=== PATIENT | female | born 1960 | race African-American/Black ===

== ENCOUNTER 2024-09-16 13:24 | Emergency (ER) | payer MEDICARE, MEDICAID ==
[~2024-09-16] VITALS: Ht 160 cm; Wt 72.7 kg
[2024-09-16 13:59] VITALS: PULSE 100; RESP 18; TEMP 98.2; O2SAT 96
--- NOTE | 2024-09-16 15:12 | ED.PDOC ---
History of Present Illness(SKN HPI Comments 64 y/o F, with PMHX of HTN and psoriasis presents to the ED for CC of facial pain. Patient states, that she has been experiencing facial pain with associated erythema x3days following using a new shampoo. Patient relays, she has developed a dry scaly rash that is red in appearance on her chest, face, and eyelids as a result. Patient comments on, irritability and itchiness to the sites. Patient denies skin barrier breakage, fever, chills, shortness of breath, or body aches. No other symptoms or modifying factors at this time. Chief Complaint: Face pain Time Seen by MD: 15:00 Primary Care Provider: SEBLE History of Present Illness: Nurses Notes, Medications, Allergies Allergies: Coded Allergies: Codeine (Unverified Allergy, Severe, 08/02/14) Erythromycin (Unverified Allergy, Severe, 08/02/14) Penicillins (Unverified Allergy, Severe, 08/02/14) Home Meds Active Scripts Diphenhydramine Hcl (Benadryl Allergy) 25 Mg Cap, 1 CAP PO QPM, #30 CAP 1 Refill Prov:GWENDOLYN EASTMAN MD 09/16/24 Methylprednisolone (Medrol Dosepak) 4 Mg Samy, 4 MG PO UD, #21 TAB UAD Prov:GWENDOLYN EASTMAN MD 09/16/24 Information Source: Patient Mode of Arrival: Ambulatory Severity: Moderate Timing: Days Duration: Since onset Prehospital treatment: None Location: Chest, Face Mechanism: Cosmetic Developed: Rash Object: None Condition of Object: None Wound Type: None Immunization Status of Animal: Unknown Tetanus: Unknown History of: None Associated Signs and Symptoms: None Past Medical History PAST MEDICAL HISTORY: Anxiety, HTN Surgical History: Appendectomy, Cholecystectomy, Hysterectomy AUTOMATION TENDER History: No Pertinent AUTOMATION TENDER History Family History Family History: Unknown Social History Smoker: Cigarettes, Less Than 1 Pack/Day Alcohol: Occasionally Drugs: Denies Drug Use Lives In: Home Constitutional: denies: chills, diaphoresis, fatigue, fever, malaise, sweats, weakness, others EENTM: denies: blurred vision, double vision, ear bleeding, ear discharge, ear drainage, ear pain, ear ringing, eye pain, eye redness, hearing loss, mouth pain, mouth swelling, nasal discharge, nose bleeding, nose congestion, nose pain, photophobia, tearing, throat pain, throat swelling, voice changes, others Respiratory: denies: cough, hemoptysis, orthopnea, SOB at rest, shortness of breath, SOB with excertion, stridor, wheezing, others Cardiovascular: denies: chest pain, dizzy spells, diaphoresis, Dyspnea on exertion, edema, irregular heart beat, left arm pain, lightheadedness, palpitations, PND, syncope, others Gastrointestinal: denies: abdomen distended, abdominal pain, blood streaked bowels, constipated, diarrhea, dysphagia, difficulty swallowing, hematemesis, melena, nausea, poor appetite, poor fluid intake, rectal bleeding, rectal pain, vomiting, others Genitourinary: denies: abnormal vagina bleeding, burning, dyspareunia, dysuria, flank pain, frequency, hematuria, incontinence, pain, , vagina disch arge, urgency, others Neurological: denies: dizziness, fainting, headache, left sided numbness, left sided weakness, numbness, paresthesia, pre-existing deficit, right sided numbness, right sided weakness, seizure, speech problems, tingling, tremors, weakness, others Musculoskeletal: denies: back pain, gout, joint pain, joint swelling, muscle pain, muscle stiffness, neck pain, others Integumetry: reports: rash; denies: bruises, change in color, change in hair/nails, dryness, laceration, lesions, lumps, wounds, others Allergic/Immunocompromised: denies: Difficulty Healing, Frequent Infections, Hives, Itching, others Hematologic/Lymphatic: denies: anemia, blood clots, easy bleeding, easy bruising, swollen glands, others Endocrine: denies: excessive hunger, excessive sweating, excessive thirst, excessive urination, flushing, intolerance to cold, intolerance to heat, unexplained weight gain, unexplained weight loss, others Psychiatric: denies: anxiety, bipolar disorder, depression, hopeless, panic disorder, schizophrenia, sleepless, suicidal, others All Other Systems: Reviewed and Negative Physical Exam General Appearance: Mild Distress HEENT: Normal ENT Inspection, Pharynx Normal, TMs Normal Neck: Full Range of Motion, Non-Tender, Normal, Normal Inspection Respiratory: Chest Non-Tender, Lungs Clear, No Accessory Muscle Use, No Respiratory Distress, Normal Breath Sounds Cardiovascular: No Edema, No JVD, No Murmur, No Gallop, Normal Peripheral Pulses, Regular Rate/Rhythm Breast Exam: Deferred Gastrointestinal: No Organomegaly, Non Tender, No Pulsatile Mass, Normal Bowel Sounds, Soft Genitalia: Deferred Pelvic: Deferred Rectal: Deferred Extremities: No calf tenderness, Normal capillary refill, Normal inspection, Normal range of motion, Non-tender, No pedal edema Musculoskeletal : Apperance: Normal Neurologic: Alert, 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 Was a procedure done?: No Differential Diagnosis (INTG) Differential Diagnosis: Cellulitis Differential Diagnosis: Atopic dermatitis, Contact Dermatitis, Psoriasis X-Ray, Labs, Meds, VS Vital Signs Date Time Temp Pulse Resp B/P (MAP) Pulse Ox O2 Delivery O2 Flow Rate FiO2 09/16/24 13:59 98.2 100 18 191/106 (134) 96 98.2 The patient was given prednisone and Benadryl here in the emergency department's The patient was being discharged and will follow up with the primary care doctor The patient will return to the emergency department's condition worsens The patient was being diagnosed with an acute allergic reaction The patient will follow up with their doctor Time of 1ST Reevaluation: 15:30 Reevaluation 1ST: Unchanged Patient Education/Counseling: Diagnosis, Treatment, Prognosis, Need For Follow Up Family Education/Counseling: No Family Present Departure 1 Departure Time of Disposition: 16:04 Impression: Primary Impression: Acute allergic reaction Qualified Codes: T78.40XA - Allergy, unspecified, initial encounter Disposition: HOME / SELF CARE / HOMELESS Condition: Fair e-Prescriptions Diphenhydramine Hcl (Benadryl Allergy) 25 Mg Cap 1 CAP PO QPM, #30 CAP 1 Refill Prov: GWENDOLYN AESTMAN MD 09/16/24 Methylprednisolone (Medrol Dosepak) 4 Mg Samy 4 MG PO UD, #21 TAB UAD Prov: GWENDOLYN EASTMAN MD 09/16/24 Discharged With: Self Critical Care Note Critical Care Time?: No Stability Stability form required: No Heart Score Heart Score: Heart Score Response (Comments) Value History N/A 0 EKG N/A 0 Age N/A 0 Risk Factors N/A 0 Troponin N/A 0 Total 0 I personally scribed for GWENDOLYN EASTMAN MD ([email or web address]) on 09/16/24 at 15:12. Electronically submitted by Yvette Garcia ([email or web address]). I personally scribed for GWENDOLYN EASTMAN MD ([email or web address]) on 09/16/24 at 15:28. Electronically submitted by Yvette Garcia ([employer]). GWENDOLYN EASTMAN MD Sep 16, 2024 15:12
[2024-09-16] MEDS ORDERED: DIPH25CA66 PO (16:02)
[2024-09-16] MEDS ORDERED: METH4PAK PO (16:02)
[2024-09-16] MEDS: diphenhdrAMINE HCL 25 MG CAP PO ONE (16:57)
[2024-09-16] MEDS: methylPREDNISolone SOD SUCC 125 MG/2 ML VL IM ONE (16:57)
[2024-09-16] MEDS: cloNIDine HCL 0.1 MG TAB PO ONE (17:27)
[2024-09-16 17:28] VITALS: BP 205/101
== END 2024-09-16 17:28 | disposition home or self-care (01) ==
LOC: ER 13:24
DX: T78.40XA Allergy, unspecified, initial encounter (principal); I10 Essential (primary) hypertension; F41.9 Anxiety disorder, unspecified; F17.210 Nicotine dependence, cigarettes, uncomplicated; Z90.49 Acquired absence of other specified parts of digestive tract; Z90.710 Acquired absence of both cervix and uterus; Z88.5 Allergy status to narcotic agent; Z88.1 Allergy status to other antibiotic agents; Z88.0 Allergy status to penicillin; X58.XXXA Exposure to other specified factors, initial encounter
CPT/HCPCS: 96372; 99283; J2919

== ENCOUNTER 2024-09-25 16:22 | Inpatient (IN) | payer MEDICARE, MEDICAID ==
[~2024-09-25] VITALS: Ht 160 cm; Wt 74.6 kg
[~2024-09-25 16:22] MED LIST: DIPH25CA66 PO; METH4PAK PO
--- NOTE | 2024-09-25 17:10 | DVH ---
EXAM: CT HEAD WITHOUT CONTRAST HISTORY: Hypertensive crisis COMPARISON: None TECHNIQUE: Axial images of the head were obtained and reformatted in coronal and sagittal planes. All CT scans at this medical facility are performed using dose modulation techniques as appropriate t o a performed exam including the following: Automated exposure control was utilized; adjustment of th e MA and/or KV according to patient size; and use of iterative reconstruction technique. CT Dose: CTDI volume is 52.39 mGy. Dose-length product is 863.9 mGy*cm FINDINGS: There small hypodense foci in the right and left thalamic regions (axial image 15). Age-indeterminate infarcts are not excluded. There are chronic microvascular ischemic changes in the supratentorial wh ite matter. There is a prominent perivascular space in the left basal ganglia. There is no evidence of acute intracranial hemorrhage, mass, mass effect midline shift. There is no h ydrocephalus or extra-axial fluid collection. The visualized paranasal sinuses and mastoid air cells are clear. The calvarium is intact. IMPRESSION: 1. Nonspecific small hypodense foci in the right and left thalamic regions. Age-indeterminate infarc ts are not excluded. Further evaluation with MRI brain with diffusion-weighted imaging is recommended . 2. There is no acute intracranial hemorrhage. HS:Y
--- NOTE | 2024-09-25 17:26 | DVH ---
EXAM: XY CHEST PORTABLE TECHNIQUE: Single frontal chest radiograph CLINICAL HISTORY: Hypertensive crisis COMPARISON: None Findings/Impression: Frontal chest radiograph demonstrates no acute osseous or superficial soft tissue abnormalities. The trachea is midline. The cardiac silhouette and mediastinum are within normal limits. Right upper and lower lung field patchy airspace opacities. No pneumothorax or pleural effusions.
[2024-09-25 17:27] LABS: Basophils # (auto) 0.1 10 ^3/uL (0-0.2); Basophils % (auto) 0.9 % (0.0-2.0); Eosinophils # (auto) 1.1 10 ^3/uL (0-0.8); Eosinophils % (auto) 8.6 % (0.0-7.0); Hematocrit 42.3 % (36.0-46.0); Hemoglobin 14.3 g/dL (12.2-16.2); Lymphocytes # (auto) 2.2 10 ^3/uL (0.4-5.4); Lymphocytes % (auto) 17.9 % (10.0-50.0); Mean Corpuscular Hemoglobin 30.4 pg (28.0-32.0); Mean Corpuscular Hgb Conc. 33.9 g/dL (32.0-36.0); Mean Corpuscular Volume 89.6 fL (80.0-100.0); Monocytes # (auto) 0.7 10 ^3/uL (0-1.3); Monocytes % (auto) 5.8 % (0.0-12.0); Neutrophils # (auto) 8.3 10 ^3/uL (1.6-8.6); Neutrophils % (auto) 66.8 % (37.0-80.0); Platelet Count (auto) 279 10^3/uL (140-450); Red Blood Cells 4.72 10^6/uL (4.0-5.20); Red Cell Distribution Width 15.2 % (11.8-14.3); White Blood Cell 12.4 10^3/uL (4.4-10.8)
--- NOTE | 2024-09-25 17:29 | ED.PDOC ---
HPI Allergic reaction HPI Comments Jensen: HPI: Poor Historian. 64y F who presents to the ED for chief complaint of allergic reaction. Pt had the following ED course: - pt states she has been having allergic reaction to the face, forehead, chest for the past 2 weeks. - pt states she came to [facility] 1 week prior and states she was given benadryl and steroids and discharged -pt states despite taking the medications, she has continued to have burning, itching and redness and exacerbation of her allergy symptoms - pt otherwise in the ED, has noted elevated BP of 257/99 after repeat measurement with pt having noted history of HTN and not taking medications for the past 6 weeks - pt in the ED, rates the pain 8/10, constant, burning like sensation with no noted exacerbation or relief of symptoms - pt vitals are otherwise stable in the ED, with no noted respiratory compromise past medical history: HTN, anxiety, psoriasis, cellulitis past surgical history: appendectomy, hysterectomy, cholecystomy, shoulder surgery medications: atenolol, allergies: penicillin, erythromycin, codeine social history: endorses tobacco use, endorses Etoh use, denies drug use REVIEW OF SYSTEMS: CONSTITUTIONAL: Denies acute: fever, diaphoresis, chills, generalized weakness. HEAD: Denies acute: headache, photophobia Eyes: Denies acute: Double vision, vision loss, eye pain, eye discharge. EARS: Denies acute: tinnitus, hearing loss, ear discharge, ear pain, THROAT: Denies acute: sore throat, swelling, difficulty swallowing , pain with swallowing, change in voice. NECK: Denies acute: neck pain, neck swelling, stiff neck. HEART: Denies acute : chest pain, palpitations, LUNGS: Denies acute: SOB, wheezing, cough, hemoptysis ABDOMEN: Denies acute: abdominal pain, Nausea, Vomiting, diarrhea, melena , hematemesis, hematochezia SKIN: Denies acute: EXTREMITIES: Denies acute: calf pain, numbness, tingling, weakness, denies pain in extremity. Denies acute: Low back pain. Neuro: Denies acute: focal neurological deficit, motor or sensory focal neurological deficit, tremors, seizure like activity, confusion, dizziness, change in mental status, loss of bowel or bladder function, cauda equina like symptoms. : Denies acute: dysuria, hematuria, flank pain, increase in urinary frequency. PSYCH: Denies acute: hallucination, suicidal ideation, homicidal ideation. FEMALE: Denies acute: abnormal vaginal bleeding, foul odor, unusual discharge. PHYSICAL EXAM: General: [id number] acute distress, awake and alert. Head: normocephalic, atraumatic. Neck: supple, trachea is midline, no swelling. Throat: Normal phonation. Eyes:, no erythema, no purulent discharge, no proptosis, no icterus. Heart: regular rate, regular rhythm, no significant murmur appreciated. Lungs: no apparent respiratory distress, Able to speak in full sentences. No wheezing, no rhonchi, no crackles. No stridors Clear to auscultation bilaterally. Abdomen: non tender to palpation, non distended, soft, no guarding, no rebound, + bowel sounds. Neuro: Awake, Alert, oriented to name, self, situation, follows commands GCS=15. Speech is normal. Skin: no petechia, no purpura, no cyanosis, non-pale, not jaundice. Noted generalized facial hives and chest and extremities. Patient describes it as burning itching sensation. Patient has psoriasis Lower extremities: --no - Pitting edema no deformity, no focal swelling, no calf TTP. Makes eye contact. moves all four extremities. Face: no apparent facial droop. Ambulating in the ED independently. ED COURSE: Chief Complaint: allergic reaction Time Seen by MD: 17:28 Primary Care Provider: NONE Reviewed Notes: Nurses Notes, Medications, Allergies Allergies: Coded Allergies: Codeine (Unverified Allergy, Severe, 08/02/14) Erythromycin (Unverified Allergy, Severe, 08/02/14) Penicillins (Unverified Allergy, Severe, 08/02/14) Home Meds Active Scripts Diphenhydramine Hcl (Benadryl Allergy) 25 Mg Cap, 1 CAP PO QPM, #30 CAP 1 Refill Prov:GWENDOLYN EASTMAN MD 09/16/24 Methylprednisolone (Medrol Dosepak) 4 Mg Samy, 4 MG PO UD, #21 TAB UAD Prov:GWENDOLYN EASTMAN MD 09/16/24 Information Source: Patient Mode of Arrival: Ambulatory Past Medical History PAST MEDICAL HISTORY: Anxiety, HTN Surgical History: Appendectomy, Cholecystectomy, Hysterectomy LINEMAN APPRENTICE History: No Pertinent LINEMAN APPRENTICE History Family History Family History: Unknown Social History Smoker: Cigarettes, Less Than 1 Pack/Day Alcohol: Occasionally Drugs: Denies Drug Use Lives In: Home Was a procedure done? Was a procedure done?: No Differential diagnosis (all) Differential Diagnosis: Anaphylaxis, Angioedema, Bronchospasm, Contact Dermatitis, Drug Reaction, Hypotension, Renal Failure, Respiratory Failure, Shock, Urticaria, Other (As far as the hypertension, DDX include renal disease, thyroid disease, electrolyte abnormality, increased salt intake, medications non-compliance, undiagnosed HTN, Hypertensive crisis, hypertensive urgency., drug toxicity. ) X-Ray, Labs, Meds, VS Vital Signs Date Time Temp Pulse Resp B/P (MAP) Pulse Ox O2 Delivery O2 Flow Rate FiO2 09/25/24 22:33 98.7 83 17 198/79 (118) 96 98.7 09/25/24 21:02 78 194/97 09/25/24 20:06 Room Air* 0 21 09/25/24 20:06 97.9 74 17 184/91 (122) 96 97.9 09/25/24 20:05 93 09/25/24 20:02 74 184/91 09/25/24 18:21 90 20 97 Room Air* 0 21 09/25/24 18:13 90 218/130 09/25/24 18:09 97.9 91 18 218/130 (159) 97 97.9 09/25/24 16:28 98.0 102 20 260/115 (163) 98 98.0 257/99 (151) Lab Test 09/25/24 19:55 09/25/24 18:07 09/25/24 17:10 Range/Units Lactic Acid Level 1.5 2.2 *H 0.4-2.0 mmol/L Troponin I High Sensitivity 35 *H 29 25 </=34 ng/L White Blood Count 12.4 H 4.4-10.8 10^3/uL Red Blood Count 4.72 4.0-5.20 10^6/uL Hemoglobin 14.3 12.2-16.2 g/dL Hematocrit 42.3 36.0-46.0 % Mean Corpuscular Volume 89.6 80.0-100.0 fL Mean Corpuscular Hemoglobin 30.4 28.0-32.0 pg Mean Corpuscular Hemoglobin Concent 33.9 32.0-36.0 g/dL Red Cell Distribution Width 15.2 H 11.8-14.3 % Platelet Count 279 140-450 10^3/uL Mean Platelet Volume 8.4 6.9-10.8 fL Neutrophils (%) (Auto) 66.8 37.0-80.0 % Lymphocytes (%) (Auto) 17.9 10.0-50.0 % Monocytes (%) (Auto) 5.8 0.0-12.0 % Eosinophils (%) (Auto) 8.6 H 0.0-7.0 % Basophils (%) (Auto) 0.9 0.0-2.0 % Neutrophils # (Auto) 8.3 1.6-8.6 10 ^3/uL Lymphocytes # (Auto) 2.2 0.4-5.4 10 ^3/uL Monocytes # (Auto) 0.7 0-1.3 10 ^3/uL Eosinophils # (Auto) 1.1 H 0-0.8 10 ^3/uL Basophils # (Auto) 0.1 0-0.2 10 ^3/uL Nucleated Red Blood Cells 0.0 % Erythrocyte Sedimentation Rate 10 0-20 mm/hr Sodium Level 144 136-145 mmol/L Potassium Level 4.0 3.5-5.1 mmol/L Chloride Level 110 H 98-107 mmol/L Carbon Dioxide Level 25 20-31 mmol/L Anion Gap 9 5-15 Blood Urea Nitrogen 27 H 9-23 mg/dL Creatinine 1.10 H 0.550-1.02 mg/dL Glomerular Filtration Rate Calc 56 >90 mL/min BUN/Creatinine Ratio 24.5 H 10.0-20.0 Serum Glucose 157 H 74-106 mg/dL Calcium Level 10.0 8.7-10.4 mg/dL Total Bilirubin 0.2 0.2-1.0 mg/dL Aspartate Amino Transferase (AST) 10 L 13-40 U/L Alanine Aminotransferase (ALT) 12 7-40 U/L Alkaline Phosphatase 76 46-116 U/L C-Reactive Protein High Sensitivity 0.81 <1.0 mg/dL B-Type Natriuretic Peptide 59.79 0-100 pg/mL Total Protein 6.5 5.7-8.2 g/dL Albumin 4.4 3.2-4.8 g/dL Current Medications Medications (Trade) Dose Ordered Sig/Minerva Route Start Time Stop Time Status Last Admin Famotidine (Pepcid Injection) 20 mg ONCE ONCE IV 09/25/24 17:15 09/25/24 17:16 DC 09/25/24 18:14 Diphenhydramine HCl (Benadryl Injection) 50 mg ONCE ONCE IV 09/25/24 17:15 09/25/24 17:16 DC 09/25/24 18:14 Methylprednisolone Sodium Succinate (Solu Medrol) 125 mg ONCE ONCE IV 09/25/24 17:15 09/25/24 17:16 DC 09/25/24 18:13 Labetalol HCl (Labetalol HCl) 5 mg ONCE ONCE IV 09/25/24 17:15 09/25/24 17:16 DC 09/25/24 18:13 Levofloxacin (Levaquin Tablet) 750 mg ONCE ONCE PO 09/25/24 19:00 09/25/24 19:01 DC 09/25/24 20:01 Labetalol HCl (Labetalol HCl) 10 mg STAT ONCE IV 09/25/24 19:00 09/25/24 19:01 DC 09/25/24 20:02 [place] [address] Ph: [phone] DIAGNOSTIC IMAGING Diagnostic Imaging Report : [id number] Signed PATIENT: AYAH GUERRIER ACCT: [id number] UNIT: [id number] : 1960 LOC: ER ROOM / BED: / AGE / SEX: 64 / F ADM STATUS: REG ER SERVICE [id number] ORDERING PHYSICIAN: MICHAEL HAMILTON DO PROCEDURE(s): HWOCT - HEAD WITHOUT CONTRAST REASON: Hypertensive crisis ORDER NUMBER(s): [id number], ACCESSION NUMBER(s): [id number] EXAM: CT HEAD WITHOUT CONTRAST HISTORY: Hypertensive crisis COMPARISON: None TECHNIQUE: Axial images of the head were obtained and reformatted in coronal and sagittal planes. All CT scans at this medical facility are performed using dose modulation techniques as appropriate to a performed exam including the following: Automated exposure control was utilized; adjustment of the MA and/or KV according to patient size; and use of iterative reconstruction technique. CT Dose: CTDI volume is 52.39 mGy. Dose-length product is 863.9 mGy*cm FINDINGS: There small hypodense foci in the right and left thalamic regions (axial image 1 5). Age-indeterminate infarcts are not excluded. There are chronic microvascular ischemic changes in the supratentorial white matter. There is a prominent perivascular space in the left basal ganglia. There is no evidence of acute intracranial hemorrhage, mass, mass effect midline shift. There is no hydrocephalus or extra-axial fluid collection. The visualized paranasal sinuses and mastoid air cells are clear. The calvarium is intact. IMPRESSION: 1. Nonspecific small hypodense foci in the right and left thalamic regions. Age-indeterminate infarcts are not excluded. Further evaluation with MRI brain with diffusion-weighted imaging is recommended. 2. There is no acute intracranial hemorrhage. HS:Y ATED BY: WILMAN SLOAN MD DICTATED DATE/TIME: 09/25/241707 SIGNED BY: WILMAN SLOAN MD SIGNED DATE/TIME: 09/25/241707 CC: [place] [id number] Ph: [phone] DIAGNOSTIC IMAGING Diagnostic Imaging Report : [id number] Signed PATIENT: AYAH GUERRIER ACCT: [id number] UNIT: [id number] : 1960 LOC: ER ROOM / BED: / AGE / SEX: 64 / F ADM STATUS: REG ER SERVICE ORDERING PHYSICIAN: MICHAEL HAMILTON DO PROCEDURE(s): CXRP - CHEST PORTABLE REASON: Hypertensive crisis ORDER NUMBER(s): [id number], ACCESSION NUMBER(s): [id number] EXAM: XY CHEST PORTABLE TECHNIQUE: Single frontal chest radiograph CLINICAL HISTORY: Hypertensive crisis COMPARISON: None Findings/Impression: Frontal chest radiograph demonstrates no acute osseous or superficial soft tissue abnormalities. The trachea is midline. The cardiac silhouette and mediastinum are within normal limits. Right upper and lower lung field patchy airspace opacities. No pneumothorax or pleural effusions. ATED BY: MARYJANE ALLRED DO DICTATED DATE/TIME: 09/25/241723 SIGNED BY: MARYJANE ALLRED DO SIGNED DATE/TIME: 09/25/241723 CC: Time of 1ST Reevaluation: 20:05 (Patient was given allergic reaction medications and she improved slightly but it rebounded again. Patient continues to be hypertensive. I will start her on a antihypertensive drip.) Reevaluation 1ST: Unchanged Time of 2ND Reevaluation: 22:49 Reevaluation 2ND: Improved Patient Education/Counseling: Diagnosis, Treatment Family Education/Counseling: No Family Present Comments Patient presented with the above HPI.---allergic reaction---workup was initiated. patient was found with the above mentioned diagnosis. Patient was found with hypertensive crisis as well. the following medications were ordered: please refer to order lists of meds and tests obtained by myself Dr. Hamilton. Patient ED course and VS have been stabilized. Patient has been reassessed in the ED and remained in a stable condition. Pertinent incidental findings were discussed with the patient and/or family. Patient/family voices understanding and is agreeable with plan. Patient has been observed in the ED adequate length of time to insure improvement/stability. Escalation of care considered: Consideration of escalation to observation or admission Patient was ADMITTED to the medicine team for further evaluation and treatment of their presentation. All the reports of any imaging studies that were ordered by myself were reviewed by myself. Departure 1 Departure Time of Disposition: 20:04 Impression: Primary Impression: Acute allergic reaction Additional Impressions: Uncontrolled hypertension Hypertensive crisis Disposition: ADMITTED INPATIENT Admit to: Tele Condition: Guarded Discharged With: Self Critical Care Note Critical Care Time?: Yes (45 min-critical care time only) I personally scribed for MICHAEL HAMILTON DO ([email or web address]) on 09/25/24 at 17:29. Electronically submitted by Selina Avila ([email or web address]). I personally scribed for MICHAEL HAMILTON DO ([email or web address]) on 09/25/24 at 17:30. Electronically submitted by Selina Avila ([email or web address]). I personally scribed for MICHAEL HAMILTON DO ([email or web address]) on 09/25/24 at 17:33. Electronically submitted by Selina Avila ([email or web address]). MICHAEL HAMILTON DO Sep 25, 2024 17:29
[2024-09-25 17:41] LABS: Alanine Aminotransferase 12 U/L (7-40); Albumin 4.4 g/dL (3.2-4.8); Alkaline Phosphatase 76 U/L (46-116); Anion Gap 9 (5-15); BUN/Creatinine Ratio 24.5 (10.0-20.0); Carbon Dioxide 25 mmol/L (20-31); Sodium 144 mmol/L (136-145); Total Protein 6.5 g/dL (5.7-8.2)
[2024-09-25 17:43] LABS: Aspartate Aminotransferase 10 U/L (13-40); Bilirubin, Total 0.2 mg/dL (0.2-1.0); Blood Urea Nitrogen 27 mg/dL (9-23); Chloride 110 mmol/L (98-107); Glucose 157 mg/dL (74-106)
[2024-09-25 17:46] LABS: Lactic Acid w/Reflex 2.2 mmol/L (0.4-2.0)
[2024-09-25 17:56] LABS: Erythrocyte Sedimentation Rate 10 mm/hr (0-20)
[2024-09-25] MEDS: LABETALOL HCL 20 MG/4 ML VL IV ONE ×2 (18:13→20:02)
[2024-09-25] MEDS: methylPREDNISolone SOD SUCC 125 MG/2 ML VL IV ONE (18:13)
[2024-09-25] MEDS: FAMOTIDINE (10MG/ML) 2ML VL IV ONE (18:14)
[2024-09-25] MEDS: diphenhdrAMINE HCL 50 MG/1 ML VL IV ONE (18:14)
[2024-09-25 18:21] VITALS: PULSE 90; RESP 20; O2SAT 97
[2024-09-25 18:28] LABS: CRP High Sensitivity 0.81 mg/dL (<1.0)
[2024-09-25] MEDS: levoFLOXacin 250 MG TAB PO ONE (20:01)
[2024-09-25 23:12] VITALS: PULSE 84; RESP 16; O2SAT 96
[2024-09-25] MEDS ORDERED: NITROGLYCERIN 0.4 MG SL TAB SL PRN (23:45)
[2024-09-25] MEDS ORDERED: HYDROcodone-ACET 5/325MG TAB PO PRN (23:45)
[2024-09-25] MEDS ORDERED: ALBUTEROL SULF 2.5 MG/0.5ML(0.5%) NEB SOLN NEB PRN (23:45)
[2024-09-25] MEDS ORDERED: MORPHINE SULFATE INJ 2 MG/ml SYRG IV PRN (23:45)
[2024-09-25] MEDS ORDERED: ONDANSETRON HCL 4 MG/2 ML VIAL IV PRN (23:45)
[2024-09-25] MEDS ORDERED: diphenhdrAMINE HCL 50 MG/1 ML VL IV PRN (23:45)
[2024-09-25] MEDS: amLODIPine BESYLATE 5 MG TAB PO ONE (23:45)
[2024-09-25] MEDS ORDERED: ACETAMINOPHEN 325 MG TAB PO PRN (23:45)
--- NOTE | 2024-09-25 23:52 | DVHHPRES ---
History of Present Illness Resident Creating Document: [facility] History of Present Illness This is a 64-year-old female with a past medical history hypertension, psoriasis, anxiety, bipolar, panic attack, and possible chronic aortic area (chronic hives), came to the hospital due to rashes. Rashes or red, mildly raised, itchy/burning, distributed all over the body more prominently on the neck and face. Per patient she has intermittent flare-up of these rashes (hives) since she was in 20s, and has the recent flare-up since 1 week for which she has used prednisone (1 week package) and Benadryl, but did not improved which prompted this visit. She also reports anxiety, shortness of breaths, and chest discomfort. Upon admission, blood pressure was found high at 260/115. During my assessment, the patient was not fully oriented, oriented to place and person but disoriented to time. Previous hospitalization: Patient presented with same symptoms 1 week back and was given prednisone and Benadryl for 1 week, but did not improve the rashes. PMHx: hypertension, psoriasis, anxiety, bipolar, panic attack, and possible chronic urticaria (chronic hives) PSHx: Cholecystectomy, appendectomy, and shoulder surgery. Family history: Significant for cancer, mom had breast cancer, sister had esophageal cancer. Social history: She lives at [facility] with her sister, came to [facility] to visit her son, Current smoker with 20 pack year history, drank occasionall, denies any other drug use. Home medication: Patient has run out of medicine since long time and do not use medicine at the moment. Allergic history: Codeine, penicillin, erythromycin Review of Systems Review of Systems General: patient denies fever, fatigue, weaknes, sweating, any recent changes in appetite and weight HEENT: No headaches, visiual changes, hearing loss, tinnitus, nasal congestion and discharge, and sore throat. Cardiovascular: Reports chest discomfort Respiratory: Reports shortness of breaths Gastrointestinal: Denies nausea, vomiting, dysphagia, odynophagia, heartburn, abdominal pain, flatulence, bloating, diarrhea, constipation, change in stool, or blood in stool. Genitourinary: No dysuria, hematuria, discharge, frequency, urgency, nocturia, incontinence, and urinary retention. Endocrine: No heat or cold intolerance, polydipsia, polyuria, and polyphagia. Neurological: No dizziness, extremity weakness and numbness, tremors, gait disturbance, seizures, and memory impairment. Psychiatric: Denies depression, anxiety,or insomnia. Musculoskeletal: Chronic eczematous rashes on dorsal surface of bilateral lower limb, psoriatic plaque on elbow Skin: Reports burning/itchy generalized rashes more prominent on face and neck Hematologic/Lymphatic: Denies easy bruising, bleeding tendencies, or lymph node enlargement. Allergies: Coded Allergies: Codeine (Unverified Allergy, Severe, 08/02/14) Erythromycin (Unverified Allergy, Severe, 08/02/14) Penicillins (Unverified Allergy, Severe, 08/02/14) Medications Current Medications Medications Dose Ordered Sig/Minerva Route Start Time Stop Time Status Last Admin Dose Admin Nicardipine HCl 250 ml @ 50 mls/hr Q5H IV 09/25/24 20:15 09/25/24 23:01 50 MLS/HR Exam Vital Signs Vital Signs Date Time Temp Pulse Resp B/P (MAP) Pulse Ox O2 Delivery O2 Flow Rate FiO2 09/25/24 23:16 85 17 170/73 (105) 96 09/25/24 23:12 Room Air* 0 21 09/25/24 23:06 98.7 98.7 Exam General Appearance: Alert, Oriented to place and person, disoriented to time HEENT: Atraumatic, PERRLA, EOMI, Mucous membrane moist/pink Respiratory: Clear to auscultation, Normal air movement Cardiovascular: Regular rate, Normal S1, Normal S2, No murmurs, no chest wall tenderness Abdominal: Normal bowel sounds, Soft, No tenderness, No hepatospenomegaly, No masses Extremities: No clubbing, No cyanosis, No edema, Normal pulses, No tenderness/swelling Skin: Chronic eczematous rashes on dorsal surface of bilateral lower limb, psoriatic plaque on elbow, red diffuse plaques all over the body more promine ntly on face and neck Neuro: Normal gait, Normal speech, Strength at 5/5 X4 ext, Normal tone, Sensation intact, Cranial nerves 3-12 NL, Reflexes 2+ Psych/Mental Status: Mental status NL, Mood NL Labs/Xrays Labs Test 09/25/24 19:55 09/25/24 17:10 Range/Units Lactic Acid Level 1.5 0.4-2.0 mmol/L Troponin I High Sensitivity 35 *H </=34 ng/L White Blood Count 12.4 H 4.4-10.8 10^3/uL Red Blood Count 4.72 4.0-5.20 10^6/uL Hemoglobin 14.3 12.2-16.2 g/dL Hematocrit 42.3 36.0-46.0 % Mean Corpuscular Volume 89.6 80.0-100.0 fL Mean Corpuscular Hemoglobin 30.4 28.0-32.0 pg Mean Corpuscular Hemoglobin Concent 33.9 32.0-36.0 g/dL Red Cell Distribution Width 15.2 H 11.8-14.3 % Platelet Count 279 140-450 10^3/uL Mean Platelet Volume 8.4 6.9-10.8 fL Neutrophils (%) (Auto) 66.8 37.0-80.0 % Lymphocytes (%) (Auto) 17.9 10.0-50.0 % Monocytes (%) (Auto) 5.8 0.0-12.0 % Eosinophils (%) (Auto) 8.6 H 0.0-7.0 % Basophils (%) (Auto) 0.9 0.0-2.0 % Neutrophils # (Auto) 8.3 1.6-8.6 10 ^3/uL Lymphocytes # (Auto) 2.2 0.4-5.4 10 ^3/uL Monocytes # (Auto) 0.7 0-1.3 10 ^3/uL Eosinophils # (Auto) 1.1 H 0-0.8 10 ^3/uL Basophils # (Auto) 0.1 0-0.2 10 ^3/uL Nucleated Red Blood Cells 0.0 % Erythrocyte Sedimentation Rate 10 0-20 mm/hr Sodium Level 144 136-145 mmol/L Potassium Level 4.0 3.5-5.1 mmol/L Chloride Level 110 H 98-107 mmol/L Carbon Dioxide Level 25 20-31 mmol/L Anion Gap 9 5-15 Blood Urea Nitrogen 27 H 9-23 mg/dL Creatinine 1.10 H 0.550-1.02 mg/dL Glomerular Filtration Rate Calc 56 >90 mL/min BUN/Creatinine Ratio 24.5 H 10.0-20.0 Serum Glucose 157 H 74-106 mg/dL Calcium Level 10.0 8.7-10.4 mg/dL Total Bilirubin 0.2 0.2-1.0 mg/dL Aspartate Amino Transferase (AST) 10 L 13-40 U/L Alanine Aminotransferase (ALT) 12 7-40 U/L Alkaline Phosphatase 76 46-116 U/L C-Reactive Protein High Sensitivity 0.81 <1.0 mg/dL B-Type Natriuretic Peptide 59.79 0-100 pg/mL Total Protein 6.5 5.7-8.2 g/dL Albumin 4.4 3.2-4.8 g/dL Assessment/Plan Assessment/Plan Acute toxic encephalopathy, likely due to fentanyl overdose Fentanyl overdose Head CT scan shows, Nonspecific small hypodense foci in the right and left thalamic regions. Age-indeterminate infarcts are not excluded. Further evaluation with MRI brain with diffusion-weighted imaging is recommended UDS shows fentanyl positive Patient maintains oxygen saturation at room air, pupils are mid dilated and reactive to the light Narcan p.r.n. Hypertensive emergency KATHLEEN, likely due to above/VMN NSTEMI, type 2, likely due to above EKGs shows normal sinus rhythm with no ST or T-wave changes Nicardipine drip Amlodipine Atorvastatin Chronic urticarial lesions, with flare-up Unknown allergic reaction History of psoriasis IV methylprednisolone 125 mg once Prednisone 60 mg daily Local steroid for rashes Benadryl Breathing treatment Bipolar disorder Anxiety with panic attacks Ativan p.r.n. Dyslipidemia, atorvastatin Prediabetes DIET: Cardiac diet DVT PROPHYLAXIS: Lovenox GI PROPHYLAXIS:: Famotidine CODE STATUS: Goal of care discussed for more than 18 minutes, full code DISPOSITION: Telemetry Patient's status and plan discussed with the patient. Case discussed with Dr. Caldwell. Plan discussed with: Patient, Other (RN) My Orders Orders - KIARRA HASKINS RESMASON Procedure Category Date Status Time Admit ADMIT 09/25/24 Verified 23:37 Code Status CODE 09/25/24 Verified 23:37 Vital Signs [facility] 09/25/24 Verified 23:37 Review Orders With TATUM 09/25/24 Verified Adm. 23:37 Consistent DIET 09/26/24 Verified Carb(Ccho)Diabetes Breakfast Acetaminophen Tablet PHA 09/25/24 Verified (Tylenol Tablet) 23:45 Notify Of Changes [facility] 09/25/24 Verified From Base 23:37 Advance Directive [facility] 09/25/24 Verified 23:37 Echo 2d Mode Cardiac US 09/25/24 Verified DOP 23:37 Lipid Panel LAB 09/25/24 Verified 23:37 Blood Culture DARIAN 09/25/24 Verified 23:37 Urine Bacterial DARIAN 09/25/24 Verified Culture 23:37 Patient Condition ORDERS 09/25/24 Verified 23:37 Allergies [facility] 09/25/24 Verified 23:37 Hydrocodone-Acet PHA 09/25/24 Verified 5/325mg Tab ([place] 23:45 Ondansetron Hcl PHA 09/25/24 Verified (Zofran) 23:45 Drug Screen LAB 09/25/24 Verified 23:37 Hemoglobin A1c LAB 09/25/24 Verified 23:37 Lovenox 40mg PHA 09/26/24 Verified 10:00 Nitroglycerin PHA 09/25/24 Verified Sublingual (Ntrostat 23:45 Stat Ekg For Chest [facility] 09/25/24 Verified Pain 23:37 Notify Md Of Changes [facility] 09/25/24 Verified From Base 23:37 Import/Export Administrator For [facility] 09/25/24 Verified 24 Hours 23:37 Emergency Dysrhythmia [facility] 09/25/24 Verified Protocol 23:37 Rhythm Strips Once [facility] 09/25/24 Verified Every Shift 23:37 Morphine Sulfate PHA 09/25/24 Verified Injection 23:45 Magnesium LAB 09/25/24 Verified 23:37 Blood Alcohol LAB 09/25/24 Verified 23:37 Urine Sodium LAB 09/25/24 Verified 23:37 Urine LAB 09/25/24 Verified Protein/Creatinine Urine Creatinine LAB 09/25/24 Verified 23:37 Complete Blood Count LAB 09/26/24 Verified 04:00 Comprehensive LAB 09/26/24 Verified Metabolic Panel 04:00 Covid19 Antigen Mine LAB 09/25/24 Verified D-Dimer LAB 09/25/24 Verified 23:37 PTPTT LAB 09/26/24 Verified 04:00 Vitamin D, 25-Hydroxy LAB 09/25/24 Verified 23:37 Troponin-I Hs LAB 09/25/24 Verified 23:37 Troponin-I Hs LAB 09/26/24 Verified 00:37 Troponin-I Hs LAB 09/26/24 Verified 02:37 Amlodipine Tablet PHA 09/25/24 Verified (Norvasc Tablet) 23:45 Amlodipine Tablet PHA 09/26/24 Verified (Norvasc Tablet) 10:00 Diphenhdramine PHA 09/25/24 Verified Injection (Benadryl 23:45 Famotidine Injection PHA 09/26/24 Verified (Pepcid Injection) 10:00 Prednisone Tablet PHA 09/26/24 Verified 10:00 Albuterol Medneb PHA 09/25/24 Verified (Ventolin Medneb) 23:45 Albuterol Medneb PHA 09/25/24 Verified (Ventolin Medneb) 23:45 NS PHA 09/25/24 Verified 23:45 Date of Service: Sep 25, 2024 Billing Provider: STEVEN CALDWELL MD Common Visit Codes: 29550-DQOQEQL INP/OBS CARE (HIGH) Secondary Visit Codes: 95254-UKWBDGFG CARE PLAN 30 MINUTES KIARRA HASKINS Sep 25, 2024 23:52 STEVEN CALDWELL MD Sep 26, 2024 11:25
[2024-09-26] VITALS (28 sets, daily range): BP systolic 134–171; BP diastolic 56–91; PULSE 95–104; RESP 14–37; TEMP 98–98.5; O2SAT 91–99
[2024-09-26] MEDS: SODIUM CHLORIDE 0.9% 1,000 ML IV ONE (00:27)
[2024-09-26] MEDS: KETOROLAC TROMETH 30 MG/ML 1ML VIAL IV ONE (00:27)
[2024-09-26] MEDS: FAMOTIDINE (10MG/ML) 2ML VL IV ONE (00:28)
[2024-09-26] MEDS: LORazepam 2MG/ML-1ML VIAL IV ONE (00:28)
[2024-09-26 00:33] LABS: Blood Alcohol 3.1 mg/dL (<10); Magnesium 1.9 mg/dL (1.6-2.6); Triglycerides 82 mg/dL (< 150)
[2024-09-26 00:34] LABS: LDL Cholesterol 156 mg/dL (< 100)
[2024-09-26] MEDS: ALBUTEROL SULF 2.5 MG/0.5ML(0.5%) NEB SOLN NEB ONE (00:34)
[2024-09-26 00:35] LABS: HDL Cholesterol 53 mg/dL (40-59)
[2024-09-26 00:40] LABS: Cholesterol 215 mg/dL (< 200)
[2024-09-26 02:53] LABS: Protein, Urine 36.9 mg/dL (1-14)
[2024-09-26 02:56] LABS: Creatinine, Urine 93.23 mg/dL (30.0-125.0); Creatinine, Urine 94.32 mg/dL (30.0-125.0); Opiate Scree,Urine Neg (NEGATIVE); Phencyclidine Screen, Urine Neg (NEGATIVE); Urine Protein/Creatinine Ratio 0.4
[2024-09-26 02:58] LABS: Amphetamine Screen, Urine Neg (NEGATIVE); Barbiturate Scree,Urine Neg (NEGATIVE)
[2024-09-26 02:59] LABS: Benzodiazephine Screen, Urine Neg (NEGATIVE); Cannabinoid Screen, Urine Neg (NEGATIVE); Cocaine Screen, Urine Neg (NEGATIVE)
[2024-09-26 03:20] LABS: Urine Bacteria MOD /hpf (None Seen); Urine Blood Negative /uL (Negative); Urine Clarity Clear (Clear); Urine Color Light-Yellow (Yellow); Urine Mucus FEW (None Seen); Urine Protein, UAD TRACE (Negative); Urine Squamous Epithelial Cell FEW /hpf (<5); Urine Urobilinogen Normal (Negative); Urine WBC 4 /HPF (0-5)
[2024-09-26 03:51] LABS: Basophils # (auto) 0.1 10 ^3/uL (0-0.2); Basophils % (auto) 0.6 % (0.0-2.0); Eosinophils # (auto) 0 10 ^3/uL (0-0.8); Hematocrit 42.1 % (36.0-46.0); Hemoglobin 13.9 g/dL (12.2-16.2); Lymphocytes # (auto) 0.9 10 ^3/uL (0.4-5.4); Lymphocytes % (auto) 6.4 % (10.0-50.0); Mean Corpuscular Hemoglobin 29.8 pg (28.0-32.0); Mean Corpuscular Hgb Conc. 33.1 g/dL (32.0-36.0); Mean Corpuscular Volume 90.2 fL (80.0-100.0); Monocytes # (auto) 0.1 10 ^3/uL (0-1.3); Monocytes % (auto) 0.8 % (0.0-12.0); Neutrophils # (auto) 12.2 10 ^3/uL (1.6-8.6); Neutrophils % (auto) 92.2 % (37.0-80.0); Platelet Count (auto) 272 10^3/uL (140-450); Red Blood Cells 4.67 10^6/uL (4.0-5.20); Red Cell Distribution Width 15.5 % (11.8-14.3); White Blood Cell 13.3 10^3/uL (4.4-10.8)
[2024-09-26 04:09] LABS: Alanine Aminotransferase 13 U/L (7-40); Albumin 4.4 g/dL (3.2-4.8); Alkaline Phosphatase 67 U/L (46-116); Anion Gap 13 (5-15); Aspartate Aminotransferase 15 U/L (13-40); BUN/Creatinine Ratio 24.6 (10.0-20.0); Calcium 9.4 mg/dL (8.7-10.4); Potassium 3.9 mmol/L (3.5-5.1); Sodium 143 mmol/L (136-145); Total Protein 6.7 g/dL (5.7-8.2)
[2024-09-26 04:18] LABS: Bilirubin, Total 0.3 mg/dL (0.2-1.0); Blood Urea Nitrogen 28 mg/dL (9-23); Carbon Dioxide 18 mmol/L (20-31); Chloride 112 mmol/L (98-107); Glucose 215 mg/dL (74-106)
[2024-09-26] MEDS: ATORVASTATIN 20 MG TAB PO ONE (04:50)
[2024-09-26] MEDS ORDERED: VANCOMYCIN PER PHARMACY 0 MG IV SCH (05:45)
[2024-09-26 05:46] LABS: INR 1.02 (0.9-1.15); Partial Thromboplastin Time 26.6 SEC (24.5-34.5); Prothrombin Time 10.8 sec (9.3-11.8)
--- NOTE | 2024-09-26 05:51 | ECG ---
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
[2024-09-26] MEDS ORDERED: NALOXONE HCL 0.4 MG/ML VIAL IV PRN (06:00)
[2024-09-26] MEDS: cefTRIAXone 1GM/50ML D5W 50 ML IV SCH (06:24)
[2024-09-26] MEDS: LACTATED RINGER'S 1,000 ML IV SCH (06:29)
[2024-09-26] MEDS: FAMOTIDINE (10MG/ML) 2ML VL IV SCH (08:01)
--- NOTE | 2024-09-26 09:01 | DVHPNRES ---
Progress Note Date Seen: Sep 26, 2024 Resident Creating Document: MIGUELADRIENGARTH RESIDENT Subjective Review of Systems HPI- Patient is 64-year-old female with a past medical history hypertension, psoriasis, anxiety, bipolar, panic attack, and possible chronic urtecaria (chronic hives) came with a complaint of worsening rashes all over her body with burning pain. Per patient she has been having worsening rash for last 2 weeks on her face, the chest on the back, on the hands and lower extremity. Rashes associated with a burning pain. As per patient she came to the [facility] 2 weeks before and got some steroid and other treatment got a little bit better and sent home with prednisolone but it got flared up shortly after discharge. Patient also complained of chronic chest pain and shortness of breaths which she attributed to her panic attack. Patient denied any fever, any dysuria, acute joint redness or swelling, acute constipation or diarrhea or dysarthria. On arrival patient was hypertensive, blood pressure found to be 260/115, patient was given labetalol, amlodipine. Initial lab workup revealed leukocytosis with WBC 12.4, hemoglobin 14.3, platelets 279, sodium 144, potassium 4, BUN 27, serum creatinine 1.1, HGB A1c 5.8, lactic acid 2.2 magnesium 1.9, troponin I 35> 28> 193, P59.79, cholesterol 215, LDL 156, HDL 53, urinalysis with suspected UTI with leukocyte esterase 1+, WBC 4, bacteria moderate, UDS positive for fentanyl. EKG with sinus rhythm. Doppler study of the lower extremity revealed DVT in the right lower extremity. Previous hospitalization: Patient presented with same symptoms 1 week back and was given prednisone and Benadryl for 1 week, but did not improve the rashes. PMHx: hypertension, psoriasis, anxiety, bipolar, panic attack, and possible chronic urticaria (chronic hives) PSHx: Cholecystectomy, appendectomy, and shoulder surgery. Family history: Significant for cancer, mom had breast cancer, sister had esophageal cancer. Social history: She lives at [facility] with her sister, [facility], Current smoker with 20 pack year history, drank occasionall, denies any other drug use. Home medication: Patient has run out of medicine since long time and do not use medicine at the moment. Allergic history: Codeine, penicillin, erythromycin Patient was seen today at the bedside. Cardiovascular- endorsed some shortness of breaths but saturation well in room air Respiratory -complained of shortness of breaths but saturating well in room air Gastrointestinal- denies any rectal bleeding, nausea or vomiting Musculoskeletal-denies acute joint swelling or tenderness or redness Neurological- denies acute dysarthria, dysphagia, change in vision Psychiatry- denies depression or SI or HI Skin- denies acute rash or purpura Patient was seen today for clinical evaluation. Labs and chart reviewed. Patient looks anxious, complains of shortness of breaths but saturating 99-100% in room air, lung sounds clear on auscultation Patient has rash on her face, on the neck and the upper back, on the bilateral elbow, bilateral knees, on the foot, on the lower back, mildly on the knee joint Doppler Study of the lower extremity positive for DVT right lower extremity Ordered echo 2D and V/Q scan for further evaluation and care Order for heparin in place for DVT Objective vital signs Vital Sign Date Time Temp Pulse Resp B/P (MAP) Pulse Ox O2 Delivery O2 Flow Rate FiO2 09/26/24 07:42 102 151/83 09/26/24 07:01 15 97 09/26/24 01:55 98.5 98.5 09/25/24 23:12 Room Air* 0 21 Total Intake and Output 09/25/24 09/25/24 09/26/24 15:00 23:00 07:00 Intake Total 222.5 ml Balance 222.5 ml medications Current Medications Medications Dose Ordered Sig/Minerva Route Start Time Stop Time Status Last Admin Dose Admin Nicardipine HCl 250 ml @ 50 mls/hr Q5H IV 09/25/24 20:15 09/26/24 07:42 125 MLS/HR Acetaminophen 650 mg Q6HP PRN PO 09/25/24 23:45 Acetaminophen/ Hydrocodone Bitart 1 tab Q4HP PRN PO 09/25/24 23:45 Ondansetron HCl 4 mg Q4HP PRN IV 09/25/24 23:45 Enoxaparin Sodium 40 mg DAILY SC 09/26/24 10:00 Nitroglycerin 0.4 mg Q5MINP PRN SL 09/25/24 23:45 Morphine Sulfate 2 mg Q30M PRN IV 09/25/24 23:45 Amlodipine Besylate 10 mg DAILY PO 09/26/24 10:00 Diphenhydramine HCl 25 mg Q4HP PRN IV 09/25/24 23:45 Famotidine 20 mg Q12HR IV 09/26/24 10:00 09/26/24 08:01 20 MG Prednisone 60 mg DAILY PO 09/26/24 10:00 Albuterol 2.5 mg Q4HPRN PRN NEB 09/25/24 23:45 Hydrocortisone 1 applic BID TOP 09/26/24 10:00 Betamethasone Dipropion Augmented 1 applic BID TOP 09/26/24 10:00 Atorvastatin Calcium 40 mg HS PO 09/26/24 22:00 Ceftriaxone Sodium 50 ml @ 100 mls/hr DAILY@09 IV 09/26/24 05:30 09/26/24 06:24 100 MLS/HR Vancomycin HCl 0 ml @ 0 mls/hr UD IV 09/26/24 05:45 UNV Lactated Ringer's 1,000 ml @ 75 mls/hr [id number] IV 09/26/24 06:00 09/26/24 06:29 75 MLS/HR Naloxone HCl 0.4 mg Q6HP PRN IV 09/26/24 06:00 Examination General examination- alert, conversant HEENT- PEERLA, no acute nasal discharge Cardiovascular- S1-S2 audible, rate and rhythm regular, no murmur Respiratory--vesicular breath sounds with prolonged expiration Gastrointestinal-nontender, bowel sound+. Nondistended Musculoskeletal-no acute joint swelling or tenderness or redness Lower extremity-rash on bilateral lower extremity Neurological- cranial nerves intact, no acute dysarthria or dysphagia Psychiatry- denies depression or SI or HI Skin-rash on her face, on the neck and the upper back, on the bilateral elbow, bilateral knees, on the foot, on the lower back, mildly on the knee joint laboratory and microbiology Laboratory Tests 09/26/24 03:35 Test 09/26/24 03:35 Range/Units Serum Glucose 215 H 74-106 mg/dL Problem List/Assessment/Plan Problem List/Assessment/Plan Assessment and plan #Neurology -toxic encephalopathy -anxiety #Cardiovascular Hypertensive emergency #Respiratory DVT/pulmonary embolism -dyspnea likely due to pulmonary embolism #Gastrointestinal #Genitourinary/renal -KATHLEEN likely due to [facility] [place] #Infectious UTI #Hematology DVT #Metabolic or endocrine disorder Prediabetes mellitus #Skin or elementary Erythematous rash likely due to exacerbation of psoriasis Allergic reaction # psychiatry -bipolar disorder -anxiety -history of panic disorder Goals of care, Code status ; discussed with >15 minutes PUD prophylaxis: Famotidine DVT prophylaxis: Heparin Plan discussed with Dr. Funes , nursing staff, Total time spent on patient evaluation, chart review, assessment and plan, Plan discussed with: Patient, Other (RN) SALAZAR RIVERA RESIDENT Sep 26, 2024 09:00
--- NOTE | 2024-09-26 09:37 | DVH ---
Bilateral lower extremity venous duplex Clinical History: high d dimer with leg swelling Comparison: None Technique: Duplex Doppler evaluation of the deep venous systems of both lower extremities from the common femora l veins to the popliteal veins including color Doppler and spectral/pulsed waveform analysis was perf ormed. Findings: RIGHT SIDE: There is compressibility/patency of the great saphenous vein at the proximal thigh. Nonocclusive thrombus in the right common femoral vein to the popliteal vein. There is normal compressibility at the tibioperoneal trunk. LEFT SIDE: The common femoral vein demonstrates appropriate compressibility and waveform variability. There is compressibility/patency of the great saphenous vein at the proximal thigh. The femoral vein demonstrates appropriate compressibility and waveform variability. The deep femoral vein demonstrates appropriate compressibility and waveform variability. The popliteal vein demonstrates appropriate compressibility and waveform variability. There is normal compressibility at the tibioperoneal trunk. Impression: DVT right lower extremity. No DVT LLE
[2024-09-26] MEDS: HYDROCORTONE 1% TOPICAL CREAM 30 GM TUBE TOP SCH (10:00)
[2024-09-26] MEDS ORDERED: ALBUTEROL SULF 2.5 MG/0.5ML(0.5%) NEB SOLN NEB PRN (10:00)
[2024-09-26] MEDS ORDERED: IPRATROPIUM BROM 0.5 MG/2.5ML INH SOL NEB PRN (10:00)
[2024-09-26] MEDS: BETAMETHASONE DIPROP0.05% TOPICAL CREAM 15GM TOP SCH (10:00)
[2024-09-26] MEDS: amLODIPine BESYLATE 5 MG TAB PO SCH (10:22)
[2024-09-26] MEDS: ENOXAPARIN SOD 40 MG/0.4 ML SYRINGE SC SCH (10:26)
[2024-09-26] MEDS ORDERED: LORazepam 2MG/ML-1ML VIAL IV PRN (10:30)
[2024-09-26 10:56] LABS: Basophils # (auto) 0 10 ^3/uL (0-0.2); Basophils % (auto) 0.1 % (0.0-2.0); Eosinophils # (auto) 0 10 ^3/uL (0-0.8); Hematocrit 39.1 % (36.0-46.0); Hemoglobin 13.2 g/dL (12.2-16.2); Lymphocytes # (auto) 1.2 10 ^3/uL (0.4-5.4); Mean Corpuscular Hemoglobin 30.5 pg (28.0-32.0); Mean Corpuscular Hgb Conc. 33.8 g/dL (32.0-36.0); Mean Corpuscular Volume 90.5 fL (80.0-100.0); Monocytes # (auto) 0.5 10 ^3/uL (0-1.3); Monocytes % (auto) 2.5 % (0.0-12.0); Neutrophils # (auto) 18.9 10 ^3/uL (1.6-8.6); Neutrophils % (auto) 91.4 % (37.0-80.0); Platelet Count (auto) 272 10^3/uL (140-450); Red Blood Cells 4.32 10^6/uL (4.0-5.20); Red Cell Distribution Width 15.2 % (11.8-14.3); White Blood Cell 20.6 10^3/uL (4.4-10.8)
[2024-09-26] MEDS: LORazepam 2MG/ML-1ML VIAL IM ONE (10:58)
[2024-09-26] MEDS: predniSONE 20 MG TAB PO SCH (10:58)
[2024-09-26 11:14] LABS: INR 1.03 (0.9-1.15); Prothrombin Time 10.9 sec (9.3-11.8)
[2024-09-26] MEDS: HEPARIN SODIUM (PORCINE) 5000 UNITS/ML 1ML VIAL IV ONE (11:42)
[2024-09-26] MEDS: LORazepam 2MG/ML-1ML VIAL ONE (11:46)
[2024-09-26] MEDS: HEPARIN DRIP/D5W 100UNITS/ML 250 ML IV SCH (12:18)
[2024-09-26] MEDS ORDERED: methylPREDNISolone SOD SUCC 40 MG/ML VL IM ONE (13:15)
--- NOTE | 2024-09-26 15:05 | DVH ---
EXAM: NM NM VQ SCAN HISTORY: PULMONARY EMBOLISM COMPARISON: Chest radiograph from 09/25/2024 TECHNIQUE: Following the administration of the ventilation agent, standard projections of the lungs were acquired. The same images were repeated after administration of the perfusion agent. Findings: Ventilation images demonstrate homogenous distribution of radiotracer throughout both lungs. Perfusion images demonstrate homogeneous distribution of radiotracer throughout both lungs. No periph eral wedge-shaped moderate or large subsegmental or segmental mismatched perfusion defects to suggest acute pulmonary embolism. Impression: 1. Based on PIOPED criteria, low probability for pulmonary embolism.
--- NOTE | 2024-09-26 19:05 | DVHDSRES ---
Discharge Summary Date of Admission Resident Creating Document: SALAZAR RIVERA RESIDENT Sep 25, 2024 at 23:37 Date of Discharge: Sep 26, 2024 Admitting Diagnosis Hypertensive emergency, metabolic encephalopathy Labs/Diagnostic Data: Laboratory Results Test 09/26/24 13:55 09/26/24 10:29 09/26/24 03:35 09/26/24 02:21 Creatinine 1.14 mg/dL (0.550-1.02) Glomerular Filtration Rate Calc 53 mL/min (>90) Random Vancomycin Level 21.9 ug/mL (5-10) White Blood Count 20.6 10^3/uL (4.4-10.8) Red Blood Count 4.32 10^6/uL (4.0-5.20) Hemoglobin 13.2 g/dL (12.2-16.2) Hematocrit 39.1 % (36.0-46.0) Mean Corpuscular Volume 90.5 fL (80.0-100.0) Mean Corpuscular Hemoglobin 30.5 pg (28.0-32.0) Mean Corpuscular Hemoglobin Concent 33.8 g/dL (32.0-36.0) Red Cell Distribution Width 15.2 % (11.8-14.3) Platelet Count 272 10^3/uL (140-450) Mean Platelet Volume 8.4 fL (6.9-10.8) Neutrophils (%) (Auto) 91.4 % (37.0-80.0) Lymphocytes (%) (Auto) 6.0 % (10.0-50.0) Monocytes (%) (Auto) 2.5 % (0.0-12.0) Eosinophils (%) (Auto) 0.0 % (0.0-7.0) Basophils (%) (Auto) 0.1 % (0.0-2.0) Neutrophils # (Auto) 18.9 10 ^3/uL (1.6-8.6) Lymphocytes # (Auto) 1.2 10 ^3/uL (0.4-5.4) Monocytes # (Auto) 0.5 10 ^3/uL (0-1.3) Eosinophils # (Auto) 0 10 ^3/uL (0-0.8) Basophils # (Auto) 0 10 ^3/uL (0-0.2) Nucleated Red Blood Cells 0.0 % Prothrombin Time 10.9 sec (9.3-11.8) Prothrombin Time INR 1.03 (0.9-1.15) Activated Partial Thromboplast Time 25.0 SEC (24.5-34.5) Sodium Level 143 mmol/L (136-145) Potassium Level 3.9 mmol/L (3.5-5.1) Chloride Level 112 mmol/L (98-107) Carbon Dioxide Level 18 mmol/L (20-31) Anion Gap 13 (5-15) Blood Urea Nitrogen 28 mg/dL (9-23) BUN/Creatinine Ratio 24.6 (10.0-20.0) Serum Glucose 215 mg/dL (74-106) Calcium Level 9.4 mg/dL (8.7-10.4) Total Bilirubin 0.3 mg/dL (0.2-1.0) Aspartate Amino Transferase (AST) 15 U/L (13-40) Alanine Aminotransferase (ALT) 13 U/L (7-40) Alkaline Phosphatase 67 U/L (46-116) Troponin I High Sensitivity 193 ng/L (</=34) Total Protein 6.7 g/dL (5.7-8.2) Albumin 4.4 g/dL (3.2-4.8) Acetaminophen Level < 2.0 UG/ML (10.0-20.0) Urine Color Light-yellow (Yellow) Urine Clarity Clear (Clear) Urine pH 5.0 (5.0-9.0) Urine Specific [place] 1.020 (1.001-1.035) Urine Protein Trace (Negative) Urine Ketones Negative (Negative) Urine Blood Negative /uL (Negative) Urine Nitrite Negative (Negative) Urine Bilirubin Negative (Negative) Urine Urobilinogen Normal mg/dL (Negative) Urine Leukocyte Esterase 1+ /uL (Negative) Urine RBC 2 /hpf (0 - 4) Urine Microscopic WBC 4 /HPF (0-5) Urine Squamous Epithelial Cells Few /hpf (<5) Urine Bacteria Mod /hpf (None Seen) Urine Mucus Few (None Seen) Urine Creatinine 93.23 mg/dL (30.0-125.0) Urine Protein/Creatinine Ratio 0.40 Urine Sodium 89 mmol/L (40-220) Urine Glucose 3+ mg/dL (Normal) Urine Total Protein 36.9 mg/dL (1-14) Urine Opiates Screen Neg (NEGATIVE) Urine Fentanyl Screen Pos (NEGATIVE) Urine Barbiturates Screen Neg (NEGATIVE) Urine Phencyclidine Screen Neg (NEGATIVE) Urine Amphetamines Screen Neg (NEGATIVE) Urine Benzodiazepines Screen Neg (NEGATIVE) Urine Cocaine Screen Neg (NEGATIVE) Urine Cannabinoids Screen Neg (NEGATIVE) Test 09/25/24 23:40 09/25/24 19:55 09/25/24 17:10 D-Dimer, Quantitative 3.13 mg/L FEU (0.0-0.49) Hemoglobin A1c 5.8 % A1C (<5.7) Magnesium Level 1.9 mg/dL (1.6-2.6) Triglycerides Level 82 mg/dL (< 150) Cholesterol Level 215 mg/dL (< 200) LDL Cholesterol 156 mg/dL (< 100) HDL Cholesterol 53 mg/dL (40-59) Vitamin D 25-Hydroxy 24.3 ng/mL (30.0-100) Plasma/Serum Blood Alcohol 3.1 mg/dL (<10) Lactic Acid Level 1.5 mmol/L (0.4-2.0) Erythrocyte Sedimentation Rate 10 mm/hr (0-20) C-Reactive Protein High Sensitivity 0.81 mg/dL (<1.0) B-Type Natriuretic Peptide 59.79 pg/mL (0-100) Other Laboratory Tests 09/26/24 13:55 09/26/24 10:29 09/26/24 03:35 Brief Hx & Hospital Course: HPI- Patient is 64-year-old female with a past medical history hypertension, psoriasis, anxiety, bipolar, panic attack, and possible chronic urtecaria (chronic hives) came with a complaint of worsening rashes all over her body with burning pain. Per patient she has been having worsening rash for last 2 weeks on her face, the chest on the back, on the hands and lower extremity. Rashes associated with a burning pain. As per patient she came to the [facility] before and got some steroid and other treatment got a little bit better and sent home with prednisolone but it got flared up shortly after discharge. Patient also complained of chronic chest pain and shortness of breaths which she attributed to her panic attack. Patient denied any fever, any dysuria, acute joint redness or swelling, acute constipation or diarrhea or dysarthria. On arrival patient was hypertensive, blood pressure found to be 260/115, patient was given labetalol, amlodipine. Initial lab workup revealed leukocytosis with WBC 12.4, hemoglobin 14.3, platelets 279, sodium 144, potassium 4, BUN 27, serum creatinine 1.1, HGB A1c 5.8, lactic acid 2.2 magnesium 1.9, troponin I 35> 28> 193, P59.79, cholesterol 215, LDL 156, HDL 53, urinalysis with suspected UTI with leukocyte esterase 1+, WBC 4, bacteria moderate, UDS positive for fentanyl. EKG with sinus rhythm. Doppler study of the lower extremity revealed DVT in the right lower extremity.Patient looks anxious, complains of shortness of breaths but saturating 99-100% in room air, lung sounds clear on auscultation Patient has rash on her face, on the neck and the upper back, on the bilateral elbow, bilateral knees, on the foot, on the lower back, mildly on the knee joint. Doppler Study of the lower extremity positive for DVT right lower extremity. Patient was put on heparin as per protocol for DVT. Ordered echo 2D and cardiology consult for further evaluation and care. V/Q scan Based on PIOPED criteria, low probability for pulmonary embolism. Patient left AMA even after explaining the risks of leaving AMA. Patient's condition was undetermined on discharge. Total time spent on clinical assessment, chart review, discussion and discharge > 30 minutes Operations or Procedures [place] [id number] Ph: [phone] DIAGNOSTIC IMAGING Diagnostic Imaging Report : [id number] Signed PATIENT: AYAH GUERRIER ACCT: [id number] UNIT: [id number] : 1960 LOC: OVERFLOW ROOM / BED: [address] [place] [address] / A AGE / SEX: 64 / F ADM STATUS: ADM IN SERVICE 0532 ORDERING PHYSICIAN: ADRIANO RHOADES RESIDENT PROCEDURE(s): BLDVT - BiLat Lower DVT REASON: high d dimer with leg swelling ORDER NUMBER(s): [id number], ACCESSION NUMBER(s): [id number] Bilateral lower extremity venous duplex Clinical History: high d dimer with leg swelling Comparison: None Technique: Duplex Doppler evaluation of the deep venous systems of both lower extremities from the common femoral veins to the popliteal veins including color Doppler and spectral/pulsed waveform analysis was performed. Findings: RIGHT SIDE: There is compressibility/patency of the great saphenous vein at the proximal thigh. Nonocclusive thrombus in the right common femoral vein to the popliteal vein. There is normal compressibility at the tibioperoneal trunk. LEFT SIDE: The common femoral vein demonstrates appropriate compressibility and waveform variability. There is compressibility/patency of the great saphenous vein at the proximal thigh. The femoral vein demonstrates appropriate compressibility and waveform variability. The deep femoral vein demonstrates appropriate compressibility and waveform variability. The popliteal vein demonstrates appropriate compressibility and waveform variability. There is normal compressibility at the tibioperoneal trunk. Impression: DVT right lower extremity. No DVT LLE ATED BY: SIMON BARROW MD DICTATED DATE/TIME: 09/26/24934 SIGNED BY: SIMON BARROW MD SIGNED DATE/TIME: 09/26/24934 CC: [place] [id number] Ph: [phone] DIAGNOSTIC IMAGING Diagnostic Imaging Report : [id number] Signed PATIENT: AYAH GUERRIER ACCT: [id number] UNIT: [id number] : 1960 LOC: OVERFLOW ROOM / BED: [address] [place] [address] AGE / SEX: 64 / F ADM STATUS: ADM IN SERVICE 1027 ORDERING PHYSICIAN: SALAZAR RIVERA RESIDENT PROCEDURE(s): VQ - NM VQ SCAN REASON: PULMONARY EMBOLISM ORDER NUMBER(s): [id number], ACCESSION NUMBER(s): [id number] EXAM: NM NM VQ SCAN HISTORY: PULMONARY EMBOLISM COMPARISON: Chest radiograph from 09/25/2024 TECHNIQUE: Following the administration of the ventilation agent, standard projections of the lungs were acquired. The same images were repeated after administration of the perfusion agent. Findings: Ventilation images demonstrate homogenous distribution of radiotracer throughout both lungs. Perfusion images demonstrate homogeneous distribution of radiotracer throughout both lungs. No peripheral wedge-shaped moderate or large subsegmental or segmental mismatched perfusion defects to suggest acute pulmonary embolism. Impression: 1. Based on PIOPED criteria, low probability for pulmonary embolism. ATED BY: CHASE ALLRED DO DICTATED DATE/TIME: 09/26/24 1503 SIGNED BY: CHASE ALLRED DO SIGNED DATE/TIME: 09/26/24 1503 CC: [place] [id number] Ph: [phone] DIAGNOSTIC IMAGING Diagnostic Imaging Report : [id number] Signed PATIENT: AYAH GUERRIER ACCT: [id number] UNIT: [id number] : 1960 LOC: ER ROOM / BED: / AGE / SEX: 64 / F ADM STATUS: REG ER SERVICE 163 ORDERING PHYSICIAN: MICHAEL HAMILTON DO PROCEDURE(s): CXRP - CHEST PORTABLE REASON: Hypertensive crisis ORDER NUMBER(s): [id number], ACCESSION NUMBER(s): [id number] EXAM: XY CHEST PORTABLE TECHNIQUE: Single frontal chest radiograph CLINICAL HISTORY: Hypertensive crisis COMPARISON: None Findings/Impression: Frontal chest radiograph demonstrates no acute osseous or superficial soft tissue abnormalities. The trachea is midline. The cardiac silhouette and mediastinum are within normal limits. Right upper and lower lung field patchy airspace opacities. No pneumothorax or pleural effusions. ATED BY: CHASE ALLRED DO DICTATED DATE/TIME: 09/25/24 1724 SIGNED BY: CHASE ALLRED DO SIGNED DATE/TIME: 09/25/24 1724 CC: [place] [id number] Ph: [phone] DIAGNOSTIC IMAGING Diagnostic Imaging Report : [id number] Signed PATIENT: AYAH GUERRIER ACCT: [id number] UNIT: [id number] : 1960 LOC: ER ROOM / BED: / AGE / SEX: 64 / F ADM STATUS: REG ER SERVICE 163 ORDERING PHYSICIAN: MICHAEL HAMILTON DO PROCEDURE(s): HWOCT - HEAD WITHOUT CONTRAST REASON: Hypertensive crisis ORDER NUMBER(s): [id number], ACCESSION NUMBER(s): [id number] EXAM: CT HEAD WITHOUT CONTRAST HISTORY: Hypertensive crisis COMPARISON: None TECHNIQUE: Axial images of the head were obtained and reformatted in coronal and sagittal planes. All CT scans at this medical facility are performed using dose modulation techniques as appropriate to a performed exam including the following: Automated exposure control was utilized; adjustment of the MA and/or KV according to patient size; and use of iterative reconstruction technique. CT Dose: CTDI volume is 52.39 mGy. Dose-length product is 863.9 mGy*cm FINDINGS: There small hypodense foci in the right and left thalamic regions (axial image 15). Age-indeterminate infarcts are not excluded. There are chronic microvascular ischemic changes in the supratentorial white matter. There is a prominent perivascular space in the left basal ganglia. There is no evidence of acute intracranial hemorrhage, mass, mass effect midline shift. There is no hydrocephalus or extra-axial fluid collection. The visualized paranasal sinuses and mastoid air cells are clear. The calvarium is intact. IMPRESSION: 1. Nonspecific small hypodense foci in the right and left thalamic regions. Age-indeterminate infarcts are not excluded. Further evaluation with MRI brain with diffusion-weighted imaging is recommended. 2. There is no acute intracranial hemorrhage. HS:Y ATED BY: WILMAN SLOAN MD DICTATED DATE/TIME: 09/25/241707 SIGNED BY: WILMAN SLOAN MD SIGNED DATE/TIME: 09/25/241707 CC: Condition at Discharge: Undetermined Final Diagnosis/Problems List Hypertensive emergency -Metabolic Encephalopathy likely due to complicated UTI NSTEMI type 2 likely demand led ischemia DVT Substance Abuse - UDS Positive for Fentanyl -KATHLEEN likely due to VMN Complicated UTI Chest pain and shortness of breaths likely due anxiety/low probability for pulmonary embolism-as per ventilation perfusion scan Prediabetes mellitus Erythematous rash likely due to exacerbation of psoriasis Allergic reaction -bipolar disorder -anxiety -history of panic disorder -anxiety Discharge Disposition: AMA Discharge Statement: "Patient was advised to return to the ER or call 911 if any headaches, dizziness, shortness of breath, chest pain, abdominal pain, bleeding, fevers, or worsening of medical condition. Patient was counseled about treatment plan, medications, possible side effects, patientverbalized understanding. All questions were answered to the best of my ability. This discharge took greater then 30 minutes in planning, reviewing documentation, counseling the patient, and discussing with other team members." ASSESSMENT ASSESSMENT Assessment SALAZAR RIVERA RESIDENT Sep 26, 2024 19:05
--- NOTE | 2024-09-26 21:53 | DVHINCON2 ---
Date of service: Sep 26, 2024 Referring Physician Kenna Reason for Consultation SOB History of Present Illness This is a 64 year old female with a PMH of HTN, anxiety, psoriasis, cellulitis who presented to the ED with complaints of an allergic reaction to the face, forehead, chest x 2 weeks. Patient states she came to [facility] 1 week prior and states she was given Benadryl and steroids and discharged. Patient states despite taking the medications, she has continued to have burning, itching and redness and exacerbation of her allergy symptoms. Patient's BP in the ED was elevated 257/99 after repeat measurement with the patient not taking medications for the past 6 weeks. Chest x-ray shows NAD. CT head showed nonspecific small hypodense foci in the right and left thalamic regions. Age-indeterminate infar cts are not excluded. There is no acute intracranial hemorrhage. INtial troponin was 25 > 29 > 35 > 23. Patient was admitted to the hospital. Repeat troponin today was 29 and 193. I am asked to consult on this patient. Allergies: Coded Allergies: Codeine (Unverified Allergy, Severe, 08/02/14) Erythromycin (Unverified Allergy, Severe, 08/02/14) Penicillins (Unverified Allergy, Severe, 08/02/14) Home Meds Active Scripts Diphenhydramine Hcl (Benadryl Allergy) 25 Mg Cap, 1 CAP PO QPM, #30 CAP 1 Refill Prov:GWENDOLYN EASTMAN MD 09/16/24 Methylprednisolone (Medrol Dosepak) 4 Mg Samy, 4 MG PO UD, #21 TAB UAD Prov:GWENDOLYN EASTMAN MD 09/16/24 Current Medications Current Medications Medications (Trade) Dose Ordered Sig/Minerva Route PRN Reason Start Time Stop Time Status Last Admin Nicardipine HCl 250 ml @ 50 mls/hr Q5H IV 09/25/24 20:15 09/26/24 14:06 Acetaminophen (Tylenol Tablet) 650 mg Q6HP PRN PO PAIN SCALE 1-3 OR TEMP>100.4 09/25/24 23:45 Acetaminophen/ Hydrocodone Bitart (Evart 5/325MG Tab) 1 tab Q4HP PRN PO MODERATE PAIN (4-6 PAIN SCALE) 09/25/24 23:45 Ondansetron HCl (Zofran) 4 mg Q4HP PRN IV NAUSEA / VOMITING 09/25/24 23:45 Enoxaparin Sodium (Lovenox) 40 mg DAILY SC 09/26/24 10:00 09/26/24 10:28 DC Nitroglycerin (Ntrostat Sublingual) 0.4 mg Q5MINP PRN SL FOR CHEST PAIN 09/25/24 23:45 Morphine Sulfate 2 mg Q30M PRN IV FOR CHEST PAIN 09/25/24 23:45 Amlodipine Besylate (Norvasc Tablet) 10 mg DAILY PO 09/26/24 10:00 09/26/24 10:22 Diphenhydramine HCl (Benadryl Injection) 25 mg Q4HP PRN IV FOR ITCHING 09/25/24 23:45 Famotidine (Pepcid Injection) 20 mg Q12HR IV 09/26/24 10:00 09/26/24 08:01 Prednisone 60 mg DAILY PO 09/26/24 10:00 09/26/24 13:10 DC 09/26/24 10:58 Albuterol (Ventolin Medneb) 2.5 mg Q4HPRN PRN NEB SHORTNESS OF BREATH 09/25/24 23:45 09/26/24 10:36 DC Hydrocortisone (Hydrocortisone 1% Cream) 1 applic BID TOP 09/26/24 10:00 Betamethasone Dipropion Augmented (Diprosone 0.05% Cream) 1 applic BID TOP 09/26/24 10:00 Atorvastatin Calcium (Lipitor) 40 mg HS PO 09/26/24 22:00 Ceftriaxone Sodium 50 ml @ 100 mls/hr DAILY@09 IV 09/26/24 05:30 09/26/24 10:26 Vancomycin HCl 0 ml @ 0 mls/hr UD IV 09/26/24 05:45 Lactated Ringer's 1,000 ml @ 75 mls/hr [id number] IV 09/26/24 06:00 09/26/24 06:29 Naloxone HCl (Narcan) 0.4 mg Q6HP PRN IV SHORTNESS OF BREATH 09/26/24 06:00 Ipratropium [place] (Atrovent Medneb) 0.5 mg Q6HPRN PRN NEB SHORTNESS OF BREATH 09/26/24 10:00 Albuterol (Ventolin Medneb) 2.5 mg Q6HPRN PRN NEB SHORTNESS OF BREATH 09/26/24 10:00 Heparin Sodium/ Dextrose 250 ml @ 13 mls/hr [id number] IV 09/26/24 10:15 09/26/24 12:18 Lorazepam (Ativan Inj) 1 mg Q6HP PRN IV ANXIETY 09/26/24 10:30 Methylprednisolone Sodium Succinate (Solu Medrol) 40 mg BID IV 09/26/24 22:00 Review of Systems CONSTITUTIONAL: Denies acute: fever, diaphoresis, chills, generalized weakness. HEAD: Denies acute: headache, photophobia Eyes: Denies acute: Double vision, vision loss, eye pain, eye discharge. EARS: Denies acute: tinnitus, hearing loss, ear discharge, ear pain, THROAT: Denies acute: sore throat, swelling, difficulty swallowing , pain with swallowing, change in voice. NECK: Denies acute: neck pain, neck swelling, stiff neck. HEART: Denies acute : chest pain, palpitations, LUNGS: Denies acute: SOB, wheezing, cough, hemoptysis ABDOMEN: Denies acute: abdominal pain, Nausea, Vomiting, diarrhea, melena , hematemesis, hematochezia SKIN: Denies acute: EXTREMITIES: Denies acute: calf pain, numbness, tingling, weakness, denies pain in extremity. Denies acute: Low back pain. Neuro: Denies acute: focal neurological deficit, motor or sensory focal neurological deficit, tremors, seizure like activity, confusion, dizziness, change in mental status, loss of bowel or bladder function, cauda equina like symptoms. : Denies acute: dysuria, hematuria, flank pain, increase in urinary frequency. PSYCH: Denies acute: hallucination, suicidal ideation, homicidal ideation. FEMALE: Denies acute: abnormal vaginal bleeding, foul odor, unusual discharge. Vital Signs Vital Signs Date Time Temp Pulse Resp B/P (MAP) Pulse Ox O2 Delivery O2 Flow Rate FiO2 09/26/24 14:06 99 162/30 09/26/24 11:30 24 92 09/26/24 08:00 98.0 98.0 09/25/24 23:12 Room Air* 0 21 Physical Exam GENERAL: Awake, alert, oriented. LUNGS: Clear. CARDIOVASCULAR: Heart sounds are good. ABDOMEN: Soft. SKIN: Chronic eczematous rashes on dorsal surface of bilateral lower limb, psoriatic plaque on elbow, red diffuse plaques all over the body more prominently on face and neck. Labs/Diagnostic Data Labs Test 09/26/24 13:55 09/26/24 10:29 09/26/24 03:35 09/26/24 02:21 Range/Units Creatinine 1.14 H 0.550-1.02 mg/dL Glomerular Filtration Rate Calc 53 >90 mL/min Random Vancomycin Level 21.9 H 5-10 ug/mL White Blood Count 20.6 #H 4.4-10.8 10^3/uL Red Blood Count 4.32 4.0-5.20 10^6/uL Hemoglobin 13.2 12.2-16.2 g/dL Hematocrit 39.1 36.0-46.0 % Mean Corpuscular Volume 90.5 80.0-100.0 fL Mean Corpuscular Hemoglobin 30.5 28.0-32.0 pg Mean Corpuscular Hemoglobin Concent 33.8 32.0-36.0 g/dL Red Cell Distribution Width 15.2 H 11.8-14.3 % Platelet Count 272 140-450 10^3/uL Mean Platelet Volume 8.4 6.9-10.8 fL Neutrophils (%) (Auto) 91.4 H 37.0-80.0 % Lymphocytes (%) (Auto) 6.0 L 10.0-50.0 % Monocytes (%) (Auto) 2.5 0.0-12.0 % Eosinophils (%) (Auto) 0.0 0.0-7.0 % Basophils (%) (Auto) 0.1 0.0-2.0 % Neutrophils # (Auto) 18.9 H 1.6-8.6 10 ^3/uL Lymphocytes # (Auto) 1.2 0.4-5.4 10 ^3/uL Monocytes # (Auto) 0.5 0-1.3 10 ^3/uL Eosinophils # (Auto) 0 0-0.8 10 ^3/uL Basophils # (Auto) 0 0-0.2 10 ^3/uL Nucleated Red Blood Cells 0.0 % Prothrombin Time 10.9 9.3-11.8 sec Prothrombin Time INR 1.03 0.9-1.15 Activated Partial Thromboplast Time 25.0 24.5-34.5 SEC Sodium Level 143 136-145 mmol/L Potassium Level 3.9 3.5-5.1 mmol/L Chloride Level 112 H 98-107 mmol/L Carbon Dioxide Level 18 L 20-31 mmol/L Anion Gap 13 5-15 Blood Urea Nitrogen 28 H 9-23 mg/dL BUN/Creatinine Ratio 24.6 H 10.0-20.0 Serum Glucose 215 H 74-106 mg/dL Calcium Level 9.4 8.7-10.4 mg/dL Total Bilirubin 0.3 0.2-1.0 mg/dL Aspartate Amino Transferase (AST) 15 13-40 U/L Alanine Aminotransferase (ALT) 13 7-40 U/L Alkaline Phosphatase 67 46-116 U/L Troponin I High Sensitivity 193 *H </=34 ng/L Total Protein 6.7 5.7-8.2 g/dL Albumin 4.4 3.2-4.8 g/dL Acetaminophen Level < 2.0 L 10.0-20.0 UG/ML Urine Color Light-yellow Yellow Urine Clarity Clear Clear Urine pH 5.0 5.0-9.0 Urine Specific Holmes 1.020 1.001-1.035 Urine Protein Trace H Negative Urine Ketones Negative Negative Urine Blood Negative Negative /uL Urine Nitrite Negative Negative Urine Bilirubin Negative Negative Urine Urobilinogen Normal Negative mg/dL Urine Leukocyte Esterase 1+ Negative /uL Urine RBC 2 0 - 4 /hpf Urine Microscopic WBC 4 0-5 /HPF Urine Squamous Epithelial Cells Few <5 /hpf Urine Bacteria Mod H None Seen /hpf Urine Mucus Few None Seen Urine Creatinine 93.23 30.0-125.0 mg/dL Urine Protein/Creatinine Ratio 0.40 Urine Sodium 89 40-220 mmol/L Urine Glucose 3+ H Normal mg/dL Urine Total Protein 36.9 H 1-14 mg/dL Urine Opiates Screen Neg NEGATIVE Urine Fentanyl Screen Pos NEGATIVE Urine Barbiturates Screen Neg NEGATIVE Urine Phencyclidine Screen Neg NEGATIVE Urine Amphetamines Screen Neg NEGATIVE Urine Benzodiazepines Screen Neg NEGATIVE Urine Cocaine Screen Neg NEGATIVE Urine Cannabinoids Screen Neg NEGATIVE Test 09/25/24 23:40 09/25/24 19:55 09/25/24 17:10 Range/Units D-Dimer, Quantitative 3.13 H 0.0-0.49 mg/L FEU Hemoglobin A1c 5.8 H <5.7 % A1C Magnesium Level 1.9 1.6-2.6 mg/dL Triglycerides Level 82 < 150 mg/dL Cholesterol Level 215 H < 200 mg/dL LDL Cholesterol 156 H < 100 mg/dL HDL Cholesterol 53 40-59 mg/dL Vitamin D 25-Hydroxy 24.3 L 30.0-100 ng/mL Plasma/Serum Blood Alcohol 3.1 <10 mg/dL Lactic Acid Level 1.5 0.4-2.0 mmol/L Erythrocyte Sedimentation Rate 10 0-20 mm/hr C-Reactive Protein High Sensitivity 0.81 <1.0 mg/dL B-Type Natriuretic Peptide 59.79 0-100 pg/mL Assessment Hypertensive emergency. NSTEMI type 2 likely demand led ischemia. DVT. KATHLEEN. Complicated UTI. Chest pain. Pulmonary embolism-as per ventilation perfusion scan. Prediabetes mellitus. Erythematous rash likely due to exacerbation of psoriasis. Allergic reaction. Bipolar disorder. Anxiety. History of panic disorder. Plan/Recommendation I agree with your ongoing assessment and care of plan. Telemetry reviewed. Evart for pain management. Amlodipine. Lipitor. IV antibiotics as ordered. Heparin drip per pharmacy. Nicardipine drip. Additional plan as per the hospital course. A total of 45 minutes was spent reviewing the patient record, examining the patient, making a diagnostic and therapeutic plan, discussing this plan with medical personnel, following up on diagnostic studies and following the patient for clinical stability excluding any and all procedures. At least 50% of this time was spent in direct, [id number] contact. Plan discussed with: Patient YASMIN TANNER MD Sep 26, 2024 15:13
[2024-09-26] MEDS ORDERED: methylPREDNISolone SOD SUCC 40 MG/ML VL IV SCH (22:00)
[2024-09-26] MEDS ORDERED: ATORVASTATIN 20 MG TAB PO SCH (22:00)
[2024-09-26] MEDS ORDERED: hydrALAZINE HCL 20 MG/ML VL ONE (22:19)
--- NOTE | 2024-09-28 01:02 | DVHSR ---
APPROVED REPORT EXAM: Two-dimensional and M-mode echocardiogram with Doppler and color Doppler. Blood Pressure: 151/83 mmHg INDICATION HF? RISK FACTORS Height: 63, Weight: 164 DIMENSIONS LVDd4.5 (3.8-5.7cm)LA (2D)3.6 (1.9-4.0cm)Aortic Root3.0 (2.0-3.7cm) LVDs2.8 (2.5-4.0cm)LA (MM) (1.9-4.0cm)Aortic Cusp Exc1.5 (1.5-2.0cm) EF (%) 68.0 (55-70%)Rt. Atrium3.6 (1.9-4.0cm)Asc. Aorta cm IVSd1.6 (0.7-1.1cm)RV (D) (1.8-2.4cm) PWd1.5 (0.7-1.1cm) Mitral Valve MitralMitral Stenosis E wave1.55m/sMV Mean GR.mmHg A wave1.78m/sMV Peak GR.mmHg E/A ratio0.92D MVAcm2 DECEL [id number] 1/2 [id number] IVRTmsDop MVA3.38cm2 Aortic Valve Aortic ValveAortic Stenosis V1m/Mitchell Mean GR.18mmHg V22.90m/Mitchell Peak GR.34mmHg LVOT Diameter1.9 (1.8-2.4cm)Doppler AVAcm2 Pulmonic Valve V21.39m/s Other Information Technically limited study due to body habitus, patient position, patient moving. Patient was non com pliant during exam. Conclusion MILD LVH AND MILD LV DIASTOLIC DYSFUNCTION MODERATELY DILATED LA LV EF IS 70% POSTERIOR MV CALCIFIED HEAVILY CALCIFIED AORTIC LEAFLETS MILD AORTIC STENOSIS NO EFFUSION
--- NOTE | 2024-09-29 11:08 | ECG ---
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
== END 2024-09-26 16:50 | disposition left against medical advice (07) | DRG 595 ==
LOC: ER 16:22 → OVERFLOW 23:37
PROVIDERS: ADMIT Internal Medicine Pulmonary Disease; ATTEND Internal Medicine Pulmonary Disease
DX: L40.8 Other psoriasis (principal); G93.41 Metabolic encephalopathy; I21.A1 Myocardial infarction type 2; N17.0 Acute kidney failure with tubular necrosis; I16.1 Hypertensive emergency; N39.0 Urinary tract infection, site not specified; I82.411 Acute embolism and thrombosis of right femoral vein; T78.49XA Other allergy, initial encounter; Z53.29 Procedure and treatment not carried out because of patient's decision for other reasons; X58.XXXA Exposure to other specified factors, initial encounter; I10 Essential (primary) hypertension; F31.9 Bipolar disorder, unspecified; F41.9 Anxiety disorder, unspecified; E78.5 Hyperlipidemia, unspecified; R73.03 Prediabetes; F41.0 Panic disorder [episodic paroxysmal anxiety]; F17.210 Nicotine dependence, cigarettes, uncomplicated; Z90.710 Acquired absence of both cervix and uterus; Z90.49 Acquired absence of other specified parts of digestive tract; Z88.5 Allergy status to narcotic agent; Z79.899 Other long term (current) drug therapy; Z88.0 Allergy status to penicillin; Z88.1 Allergy status to other antibiotic agents; Y92.89 Other specified places as the place of occurrence of the external cause; F19.10 Other psychoactive substance abuse, uncomplicated
CPT/HCPCS: 36415; 70450; 71045; 78582; 80053; 80061; 80202; 80307; 80320; 80329; 81001; 82306; 82565; 82570; 83036; 83605; 83735; 83880; 84156; 84300; 84484; 85025; 85379; 85610; 85652; 85730; 86141; 87040; 87086; 93005; 93306; 93970; 94640; 96374; 96375; 99291; G0378; J1885; J3490

== ENCOUNTER 2024-09-26 17:30 | Inpatient (IN) | payer MEDICARE, MEDICAID ==
[~2024-09-26] VITALS: Ht 160 cm; Wt 80.9 kg
--- NOTE | 2024-09-26 18:12 | ED.PDOC ---
HPI Comments 64 year old female presents to ED for chief complaint high blood pressure. Pt was admitted at [facility] yesterday for acute allergic reaction but left the facility today. Pt came back due to elevated BP. No symptoms reported. Patient appears very animated and has swings of Emotion. Chief Complaint: High Blood Pressure Time Seen by MD: 18:00 Primary Care Provider: NONE Reviewed Notes: Nurses Notes, Medications, Allergies Allergies: Coded Allergies: Codeine (Unverified Allergy, Severe, 08/02/14) Erythromycin (Unverified Allergy, Severe, 08/02/14) Penicillins (Unverified Allergy, Severe, 08/02/14) Home Meds Active Scripts Diphenhydramine Hcl (Benadryl Allergy) 25 Mg Cap, 1 CAP PO QPM, #30 CAP 1 Refill Prov:GWENDOLYN EASTMAN MD 09/16/24 Methylprednisolone (Medrol Dosepak) 4 Mg Samy, 4 MG PO UD, #21 TAB UAD Prov:GWENDOLYN ESATMAN MD 09/16/24 Information Source: Patient Mode of Arrival: Ambulatory Severity: Moderate Timing: Days Duration: Since onset Prehospital treatment: None Onset: At Rest Cardiac Risk Factors: HTN PE Risk Factors: None History of: None Modifying Factors: Nothing Associated Signs and Symptoms: None Past Medical History PAST MEDICAL HISTORY: Anxiety, HTN Surgical History: Appendectomy, Cholecystectomy, Hysterectomy 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 COLUMNIST History: No Pertinent ADVERTISING COLUMNIST History Family History Family History: Unknown Social History Smoker: Cigarettes, Less Than 1 Pack/Day Alcohol: Occasionally Drugs: Denies Drug Use Lives In: Home Constitutional: reports: weakness; denies: chills, diaphoresis, fatigue, fever, malaise, sweats, others EENTM: denies: blurred vision, double vision, ear bleeding, ear discharge, ear drainage, ear pain, ear ringing, eye pain, eye redness, hearing loss, mouth pain, mouth swelling, nasal discharge, nose bleeding, nose congestion, nose pain, photophobia, tearing, throat pain, throat swelling, voice changes, others Respiratory: denies: cough, hemoptysis, orthopnea, SOB at rest, shortness of breath, SOB with excertion, stridor, wheezing, others Cardiovascular: denies: chest pain, dizzy spells, diaphoresis, Dyspnea on exertion, edema, irregular heart beat, left arm pain, lightheadedness, palpitations, PND, syncope, others Gastrointestinal: denies: abdomen distended, abdominal pain, blood streaked bowels, constipated, diarrhea, dysphagia, difficulty swallowing, hematemesis, melena, nausea, poor appetite, poor fluid intake, rectal bleeding, rectal pain, vomiting, others Genitourinary: denies: abnormal vagina bleeding, burning, dyspareunia, dysuria, flank pain, frequency, hematuria, incontinence, pain, , vagina discharge, urgency, others Neurological: reports: dizziness; denies: fainting, headache, left sided numbness, left sided weakness, numbness, paresthesia, pre-existing deficit, right sided numbness, right sided weakness, seizure, speech problems, tingling, tremors, weakness, others Musculoskeletal: denies: back pain, gout, joint pain, joint swelling, muscle pain, muscle stiffness, neck pain, others Integumetry: denies: bruises, change in color, change in hair/nails, dryness, laceration, lesions, lumps, rash, wounds, others Allergic/Immunocompromised: denies: Difficulty Healing, Frequent Infections, Hives, Itching, others Hematologic/Lymphatic: denies: anemia, blood clots, easy bleeding, easy bruising, swollen glands, others Endocrine: denies: excessive hunger, excessive sweating, excessive thirst, excessive urination, flushing, intolerance to cold, intolerance to heat, unexplained weight gain, unexplained weight loss, others Psychiatric: reports: anxiety, depression; denies: bipolar disorder, hopeless, panic disorder, schizophrenia, sleepless, suicidal, others Unable to Obtain due to: Altered Mental Status All Other Systems: Reviewed and Negative Physical Exam General Appearance: Moderate Distress (Patient was very animated and 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.), Normal HEENT: Normal ENT Inspection, Pharynx Normal, TMs Normal Neck: Full Range of Motion, Non-Tender, Normal, Normal Inspection Respiratory: Chest Non-Tender, Lungs Clear, No Accessory Muscle Use, No Respiratory Distress, Normal Breath Sounds Cardiovascular: No Edema, No JVD, No Murmur, No Gallop, Normal Peripheral Pulses, Regular Rate/Rhythm Breast Exam: Deferred Gastrointestinal: No Organomegaly, Non Tender, No Pulsatile Mass, Normal Bowel Sounds, Soft Genitalia: Deferred Pelvic: Deferred Rectal: Deferred Extremities: No calf tenderness, Normal capillary refill, Normal inspection, Normal range of motion, Non-tender, No pedal edema Musculoskeletal : Apperance: Normal 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 Was a procedure done?: No CP Differential Dx Differential Diagnosis: A-fib, Anxiety / Panic Attack, Atrial Dysrhythmia, AV Block 1st Degree, [place] Differential Diagnosis: CHF, HTN Essential, Other ( Psychosis) Differential Diagnosis: Angina X-Ray, Labs, Meds, VS Vital Signs Date Time Temp Pulse Resp B/P (MAP) Pulse Ox O2 Delivery O2 Flow Rate FiO2 09/26/24 18:11 103 X-Ray, Labs, Meds, VS Comment Laboratories from earlier in the day [place] [address], elevated troponin, elevated D-dimer and a positive urinary tract infection. Patient will VD empirically treated for antibiotics prior to hospitalist evaluation. Patient will be readmitted for blood pressure evaluation , elevated troponins, urinary tract infection and dermal evaluation of what may be eczema as well as probable psych eval. Time of 1ST Reevaluation: 18:42 Reevaluation 1ST: Unchanged Consultation: PCP, Cardiology, Psychiatry Patient Education/Counseling: Diagnosis, Treatment Family Education/Counseling: Diagnosis, Treatment, No Family Present Departure 1 Departure Time of Disposition: 18:45 Impression: Primary Impression: Leukocytosis Additional Impressions: UTI (urinary tract infection) Elevated troponin I level Elevated d-dimer Disposition: 09 ADMITTED INPATIENT Condition: Fair Discharged With: Self Critical Care Note Critical Care Time?: No Stability Stability form required: No Heart Score Heart Score: Heart Score Response (Comments) Value History Slightly Suspicious 0 EKG Repolarization Disturb 1 Age >65 2 Risk Factors 1 or 2 risk factors 1 Troponin >3 x's Normal limit 2 Total 6 I personally scribed for ADRIANNA GERMAN PAC ([email or web address]) on 09/26/24 at 18:12. Electronically submitted by Elvia Melo ([email or web address]). ADRIANNA GERMAN PAC Sep 26, 2024 18:12
[2024-09-26] MEDS: hydrALAZINE HCL 20 MG/ML VL IV ONE (20:30)
[2024-09-26] MEDS: cefTRIAXone 1GM/50ML D5W 50 ML IV ONE (22:12)
[2024-09-26] MEDS: ONDANSETRON HCL 4 MG/2 ML VIAL IV ONE (22:27)
[2024-09-26] MEDS ORDERED: ACETAMINOPHEN 325 MG TAB PO PRN (22:30)
[2024-09-26] MEDS: ENOXAPARIN SOD 80 MG/0.8ML SYRINGE SC ONE (22:30)
[2024-09-26] MEDS ORDERED: DOCUSATE SOD 100 MG CAP PO PRN (22:30)
[2024-09-26] MEDS: levoFLOXacin 500MG 100 ML IV ONE (22:30)
[2024-09-26 23:07] LABS: Basophils # (auto) 0.1 10 ^3/uL (0-0.2); Basophils % (auto) 0.4 % (0.0-2.0); Eosinophils # (auto) 0 10 ^3/uL (0-0.8); Hematocrit 39.7 % (36.0-46.0); Hemoglobin 13.3 g/dL (12.2-16.2); Lymphocytes # (auto) 1.1 10 ^3/uL (0.4-5.4); Lymphocytes % (auto) 4.6 % (10.0-50.0); Mean Corpuscular Hemoglobin 30.4 pg (28.0-32.0); Mean Corpuscular Hgb Conc. 33.5 g/dL (32.0-36.0); Mean Corpuscular Volume 90.7 fL (80.0-100.0); Monocytes # (auto) 0.7 10 ^3/uL (0-1.3); Monocytes % (auto) 2.8 % (0.0-12.0); Neutrophils # (auto) 22.8 10 ^3/uL (1.6-8.6); Neutrophils % (auto) 92.2 % (37.0-80.0); Platelet Count (auto) 260 10^3/uL (140-450); Red Blood Cells 4.37 10^6/uL (4.0-5.20); Red Cell Distribution Width 15.3 % (11.8-14.3); White Blood Cell 24.8 10^3/uL (4.4-10.8)
[2024-09-26 23:19] LABS: Albumin 4.3 g/dL (3.2-4.8); Alkaline Phosphatase 67 U/L (46-116); Anion Gap 11 (5-15); BUN/Creatinine Ratio 21.8 (10.0-20.0); Potassium 4.2 mmol/L (3.5-5.1); Sodium 142 mmol/L (136-145); Total Protein 6.8 g/dL (5.7-8.2)
[2024-09-26 23:35] LABS: Alanine Aminotransferase 70 U/L (7-40); Aspartate Aminotransferase 68 U/L (13-40); Bilirubin, Total 0.2 mg/dL (0.2-1.0); Blood Urea Nitrogen 24 mg/dL (9-23); Carbon Dioxide 18 mmol/L (20-31); Chloride 113 mmol/L (98-107); Glucose 190 mg/dL (74-106)
--- NOTE | 2024-09-26 23:39 | DVHHP2 ---
History of Present Illness Reason for Visit: Right lower extremity DVT History of Present Illness The patient is a 64-year-old female with past medical history of anxiety and hypertension who presented to [facility] ED with complaint of high blood pressure associated with generalized weakness and dizziness. Patient was admitted at this facility for acute allergic reaction but left the facility today. Patient was seen and evaluated in the ED, laboratory data shows WBC 24.8, platelets 260, sodium 142, potassium 4.2, BUN 24, creatinine 1.10, GFR 56, glucose 190, AST 68, ALT 70, D-dimer 3.13, urinalysis positive for urinary tract infection, blood pressure 188/96, heart rate 102, temperature 97.5 F, O2 saturation 93% on oxygen. Extremity venous study revealing DVT right lower extremity, no DVT left lower extremity. Head CT revealing nonspecific small hypotensive foci in the right and left thalamic regions. Please see medication orders section in the computer. On my assessment, patient denied chest pain, no headache, no dizziness, no diaphoresis, currently on oxygen, no nausea, no vomiting, no fever, no chills. Patient was admitted for further evaluation and medical management. Past Medical History Anxiety, HTN Past Surgical History Appendectomy, Cholecystectomy, Hysterectomy Family History Reviewed, noncontributory to the management of this case. Past Social History The patient lives at home, smokes cigarettes less than 1 pack per day, drinks alcohol occasionally, denies illicit drugs abuse. Review of Systems Constitutional: Yes: Weakness; No: Fever, Chills, Sweats, Malaise, Other Eyes: No: Pain, Vision change, Conjunctivae inflammation, Eyelid inflammation, Other, Redness ENT: No: Ear pain, Ear discharge, Nose pain, Nose discharge, Nose congestion, Mouth pain, Mouth swelling, Throat pain, Throat swelling, Other Respiratory: Shortness of breath; No: Cough, Dry, SOB with excertion, Wheezing, Hemoptysis, Pleuritic Pain, Sputum, Wheezing, Other Cardiovascular: No: Chest Pain, Palpitations, Orthopnea, Paroxysmal Noc. Dyspnea, Edema, Lt Headedness, Other Gastrointestinal: No: Nausea, Vomiting, Abdominal Pain, Diarrhea, Constipation, Melena, Hematochezia, Other Genitourinary: No Dysuria, No Frequency, No Incontinence, No Hematuria, No Retention, No Other Musculoskeletal: No: other, neck pain, shoulder pain, arm pain, back pain, hand pain, leg pain, foot pain Skin: Other (Psoriasis skin); No: Rash, Lesions, Jaundice, Bruising Neurological: Other (Dizziness); No: Weakness, Numbness, Incoordination, Change in speech, Confusion, Seizures Allergies: Coded Allergies: Codeine (Unverified Allergy, Severe, 08/02/14) Erythromycin (Unverified Allergy, Severe, 08/02/14) Penicillins (Unverified Allergy, Severe, 08/02/14) Medications Current Medications Medications Dose Ordered Sig/Minerva Route Start Time Stop Time Status Last Admin Dose Admin Hydralazine HCl 10 mg Q6HP PRN IV 09/26/24 22:30 Enoxaparin Sodium 70 mg Q12HR SC 09/27/24 10:00 Famotidine 20 mg DAILY IV 09/27/24 10:00 Levofloxacin/ Dextrose 100 ml @ 100 mls/hr DAILY IV 09/27/24 10:00 Metoprolol Tartrate 25 mg BID PO 09/27/24 10:00 Amlodipine Besylate 5 mg DAILY PO 09/27/24 10:00 Sodium Chloride 1,000 ml @ 60 mls/hr [id number] IV 09/26/24 22:30 Acetaminophen/ Hydrocodone Bitart 1 tab Q4HP PRN PO 09/26/24 22:30 Ondansetron HCl 4 mg Q4HP PRN IV 09/26/24 22:30 Docusate Sodium 100 mg BIDPRN PRN PO 09/26/24 22:30 Acetaminophen 650 mg Q6HP PRN PO 09/26/24 22:30 Exam Vital Signs Vital Signs Date Time Temp Pulse Resp B/P (MAP) Pulse Ox O2 Delivery O2 Flow Rate FiO2 09/26/24 22:22 97.8 102 16 163/73 (103) 94 97.8 General Appearance: Alert, Oriented X3, Cooperative, No acute distress HEENT: Atraumatic, PERRLA, EOMI, Mucous membr. moist/pink Respiratory: Clear to auscultation, Normal air movement Cardiovascular: Regular rate, Normal S1, Normal S2, No murmurs Abdominal: Normal bowel sounds, Soft, No tenderness, No hepatospenomegaly, No masses Extremities: No clubbing, No cyanosis, No edema, Normal pulses, No tenderness/swelling Skin: No rashes, No breakdown, No significant lesion Neuro: Normal speech, Normal tone, Sensation intact, Cranial nerves 3-12 NL, Reflexes 2+, Other (RN) Psych/Mental Status: Mental status NL, Mood NL Labs/Xrays Labs Test 09/26/24 22:45 Range/Units White Blood Count 24.8 H 4.4-10.8 10^3/uL Red Blood Count 4.37 4.0-5.20 10^6/uL Hemoglobin 13.3 12.2-16.2 g/dL Hematocrit 39.7 36.0-46.0 % Mean Corpuscular Volume 90.7 80.0-100.0 fL Mean Corpuscular Hemoglobin 30.4 28.0-32.0 pg Mean Corpuscular Hemoglobin Concent 33.5 32.0-36.0 g/dL Red Cell Distribution Width 15.3 H 11.8-14.3 % Platelet Count 260 140-450 10^3/uL Mean Platelet Volume 8.4 6.9-10.8 fL Neutrophils (%) (Auto) 92.2 H 37.0-80.0 % Lymphocytes (%) (Auto) 4.6 L 10.0-50.0 % Monocytes (%) (Auto) 2.8 0.0-12.0 % Eosinophils (%) (Auto) 0.0 0.0-7.0 % Basophils (%) (Auto) 0.4 0.0-2.0 % Neutrophils # (Auto) 22.8 H 1.6-8.6 10 ^3/uL Lymphocytes # (Auto) 1.1 0.4-5.4 10 ^3/uL Monocytes # (Auto) 0.7 0-1.3 10 ^3/uL Eosinophils # (Auto) 0 0-0.8 10 ^3/uL Basophils # (Auto) 0.1 0-0.2 10 ^3/uL Nucleated Red Blood Cells 0.0 % Sodium Level 142 136-145 mmol/L Potassium Level 4.2 3.5-5.1 mmol/L Chloride Level 113 H 98-107 mmol/L Carbon Dioxide Level 18 L 20-31 mmol/L Anion Gap 11 5-15 Blood Urea Nitrogen 24 H 9-23 mg/dL Creatinine 1.10 H 0.550-1.02 mg/dL Glomerular Filtration Rate Calc 56 >90 mL/min BUN/Creatinine Ratio 21.8 H 10.0-20.0 Serum Glucose 190 H 74-106 mg/dL Calcium Level 10.0 8.7-10.4 mg/dL Total Bilirubin 0.2 0.2-1.0 mg/dL Aspartate Amino Transferase (AST) 68 H 13-40 U/L Alanine Aminotransferase (ALT) 70 H 7-40 U/L Alkaline Phosphatase 67 46-116 U/L Total Protein 6.8 5.7-8.2 g/dL Albumin 4.3 3.2-4.8 g/dL PATIENT: AYAH GUERRIER ACCT: [id number] UNIT: [id number] : 1960 LOC: OVERFLOW ROOM / BED: [address] [place] [address] AGE / SEX: 64 / F ADM STATUS: ADM IN SERVICE [id number] ORDERING PHYSICIAN: ADRIANO RHOADES PROCEDURE(s): BLDVT - BiLat Lower DVT REASON: high d dimer with leg swelling ORDER NUMBER(s): [id number], ACCESSION NUMBER(s): [id number] Bilateral lower extremity venous duplex Clinical History: high d dimer with leg swelling Comparison: None Technique: Duplex Doppler evaluation of the deep venous systems of both lower extremities from the common femoral veins to the popliteal veins including color Doppler and spectral/pulsed waveform analysis was performed. Findings: RIGHT SIDE: There is compressibility/patency of the great saphenous vein at the proximal thigh. Nonocclusive thrombus in the right common femoral vein to the popliteal vein. There is normal compressibility at the tibioperoneal trunk. LEFT SIDE: The common femoral vein demonstrates appropriate compressibility and waveform variability. There is compressibility/patency of the great saphenous vein at the proximal thigh. The femoral vein demonstrates appropriate compressibility and waveform variability. The deep femoral vein demonstrates appropriate compressibility and waveform variability. The popliteal vein demonstrates appropriate compressibility and waveform variability. There is normal compressibility at the tibioperoneal trunk. Impression: DVT right lower extremity. No DVT LLE ORDERING PHYSICIAN: MICHAEL HAMILTON DO PROCEDURE(s): HWOCT - HEAD WITHOUT CONTRAST REASON: Hypertensive crisis ORDER NUMBER(s): [id number], ACCESSION NUMBER(s): [id number] EXAM: CT HEAD WITHOUT CONTRAST HISTORY: Hypertensive crisis COMPARISON: None TECHNIQUE: Axial images of the head were obtained and reformatted in coronal and sagittal planes. All CT scans at this medical facility are performed using dose modulation techniques as appropriate to a performed exam including the following: Automated exposure control was utilized; adjustment of the MA and/or KV according to pat ient size; and use of iterative reconstruction technique. CT Dose: CTDI volume is 52.39 mGy. Dose-length product is 863.9 mGy*cm FINDINGS: There small hypodense foci in the right and left thalamic regions (axial image 15). Age-indeterminate infarcts are not excluded. There are chronic microvascular ischemic changes in the supratentorial white matter. There is a prominent perivascular space in the left basal ganglia. There is no evidence of acute intracranial hemorrhage, mass, mass effect midline shift. There is no hydrocephalus or extra-axial fluid collection. The visualized paranasal sinuses and mastoid air cells are clear. The calvarium is intact. IMPRESSION: 1. Nonspecific small hypodense foci in the right and left thalamic regions. Age-indeterminate infarcts are not excluded. Further evaluation with MRI brain with diffusion-weighted imaging is recommended. 2. There is no acute intracranial hemorrhage. Assessment/Plan Assessment/Plan Deep vein thrombosis, lower right extremity Leukocytosis, unspecified Elevated d-dimer Hypertensive urgency UTI (urinary tract infection) Elevated troponin I level Elevated liver enzymes Plan 1. Admit to telemetry unit 2. Breathing treatment 3. Pain control management 4. IV antibiotic management 5. Management of fluids and electrolytes 6. Consultation for neurology/hospitalist 7. Diagnostic test extremity venous study 8. DVT prophylaxis-on Lovenox 9. Repeat labs CBC, CMP in a.m. 10. Home medication reviewed and reconciled 11. Continue with current medical management 12. Treatment plan discussed with patient and RN. Patient verbalized understanding. Plan discussed with: Patient, Other (RN) My Orders Orders - TAE GRANADOS DNP Procedure Category Date Status Time Hydralazine Injection PHA 09/26/24 In Process (Apresoline Inject 22:30 Enoxaparin Sodium PHA 09/27/24 In Process (Lovenox) 10:00 Famotidine Injection PHA 09/27/24 In Process (Pepcid Injection) 10:00 Levofloxacin 500mg PHA 09/27/24 In Process (Levaquin 500mg/ 100m 10:00 Metoprolol Tartrate PHA 09/27/24 In Process Tablet (Lopressor Ta 10:00 Amlodipine Tablet PHA 09/27/24 In Process (Norvasc Tablet) 10:00 Urine Bacterial DARIAN 09/26/24 Logged Culture 22:24 Allergies TATUM 09/26/24 In Process 22:24 Code Status CODE 09/26/24 Transmitted 22:24 Sodium Chloride 0.9% PHA 09/26/24 In Process 22:30 Oxygen Per Hour RT 09/26/24 Transmitted 22:24 Hydrocodone-Acet PHA 09/26/24 In Process 5/325mg Tab ([place] 22:30 Ondansetron Hcl PHA 09/26/24 In Process (Zofran) 22:30 Docusate Sodium PHA 09/26/24 In Process Capsule (Colace 22:30 Complete Blood Count LAB 09/27/24 Verified 04:00 Comprehensive LAB 09/27/24 Verified Metabolic Panel 04:00 Cardiac DIET 09/27/24 Transmitted Diet-2gna,Lofat,Lochol Breakfast Condition: Serious TATUM 09/26/24 In Process 22:24 Acetaminophen Tablet PHA 09/26/24 In Process (Tylenol Tablet) 22:30 Bedrest With Bathroom TATUM 09/26/24 In Process Privileg 22:24 Blood Culture DARIAN 09/26/24 In Process 22:36 Admit ADMIT 09/26/24 Transmitted 23:36 Nitroglycerin PHA 09/26/24 Transmitted Sublingual (Ntrostat 23:45 Morphine Sulfate PHA 09/26/24 Transmitted Injection 23:45 Stat Ekg For Chest TATUM 09/26/24 Transmitted Pain 23:36 Notify Md Of Changes TATUM 09/26/24 Transmitted From Base 23:36 Online Affiliate Marketing Manager For [facility] 09/26/24 Transmitted 24 Hours 23:36 Emergency Dysrhythmia TATUM 09/26/24 Transmitted Protocol 23:36 Rhythm Strips Once TATUM 09/26/24 Transmitted Every Shift 23:36 Oxygen By Nasal RT 09/26/24 Transmitted Cannula 23:36 Problem List: (1) Deep vein thrombosis, lower right extremity (2) Hypertensive urgency (3) Leukocytosis, unspecified (4) Elevated d-dimer (5) Elevated troponin I level (6) UTI (urinary tract infection) (7) Elevated liver enzymes Date of Service: Sep 26, 2024 Billing Provider: TAE GRANADOS DNP Common Visit Codes: [id number] INP/OBS CARE (HIGH) TAE GRANADOS DNP Sep 26, 2024 23:39
[2024-09-26] MEDS: levoFLOXacin 500MG 100 ML IV SCH (23:44)
[2024-09-26] MEDS ORDERED: MORPHINE SULFATE INJ 2 MG/ml SYRG IV PRN (23:45)
[2024-09-26] MEDS ORDERED: NITROGLYCERIN 0.4 MG SL TAB SL PRN (23:45)
[2024-09-27] VITALS (11 sets, daily range): BP systolic 123–194; BP diastolic 67–90; PULSE 81–104; RESP 16–20; TEMP 97.4–99; O2SAT 90–99
[2024-09-27] MEDS: hydrALAZINE HCL 20 MG/ML VL IV PRN (03:50)
[2024-09-27] MEDS: LORazepam 0.5 MG TAB PO PRN (04:37)
[2024-09-27] MEDS: SODIUM CHLORIDE 0.9% 1,000 ML IV SCH (04:52)
[2024-09-27 05:49] LABS: Basophils # (auto) 0.1 10 ^3/uL (0-0.2); Basophils % (auto) 0.4 % (0.0-2.0); Eosinophils # (auto) 0 10 ^3/uL (0-0.8); Eosinophils % (auto) 0.1 % (0.0-7.0); Hematocrit 38.5 % (36.0-46.0); Hemoglobin 12.8 g/dL (12.2-16.2); Lymphocytes # (auto) 1.1 10 ^3/uL (0.4-5.4); Mean Corpuscular Hemoglobin 29.9 pg (28.0-32.0); Mean Corpuscular Hgb Conc. 33.3 g/dL (32.0-36.0); Mean Corpuscular Volume 89.7 fL (80.0-100.0); Monocytes % (auto) 4.5 % (0.0-12.0); Neutrophils # (auto) 20.4 10 ^3/uL (1.6-8.6); Platelet Count (auto) 275 10^3/uL (140-450); Red Blood Cells 4.29 10^6/uL (4.0-5.20); Red Cell Distribution Width 15.6 % (11.8-14.3); White Blood Cell 22.6 10^3/uL (4.4-10.8)
[2024-09-27 06:05] LABS: Albumin 4.1 g/dL (3.2-4.8); Alkaline Phosphatase 68 U/L (46-116); Anion Gap 10 (5-15); BUN/Creatinine Ratio 22.9 (10.0-20.0); Calcium 9.8 mg/dL (8.7-10.4); Potassium 4.1 mmol/L (3.5-5.1); Sodium 144 mmol/L (136-145); Total Protein 6.4 g/dL (5.7-8.2)
[2024-09-27 06:06] LABS: Alanine Aminotransferase 63 U/L (7-40); Aspartate Aminotransferase 57 U/L (13-40); Bilirubin, Total 0.2 mg/dL (0.2-1.0); Blood Urea Nitrogen 24 mg/dL (9-23); Carbon Dioxide 20 mmol/L (20-31); Chloride 114 mmol/L (98-107); Glucose 133 mg/dL (74-106)
[2024-09-27] MEDS: METOPROLOL TARTRATE 25 MG TAB PO SCH (09:15)
[2024-09-27] MEDS: amLODIPine BESYLATE 5 MG TAB PO SCH (09:15)
[2024-09-27] MEDS: FAMOTIDINE (10MG/ML) 2ML VL IV SCH (09:16)
[2024-09-27] MEDS: ENOXAPARIN SOD 80 MG/0.8ML SYRINGE SC SCH (09:16)
[2024-09-27] MEDS: HYDROcodone-ACET 5/325MG TAB PO PRN (11:02)
--- NOTE | 2024-09-27 11:16 | DVHPN2 ---
Reviewed: Care Plan, H&P, Labs, Medications, Previous Orders, Radiology Changes from previous H/P or p: No Changes Eyes: No Pain, No Vision change, No Conjunctivae inflammation, No Eyelid inflammation, No Other, No Redness ENT: No Ear pain, No Ear discharge, No Nose pain, No Nose discharge, No Nose congestion, No Mouth pain, No Mouth swelling, No Throat pain, No Throat swelling, No Other Cardiovascular: No Chest Pain, No Palpitations, No Orthopnea, No Paroxysmal Noc. Dyspnea, No Edema, No Lt Headedness, No Other Respiratory: No Cough, No Dry; Shortness of breath; No SOB with excertion, No Wheezing, No Hemoptysis, No Pleuritic Pain, No Sputum, No Other Gastrointestinal: No Nausea, No Vomiting, No Abdominal Pain, No Diarrhea, No Constipation, No Melena, No Hematochezia, No Other Genitourinary: No Dysuria, No Frequency, No Incontinence, No Hematuria, No Retention, No Other Musculoskeletal: No other, No neck pain, No shoulder pain, No arm pain, No back pain, No hand pain, No leg pain, No foot pain Skin: No Rash, No Lesions, No Jaundice, No Bruising; Other (Psoriasis skin) Objective Vitals Vital Signs Date Time Temp Pulse Resp B/P (MAP) Pulse Ox O2 Delivery O2 Flow Rate FiO2 09/27/24 10:54 194/75 09/27/24 09:15 99 09/27/24 08:29 97.5 16 90 97.5 09/27/24 03:35 Room Air* 0 21 Intake/Output Intake and Output 09/27/24 07:00 Intake Total 250 ml Balance 250 ml Intake Oral 0 ml IV Total 250 ml # Voids 1 Medications Current Medications Medications Dose Ordered Sig/Minerva Route Start Time Stop Time Status Last Admin Dose Admin Hydralazine HCl 10 mg Q6HP PRN IV 09/26/24 22:30 09/27/24 10:54 10 MG Enoxaparin Sodium 70 mg Q12HR SC 09/27/24 10:00 09/27/24 09:16 70 MG Famotidine 20 mg DAILY IV 09/27/24 10:00 09/27/24 09:16 20 MG Levofloxacin/ Dextrose 100 ml @ 100 mls/hr DAILY IV 09/27/24 10:00 09/26/24 23:44 100 MLS/HR Metoprolol Tartrate 25 mg BID PO 09/27/24 10:00 09/27/24 09:15 25 MG Amlodipine Besylate 5 mg DAILY PO 09/27/24 10:00 09/27/24 09:15 5 MG Sodium Chloride 1,000 ml @ 60 mls/hr [id number] IV 09/26/24 22:30 09/27/24 04:52 60 MLS/HR Acetaminophen/ Hydrocodone Bitart 1 tab Q4HP PRN PO 09/26/24 22:30 09/27/24 11:02 1 TAB Ondansetron HCl 4 mg Q4HP PRN IV 09/26/24 22:30 Docusate Sodium 100 mg BIDPRN PRN PO 09/26/24 22:30 Acetaminophen 650 mg Q6HP PRN PO 09/26/24 22:30 Nitroglycerin 0.4 mg Q5MINP PRN SL 09/26/24 23:45 Morphine Sulfate 2 mg Q30M PRN IV 09/26/24 23:45 Lorazepam 1 mg Q8HP PRN PO 09/27/24 03:30 09/27/24 04:37 1 MG Laboratory Results Laboratory Tests 09/27/24 04:56 Chemistry Test 09/26/24 22:45 09/27/24 04:56 Albumin 4.3 g/dL (3.2-4.8) 4.1 g/dL (3.2-4.8) Calcium Level 10.0 mg/dL (8.7-10.4) 9.8 mg/dL (8.7-10.4) Total Protein 6.8 g/dL (5.7-8.2) 6.4 g/dL (5.7-8.2) LFT Test 09/26/24 22:45 09/27/24 04:56 Alanine Aminotransferase (ALT) 70 U/L (7-40) H 63 U/L (7-40) H Alkaline Phosphatase 67 U/L (46-116) 68 U/L (46-116) Aspartate Amino Transferase (AST) 68 U/L (13-40) H 57 U/L (13-40) H Total Bilirubin 0.2 mg/dL (0.2-1.0) 0.2 mg/dL (0.2-1.0) Labs and/or images reviewed: Labs reviewed by me, Image(s) reviewed by me Assessment/Plan Assessment/Plan Sepsis secondary to urinary tract infection: Blood cultures urine cultures Levaquin Non ST-elevation FL with troponin of 5000: Consult for Dr.M Sloan Hypertensive emergency Type 2 diabetes DVT right lower extremity: Lovenox 1 milligram/kilos subQ b.i.d. Hypertensive emergency KATHLEEN Bipolar Anxiety History of panic disorder PE ruled out Time Spent 70 minutes Patient is full code Advanced care planning time 20 minutes Plan discussed with: Patient Date of Service: Sep 27, 2024 Billing Provider: GRZEGORZ FRAGOSO MD Common Visit Codes: 37312-[id number] CARE 30-74 MIN GRZEGORZ FRAGOSO MD Sep 27, 2024 11:16
[2024-09-27] MEDS: ONDANSETRON HCL 4 MG/2 ML VIAL IV PRN (18:11)
[2024-09-27] MEDS ORDERED: LORazepam 2MG/ML-1ML VIAL IV PRN (21:30)
--- NOTE | 2024-09-27 21:41 | DVHINCON2 ---
Date of service: Sep 27, 2024 Referring Physician Iris Reason for Consultation Nonspecific small hypodense foci in the right and the left thalamic regions History of Present Illness Ms. Montes is a 64 years old right-handed female with a history of hypertension, anxiety, she was brought to the [facility] on 09/26/2024 with a chief complaint of hypertension. In the hospital, the patient was had severe insomnia yesterday, and a lot anxiety today, she was sedated with Ativan, so not able to give a good history. She is only oriented to person, place, she knows year, but her nurse realized the patient was oriented, and her son reports she has normal mentation and memory She has no history or symptoms of stroke, but her CT head showed evidence suggestive multiple strokes in bilateral hemispheres For a few years, the patient was has pain started in the feet, when it was spread to the clifford, she had pain in the hands. Per my observation, her skin is dry, with chronic superficial lesions and calluses Her son reports a history of anxiety, and her nurse reports symptoms of anxiety in the hospital [phone] WBC/HB/PLT/MCV, 09/26/2024: 24.8/13.3/260/90.7 Troponin one high sensitivity, 09/26/2024: 5016, 09/27/2024: 4707, 4636 BMP, 09/27/2024: Unremarkable TBI/AST/ALT/AP, 09/27/2024: 0.2/57/63/68 V/Q scan, 09/26/2024: Based on PIOPED criteria, low probability for pulmonary embolism. Extremity venous study, 09/26/2024: DVT right lower extremity. CT head, 09/25/2024: 1. Nonspecific small hypodense foci in the right and left thalamic regions. Age-indeterminate infarcts are not excluded. Further evaluation with MRI brain with diffusion-weighted imaging is recommended. 2. There is no acute intracranial hemorrhage.(I saw a small hypodense fous in the left basal ganglia region, imaging 15) Past Medical History Hypertension, anxiety Past Surgical History Appendectomy, cholecystectomy, hysterectomy Family History: Anxiety disorder G8 MOTHER FH: breast cancer G8 MOTHER Family History Hypertension, cancer, alcohol problem, drug problems Social History She smokes, she drinks alcohol occasionally. She was history of drug abuse to a few years ago Allergies: Coded Allergies: Codeine (Unverified Allergy, Severe, 08/02/14) Erythromycin (Unverified Allergy, Severe, 08/02/14) Penicillins (Unverified Allergy, Severe, 08/02/14) Home Meds Active Scripts Diphenhydramine Hcl (Benadryl Allergy) 25 Mg Cap, 1 CAP PO QPM, #30 CAP 1 Refill Prov:GWENDOLYN EASTMAN MD 09/16/24 Methylprednisolone (Medrol Dosepak) 4 Mg Samy, 4 MG PO UD, #21 TAB UAD Prov:GWENDOLYN EASTMAN MD 09/16/24 Current Medications Current Medications Medications (Trade) Dose Ordered Sig/Minerva Route PRN Reason Start Time Stop Time Status Last Admin Hydralazine HCl (Apresoline Injection) 10 mg Q6HP PRN IV SBP>150 09/26/24 22:30 09/27/24 10:54 Enoxaparin Sodium (Lovenox) 70 mg Q12HR SC 09/27/24 10:00 09/27/24 20:56 Famotidine (Pepcid Injection) 20 mg DAILY IV 09/27/24 10:00 09/27/24 09:16 Levofloxacin/ Dextrose 100 ml @ 100 mls/hr DAILY IV 09/27/24 10:00 09/26/24 23:44 Metoprolol Tartrate (Lopressor Tablet) 25 mg BID PO 09/27/24 10:00 09/27/24 20:55 Amlodipine Besylate (Norvasc Tablet) 5 mg DAILY PO 09/27/24 10:00 09/27/24 09:15 Sodium Chloride 1,000 ml @ 60 mls/hr [id number] IV 09/26/24 22:30 09/27/24 04:52 Acetaminophen/ Hydrocodone Bitart ([place] 5/325MG Tab) 1 tab Q4HP PRN PO MODERATE PAIN (4-6 PAIN SCALE) 09/26/24 22:30 09/27/24 18:12 Ondansetron HCl (Zofran) 4 mg Q4HP PRN IV NAUSEA / VOMITING 09/26/24 22:30 09/27/24 18:11 Docusate Sodium (Colace Capsule) 100 mg BIDPRN PRN PO FOR CONSTIPATION 09/26/24 22:30 Acetaminophen (Tylenol Tablet) 650 mg Q6HP PRN PO PAIN SCALE 1-3 OR TEMP>100.4 09/26/24 22:30 Nitroglycerin (Ntrostat Sublingual) 0.4 mg Q5MINP PRN SL FOR CHEST PAIN 09/26/24 23:45 Morphine Sulfate 2 mg Q30M PRN IV FOR CHEST PAIN 09/26/24 23:45 Lorazepam (Ativan Tablet) 1 mg Q8HP PRN PO ANXIETY 09/27/24 03:30 09/27/24 20:56 Lorazepam (Ativan Inj) 0.25 mg Q6HP PRN IV ANXIETY 09/27/24 21:30 UNV Review of Systems As above, the other systems are negative Vital Signs Vital Signs Date Time Temp Pulse Resp B/P (MAP) Pulse Ox O2 Delivery O2 Flow Rate FiO2 09/27/24 20:55 81 167/90 09/27/24 20:45 98.6 17 94 98.6 09/27/24 19:30 Room Air* 0 21 Physical Exam GENERAL EXAM: General: the patient is well developed and nourished. No acute distress. HEENT: Normocephalic, neck is supple, no carotid bruits. No mass. RESPIRATORY: Normal respiratory effort with symmetrical lung expansion. Lungs clear to auscultation. CARDIOVASCULAR: Regular rate and rhythm with no murmurs. S1, S2. ABDOMEN: Soft, nontender, normal bowel sound NEUROLOGICAL: MENTAL STATUS: HGB I SPEECH, LANGUAGE, HIGHER CORTICAL FUNCTION: no aphasia or dysathria. CRANIAL NERVES: #2: Intact visual herman to confrontation. #3,4,6: Pupils are equal, round and reactive. EOMs full and conjugate. #5: Facial sensation intact in all three divisions bilaterally. Mandibular strength intact. #7: Facial muscles symmetrical and strength intact. #8: Hearing grossly normal to voice. #9,10: Uvula and soft palate rise in the midline. Swallow and voice are normal. #11: Trapezius and sternomastoid strength intact bilaterally. #12: Tongue midline. No fasciculations or atrophy. SENSATION: Sensation to touch and pinprick is unremarkable MOTOR: Normal tone in the upper and lower extremity. Normal muscle bulk. No fasciculations. No abnormal movements or posturing. She moves all her ext remities REFLEXES: Deep tendon reflexes are symmetrically diminished No pathological reflexes. CEREBELLAR/COORDINATION: Deferred GAIT/STATION: deferred. Labs/Diagnostic Data Labs Test 09/27/24 10:49 09/27/24 04:56 Range/Units POC Glucose 112 H 70-106 mg/dl White Blood Count 22.6 H 4.4-10.8 10^3/uL Red Blood Count 4.29 4.0-5.20 10^6/uL Hemoglobin 12.8 12.2-16.2 g/dL Hematocrit 38.5 36.0-46.0 % Mean Corpuscular Volume 89.7 80.0-100.0 fL Mean Corpuscular Hemoglobin 29.9 28.0-32.0 pg Mean Corpuscular Hemoglobin Concent 33.3 32.0-36.0 g/dL Red Cell Distribution Width 15.6 H 11.8-14.3 % Platelet Count 275 140-450 10^3/uL Mean Platelet Volume 9.0 6.9-10.8 fL Neutrophils (%) (Auto) 90.0 H 37.0-80.0 % Lymphocytes (%) (Auto) 5.0 L 10.0-50.0 % Monocytes (%) (Auto) 4.5 0.0-12.0 % Eosinophils (%) (Auto) 0.1 0.0-7.0 % Basophils (%) (Auto) 0.4 0.0-2.0 % Neutrophils # (Auto) 20.4 H 1.6-8.6 10 ^3/uL Lymphocytes # (Auto) 1.1 0.4-5.4 10 ^3/uL Monocytes # (Auto) 1.0 0-1.3 10 ^3/uL Eosinophils # (Auto) 0 0-0.8 10 ^3/uL Basophils # (Auto) 0.1 0-0.2 10 ^3/uL Nucleated Red Blood Cells 0.0 % Sodium Level 144 136-145 mmol/L Potassium Level 4.1 3.5-5.1 mmol/L Chloride Level 114 H 98-107 mmol/L Carbon Dioxide Level 20 20-31 mmol/L Anion Gap 10 5-15 Blood Urea Nitrogen 24 H 9-23 mg/dL Creatinine 1.05 H 0.550-1.02 mg/dL Glomerular Filtration Rate Calc 59 >90 mL/min BUN/Creatinine Ratio 22.9 H 10.0-20.0 Serum Glucose 133 H 74-106 mg/dL Calcium Level 9.8 8.7-10.4 mg/dL Total Bilirubin 0.2 0.2-1.0 mg/dL Aspartate Amino Transferase (AST) 57 H 13-40 U/L Alanine Aminotransferase (ALT) 63 H 7-40 U/L Alkaline Phosphatase 68 46-116 U/L Troponin I High Sensitivity 4636 *H </=34 ng/L Total Protein 6.4 5.7-8.2 g/dL Albumin 4.1 3.2-4.8 g/dL Microbiology Date/Time Source Procedure Growth Status 09/27/24 04:15 Nose MRSA Screen - Final Complete Assessment Hypodensity lesions in CT head scan, unclear clinical significance Rule out chronic stroke Rule out acute stroke Pain in the feet, legs and hands, ? Alcoholic neuropathy DVT Abnormal liver function tests Plan/Recommendation Monitoring Supportive treatment Telemetry Hepatitis panel Lipitor profile HGB A1c, vitamin B12, folic acid, TSH, FT4 UDS DVT profile MR brain scan Carotid Doppler CONSIDER FAYE Lovenox 70 mg subQ b.i.d. A TRIAL OF ZOLOFT 50 MG DAILY RESTORIL 50 MG P.O. HS P.R.N. FOR INSOMNIA Consider gabapentin for foot pain control letter Ativan for anxiety GI prophylaxis Will address foot care later More recommendation per clinical course Progress: Poor This medical document was created using an electronic medical record system with [employer] dictation system. Although this document has been carefully reviewed, there may still be some phonetic and typographical errors. These areas are purely typographical due to imperfections of the software programs, and do not reflect any compromise in the patient's medical care. Plan discussed with: Fausto Morales QUANWEI MD Sep 27, 2024 21:41
[2024-09-27 22:58] LABS: Cholesterol 162 mg/dL (< 200)
[2024-09-27 22:59] LABS: HDL Cholesterol 29 mg/dL (40-59); LDL Cholesterol 105 mg/dL (< 100); Triglycerides 177 mg/dL (< 150)
[2024-09-28] VITALS (9 sets, daily range): BP systolic 148–202; BP diastolic 65–91; PULSE 65–92; RESP 17–20; TEMP 97.8–98.8; O2SAT 91–97
--- NOTE | 2024-09-28 00:28 | DVHINCON2 ---
Date of service: Sep 27, 2024 Referring Physician Wong Reason for Consultation Elevated troponin History of Present Illness This is a 64 year old female with a PMH of HTN and anxiety who presents to ED with a complaint high blood pressure. Patient was seen here at [facility] yesterday and was admitted for an acute allergic reaction but left the hospital AMA. Patient decided to return to the hospital due to elevated BP. Patient appears very animated and has swings of emotions. WBC 22.6, CL 114, BUN 24, [employer] 1.05, AST 57, ALT 63, TROP 5016 > 4707 > 4636. Patient was admitted to the hospital. I am asked to consult on this patient. Family History: Anxiety disorder G8 MOTHER FH: breast cancer G8 MOTHER Allergies: Coded Allergies: Codeine (Unverified Allergy, Severe, 08/02/14) Erythromycin (Unverified Allergy, Severe, 08/02/14) Penicillins (Unverified Allergy, Severe, 08/02/14) Home Meds Active Scripts Diphenhydramine Hcl (Benadryl Allergy) 25 Mg Cap, 1 CAP PO QPM, #30 CAP 1 Refill Prov:GWENDOLYN EASTMAN MD 09/16/24 Methylprednisolone (Medrol Dosepak) 4 Mg Samy, 4 MG PO UD, #21 TAB UAD Prov:GWENDOLYN EASTMAN MD 09/16/24 Current Medications Current Medications Medications (Trade) Dose Ordered Sig/Minerva Route PRN Reason Start Time Stop Time Status Last Admin Hydralazine HCl (Apresoline Injection) 10 mg Q6HP PRN IV SBP>150 09/26/24 22:30 09/27/24 10:54 Enoxaparin Sodium (Lovenox) 70 mg Q12HR SC 09/27/24 10:00 09/27/24 20:56 Famotidine (Pepcid Injection) 20 mg DAILY IV 09/27/24 10:00 09/27/24 09:16 Levofloxacin/ Dextrose 100 ml @ 100 mls/hr DAILY IV 09/27/24 10:00 09/26/24 23:44 Metoprolol Tartrate (Lopressor Tablet) 25 mg BID PO 09/27/24 10:00 09/27/24 20:55 Amlodipine Besylate (Norvasc Tablet) 5 mg DAILY PO 09/27/24 10:00 09/27/24 09:15 Sodium Chloride 1,000 ml @ 60 mls/hr [id number] IV 09/26/24 22:30 09/27/24 04:52 Acetaminophen/ Hydrocodone Bitart ([place] 5/325MG Tab) 1 tab Q4HP PRN PO MODERATE PAIN (4-6 PAIN SCALE) 09/26/24 22:30 09/27/24 18:12 Ondansetron HCl (Zofran) 4 mg Q4HP PRN IV NAUSEA / VOMITING 09/26/24 22:30 09/27/24 18:11 Docusate Sodium (Colace Capsule) 100 mg BIDPRN PRN PO FOR CONSTIPATION 09/26/24 22:30 Acetaminophen (Tylenol Tablet) 650 mg Q6HP PRN PO PAIN SCALE 1-3 OR TEMP>100.4 09/26/24 22:30 Nitroglycerin (Ntrostat Sublingual) 0.4 mg Q5MINP PRN SL FOR CHEST PAIN 09/26/24 23:45 Morphine Sulfate 2 mg Q30M PRN IV FOR CHEST PAIN 09/26/24 23:45 Lorazepam (Ativan Tablet) 1 mg Q8HP PRN PO ANXIETY 09/27/24 03:30 09/27/24 20:56 Lorazepam (Ativan Inj) 0.25 mg Q6HP PRN IV ANXIETY 09/27/24 21:30 UNV Review of Systems Constitutional: reports: weakness; denies: chills, diaphoresis, fatigue, fever, malaise, sweats, others EENTM: denies: blurred vision, double vision, ear bleeding, ear discharge, ear drainage, ear pain, ear ringing, eye pain, eye redness, hearing loss, mouth pain, mouth swelling, nasal discharge, nose bleeding, nose congestion, nose pain, photophobia, tearing, throat pain, throat swelling, voice changes, others Respiratory: denies: cough, hemoptysis, orthopnea, SOB at rest, shortness of breath, SOB with excertion, stridor, wheezing, others Cardiovascular: denies: chest pain, dizzy spells, diaphoresis, Dyspnea on exertion, edema, irregular heart beat, left arm pain, lightheadedness, palpitations, PND, syncope, others Gastrointestinal: denies: abdomen distended, abdominal pain, blood streaked bowels, constipated, diarrhea, dysphagia, difficulty swallowing, hematemesis, melena, nausea, poor appetite, poor fluid intake, rectal bleeding, rectal pain, vomiting, others Genitourinary: denies: abnormal vagina bleeding, burning, dyspareunia, dysuria, flank pain, frequency, hematuria, incontinence, pain, , vagina discharge, urgency, others Neurological: reports: dizziness; denies: fainting, headache, left sided numbness, left sided weakness, numbness, paresthesia, pre-existing deficit, right sided numbness, right sided weakness, seizure, speech problems, tingling, tremors, weakness, others Musculoskeletal: denies: back pain, gout, joint pain, joint swelling, muscle pain, muscle stiffness, neck pain, others Integumetry: denies: bruises, change in color, change in hair/nails, dryness, laceration, lesions, lumps, rash, wounds, others Allergic/Immunocompromised: denies: Difficulty Healing, Frequent Infections, Hives, Itching, others Hematologic/Lymphatic: denies: anemia, blood clots, easy bleeding, easy bruising, swollen glands, others Endocrine: denies: excessive hunger, excessive sweating, excessive thirst, excessive urination, flushing, intolerance to cold, intolerance to heat, unexp lained weight gain, unexplained weight loss, others Psychiatric: reports: anxiety, depression; denies: bipolar disorder, hopeless, panic disorder, schizophrenia, sleepless, suicidal, others Unable to Obtain due to: Altered Mental Status All Other Systems: Reviewed and Negative Vital Signs Vital Signs Date Time Temp Pulse Resp B/P (MAP) Pulse Ox O2 Delivery O2 Flow Rate FiO2 09/27/24 20:55 81 167/90 09/27/24 20:45 98.6 17 94 98.6 09/27/24 19:30 Room Air* 0 21 Physical Exam GENERAL: Awake, alert, oriented. LUNGS: Clear. CARDIOVASCULAR: Heart sounds are good. ABDOMEN: Soft. SKIN: Patient has a excoriations throughout her arms and lower legs. Labs/Diagnostic Data Labs Test 09/27/24 10:49 09/27/24 04:56 Range/Units POC Glucose 112 H 70-106 mg/dl White Blood Count 22.6 H 4.4-10.8 10^3/uL Red Blood Count 4.29 4.0-5.20 10^6/uL Hemoglobin 12.8 12.2-16.2 g/dL Hematocrit 38.5 36.0-46.0 % Mean Corpuscular Volume 89.7 80.0-100.0 fL Mean Corpuscular Hemoglobin 29.9 28.0-32.0 pg Mean Corpuscular Hemoglobin Concent 33.3 32.0-36.0 g/dL Red Cell Distribution Width 15.6 H 11.8-14.3 % Platelet Count 275 140-450 10^3/uL Mean Platelet Volume 9.0 6.9-10.8 fL Neutrophils (%) (Auto) 90.0 H 37.0-80.0 % Lymphocytes (%) (Auto) 5.0 L 10.0-50.0 % Monocytes (%) (Auto) 4.5 0.0-12.0 % Eosinophils (%) (Auto) 0.1 0.0-7.0 % Basophils (%) (Auto) 0.4 0.0-2.0 % Neutrophils # (Auto) 20.4 H 1.6-8.6 10 ^3/uL Lymphocytes # (Auto) 1.1 0.4-5.4 10 ^3/uL Monocytes # (Auto) 1.0 0-1.3 10 ^3/uL Eosinophils # (Auto) 0 0-0.8 10 ^3/uL Basophils # (Auto) 0.1 0-0.2 10 ^3/uL Nucleated Red Blood Cells 0.0 % Sodium Level 144 136-145 mmol/L Potassium Level 4.1 3.5-5.1 mmol/L Chloride Level 114 H 98-107 mmol/L Carbon Dioxide Level 20 20-31 mmol/L Anion Gap 10 5-15 Blood Urea Nitrogen 24 H 9-23 mg/dL Creatinine 1.05 H 0.550-1.02 mg/dL Glomerular Filtration Rate Calc 59 >90 mL/min BUN/Creatinine Ratio 22.9 H 10.0-20.0 Serum Glucose 133 H 74-106 mg/dL Calcium Level 9.8 8.7-10.4 mg/dL Total Bilirubin 0.2 0.2-1.0 mg/dL Aspartate Amino Transferase (AST) 57 H 13-40 U/L Alanine Aminotransferase (ALT) 63 H 7-40 U/L Alkaline Phosphatase 68 46-116 U/L Troponin I High Sensitivity 4636 *H </=34 ng/L Total Protein 6.4 5.7-8.2 g/dL Albumin 4.1 3.2-4.8 g/dL Microbiology Date/Time Source Procedure Growth Status 09/27/24 04:15 Nose MRSA Screen - Final Complete Assessment Sepsis secondary to urinary tract infection. NSTEMI. Hypertensive emergency. Type 2 diabetes. DVT right lower extremity. Hypertensive emergency. KATHLEEN. Bipolar. Anxiety. History of panic disorder. Plan/Recommendation I agree with your ongoing assessment and care of plan. Telemetry reviewed. Morphine and [place] for pain management. Amlodipine. DVT prophylactics. IV antibiotics as ordered. Metoprolol. Nitro SL. Additional plan as per the hospital course. A total of 45 minutes was spent reviewing the patient record, examining the patient, making a diagnostic and therapeutic plan, discussing this plan with medical personnel, following up on diagnostic studies and following the patient for clinical stability excluding any and all procedures. At least 50% of this time was spent in direct, [id number] contact. Plan discussed with: Patient YASMIN TANNER MD Sep 27, 2024 21:30
--- NOTE | 2024-09-28 07:52 | DVHPN2 ---
Reviewed: Care Plan, H&P, Labs, Medications, Previous Orders, Radiology Changes from previous H/P or p: No Changes Eyes: No Pain, No Vision change, No Conjunctivae inflammation, No Eyelid inflammation, No Other, No Redness ENT: No Ear pain, No Ear discharge, No Nose pain, No Nose discharge, No Nose congestion, No Mouth pain, No Mouth swelling, No Throat pain, No Throat swelling, No Other Cardiovascular: No Chest Pain, No Palpitations, No Orthopnea, No Paroxysmal Noc. Dyspnea, No Edema, No Lt Headedness, No Other Respiratory: No Cough, No Dry; Shortness of breath; No SOB with excertion, No Wheezing, No Hemoptysis, No Pleuritic Pain, No Sputum, No Other Gastrointestinal: No Nausea, No Vomiting, No Abdominal Pain, No Diarrhea, No Constipation, No Melena, No Hematochezia, No Other Genitourinary: No Dysuria, No Frequency, No Incontinence, No Hematuria, No Retention, No Other Musculoskeletal: No other, No neck pain, No shoulder pain, No arm pain, No back pain, No hand pain, No leg pain, No foot pain Skin: No Rash, No Lesions, No Jaundice, No Bruising; Other (Psoriasis skin) Objective Vitals Vital Signs Date Time Temp Pulse Resp B/P (MAP) Pulse Ox O2 Delivery O2 Flow Rate FiO2 09/28/24 04:40 98.2 73 17 162/65 (97) 91 98.2 09/27/24 19:30 Room Air* 0 21 Intake/Output Intake and Output 09/28/24 07:00 Intake Total 1018 ml Output Total 200 ml Balance 818 ml Intake Oral 1018 ml Output Urine Total 200 ml # Voids 3 Medications Current Medications Medications Dose Ordered Sig/Minerva Route Start Time Stop Time Status Last Admin Dose Admin Hydralazine HCl 10 mg Q6HP PRN IV 09/26/24 22:30 09/27/24 10:54 10 MG Enoxaparin Sodium 70 mg Q12HR SC 09/27/24 10:00 09/27/24 20:56 70 MG Famotidine 20 mg DAILY IV 09/27/24 10:00 09/27/24 09:16 20 MG Levofloxacin/ Dextrose 100 ml @ 100 mls/hr DAILY IV 09/27/24 10:00 09/26/24 23:44 100 MLS/HR Metoprolol Tartrate 25 mg BID PO 09/27/24 10:00 09/27/24 20:55 25 MG Amlodipine Besylate 5 mg DAILY PO 09/27/24 10:00 09/27/24 09:15 5 MG Sodium Chloride 1,000 ml @ 60 mls/hr [id number] IV 09/26/24 22:30 09/27/24 04:52 60 MLS/HR Acetaminophen/ Hydrocodone Bitart 1 tab Q4HP PRN PO 09/26/24 22:30 09/27/24 18:12 1 TAB Ondansetron HCl 4 mg Q4HP PRN IV 09/26/24 22:30 09/27/24 18:11 4 MG Docusate Sodium 100 mg BIDPRN PRN PO 09/26/24 22:30 Acetaminophen 650 mg Q6HP PRN PO 09/26/24 22:30 Nitroglycerin 0.4 mg Q5MINP PRN SL 09/26/24 23:45 Morphine Sulfate 2 mg Q30M PRN IV 09/26/24 23:45 Lorazepam 1 mg Q8HP PRN PO 09/27/24 03:30 09/27/24 20:56 1 MG Lorazepam 0.25 mg Q6HP PRN IV 09/27/24 21:30 Sertraline HCl 50 mg DAILY PO 09/28/24 10:00 Temazepam 15 mg HS PRN PO 09/27/24 22:15 Duloxetine HCl 30 mg DAILY PO 09/28/24 10:00 Laboratory Results Laboratory Tests 09/27/24 04:56 Lipid panel Test 09/27/24 22:22 Cholesterol Level 162 mg/dL (< 200) HDL Cholesterol 29 mg/dL (40-59) L Triglycerides Level 177 mg/dL (< 150) H HgA1c, TSH Test 09/27/24 22:22 Thyroid Stimulating Hormone (TSH) 1.39 uIU/mL (0.55-4.78) Microbiology Microbiology Date/Time Source Procedure Growth Status 09/27/24 04:15 Nose MRSA Screen - Final Complete 09/26/24 22:45 Blood Blood Culture - Preliminary NO GROWTH AFTER 24 HOURS OF INCUBATION. Resulted Labs and/or images reviewed: Labs reviewed by me, Image(s) reviewed by me Assessment/Plan Assessment/Plan Sepsis secondary to urinary tract infection: Blood cultures negative urine cultures pending, continue Levaquin Non ST-elevation OK with troponin of 5000: Consult for Dr.M Sloan appreciated Hypertensive emergency Type 2 diabetes DVT right lower extremity: Lovenox 1 milligram/kilos subQ b.i.d. Hypertensive emergency KATHLEEN Bipolar Anxiety History of panic disorder History of meth abuse PE ruled out Time Spent 55 minutes Patient is full code Advanced care planning time 20 minutes Plan discussed with: Patient My Orders Orders - GRZEGORZ FRAGOSO MD Procedure Category Date Status Time * Cardiology Consult CONS 09/27/24 Transmitted 11:18 Communication Order ORDERS 09/27/24 Transmitted 11:20 Drug Screen LAB 09/27/24 Logged 11:29 Date of Service: Sep 28, 2024 Billing Provider: GRZEGORZ FRAGOSO MD Common Visit Codes: [id number] INP/OBS CARE(HIGH) GRZEGORZ FRAGOSO MD Sep 28, 2024 07:52
[2024-09-28] MEDS: DULoxetine HCL 30 MG CAP PO SCH (09:14)
[2024-09-28] MEDS: SERTRALINE HCL 50 MG TAB PO SCH (09:15)
--- NOTE | 2024-09-28 13:42 | DVH ---
Carotid Duplex Date: 09/28/2024 11:35 AM Clinical History: cva Comparison: None Technique: Duplex Doppler evaluation of the extracranial carotid and vertebral arteries including color Doppler and spectral/pulsed waveform analysis was performed. Findings: RIGHT SIDE: The peak systolic velocities are 65 cm/s in the distal CCA and 156 cm/s in the proximal ICA.The ICA/C CA ratio is 2.4. Less than 50% stenosis The external carotid artery is patent with peak systolic velocity of 152 cm/s proximally. There is appropriate antegrade flow in the right vertebral artery, 74 cm/s LEFT SIDE: The peak systolic velocities are 55 cm/s in the distal CCA and 195 cm/s in the proximal ICA.. The IC A/CCA ratio is 3.6. (50-69% stenosis) The external carotid artery is patent with peak systolic velocity of 98 cm/s There is appropriate antegrade flow in the left vertebral artery. IMPRESSION: 1. Less than 50% stenosis on the right 2. 50-69% stenosis on the left 3. Reference: Radiology 2003; [id number] HS:Y
--- NOTE | 2024-09-28 13:45 | DVH ---
EXAM: MRI BRAIN HEAD WO CONTRAST HISTORY: CVA COMPARISON: None TECHNIQUE: Multiplanar multisequence noncontrast MR images of the brain were performed. FINDINGS: There is a tiny focus high DWI/ low ADC signal in the left frontal periventricular white ma tter (image 17, series 6). There is moderate to severe high T2-FLAIR signal abnormality in the perive ntricular and bicerebral white matter. There are old lacunar infarcts and/or prominent perivascular spaces involving the bilateral basal ganglia. There are old lacunar infarcts of the bilateral basal g anglia and left caudate head. No intracranial masses, midline shift, or hydrocephalus. T2 gradient ec ho images demonstrate a few punctate hypointense foci in the bilateral cerebrum.. Flow voids are pres ent in the major intracranial vessels. The corpus callosum, sella, pituitary, and craniocervical junc tion are unremarkable. The optic globes are symmetric. There is mucosal thickening in the bilateral m axillary, ethmoid, and sphenoid sinuses. The bilateral mastoid air cells are clear. The patient is ed entulous. IMPRESSION: 1. Tiny acute to subacute left frontal white matter lacunar infarct. 2. Moderate to severe chronic ischemic changes with evidence of acute large vessel infarct. 3. Paranasal sinus disease sparing the frontal sinuses.
[2024-09-28 15:36] LABS: Opiate Scree,Urine Neg (NEGATIVE); Phencyclidine Screen, Urine Neg (NEGATIVE)
[2024-09-28 15:38] LABS: Amphetamine Screen, Urine Neg (NEGATIVE); Barbiturate Scree,Urine Neg (NEGATIVE)
[2024-09-28 15:39] LABS: Benzodiazephine Screen, Urine Neg (NEGATIVE); Cannabinoid Screen, Urine Neg (NEGATIVE); Cocaine Screen, Urine Neg (NEGATIVE)
--- NOTE | 2024-09-28 23:59 | DVHPN2 ---
Progress Note - Dictate Date Seen: Sep 28, 2024 Medical Necessity Reason Pt with a Central, PICC or Fol: No Subjective Patient was seen and evaluated in follow up. Patient complains of a headache. Patient is hypertensive . Cartoid duplex showed less than 50% stenosis on the right, 50-69% stenosis on the left. MRI brain reveled tiny acute to subacute left frontal white matter lacunar infarct. Moderate to severe chronic ischemic changes with evidence of acute large vessel infarct. Paranasal sinus disease sparing the frontal sinuses. Telemetry reviewed. vital signs Vital Sign Date Time Temp Pulse Resp B/P (MAP) Pulse Ox O2 Delivery O2 Flow Rate FiO2 09/28/24 13:00 98.2 73 17 (128) 93 98.2 09/28/24 08:00 Room Air* 0 21 Total Intake and Output 09/27/24 09/27/24 09/28/24 15:00 23:00 07:00 Intake Total 300 ml 718 ml Output Total 200 ml Balance 100 ml 718 ml medications Current Medications Medications Dose Ordered Sig/Minerva Route Start Time Stop Time Status Last Admin Dose Admin Hydralazine HCl 10 mg Q6HP PRN IV 09/26/24 22:30 09/28/24 12:02 10 MG Enoxaparin Sodium 70 mg Q12HR SC 09/27/24 10:00 09/28/24 09:16 70 MG Famotidine 20 mg DAILY IV 09/27/24 10:00 09/28/24 09:15 20 MG Levofloxacin/ Dextrose 100 ml @ 100 mls/hr DAILY IV 09/27/24 10:00 09/28/24 09:13 100 MLS/HR Metoprolol Tartrate 25 mg BID PO 09/27/24 10:00 09/28/24 09:14 25 MG Amlodipine Besylate 5 mg DAILY PO 09/27/24 10:00 09/28/24 09:15 5 MG Sodium Chloride 1,000 ml @ 60 mls/hr [id number] IV 09/26/24 22:30 09/28/24 09:16 60 MLS/HR Acetaminophen/ Hydrocodone Bitart 1 tab Q4HP PRN PO 09/26/24 22:30 09/27/24 18:12 1 TAB Ondansetron HCl 4 mg Q4HP PRN IV 09/26/24 22:30 09/27/24 18:11 4 MG Docusate Sodium 100 mg BIDPRN PRN PO 09/26/24 22:30 Acetaminophen 650 mg Q6HP PRN PO 09/26/24 22:30 Nitroglycerin 0.4 mg Q5MINP PRN SL 09/26/24 23:45 Morphine Sulfate 2 mg Q30M PRN IV 09/26/24 23:45 Lorazepam 1 mg Q8HP PRN PO 09/27/24 03:30 09/28/24 09:15 1 MG Lorazepam 0.25 mg Q6HP PRN IV 09/27/24 21:30 Sertraline HCl 50 mg DAILY PO 09/28/24 10:00 09/28/24 09:15 50 MG Temazepam 15 mg HS PRN PO 09/27/24 22:15 Duloxetine HCl 30 mg DAILY PO 09/28/24 10:00 09/28/24 09:14 30 MG objective GENERAL: Awake, alert, oriented. LUNGS: Clear. CARDIOVASCULAR: Heart sounds are good. ABDOMEN: Soft. SKIN: Patient has a excoriations throughout her arms and lower legs. laboratory and microbiology Laboratory Tests 09/27/24 04:56 Test 09/27/24 04:56 Range/Units Serum Glucose 133 H 74-106 mg/dL Problem List Sepsis secondary to urinary tract infection. NSTEMI. Hypertensive emergency. Type 2 diabetes. DVT right lower extremity. Hypertensive emergency. KATHLEEN. Bipolar. Anxiety. History of panic disorder. Assessment/Plan Continued all current supportive medical care. Morphine and Liberty for pain management. Amlodipine. DVT prophylactics. IV antibiotics as ordered. Metoprolol. Nitro SL. Additional plan as per the hospital course. Dietary Evaluation Review Recommendations by RD: Increase Calorie Intake, Protein Supplementation Comments: 1) Initiate Ensure Enlive bid d/t decreased appetite. Encourage optimal PO intake 2) Initiate Pro-Stat @ 30 mL qd 3) Folllow-up with cardiology and nephrology 4) Refer to outpatient RD for weight management 5) Continue to monitor I&O, labs, and skin integrity Expected Outcomes/Goals: 1) appetite and labs to improve 2) wound to improve 3) f/u in 3-5 days Plan discussed with: YASMIN Celeste MD Sep 28, 2024 14:26
[2024-09-29] VITALS (9 sets, daily range): BP systolic 153–181; BP diastolic 68–84; PULSE 78–102; RESP 16–20; TEMP 98.4–99.3; O2SAT 90–95
[2024-09-29 10:27] LABS: Hepatitis B Surface Antigen Negative (Negative)
[2024-09-29 10:44] LABS: Folate (Folic Acid) 7.59 ng/mL (>5.38)
[2024-09-29 10:45] LABS: Free T4 (Free Thyroxine) 1.31 ng/dL (0.89-1.76)
[2024-09-29 10:49] LABS: Hepatitis C Antibody Negative (Negative)
--- NOTE | 2024-09-29 11:19 | DVHPN2 ---
Progress Note - Dictate Date Seen: Sep 29, 2024 Medical Necessity Reason Pt with a Central, PICC or Fol: No Subjective Ms. Montes is a 64 years old right-handed female with a history of hypertension, anxiety, she was brought to the [facility] on 09/26/2024 with a chief complaint of hypertension. I have seen and examined the patient, I have discussed with her and her nurse, she was alert, fully oriented, but she is have a bad on the attack now She was remember me talking to her in the ER, she apologized for inadequate cooperation with me in the ER She reports taking Ativan at home for anxiety, but she does not remember taking Zoloft, Prozac etc for anxiety. She was chronic numbness and aching pain in the legs and feet, worse in the evening, morning, when she is physically inactive, with the urge to move, which affects asleep She has psoriasis that causes a lot of itch MRI: a small stroke WBC/HB/PLT/MCV, 09/26/2024: 24.8/13.3/260/90.7 Troponin one high sensitivity, 09/26/2024: 5016, 09/27/2024: 4707, 4636 BMP, 09/27/2024: Unremarkable TBI/AST/ALT/AP, 09/27/2024: 0.2/57/63/68 TG/HDL/LDL/HDL, 08/2924: 177/162/105/29 Vitamin B12, 09/27/2024: Folic acid, 09/27/2024: 7.59 TSH, 09/27/2024: 7.59 FT4, 09/27/2024: 1.31 V/Q scan, 09/26/2024: Based on PIOPED criteria, low probability for pulmonary embolism. Extremity venous study, 09/26/2024: DVT right lower extremity Carotid Doppler, 09/28/2024: 1. Less than 50% stenosis on the right 2. 50-69% stenosis on the left CT head, 09/25/2024: 1. Nonspecific small hypodense foci in the right and left thalamic regions. Age-indeterminate infarcts are not excluded. Further evaluation with MRI brain with diffusion-weighted imaging is recommended. 2. There is no acute intracranial hemorrhage.(I saw a small hypodense fous in the left basal ganglia region, imaging 15) MRI head, 09/28/2024: 1. Tiny acute to subacute left frontal white matter lacunar infarct. 2. Moderate to severe chronic ischemic changes with evidence of acute large vessel infarct. 3. Paranasal sinus disease sparing the frontal sinuses. vital signs Vital Sign Date Time Temp Pulse Resp B/P (MAP) Pulse Ox O2 Delivery O2 Flow Rate FiO2 09/29/24 10:35 153/84 09/29/24 10:35 88 09/29/24 09:00 99.2 18 91 99.2 09/28/24 19:30 Room Air* 0 21 Total Intake and Output 09/28/24 09/28/24 09/29/24 15:00 23:00 07:00 Intake Total 100 ml 810 ml 200 ml Balance 100 ml 810 ml 200 ml medications Current Medications Medications Dose Ordered Sig/Minerva Route Start Time Stop Time Status Last Admin Dose Admin Hydralazine HCl 10 mg Q6HP PRN IV 09/26/24 22:30 09/29/24 00:51 10 MG Enoxaparin Sodium 70 mg Q12HR SC 09/27/24 10:00 09/29/24 10:35 70 MG Famotidine 20 mg DAILY IV 09/27/24 10:00 09/29/24 10:35 20 MG Levofloxacin/ Dextrose 100 ml @ 100 mls/hr DAILY IV 09/27/24 10:00 09/29/24 10:34 100 MLS/HR Metoprolol Tartrate 25 mg BID PO 09/27/24 10:00 09/29/24 10:35 25 MG Amlodipine Besylate 5 mg DAILY PO 09/27/24 10:00 09/29/24 10:35 5 MG Sodium Chloride 1,000 ml @ 60 mls/hr [id number] IV 09/26/24 22:30 09/29/24 00:55 60 MLS/HR Acetaminophen/ Hydrocodone Bitart 1 tab Q4HP PRN PO 09/26/24 22:30 09/29/24 03:35 1 TAB Ondansetron HCl 4 mg Q4HP PRN IV 09/26/24 22:30 09/29/24 03:37 4 MG Docusate Sodium 100 mg BIDPRN PRN PO 09/26/24 22:30 Acetaminophen 650 mg Q6HP PRN PO 09/26/24 22:30 Nitroglycerin 0.4 mg Q5MINP PRN SL 09/26/24 23:45 Morphine Sulfate 2 mg Q30M PRN IV 09/26/24 23:45 Lorazepam 1 mg Q8HP PRN PO 09/27/24 03:30 09/29/24 00:05 1 MG Lorazepam 0.25 mg Q6HP PRN IV 09/27/24 21:30 Sertraline HCl 50 mg DAILY PO 09/28/24 10:00 09/29/24 10:36 50 MG Temazepam 15 mg HS PRN PO 09/27/24 22:15 Duloxetine HCl 30 mg DAILY PO 09/28/24 10:00 09/29/24 10:36 30 MG objective General: the patient is well developed and nourished. No acute distress. Lesions in the skin consistent with psoriasis MENTAL STATUS: Subjective SPEECH, LANGUAGE, HIGHER CORTICAL FUNCTION: no aphasia or dysathria. CRANIAL NERVES: Pupils are equal, round and reactive. EOMs full and conjugate. Facial sensation intact in all three divisions bilaterally. Mandibular strength intact. Facial muscles symmetrical and strength intact. SENSATION: Sensation to touch and pinprick is unremarkable MOTOR: Normal tone in the upper and lower extremity. Normal muscle bulk. No fasciculations. No abnormal movements or posturing. She moves all her extremities REFLEXES: Deep tendon reflexes are symmetrically diminished No pathological reflexes. CEREBELLAR/COORDINATION: Deferred GAIT/STATION: deferred laboratory and microbiology Laboratory Tests 09/27/24 04:56 Test 09/27/24 04:56 Range/Units Serum Glucose 133 H 74-106 mg/dL Problem List Acute small stroke per MRI Hypodensity lesions in CT head scan, unclear clinical significance Rule out chronic stroke Paresthesia, aching Pain in the feet, legs and the legs Restless syndrome DVT Abnormal liver function tests Psoriasis Assessment/Plan Monitoring Supportive treatment Telemetry Hepatitis panel HGB A1c, Echocardiogram vs FAYE Lovenox 70 mg subQ b.i.d. Trial of Wellbutrin for anxiety Ativan D/C Cymbalta RESTORIL 15 MG P.O. HS P.R.N. FOR INSOMNIA Consider gabapentin for foot pain control letter Ativan for anxiety GI prophylaxis Address restless legs syndrome Will talked to Radiology Re: CT evident chronic strokes More recommendation per clinical course This medical document was created using an electronic medical record system with [employer] dictation system. Although this document has been carefully reviewed, there may still be some phonetic and typographical errors. These areas are purely typographical due to imperfections of the software programs, and do not reflect any compromise in the patient's medical care. Prognosis poor Dietary Evaluation Review Recommendations by RD: Increase Calorie Intake, Protein Supplementation Comments: 1) Initiate Ensure Enlive bid d/t decreased appetite. Encourage optimal PO intake 2) Initiate Pro-Stat @ 30 mL qd 3) Folllow-up with cardiology and nephrology 4) Refer to outpatient RD for weight management 5) Continue to monitor I&O, labs, and skin integrity Expected Outcomes/Goals: 1) appetite and labs to improve 2) wound to improve 3) f/u in 3-5 days Plan discussed with: Patient, Other Total Time (mins): 40 UMANG OLEARY MD Sep 29, 2024 11:19
--- NOTE | 2024-09-29 14:45 | DVH ---
EXAM: XY CHEST XRAY 1 VIEW Indication: Of breath; pna Technique: Single frontal view of the chest was obtained Comparison: XY CHEST PORTABLE on DOS: 09/25/24 FINDINGS: Lines and Tubes: None Lungs: Multifocal diffuse right lung opacities. Pleura: No effusion. No pneumothorax. Cardiomediastinal contours: Unremarkable Bones: No acute osseous abnormality. IMPRESSION: Multifocal right lung pneumonia. Recommend repeat imaging after the completion of treatment to ensur e resolution.
--- NOTE | 2024-09-29 15:13 | DVHPN2 ---
Subjective Patient reports having headache, abdominal pain, generalized weakness. Reviewed: Care Plan, H&P, Labs, Medications, Previous Orders, Radiology Changes from previous H/P or p: No Changes Eyes: No Pain, No Vision change, No Conjunctivae inflammation, No Eyelid inflammation, No Other, No Redness ENT: No Ear pain, No Ear discharge, No Nose pain, No Nose discharge, No Nose congestion, No Mouth pain, No Mouth swelling, No Throat pain, No Throat swelling, No Other Cardiovascular: No Chest Pain, No Palpitations, No Orthopnea, No Paroxysmal Noc. Dyspnea, No Edema, No Lt Headedness, No Other Respiratory: No Cough, No Dry; Shortness of breath; No SOB with excertion, No Wheezing, No Hemoptysis, No Pleuritic Pain, No Sputum, No Other Gastrointestinal: No Nausea, No Vomiting, No Abdominal Pain, No Diarrhea, No Constipation, No Melena, No Hematochezia, No Other Genitourinary: No Dysuria, No Frequency, No Incontinence, No Hematuria, No Retention, No Other Musculoskeletal: No other, No neck pain, No shoulder pain, No arm pain, No back pain, No hand pain, No leg pain, No foot pain Skin: No Rash, No Lesions, No Jaundice, No Bruising; Other (Psoriasis skin) Objective Vitals Vital Signs Date Time Temp Pulse Resp B/P (MAP) Pulse Ox O2 Delivery O2 Flow Rate FiO2 09/29/24 13:00 98.8 80 16 171/81 (111) 93 98.8 09/29/24 08:00 Room Air* 0 21 Intake/Output Intake and Output 09/29/24 07:00 Intake Total 1110 ml Balance 1110 ml Intake Oral 1010 ml IV Total 100 ml # Voids 6 General Appearance: Alert, Oriented X3, Cooperative, mild distress HEENT: Atraumatic, PERRLA Cardiovascular: Normal S1, Normal S2 Rectal: Normal inspection Genitourinary: No Apparent Abnormalities Musculoskeletal: Normal sensory function, Normal motor function Neuro: Normal gait, Normal speech Skin: Dry, Intact Psych/Mental Status: Mental status NL, Mood NL Medications Current Medications Medications Dose Ordered Sig/Minerva Route Start Time Stop Time Status Last Admin Dose Admin Hydralazine HCl 10 mg Q6HP PRN IV 09/26/24 22:30 09/29/24 11:45 10 MG Enoxaparin Sodium 70 mg Q12HR SC 09/27/24 10:00 09/29/24 10:35 70 MG Famotidine 20 mg DAILY IV 09/27/24 10:00 09/29/24 10:35 20 MG Levofloxacin/ Dextrose 100 ml @ 100 mls/hr DAILY IV 09/27/24 10:00 09/29/24 10:34 100 MLS/HR Amlodipine Besylate 5 mg DAILY PO 09/27/24 10:00 09/29/24 10:35 5 MG Acetaminophen/ Hydrocodone Bitart 1 tab Q4HP PRN PO 09/26/24 22:30 09/29/24 03:35 1 TAB Ondansetron HCl 4 mg Q4HP PRN IV 09/26/24 22:30 09/29/24 03:37 4 MG Docusate Sodium 100 mg BIDPRN PRN PO 09/26/24 22:30 Acetaminophen 650 mg Q6HP PRN PO 09/26/24 22:30 Nitroglycerin 0.4 mg Q5MINP PRN SL 09/26/24 23:45 Morphine Sulfate 2 mg Q30M PRN IV 09/26/24 23:45 Lorazepam 1 mg Q8HP PRN PO 09/27/24 03:30 09/29/24 11:07 1 MG Lorazepam 0.25 mg Q6HP PRN IV 09/27/24 21:30 Sertraline HCl 50 mg DAILY PO 09/28/24 10:00 09/29/24 10:36 50 MG Temazepam 15 mg HS PRN PO 09/27/24 22:15 Bupropion HCl 75 mg BID@07,19 PO 09/29/24 19:00 Metoprolol Tartrate 50 mg BID PO 09/29/24 22:00 Atorvastatin Calcium 40 mg HS PO 09/29/24 22:00 Laboratory Results Laboratory Tests 09/27/24 04:56 Microbiology Microbiology Date/Time Source Procedure Growth Status 09/28/24 14:25 Voided Urine Urine Culture - Preliminary Resulted 09/27/24 04:15 Nose MRSA Screen - Final Complete 09/26/24 22:45 Blood Blood Culture - Preliminary NO GROWTH AFTER 48 HOURS OF INCUBATION. Resulted Labs and/or images reviewed: Labs reviewed by me, Image(s) reviewed by me Assessment/Plan Assessment/Plan Impression: -subacute CVA -toxic metabolic encephalopathy -probable aspiration pneumonia -acute hypoxic respiratory failure -NSTEMI, probably type 2 secondary to polysubstance abuse -obesity -recent DVT diagnosis -nicotine dependence -psoriasis -dyslipidemia -sepsis Plan: -antibiotics: Continue Levaquin, add clindamycin -cardiology consultation -neurology consultation -continue therapeutic dose Lovenox given new diagnosis of DVT. We will switch to NOAC once cardiology clears patient for many intervention -O2 supplementation to keep saturation greater than 92% -lorazepam p.r.n. withdrawal symptoms -stop IV fluids -antiemetics -pain management -topical steroids -repeat labs in a.m. Total time spent with patient discussing and formulating plan of care: 35 minutes. Total time spent with patient and family regarding advance care plannin minutes. This medical document was created using an electronic medical record system with [employer] dictation system. Although this document has been carefully reviewed, there may still be some phonetic and typographical errors. These areas are purely typographical due to imperfections of the software programs, and do not reflect any compromise in the patient's medical care. Plan discussed with: Patient, Other (RN) My Orders Orders - MARQUEZ ECHEVERRIA NP Procedure Category Date Status Time Echo 2d Mode Cardiac US 09/29/24 Logged DOP 12:49 Chest Xray 1 View XY 09/29/24 Resulted 12:49 Complete Blood Count LAB 09/30/24 Verified 04:00 Comprehensive LAB 09/30/24 Verified Metabolic Panel 04:00 Atorvastatin (Lipitor) PHA 09/29/24 In Process 22:00 Metoprolol Tartrate PHA 09/29/24 In Process Tablet (Lopressor Ta 22:00 Date of Service: Sep 29, 2024 Billing Provider: MARQUEZ ECHEVERRIA NP Common Visit Codes: [id number] INP/OBS CARE(HIGH) MARQUEZ ECHEVERRIA NP Sep 29, 2024 15:13
[2024-09-29] MEDS: NIFEdipine ER 30 MG TAB PO ONE (16:30)
[2024-09-29] MEDS: buPROPion HCL 75 MG TAB PO SCH (20:45)
[2024-09-29] MEDS: ATORVASTATIN 20 MG TAB PO SCH (21:49)
[2024-09-29] MEDS: CLINDAMYCIN 300MG IV 50 ML IV SCH (21:49)
[2024-09-29] MEDS: METOPROLOL TARTRATE 50 MG TAB PO SCH (21:51)
[2024-09-29] MEDS: HYDROCORTISONE 2.5% TOPICAL CREAM 30GM TUBE TOP SCH (21:52)
--- NOTE | 2024-09-29 22:22 | DVHPN2 ---
Progress Note - Dictate Date Seen: Sep 29, 2024 Medical Necessity Reason Pt with a Central, PICC or Fol: No Subjective Patient was seen and evaluated in follow up. Patient complaining of headache, abdominal pain, generalized weakness. Chest x-ray shows multifocal right lung pneumonia. MRSA is negative. Prelim blood cultures show no growth. Telemetry reviewed. vital signs Vital Sign Date Time Temp Pulse Resp B/P (MAP) Pulse Ox O2 Delivery O2 Flow Rate FiO2 09/29/24 21:51 102 169/83 09/29/24 21:00 98.6 20 93 98.6 09/29/24 08:00 Room Air* 0 21 Total Intake and Output 09/28/24 09/28/24 09/29/24 15:00 23:00 07:00 Intake Total 100 ml 810 ml 200 ml Balance 100 ml 810 ml 200 ml medications Current Medications Medications Dose Ordered Sig/Minerva Route Start Time Stop Time Status Last Admin Dose Admin Hydralazine HCl 10 mg Q6HP PRN IV 09/26/24 22:30 09/29/24 18:35 10 MG Enoxaparin Sodium 70 mg Q12HR SC 09/27/24 10:00 09/29/24 21:52 70 MG Famotidine 20 mg DAILY IV 09/27/24 10:00 09/29/24 10:35 20 MG Levofloxacin/ Dextrose 100 ml @ 100 mls/hr DAILY IV 09/27/24 10:00 09/29/24 10:34 100 MLS/HR Acetaminophen/ Hydrocodone Bitart 1 tab Q4HP PRN PO 09/26/24 22:30 09/29/24 03:35 1 TAB Ondansetron HCl 4 mg Q4HP PRN IV 09/26/24 22:30 09/29/24 03:37 4 MG Docusate Sodium 100 mg BIDPRN PRN PO 09/26/24 22:30 Acetaminophen 650 mg Q6HP PRN PO 09/26/24 22:30 Nitroglycerin 0.4 mg Q5MINP PRN SL 09/26/24 23:45 Morphine Sulfate 2 mg Q30M PRN IV 09/26/24 23:45 Lorazepam 1 mg Q8HP PRN PO 09/27/24 03:30 09/29/24 21:53 1 MG Sertraline HCl 50 mg DAILY PO 09/28/24 10:00 09/29/24 10:36 50 MG Temazepam 15 mg HS PRN PO 09/27/24 22:15 Bupropion HCl 75 mg BID@07,19 PO 09/29/24 19:00 09/29/24 20:45 75 MG Metoprolol Tartrate 50 mg BID PO 09/29/24 22:00 09/29/24 21:51 50 MG Atorvastatin Calcium 40 mg HS PO 09/29/24 22:00 09/29/24 21:49 40 MG Nifedipine 60 mg DAILY PO 09/30/24 10:00 Diphenhydramine HCl 25 mg Q4HP PRN IV 09/29/24 15:15 Hydrocortisone 1 applic BID TOP 09/29/24 22:00 09/29/24 21:52 1 APPLIC Clindamycin Phosphate 50 ml @ 50 mls/hr Q8HR IV 09/29/24 22:00 09/29/24 21:49 50 MLS/HR objective GENERAL: Awake, alert, oriented. LUNGS: Clear. CARDIOVASCULAR: Heart sounds are good. ABDOMEN: Soft. SKIN: Patient has a excoriations throughout her arms and lower legs. laboratory and microbiology Laboratory Tests 09/27/24 04:56 Test 09/27/24 04:56 Range/Units Serum Glucose 133 H 74-106 mg/dL Problem List Sepsis secondary to urinary tract infection. NSTEMI. Hypertensive emergency. Type 2 diabetes. DVT right lower extremity. Hypertensive emergency. KATHLEEN. Bipolar. Anxiety. History of panic disorder. Assessment/Plan Continued all current supportive medical care. Morphine and [place] for pain management. Amlodipine. DVT prophylactics. IV antibiotics as ordered. Metoprolol. Nitro SL. Additional plan as per the hospital course. Dietary Evaluation Review Recommendations by RD: Increase Calorie Intake, Protein Supplementation Comments: 1) Initiate Ensure Enlive bid d/t decreased appetite. Encourage optimal PO intake 2) Initiate Pro-Stat @ 30 mL qd 3) Folllow-up with cardiology and nephrology 4) Refer to outpatient RD for weight management 5) Continue to monitor I&O, labs, and skin integrity Expected Outcomes/Goals: 1) appetite and labs to improve 2) wound to improve 3) f/u in 3-5 days Plan discussed with: Patient YASMIN TANNER MD Sep 29, 2024 22:22
[2024-09-30] VITALS (7 sets, daily range): BP systolic 149–192; BP diastolic 57–86; PULSE 51–86; RESP 18–20; TEMP 98–98.4; O2SAT 91–95
[2024-09-30 07:14] LABS: Basophils # (auto) 0.1 10 ^3/uL (0-0.2); Basophils % (auto) 0.7 % (0.0-2.0); Eosinophils # (auto) 0.8 10 ^3/uL (0-0.8); Hematocrit 42.8 % (36.0-46.0); Hemoglobin 14.3 g/dL (12.2-16.2); Lymphocytes # (auto) 1.1 10 ^3/uL (0.4-5.4); Mean Corpuscular Hemoglobin 29.9 pg (28.0-32.0); Mean Corpuscular Hgb Conc. 33.3 g/dL (32.0-36.0); Mean Corpuscular Volume 89.8 fL (80.0-100.0); Monocytes # (auto) 0.5 10 ^3/uL (0-1.3); Monocytes % (auto) 3.9 % (0.0-12.0); Neutrophils # (auto) 11.5 10 ^3/uL (1.6-8.6); Neutrophils % (auto) 81.4 % (37.0-80.0); Nucleated Red Blood Cells % 0.1 %; Platelet Count (auto) 243 10^3/uL (140-450); Red Blood Cells 4.77 10^6/uL (4.0-5.20); Red Cell Distribution Width 15.5 % (11.8-14.3); White Blood Cell 14.1 10^3/uL (4.4-10.8)
[2024-09-30 07:37] LABS: Anion Gap 9 (5-15); BUN/Creatinine Ratio 16.9 (10.0-20.0); Blood Urea Nitrogen 14 mg/dL (9-23); Calcium 9.3 mg/dL (8.7-10.4); Carbon Dioxide 26 mmol/L (20-31); Chloride 103 mmol/L (98-107); Glucose 93 mg/dL (74-106); Sodium 138 mmol/L (136-145)
[2024-09-30 07:39] LABS: Alanine Aminotransferase 237 U/L (7-40); Albumin 3.8 g/dL (3.2-4.8); Alkaline Phosphatase 169 U/L (46-116); Aspartate Aminotransferase 95 U/L (13-40); Potassium 3.3 mmol/L (3.5-5.1)
[2024-09-30 07:45] LABS: Bilirubin, Total 1.4 mg/dL (0.2-1.0)
[2024-09-30] MEDS: NIFEdipine ER 30 MG TAB PO SCH (09:49)
--- NOTE | 2024-09-30 11:13 | DVHPN2 ---
Subjective Patient reports having headache, abdominal pain, generalized weakness. Reviewed: Care Plan, H&P, Labs, Medications, Previous Orders, Radiology Changes from previous H/P or p: No Changes General: Per HPI Eyes: No Pain, No Vision change, No Conjunctivae inflammation, No Eyelid inflammation, No Other, No Redness ENT: No Ear pain, No Ear discharge, No Nose pain, No Nose discharge, No Nose congestion, No Mouth pain, No Mouth swelling, No Throat pain, No Throat swelling, No Other Cardiovascular: No Chest Pain, No Palpitations, No Orthopnea, No Paroxysmal Noc. Dyspnea, No Edema, No Lt Headedness, No Other Respiratory: No Cough, No Dry; Shortness of breath; No SOB with excertion, No Wheezing, No Hemoptysis, No Pleuritic Pain, No Sputum, No Other Gastrointestinal: No Nausea, No Vomiting, No Abdominal Pain, No Diarrhea, No Constipation, No Melena, No Hematochezia, No Other Genitourinary: No Dysuria, No Frequency, No Incontinence, No Hematuria, No Retention, No Other Musculoskeletal: No other, No neck pain, No shoulder pain, No arm pain, No back pain, No hand pain, No leg pain, No foot pain Skin: No Rash, No Lesions, No Jaundice, No Bruising; Other (Psoriasis skin) Objective Vitals Vital Signs Date Time Temp Pulse Resp B/P (MAP) Pulse Ox O2 Delivery O2 Flow Rate FiO2 09/30/24 09:49 140/57 09/30/24 09:49 88 09/30/24 08:00 98.1 18 95 98.1 09/29/24 20:00 Room Air* 0 21 Intake/Output Intake and Output 09/30/24 07:00 Intake Total 1390 ml Balance 1390 ml Intake Oral 950 ml IV Total 440 ml # Voids 3 General Appearance: Alert, Oriented X3, Cooperative, mild distress HEENT: Atraumatic, PERRLA Cardiovascular: Normal S1, Normal S2 Rectal: Normal inspection Genitourinary: No Apparent Abnormalities Musculoskeletal: Normal sensory function, Normal motor function Neuro: Normal gait, Normal speech, Cranial nerves 3-12 NL Skin: Dry, Intact Psych/Mental Status: Mental status NL, Mood NL Medications Current Medications Medications Dose Ordered Sig/Minerva Route Start Time Stop Time Status Last Admin Dose Admin Enoxaparin Sodium 70 mg Q12HR SC 09/27/24 10:00 09/30/24 09:46 70 MG Famotidine 20 mg DAILY IV 09/27/24 10:00 09/30/24 09:47 20 MG Levofloxacin/ Dextrose 100 ml @ 100 mls/hr DAILY IV 09/27/24 10:00 09/30/24 09:46 100 MLS/HR Acetaminophen/ Hydrocodone Bitart 1 tab Q4HP PRN PO 09/26/24 22:30 09/29/24 03:35 1 TAB Ondansetron HCl 4 mg Q4HP PRN IV 09/26/24 22:30 09/29/24 03:37 4 MG Docusate Sodium 100 mg BIDPRN PRN PO 09/26/24 22:30 Acetaminophen 650 mg Q6HP PRN PO 09/26/24 22:30 Nitroglycerin 0.4 mg Q5MINP PRN SL 09/26/24 23:45 Morphine Sulfate 2 mg Q30M PRN IV 09/26/24 23:45 Lorazepam 1 mg Q8HP PRN PO 09/27/24 03:30 09/30/24 09:46 1 MG Sertraline HCl 50 mg DAILY PO 09/28/24 10:00 09/30/24 09:47 50 MG Temazepam 15 mg HS PRN PO 09/27/24 22:15 Bupropion HCl 75 mg BID@07,19 PO 09/29/24 19:00 09/29/24 20:45 75 MG Metoprolol Tartrate 50 mg BID PO 09/29/24 22:00 09/30/24 09:49 50 MG Atorvastatin Calcium 40 mg HS PO 09/29/24 22:00 09/29/24 21:49 40 MG Nifedipine 60 mg DAILY PO 09/30/24 10:00 09/30/24 09:49 60 MG Diphenhydramine HCl 25 mg Q4HP PRN IV 09/29/24 15:15 Hydrocortisone 1 applic BID TOP 09/29/24 22:00 09/30/24 09:45 1 APPLIC Clindamycin Phosphate 50 ml @ 50 mls/hr Q8HR IV 09/29/24 22:00 09/30/24 05:53 50 MLS/HR Labetalol HCl 10 mg Q2HPRN PRN IV 09/30/24 08:30 Laboratory Results Laboratory Tests 09/30/24 05:36 Chemistry Test 09/30/24 05:36 Albumin 3.8 g/dL (3.2-4.8) Calcium Level 9.3 mg/dL (8.7-10.4) Total Protein 6.0 g/dL (5.7-8.2) LFT Test 09/30/24 05:36 Alanine Aminotransferase (ALT) 237 U/L (7-40) H Alkaline Phosphatase 169 U/L (46-116) H Aspartate Amino Transferase (AST) 95 U/L (13-40) H Total Bilirubin 1.4 mg/dL (0.2-1.0) H Microbiology Microbiology Date/Time Source Procedure Growth Status 09/28/24 14:25 Voided Urine Urine Culture - Preliminary Resulted 09/27/24 04:15 Nose MRSA Screen - Final Complete 09/26/24 22:45 Blood Blood Culture - Preliminary NO GROWTH AFTER 72 HOURS OF INCUBATION. Resulted Labs and/or images reviewed: Labs reviewed by me, Image(s) reviewed by me Assessment/Plan Assessment/Plan Impression: -subacute CVA -toxic metabolic encephalopathy -probable aspiration pneumonia -acute hypoxic respiratory failure -NSTEMI, probably type 2 secondary to polysubstance abuse -obesity -recent DVT diagnosis -nicotine dependence -psoriasis -dyslipidemia -sepsis Plan: -Continue antibiotics: Levaquin and Clindamycin -cardiology consultation -neurology consultation -Change to eliqius -O2 supplementation to keep saturation greater than 92% -lorazepam p.r.n. withdrawal symptoms -antiemetics -pain management -Potassium replete -topical steroids -repeat labs in a.m. Total time spent with patient discussing and formulating plan of care: 35 minutes. This medical document was created using an electronic medical record system with [employer] dictation system. Although this document has been carefully reviewed, there may still be some phonetic and typographical errors. These areas are purely typographical due to imperfections of the software programs, and do not reflect any compromise in the patient's medical care. Plan discussed with: Patient, Other (RN) My Orders Orders - MARQUEZ ECHEVERRIA ARTIST AGENT Procedure Category Date Status Time Chest Xray 1 View XY 09/29/24 Resulted 12:49 Atorvastatin (Lipitor) PHA 09/29/24 In Process 22:00 Metoprolol Tartrate PHA 09/29/24 In Process Tablet (Lopressor Ta 22:00 Nifedipine Er PHA 09/30/24 In Process (Procardia Xl 10:00 Diphenhdramine PHA 09/29/24 In Process Injection (Benadryl 15:15 Hydrocortone 2.5% PHA 09/29/24 In Process Topical Crm (Hydrocort 22:00 Clindamycin 300mg Iv PHA 09/29/24 In Process (Cleocin Iv) 22:00 Labetalol Hcl PHA 09/30/24 In Process (Labetalol Hcl) 08:30 Complete Blood Count LAB 10/01/24 Verified 04:00 Basic Metabolic Panel LAB 10/01/24 Verified 04:00 Potassium Effervesent PHA 10/01/24 Verified Tab (Klor-Con/Ef) 10:00 Date of Service: Sep 30, 2024 Billing Provider: MARQUEZ ECHEVERRIA NP Common Visit Codes: [id number] INP/OBS CARE(HIGH) MARQUEZ ECHEVERRIA NP Sep 30, 2024 11:13
--- NOTE | 2024-09-30 14:53 | DVHPN2 ---
Progress Note - Dictate Date Seen: Sep 30, 2024 Medical Necessity Reason Pt with a Central, PICC or Fol: No Subjective Ms. Montes is a 64 years old right-handed female with a history of hypertension, anxiety, she was brought to the [facility] on 09/26/2024 with a chief complaint of hypertension. I have seen and examined the patient, I have discussed with her and her nurse, she was alert, fully oriented, she reports intense nervousness at this time WBC/HB/PLT/MCV, 09/26/2024: 24.8/13.3/260/90.7 Troponin one high sensitivity, 09/26/2024: 5016, 09/27/2024: 4707, 4636 BMP, 09/27/2024: Unremarkable HGB A1c, 09/25/2024: 5.8 TBI/AST/ALT/AP, 09/27/2024: 0.2/57/63/68 TG/HDL/LDL/HDL, 08/2924: 177/162/105/29 Vitamin B12, 09/27/2024: Folic acid, 09/27/2024: 7.59 TSH, 09/27/2024: 7.59 FT4, 09/27/2024: 1.31 V/Q scan, 09/26/2024: Based on PIOPED criteria, low probability for pulmonary embolism. Extremity venous study, 09/26/2024: DVT right lower extremity Carotid Doppler, 09/28/2024: 1. Less than 50% stenosis on the right 2. 50-69% stenosis on the left Echocardiogram, 09/28/2024: MILD LVH AND MILD LV DIASTOLIC DYSFUNCTION MODERATELY DILATED LA LV EF IS 70% POSTERIOR MV CALCIFIED HEAVILY CALCIFIED AORTIC LEAFLETS MILD AORTIC STENOSIS NO EFFUSION CT head, 09/25/2024: 1. Nonspecific small hypodense foci in the right and left thalamic regions. Age-indeterminate infarcts are not excluded. Further evaluation with MRI brain with diffusion-weighted imaging is recommended. 2. There is no acute intracranial hemorrhage.(I saw a small hypodense fous in the left basal ganglia region, imaging 15) MRI head, 09/28/2024: 1. Tiny acute to subacute left frontal white matter lacunar infarct. 2. Moderate to severe chronic ischemic changes with evidence of acute large vessel infarct. 3. Paranasal sinus disease sparing the frontal sinuses. (There are old lacunar infarcts of the bilateral basal ganglia and left caudate head.) vital signs Vital Sign Date Time Temp Pulse Resp B/P (MAP) Pulse Ox O2 Delivery O2 Flow Rate FiO2 09/30/24 13:00 98.3 51 18 163/76 (105) 91 98.3 09/29/24 20:00 Room Air* 0 21 Total Intake and Output 09/29/24 09/29/24 09/30/24 15:00 23:00 07:00 Intake Total 340 ml 300 ml 750 ml Balance 340 ml 300 ml 750 ml medications Current Medications Medications Dose Ordered Sig/Minerva Route Start Time Stop Time Status Last Admin Dose Admin Famotidine 20 mg DAILY IV 09/27/24 10:00 09/30/24 09:47 20 MG Levofloxacin/ Dextrose 100 ml @ 100 mls/hr DAILY IV 09/27/24 10:00 09/30/24 09:46 100 MLS/HR Acetaminophen/ Hydrocodone Bitart 1 tab Q4HP PRN PO 09/26/24 22:30 09/30/24 12:58 1 TAB Ondansetron HCl 4 mg Q4HP PRN IV 09/26/24 22:30 09/29/24 03:37 4 MG Docusate Sodium 100 mg BIDPRN PRN PO 09/26/24 22:30 Acetaminophen 650 mg Q6HP PRN PO 09/26/24 22:30 Nitroglycerin 0.4 mg Q5MINP PRN SL 09/26/24 23:45 Morphine Sulfate 2 mg Q30M PRN IV 09/26/24 23:45 Lorazepam 1 mg Q8HP PRN PO 09/27/24 03:30 09/30/24 09:46 1 MG Sertraline HCl 50 mg DAILY PO 09/28/24 10:00 09/30/24 09:47 50 MG Temazepam 15 mg HS PRN PO 09/27/24 22:15 Bupropion HCl 75 mg BID@07,19 PO 09/29/24 19:00 09/29/24 20:45 75 MG Metoprolol Tartrate 50 mg BID PO 09/29/24 22:00 09/30/24 09:49 50 MG Atorvastatin Calcium 40 mg HS PO 09/29/24 22:00 09/29/24 21:49 40 MG Nifedipine 60 mg DAILY PO 09/30/24 10:00 09/30/24 09:49 60 MG Diphenhydramine HCl 25 mg Q4HP PRN IV 09/29/24 15:15 Hydrocortisone 1 applic BID TOP 09/29/24 22:00 09/30/24 09:45 1 APPLIC Clindamycin Phosphate 50 ml @ 50 mls/hr Q8HR IV 09/29/24 22:00 09/30/24 05:53 50 MLS/HR Labetalol HCl 10 mg Q2HPRN PRN IV 09/30/24 08:30 Potassium Bicarbonate 50 meq DAILY PO 10/01/24 10:00 Apixaban 10 mg BID PO 09/30/24 22:00 10/07/24 21:59 Apixaban 5 mg BID PO 10/07/24 22:00 objective General: the patient is well developed and nourished. No acute distress. Lesions in the skin consistent with psoriasis MENTAL STATUS: Subjective SPEECH, LANGUAGE, HIGHER CORTICAL FUNCTION: no aphasia or dysathria. CRANIAL NERVES: Pupils are equal, round and reactive. EOMs full and conjugate. Facial sensation intact in all three divisions bilaterally. Mandibular strength intact. Facial muscles symmetrical and strength intact. SENSATION: Sensation to touch and pinprick is unremarkable MOTOR: Normal tone in the upper and lower extremity. Normal muscle bulk. No fasciculations. No abnormal movements or posturing. She moves all her extremities REFLEXES: Deep tendon reflexes are symmetrically diminished No pathological reflexes. CEREBELLAR/COORDINATION: Deferred GAIT/STATION: deferred laboratory and microbiology Laboratory Tests 09/30/24 05:36 Test 09/30/24 05:36 Range/Units Serum Glucose 93 74-106 mg/dL Problem List Acute small stroke per MRI Hypodensity lesions in CT head scan, unclear clinical significance Rule out chronic stroke Paresthesia, aching Pain in the feet, legs and the legs Restless syndrome Right leg DVT (venous extremity evaluation, 09/26/2024) Abnormal liver function tests Psoriasis Assessment/Plan Monitoring Supportive treatment Telemetry Hepatitis panel Eliquis 5 mg b.i.d. Wellbutrin 75 mg b.i.d. Ativan RESTORIL 15 MG P.O. HS P.R.N. FOR INSOMNIA Consider gabapentin for foot pain control letter Ativan for anxiety GI prophylaxis Address restless legs syndrome Will talked to Radiology Re: CT evident chronic strokes More recommendation per clinical course This medical document was created using an electronic medical record system with [employer] computerized dictation system. Although this document has been carefully reviewed, there may still be some phonetic and typographical errors. These areas are purely typographical due to imperfections of the software programs, and do not reflect any compromise in the patient's medical care. Prognosis poor Dietary Evaluation Review Recommendations by RD: Increase Calorie Intake, Protein Supplementation Comments: 1) Initiate Ensure Enlive bid d/t decreased appetite. Encourage optimal PO intake 2) Initiate Pro-Stat @ 30 mL qd 3) Folllow-up with cardiology and nephrology 4) Refer to outpatient RD for weight management 5) Continue to monitor I&O, labs, and skin integrity Expected Outcomes/Goals: 1) appetite and labs to improve 2) wound to improve 3) f/u in 3-5 days Plan discussed with: Other UMANG OLEARY MD Sep 30, 2024 14:53
[2024-09-30] MEDS: LABETALOL HCL 20 MG/4 ML VL IV PRN (17:08)
[2024-09-30] MEDS: APIXABAN 5 MG TAB PO SCH (21:28)
[2024-09-30] MEDS: TEMAZEPAM 15 MG CAP PO PRN (21:29)
--- NOTE | 2024-09-30 21:54 | DVHPN2 ---
Progress Note - Dictate Date Seen: Sep 30, 2024 Medical Necessity Reason Pt with a Central, PICC or Fol: No Subjective Patient was seen and evaluated in follow up. Patient complaining of lower extremity pain. WBC 14.1, K 3.3, AST 95, ALT 237, Alk Phos 169, Troponin 1626. Telemetry reviewed. vital signs Vital Sign Date Time Temp Pulse Resp B/P (MAP) Pulse Ox O2 Delivery O2 Flow Rate FiO2 09/30/24 21:30 86 164/85 09/30/24 21:00 98.4 18 95 98.4 09/30/24 20:00 Room Air* 2 N/A Nasal Cannula* Total Intake and Output 09/29/24 09/29/24 09/30/24 15:00 23:00 07:00 Intake Total 340 ml 300 ml 750 ml Balance 340 ml 300 ml 750 ml medications Current Medications Medications Dose Ordered Sig/Minerva Route Start Time Stop Time Status Last Admin Dose Admin Famotidine 20 mg DAILY IV 09/27/24 10:00 09/30/24 09:47 20 MG Levofloxacin/ Dextrose 100 ml @ 100 mls/hr DAILY IV 09/27/24 10:00 09/30/24 09:46 100 MLS/HR Acetaminophen/ Hydrocodone Bitart 1 tab Q4HP PRN PO 09/26/24 22:30 09/30/24 21:29 1 TAB Ondansetron HCl 4 mg Q4HP PRN IV 09/26/24 22:30 09/29/24 03:37 4 MG Docusate Sodium 100 mg BIDPRN PRN PO 09/26/24 22:30 Acetaminophen 650 mg Q6HP PRN PO 09/26/24 22:30 Nitroglycerin 0.4 mg Q5MINP PRN SL 09/26/24 23:45 Morphine Sulfate 2 mg Q30M PRN IV 09/26/24 23:45 Lorazepam 1 mg Q8HP PRN PO 09/27/24 03:30 09/30/24 18:30 1 MG Sertraline HCl 50 mg DAILY PO 09/28/24 10:00 09/30/24 09:47 50 MG Temazepam 15 mg HS PRN PO 09/27/24 22:15 09/30/24 21:29 15 MG Bupropion HCl 75 mg BID@ PO 09/29/24 19:00 09/30/24 20:23 75 MG Metoprolol Tartrate 50 mg BID PO 09/29/24 22:00 09/30/24 21:30 50 MG Atorvastatin Calcium 40 mg HS PO 09/29/24 22:00 09/30/24 21:29 40 MG Nifedipine 60 mg DAILY PO 09/30/24 10:00 09/30/24 09:49 60 MG Diphenhydramine HCl 25 mg Q4HP PRN IV 09/29/24 15:15 Hydrocortisone 1 applic BID TOP 09/29/24 22:00 09/30/24 21:37 1 APPLIC Clindamycin Phosphate 50 ml @ 50 mls/hr Q8HR IV 09/29/24 22:00 09/30/24 21:37 50 MLS/HR Labetalol HCl 10 mg Q2HPRN PRN IV 09/30/24 08:30 09/30/24 17:08 10 MG Potassium Bicarbonate 50 meq DAILY PO 10/01/24 10:00 Apixaban 10 mg BID PO 09/30/24 22:00 10/07/24 21:59 09/30/24 21:28 10 MG Apixaban 5 mg BID PO 10/07/24 22:00 objective GENERAL: Awake, alert, oriented. LUNGS: Clear. CARDIOVASCULAR: Heart sounds are good. ABDOMEN: Soft. SKIN: Patient has a excoriations throughout her arms and lower legs. laboratory and microbiology Laboratory Tests 09/30/24 05:36 Test 09/30/24 05:36 Range/Units Serum Glucose 93 74-106 mg/dL Problem List Sepsis secondary to urinary tract infection. NSTEMI. Hypertensive emergency. Type 2 diabetes. DVT right lower extremity. Hypertensive emergency. KATHLEEN. Bipolar. Anxiety. History of panic disorder. Assessment/Plan Continued all current supportive medical care. Morphine and [place] for pain management. Eliquis. Lipitor, Metoprolol. IV antibiotics as ordered. Nifedipine. Nitro SL. Additional plan as per the hospital course. Dietary Evaluation Review Recommendations by RD: Increase Calorie Intake, Protein Supplementation Comments: 1) Initiate Ensure Enlive bid d/t decreased appetite. Encourage optimal PO intake 2) Initiate Pro-Stat @ 30 mL qd 3) Folllow-up with cardiology and nephrology 4) Refer to outpatient RD for weight management 5) Continue to monitor I&O, labs, and skin integrity Expected Outcomes/Goals: 1) appetite and labs to improve 2) wound to improve 3) f/u in 3-5 days Plan discussed with: Patient YASMIN TANNER MD Sep 30, 2024 21:54
[2024-10-01] VITALS (8 sets, daily range): BP systolic 142–163; BP diastolic 64–84; PULSE 57–85; RESP 17–20; TEMP 97.4–98.8; O2SAT 93–98
[2024-10-01 06:40] LABS: Chloride 104 mmol/L (98-107); Potassium 3.5 mmol/L (3.5-5.1)
[2024-10-01 06:41] LABS: Anion Gap 9 (5-15); Carbon Dioxide 22 mmol/L (20-31)
[2024-10-01 06:46] LABS: Sodium 135 mmol/L (136-145)
[2024-10-01 06:47] LABS: Blood Urea Nitrogen 13 mg/dL (9-23)
[2024-10-01 06:50] LABS: Glucose 155 mg/dL (74-106)
[2024-10-01 06:51] LABS: BUN/Creatinine Ratio 15.1 (10.0-20.0)
[2024-10-01 07:14] LABS: Basophils # (auto) 0 10 ^3/uL (0-0.2); Basophils % (auto) 0.2 % (0.0-2.0); Eosinophils # (auto) 0.5 10 ^3/uL (0-0.8); Hemoglobin 14.4 g/dL (12.2-16.2); Lymphocytes # (auto) 0.6 10 ^3/uL (0.4-5.4); Lymphocytes % (auto) 4.5 % (10.0-50.0); Mean Corpuscular Hemoglobin 30.6 pg (28.0-32.0); Mean Corpuscular Hgb Conc. 33.6 g/dL (32.0-36.0); Mean Corpuscular Volume 91.1 fL (80.0-100.0); Monocytes # (auto) 0.3 10 ^3/uL (0-1.3); Monocytes % (auto) 2.2 % (0.0-12.0); Neutrophils # (auto) 12.1 10 ^3/uL (1.6-8.6); Neutrophils % (auto) 89.1 % (37.0-80.0); Nucleated Red Blood Cells % 0.1 %; Platelet Count (auto) 229 10^3/uL (140-450); Red Blood Cells 4.72 10^6/uL (4.0-5.20); Red Cell Distribution Width 15.2 % (11.8-14.3); White Blood Cell 13.6 10^3/uL (4.4-10.8)
[2024-10-01] MEDS: POTASSIUM EFFERVESENT TAB 25 MEQ PO SCH (09:17)
--- NOTE | 2024-10-01 10:45 | DVHPN2 ---
Progress Note - Dictate Date Seen: Oct 01, 2024 Medical Necessity Reason Pt with a Central, PICC or Fol: No Subjective Ms. Montes is a 64 years old right-handed female with a history of hypertension, anxiety, she was brought to the [facility] on 09/26/2024 with a chief complaint of hypertension. I have seen and examined the patient, I have discussed with her and her nurse, she was alert, fully oriented She reports sickness She was does not like hospital food and she does not eat either WBC/HB/PLT/MCV, 09/26/2024: 24.8/13.3/260/90.7 Troponin one high sensitivity, 09/26/2024: 5016, 09/27/2024: 4707, 4636 BMP, 09/27/2024: Unremarkable HGB A1c, 09/25/2024: 5.8 TBI/AST/ALT/AP, 09/27/2024: 0.2/57/63/68 TG/HDL/LDL/HDL, 08/2924: 177/162/105/29 Vitamin B12, 09/27/2024: Folic acid, 09/27/2024: 7.59 TSH, 09/27/2024: 7.59 FT4, 09/27/2024: 1.31 V/Q scan, 09/26/2024: Based on PIOPED criteria, low probability for pulmonary embolism. Extremity venous study, 09/26/2024: DVT right lower extremity Carotid Doppler, 09/28/2024: 1. Less than 50% stenosis on the right 2. 50-69% stenosis on the left Echocardiogram, 09/28/2024: MILD LVH AND MILD LV DIASTOLIC DYSFUNCTION MODERATELY DILATED LA LV EF IS 70% POSTERIOR MV CALCIFIED HEAVILY CALCIFIED AORTIC LEAFLETS MILD AORTIC STENOSIS NO EFFUSION CT head, 09/25/2024: 1. Nonspecific small hypodense foci in the right and left thalamic regions. Age-indeterminate infarcts are not excluded. Further evaluation with MRI brain with diffusion-weighted imaging is recommended. 2. There is no acute intracranial hemorrhage.(I saw a small hypodense fous in the left basal ganglia region, imaging 15) MRI head, 09/28/2024: 1. Tiny acute to subacute left frontal white matter lacunar infarct. 2. Moderate to severe chronic ischemic changes with evidence of acute large vessel infarct. 3. Paranasal sinus disease sparing the frontal sinuses. (There are old lacunar infarcts of the bilateral basal ganglia and left caudate head.) vital signs Vital Sign Date Time Temp Pulse Resp B/P (MAP) Pulse Ox O2 Delivery O2 Flow Rate FiO2 10/01/24 09:15 170/80 10/01/24 09:14 81 10/01/24 09:00 98.0 20 95 98.0 10/01/24 07:41 Room Air* 2 N/A Nasal Cannula* Total Intake and Output 09/30/24 09/30/24 10/01/24 15:00 23:00 07:00 Intake Total 50 ml 750 ml 120 ml Balance 50 ml 750 ml 120 ml medications Current Medications Medications Dose Ordered Sig/Minerva Route Start Time Stop Time Status Last Admin Dose Admin Famotidine 20 mg DAILY IV 09/27/24 10:00 10/01/24 10:01 20 MG Levofloxacin/ Dextrose 100 ml @ 100 mls/hr DAILY IV 09/27/24 10:00 10/01/24 10:00 100 MLS/HR Acetaminophen/ Hydrocodone Bitart 1 tab Q4HP PRN PO 09/26/24 22:30 10/01/24 05:49 1 TAB Ondansetron HCl 4 mg Q4HP PRN IV 09/26/24 22:30 09/29/24 03:37 4 MG Docusate Sodium 100 mg BIDPRN PRN PO 09/26/24 22:30 Acetaminophen 650 mg Q6HP PRN PO 09/26/24 22:30 Nitroglycerin 0.4 mg Q5MINP PRN SL 09/26/24 23:45 Morphine Sulfate 2 mg Q30M PRN IV 09/26/24 23:45 Lorazepam 1 mg Q8HP PRN PO 09/27/24 03:30 10/01/24 05:48 1 MG Sertraline HCl 50 mg DAILY PO 09/28/24 10:00 10/01/24 09:12 50 MG Temazepam 15 mg HS PRN PO 09/27/24 22:15 09/30/24 21:29 15 MG Bupropion HCl 75 mg BID@07,19 PO 09/29/24 19:00 10/01/24 05:49 75 MG Metoprolol Tartrate 50 mg BID PO 09/29/24 22:00 10/01/24 09:14 50 MG Atorvastatin Calcium 40 mg HS PO 09/29/24 22:00 09/30/24 21:29 40 MG Nifedipine 60 mg DAILY PO 09/30/24 10:00 10/01/24 09:15 60 MG Diphenhydramine HCl 25 mg Q4HP PRN IV 09/29/24 15:15 Hydrocortisone 1 applic BID TOP 09/29/24 22:00 10/01/24 10:01 1 APPLIC Clindamycin Phosphate 50 ml @ 50 mls/hr Q8HR IV 09/29/24 22:00 10/01/24 05:48 50 MLS/HR Labetalol HCl 10 mg Q2HPRN PRN IV 09/30/24 08:30 10/01/24 04:58 10 MG Potassium Bicarbonate 50 meq DAILY PO 10/01/24 10:00 10/01/24 09:17 50 MEQ Apixaban 10 mg BID PO 09/30/24 22:00 10/07/24 21:59 10/01/24 09:14 10 MG Apixaban 5 mg BID PO 10/07/24 22:00 objective General: the patient is well developed and nourished. No acute distress. Lesions in the skin consistent with psoriasis MENTAL STATUS: Subjective SPEECH, LANGUAGE, HIGHER CORTICAL FUNCTION: no aphasia or dysathria. CRANIAL NERVES: Pupils are equal, round and reactive. EOMs full and conjugate. Facial sensation intact in all three divisions bilaterally. Mandibular strength intact. Facial muscles symmetrical and strength intact. SENSATION: Sensation to touch and pinprick is unremarkable MOTOR: Normal tone in the upper and lower extremity. Normal muscle bulk. No fasciculations. No abnormal movements or posturing. She moves all her extremities REFLEXES: Deep tendon reflexes are symmetrically diminished No pathological reflexes. CEREBELLAR/COORDINATION: Deferred GAIT/STATION: deferred laboratory and microbiology Laboratory Tests 10/01/24 05:33 Test 10/01/24 05:33 Range/Units Serum Glucose 155 H 74-106 mg/dL Problem List Acute small stroke per MRI Hypodensity lesions in CT head scan, likely chronic strokes (talked to Dr. Noe Oleary) Paresthesia, aching Pain in the feet, legs and the legs Restless syndrome Right leg DVT (venous extremity evaluation, 09/26/2024) Abnormal liver function tests Psoriasis Sickness on 10/01/2024 ? Wellbutrin side effects Assessment/Plan Monitoring Supportive treatment Telemetry Hepatitis panel Eliquis 5 mg b.i.d. Wellbutrin 75 mg b.i.d. for now Ativan RESTORIL 15 MG P.O. HS P.R.N. FOR INSOMNIA Consider gabapentin for foot pain control letter Ativan for anxiety GI prophylaxis Address restless legs syndrome CT evident chronic strokes More recommendation per clinical course This medical document was created using an electronic medical record system with [employer] dictation system. Although this document has been carefully reviewed, there may still be some phonetic and typographical errors. These areas are purely typographical due to imperfections of the software programs, and do not reflect any compromise in the patient's medical care. Prognosis poor Dietary Evaluation Review Recommendations by RD: Increase Calorie Intake, Protein Supplementation Comments: 1) Initiate Ensure Enlive bid d/t decreased appetite. Encourage optimal PO intake 2) Initiate Pro-Stat @ 30 mL qd 3) Folllow-up with cardiology and nephrology 4) Refer to outpatient RD for weight management 5) Continue to monitor I&O, labs, and skin integrity Expected Outcomes/Goals: 1) appetite and labs to improve 2) wound to improve 3) f/u in 3-5 days Plan discussed with: Patient, Other UMANG OLEARY MD Oct 01, 2024 10:45
--- NOTE | 2024-10-01 10:45 | DVHPN2 ---
Subjective Patient reports having headache, abdominal pain, generalized weakness. Reviewed: Care Plan, H&P, Labs, Medications, Previous Orders, Radiology Changes from previous H/P or p: No Changes General: Per HPI Eyes: No Pain, No Vision change, No Conjunctivae inflammation, No Eyelid inflammation, No Other, No Redness ENT: No Ear pain, No Ear discharge, No Nose pain, No Nose discharge, No Nose congestion, No Mouth pain, No Mouth swelling, No Throat pain, No Throat swelling, No Other Cardiovascular: No Chest Pain, No Palpitations, No Orthopnea, No Paroxysmal Noc. Dyspnea, No Edema, No Lt Headedness, No Other Respiratory: No Cough, No Dry; Shortness of breath; No SOB with excertion, No Wheezing, No Hemoptysis, No Pleuritic Pain, No Sputum, No Other Gastrointestinal: No Nausea, No Vomiting, No Abdominal Pain, No Diarrhea, No Constipation, No Melena, No Hematochezia, No Other Genitourinary: No Dysuria, No Frequency, No Incontinence, No Hematuria, No Retention, No Other Musculoskeletal: No other, No neck pain, No shoulder pain, No arm pain, No back pain, No hand pain, No leg pain, No foot pain Skin: No Rash, No Lesions, No Jaundice, No Bruising; Other (Psoriasis skin) Objective Vitals Vital Signs Date Time Temp Pulse Resp B/P (MAP) Pulse Ox O2 Delivery O2 Flow Rate FiO2 10/01/24 10:14 71 143/71 10/01/24 09:00 98.0 20 95 98.0 10/01/24 07:41 Room Air* 2 N/A Nasal Cannula* Intake/Output Intake and Output 10/01/24 07:00 Intake Total 920 ml Balance 920 ml Intake Oral 720 ml IV Total 200 ml # Voids 5 # Bowel Movements 3 General Appearance: Alert, Oriented X3, Cooperative, mild distress HEENT: Atraumatic, PERRLA Cardiovascular: Normal S1, Normal S2 Rectal: Normal inspection Genitourinary: No Apparent Abnormalities Musculoskeletal: Normal sensory function, Normal motor function Neuro: Normal gait, Normal speech, Cranial nerves 3-12 NL Skin: Dry, Intact Psych/Mental Status: Mental status NL, Mood NL Medications Current Medications Medications Dose Ordered Sig/Minerva Route Start Time Stop Time Status Last Admin Dose Admin Famotidine 20 mg DAILY IV 09/27/24 10:00 10/01/24 10:01 20 MG Levofloxacin/ Dextrose 100 ml @ 100 mls/hr DAILY IV 09/27/24 10:00 10/01/24 10:00 100 MLS/HR Acetaminophen/ Hydrocodone Bitart 1 tab Q4HP PRN PO 09/26/24 22:30 10/01/24 05:49 1 TAB Ondansetron HCl 4 mg Q4HP PRN IV 09/26/24 22:30 09/29/24 03:37 4 MG Docusate Sodium 100 mg BIDPRN PRN PO 09/26/24 22:30 Acetaminophen 650 mg Q6HP PRN PO 09/26/24 22:30 Nitroglycerin 0.4 mg Q5MINP PRN SL 09/26/24 23:45 Morphine Sulfate 2 mg Q30M PRN IV 09/26/24 23:45 Lorazepam 1 mg Q8HP PRN PO 09/27/24 03:30 10/01/24 05:48 1 MG Sertraline HCl 50 mg DAILY PO 09/28/24 10:00 10/01/24 09:12 50 MG Temazepam 15 mg HS PRN PO 09/27/24 22:15 09/30/24 21:29 15 MG Bupropion HCl 75 mg BID@07,19 PO 09/29/24 19:00 10/01/24 05:49 75 MG Metoprolol Tartrate 50 mg BID PO 09/29/24 22:00 10/01/24 09:14 50 MG Atorvastatin Calcium 40 mg HS PO 09/29/24 22:00 09/30/24 21:29 40 MG Nifedipine 60 mg DAILY PO 09/30/24 10:00 10/01/24 09:15 60 MG Diphenhydramine HCl 25 mg Q4HP PRN IV 09/29/24 15:15 Hydrocortisone 1 applic BID TOP 09/29/24 22:00 10/01/24 10:01 1 APPLIC Clindamycin Phosphate 50 ml @ 50 mls/hr Q8HR IV 09/29/24 22:00 10/01/24 05:48 50 MLS/HR Labetalol HCl 10 mg Q2HPRN PRN IV 09/30/24 08:30 10/01/24 04:58 10 MG Potassium Bicarbonate 50 meq DAILY PO 10/01/24 10:00 10/01/24 09:17 50 MEQ Apixaban 10 mg BID PO 09/30/24 22:00 10/07/24 21:59 10/01/24 09:14 10 MG Apixaban 5 mg BID PO 10/07/24 22:00 Laboratory Results Laboratory Tests 10/01/24 05:33 Chemistry Test 10/01/24 05:33 Calcium Level 9.0 mg/dL (8.7-10.4) Microbiology Microbiology Date/Time Source Procedure Growth Status 09/28/24 14:25 Voided Urine Urine Culture - Final Complete 09/27/24 04:15 Nose MRSA Screen - Final Complete 09/26/24 22:45 Blood Blood Culture - Preliminary NO GROWTH AFTER 72 HOURS OF INCUBATION. Resulted Labs and/or images reviewed: Labs reviewed by me, Image(s) reviewed by me Assessment/Plan Assessment/Plan Impression: -subacute CVA -toxic metabolic encephalopathy -probable aspiration pneumonia -acute hypoxic respiratory failure -NSTEMI, probably type 2 secondary to polysubstance abuse -obesity -recent DVT diagnosis -nicotine dependence -psoriasis -dyslipidemia -sepsis -hypertensive crisis Plan: Events: Patient reports having generalized weakness, hypertensive -Continue antibiotics: Levaquin and Clindamycin -cardiology consultation -neurology consultation -increase Procardia XL to 90 mg daily, continue metoprolol tartrate -continue Eliquis -O2 supplementation to keep saturation greater than 92% -lorazepam p.r.n. withdrawal symptoms -antiemetics -pain management -repeat labs in a.m. Total time spent with patient discussing and formulating plan of care: 35 minutes. This medical document was created using an electronic medical record system with [employer] dictation system. Although this document has been carefully reviewed, there may still be some phonetic and typographical errors. These areas are purely typographical due to imperfections of the software programs, and do not reflect any compromise in the patient's medical care. Plan discussed with: Patient, Other (RN) My Orders Orders - MARQUEZ ECHEVERRIA NP Procedure Category Date Status Time Potassium Effervesent PHA 10/01/24 In Process Tab (Klor-Con/Ef) 10:00 Apixaban (Eliquis) PHA 09/30/24 In Process 22:00 Apixaban (Eliquis) PHA 10/07/24 In Process 22:00 Nifedipine Er PHA 10/02/24 Verified (Procardia Xl 10:00 Date of Service: Oct 01, 2024 Billing Provider: MARQUEZ ECHEVERRIA NP Common Visit Codes: [id number] INP/OBS CARE(HIGH) MARQUEZ ECHEVERRIA NP Oct 01, 2024 10:45
--- NOTE | 2024-10-01 23:47 | DVHPN2 ---
Progress Note - Dictate Date Seen: Oct 01, 2024 Medical Necessity Reason Pt with a Central, PICC or Fol: No Subjective Patient was seen and evaluated in follow up. Patient complaining of a headache. Patient is refusing to eat meals due to not liking the food. WBC 13.6, NA 135. Telemetry reviewed. vital signs Vital Sign Date Time Temp Pulse Resp B/P (MAP) Pulse Ox O2 Delivery O2 Flow Rate FiO2 10/01/24 10:14 71 143/71 10/01/24 09:00 98.0 20 95 98.0 10/01/24 07:41 Room Air* 2 N/A Nasal Cannula* Total Intake and Output 09/30/24 09/30/24 10/01/24 15:00 23:00 07:00 Intake Total 50 ml 750 ml 120 ml Balance 50 ml 750 ml 120 ml medications Current Medications Medications Dose Ordered Sig/Minerva Route Start Time Stop Time Status Last Admin Dose Admin Famotidine 20 mg DAILY IV 09/27/24 10:00 10/01/24 10:01 20 MG Levofloxacin/ Dextrose 100 ml @ 100 mls/hr DAILY IV 09/27/24 10:00 10/01/24 10:00 100 MLS/HR Acetaminophen/ Hydrocodone Bitart 1 tab Q4HP PRN PO 09/26/24 22:30 10/01/24 05:49 1 TAB Ondansetron HCl 4 mg Q4HP PRN IV 09/26/24 22:30 09/29/24 03:37 4 MG Docusate Sodium 100 mg BIDPRN PRN PO 09/26/24 22:30 Acetaminophen 650 mg Q6HP PRN PO 09/26/24 22:30 Nitroglycerin 0.4 mg Q5MINP PRN SL 09/26/24 23:45 Morphine Sulfate 2 mg Q30M PRN IV 09/26/24 23:45 Lorazepam 1 mg Q8HP PRN PO 09/27/24 03:30 10/01/24 05:48 1 MG Sertraline HCl 50 mg DAILY PO 09/28/24 10:00 10/01/24 09:12 50 MG Temazepam 15 mg HS PRN PO 09/27/24 22:15 09/30/24 21:29 15 MG Bupropion HCl 75 mg BID@07,19 PO 09/29/24 19:00 10/01/24 05:49 75 MG Metoprolol Tartrate 50 mg BID PO 09/29/24 22:00 10/01/24 09:14 50 MG Atorvastatin Calcium 40 mg HS PO 09/29/24 22:00 09/30/24 21:29 40 MG Diphenhydramine HCl 25 mg Q4HP PRN IV 09/29/24 15:15 Hydrocortisone 1 applic BID TOP 09/29/24 22:00 10/01/24 10:01 1 APPLIC Clindamycin Phosphate 50 ml @ 50 mls/hr Q8HR IV 09/29/24 22:00 10/01/24 05:48 50 MLS/HR Labetalol HCl 10 mg Q2HPRN PRN IV 09/30/24 08:30 10/01/24 04:58 10 MG Potassium Bicarbonate 50 meq DAILY PO 10/01/24 10:00 10/01/24 09:17 50 MEQ Apixaban 10 mg BID PO 09/30/24 22:00 10/07/24 21:59 10/01/24 09:14 10 MG Apixaban 5 mg BID PO 10/07/24 22:00 Nifedipine 90 mg DAILY PO 10/02/24 10:00 objective GENERAL: Awake, alert, oriented. LUNGS: Clear. CARDIOVASCULAR: Heart sounds are good. ABDOMEN: Soft. SKIN: Patient has a excoriations throughout her arms and lower legs. laboratory and microbiology Laboratory Tests 10/01/24 05:33 Test 10/01/24 05:33 Range/Units Serum Glucose 155 H 74-106 mg/dL Problem List Sepsis secondary to urinary tract infection. NSTEMI. Hypertensive emergency. Type 2 diabetes. DVT right lower extremity. Hypertensive emergency. KATHLEEN. Bipolar. Anxiety. History of panic disorder. Assessment/Plan Continued all current supportive medical care. Morphine and [place] for pain management. Eliquis. Lipitor, Metoprolol. IV antibiotics as ordered. Nifedipine. Nitro SL. Additional plan as per the hospital course. Dietary Evaluation Review Recommendations by RD: Increase Calorie Intake, Protein Supplementation Comments: 1) Initiate Ensure Enlive bid d/t decreased appetite. Encourage optimal PO intake 2) Initiate Pro-Stat @ 30 mL qd 3) Folllow-up with cardiology and nephrology 4) Refer to outpatient RD for weight management 5) Continue to monitor I&O, labs, and skin integrity Expected Outcomes/Goals: 1) appetite and labs to improve 2) wound to improve 3) f/u in 3-5 days Plan discussed with: Patient YASMIN TANNER MD Oct 01, 2024 12:54
[2024-10-02] VITALS (10 sets, daily range): BP systolic 131–167; BP diastolic 67–73; PULSE 66–79; RESP 16–18; TEMP 97.7–98.6; O2SAT 93–98
[2024-10-02] MEDS: NIFEdipine ER 30 MG TAB PO SCH (09:28)
--- NOTE | 2024-10-02 10:10 | DVHPN2 ---
Subjective Patient denies any symptoms at this time. Reviewed: Care Plan, H&P, Labs, Medications, Previous Orders, Radiology Changes from previous H/P or p: Changes General: Per HPI Eyes: No Pain, No Vision change, No Conjunctivae inflammation, No Eyelid inflammation, No Other, No Redness ENT: No Ear pain, No Ear discharge, No Nose pain, No Nose discharge, No Nose congestion, No Mouth pain, No Mouth swelling, No Throat pain, No Throat swelling, No Other Cardiovascular: No Chest Pain, No Palpitations, No Orthopnea, No Paroxysmal Noc. Dyspnea, No Edema, No Lt Headedness, No Other Respiratory: No Cough, No Dry; Shortness of breath; No SOB with excertion, No Wheezing, No Hemoptysis, No Pleuritic Pain, No Sputum, No Other Gastrointestinal: No Nausea, No Vomiting, No Abdominal Pain, No Diarrhea, No Constipation, No Melena, No Hematochezia, No Other Genitourinary: No Dysuria, No Frequency, No Incontinence, No Hematuria, No Retention, No Other Musculoskeletal: No other, No neck pain, No shoulder pain, No arm pain, No back pain, No hand pain, No leg pain, No foot pain Skin: No Rash, No Lesions, No Jaundice, No Bruising; Other (Psoriasis skin) Objective Vitals Vital Signs Date Time Temp Pulse Resp B/P (MAP) Pulse Ox O2 Delivery O2 Flow Rate FiO2 10/02/24 09:29 74 152/68 10/02/24 07:38 Room Air* 2 N/A Nasal Cannula* 10/02/24 04:53 97.9 17 98 97.9 Intake/Output Intake and Output 10/02/24 07:00 Intake Total 500 ml Balance 500 ml Intake Oral 500 ml # Voids 5 General Appearance: Alert, Oriented X3, Cooperative, mild distress HEENT: Atraumatic, PERRLA Cardiovascular: Normal S1, Normal S2 Rectal: Normal inspection Genitourinary: No Apparent Abnormalities Musculoskeletal: Normal sensory function, Normal motor function Neuro: Normal gait, Normal speech, Cranial nerves 3-12 NL Skin: Dry, Intact Psych/Mental Status: Mental status NL, Mood NL Medications Current Medications Medications Dose Ordered Sig/Minerva Route Start Time Stop Time Status Last Admin Dose Admin Famotidine 20 mg DAILY IV 09/27/24 10:00 10/02/24 09:26 20 MG Levofloxacin/ Dextrose 100 ml @ 100 mls/hr DAILY IV 09/27/24 10:00 10/02/24 09:26 100 MLS/HR Acetaminophen/ Hydrocodone Bitart 1 tab Q4HP PRN PO 09/26/24 22:30 10/01/24 17:01 1 TAB Ondansetron HCl 4 mg Q4HP PRN IV 09/26/24 22:30 09/29/24 03:37 4 MG Docusate Sodium 100 mg BIDPRN PRN PO 09/26/24 22:30 Acetaminophen 650 mg Q6HP PRN PO 09/26/24 22:30 Nitroglycerin 0.4 mg Q5MINP PRN SL 09/26/24 23:45 Morphine Sulfate 2 mg Q30M PRN IV 09/26/24 23:45 Lorazepam 1 mg Q8HP PRN PO 09/27/24 03:30 10/01/24 14:47 1 MG Sertraline HCl 50 mg DAILY PO 09/28/24 10:00 10/02/24 09:27 50 MG Temazepam 15 mg HS PRN PO 09/27/24 22:15 10/01/24 21:28 15 MG Bupropion HCl 75 mg BID@07,19 PO 09/29/24 19:00 10/02/24 06:07 75 MG Metoprolol Tartrate 50 mg BID PO 09/29/24 22:00 10/02/24 09:29 50 MG Atorvastatin Calcium 40 mg HS PO 09/29/24 22:00 10/01/24 21:27 40 MG Diphenhydramine HCl 25 mg Q4HP PRN IV 09/29/24 15:15 Hydrocortisone 1 applic BID TOP 09/29/24 22:00 10/01/24 21:36 1 APPLIC Clindamycin Phosphate 50 ml @ 50 mls/hr Q8HR IV 09/29/24 22:00 10/02/24 05:33 50 MLS/HR Labetalol HCl 10 mg Q2HPRN PRN IV 09/30/24 08:30 10/02/24 06:12 10 MG Potassium Bicarbonate 50 meq DAILY PO 10/01/24 10:00 10/02/24 09:26 50 MEQ Apixaban 10 mg BID PO 09/30/24 22:00 10/07/24 21:59 10/02/24 09:27 10 MG Apixaban 5 mg BID PO 10/07/24 22:00 Nifedipine 90 mg DAILY PO 10/02/24 10:00 10/02/24 09:28 90 MG Laboratory Results Laboratory Tests 10/01/24 05:33 Microbiology Microbiology Date/Time Source Procedure Growth Status 09/28/24 14:25 Voided Urine Urine Culture - Final Complete 09/27/24 04:15 Nose MRSA Screen - Final Complete 09/26/24 22:45 Blood Blood Culture - Final NO GROWTH AFTER 5 DAYS OF INCUBATION. Complete Labs and/or images reviewed: Labs reviewed by me, Image(s) reviewed by me Assessment/Plan Assessment/Plan Impression: -subacute CVA -toxic metabolic encephalopathy -probable aspiration pneumonia -acute hypoxic respiratory failure -NSTEMI, probably type 2 secondary to polysubstance abuse -obesity -recent DVT diagnosis -nicotine dependence -psoriasis -dyslipidemia -sepsis -hypertensive crisis Plan: Events: Blood pressure improved. Patient states that she has some congestion. Primary nurse reports that the patient was intermittent confusion. Labs and chest x-ray pending -continue Wellbutrin, stop Ativan at this time. -Continue antibiotics: Levaquin and Clindamycin -cardiology consultation -neurology consultation -continue antihypertensive regimen -continue Eliquis -O2 supplementation to keep saturation greater than 92% -lorazepam p.r.n. withdrawal symptoms -antiemetics -pain management -repeat labs and Chest X-ray Total time spent with patient discussing and formulating plan of care: 35 minutes. This medical document was created using an electronic medical record system with [employer] dictation system. Although this document has been carefully reviewed, there may still be some phonetic and typographical errors. These areas are purely typographical due to imperfections of the software programs, and do not reflect any compromise in the patient's medical care. Plan discussed with: Patient, Other (RN) My Orders Orders - MARQUEZ ECHEVERRIA NP Procedure Category Date Status Time Nifedipine Er PHA 10/02/24 In Process (Procardia Xl 10:00 Chest Xray 1 View XY 10/02/24 Logged 10:04 Basic Metabolic Panel LAB 10/02/24 Logged 10:04 Complete Blood Count LAB 10/02/24 Logged 10:04 Date of Service: Oct 02, 2024 Billing Provider: SALBINO,ZAYAS [employer]ACH[employer]OL SETTER Common Visit Codes: [id number] INP/OBS CARE(HIGH) MARQUEZ ECHEVERRIA LO[employer]ING MACH[employer] TOOL SETTER Oct 02, 2024 10:10
[2024-10-02] MEDS ORDERED: IPRATROPIUM BROM 0.5 MG/2.5ML INH SOL NEB PRN (10:15)
[2024-10-02] MEDS ORDERED: ALBUTEROL SULF 2.5 MG/0.5ML(0.5%) NEB SOLN NEB PRN (10:15)
[2024-10-02 10:39] LABS: Basophils # (auto) 0 10 ^3/uL (0-0.2); Basophils % (auto) 0.1 % (0.0-2.0); Eosinophils # (auto) 0.5 10 ^3/uL (0-0.8); Hematocrit 39.4 % (36.0-46.0); Hemoglobin 13.3 g/dL (12.2-16.2); Lymphocytes # (auto) 0.7 10 ^3/uL (0.4-5.4); Lymphocytes % (auto) 7.1 % (10.0-50.0); Mean Corpuscular Hemoglobin 30.1 pg (28.0-32.0); Mean Corpuscular Hgb Conc. 33.7 g/dL (32.0-36.0); Mean Corpuscular Volume 89.4 fL (80.0-100.0); Monocytes # (auto) 0.3 10 ^3/uL (0-1.3); Monocytes % (auto) 3.3 % (0.0-12.0); Neutrophils # (auto) 8.7 10 ^3/uL (1.6-8.6); Neutrophils % (auto) 84.5 % (37.0-80.0); Platelet Count (auto) 190 10^3/uL (140-450); Red Blood Cells 4.41 10^6/uL (4.0-5.20); Red Cell Distribution Width 15.4 % (11.8-14.3); White Blood Cell 10.3 10^3/uL (4.4-10.8)
[2024-10-02 10:53] LABS: Chloride 104 mmol/L (98-107); Potassium 4.9 mmol/L (3.5-5.1)
[2024-10-02 10:54] LABS: Anion Gap 5 (5-15); Carbon Dioxide 26 mmol/L (20-31)
[2024-10-02 10:59] LABS: Blood Urea Nitrogen 20 mg/dL (9-23); Calcium 8.6 mg/dL (8.7-10.4); Glucose 126 mg/dL (74-106); Sodium 135 mmol/L (136-145)
--- NOTE | 2024-10-02 11:13 | DVH ---
CHEST RADIOGRAPH Indication: pna Technique: Single frontal view of the chest was obtained Comparison: XY CHEST XRAY 1 VIEW on DOS: 09/29/24, XY CHEST PORTABLE on DOS: 09/25/24 FINDINGS: Lines and Tubes: None Lungs: Right upper lobe opacity. Pleura: No effusion. No pneumothorax. Cardiomediastinal contours: Unremarkable Bones: No acute osseous abnormality. IMPRESSION: Right upper lobe pneumonia.
[2024-10-02] MEDS ORDERED: LORazepam 0.5 MG TAB PO PRN (12:30)
[2024-10-02 14:07] LABS: BUN/Creatinine Ratio 18.2 (10.0-20.0)
[2024-10-02] MEDS: diphenhdrAMINE HCL 50 MG/1 ML VL IV PRN (15:12)
--- NOTE | 2024-10-02 23:50 | DVHPN2 ---
Progress Note - Dictate Date Seen: Oct 02, 2024 Medical Necessity Reason Pt with a Central, PICC or Fol: No Subjective Patient was seen and evaluated in follow up. Patient complaining of a headache. Patient has poor po intake, encouraged to eat meals. [employer] N[employer] 1.10. Chest x-ray shows right upper lobe pneumonia. Telemetry reviewed. vital signs Vital Sign Date Time Temp Pulse Resp B/P (MAP) Pulse Ox O2 Delivery O2 Flow Rate FiO2 10/02/24 12:54 98.6 68 16 131/69 (89) 93 98.6 10/02/24 10:34 2.0 28 10/02/24 07:38 Room Air* Nasal Cannula* Total Intake and Output 10/01/24 10/01/24 10/02/24 15:00 23:00 07:00 Intake Total 500 ml 0 ml Balance 500 ml 0 ml medications Current Medications Medications Dose Ordered Sig/Minerva Route Start Time Stop Time Status Last Admin Dose Admin Famotidine 20 mg DAILY IV 09/27/24 10:00 10/02/24 09:26 20 MG Levofloxacin/ Dextrose 100 ml @ 100 mls/hr DAILY IV 09/27/24 10:00 10/02/24 09:26 100 MLS/HR Acetaminophen/ Hydrocodone Bitart 1 tab Q4HP PRN PO 09/26/24 22:30 10/01/24 17:01 1 TAB Ondansetron HCl 4 mg Q4HP PRN IV 09/26/24 22:30 09/29/24 03:37 4 MG Docusate Sodium 100 mg BIDPRN PRN PO 09/26/24 22:30 Acetaminophen 650 mg Q6HP PRN PO 09/26/24 22:30 Nitroglycerin 0.4 mg Q5MINP PRN SL 09/26/24 23:45 Morphine Sulfate 2 mg Q30M PRN IV 09/26/24 23:45 Sertraline HCl 50 mg DAILY PO 09/28/24 10:00 10/02/24 09:27 50 MG Temazepam 15 mg HS PRN PO 09/27/24 22:15 10/01/24 21:28 15 MG Bupropion HCl 75 mg BID@07,19 PO 09/29/24 19:00 10/02/24 06:07 75 MG Metoprolol Tartrate 50 mg BID PO 09/29/24 22:00 10/02/24 09:29 50 MG Atorvastatin Calcium 40 mg HS PO 09/29/24 22:00 10/01/24 21:27 40 MG Diphenhydramine HCl 25 mg Q4HP PRN IV 09/29/24 15:15 Hydrocortisone 1 applic BID TOP 09/29/24 22:00 10/02/24 10:11 1 APPLIC Clindamycin Phosphate 50 ml @ 50 mls/hr Q8HR IV 09/29/24 22:00 10/02/24 05:33 50 MLS/HR Labetalol HCl 10 mg Q2HPRN PRN IV 09/30/24 08:30 10/02/24 06:12 10 MG Potassium Bicarbonate 50 meq DAILY PO 10/01/24 10:00 10/02/24 09:26 50 MEQ Apixaban 10 mg BID PO 09/30/24 22:00 10/07/24 21:59 10/02/24 09:27 10 MG Apixaban 5 mg BID PO 10/07/24 22:00 Nifedipine 90 mg DAILY PO 10/02/24 10:00 10/02/24 09:28 90 MG Albuterol 2.5 mg Q4HPRN PRN NEB 10/02/24 10:15 Ipratropium [place] 0.5 mg Q4HPRN PRN NEB 10/02/24 10:15 Lorazepam 0.5 mg Q8HP PRN PO 10/02/24 12:30 objective GENERAL: Awake, alert, oriented. LUNGS: Clear. CARDIOVASCULAR: Heart sounds are good. ABDOMEN: Soft. SKIN: Patient has a excoriations throughout her arms and lower legs. laboratory and microbiology Laboratory Tests 10/02/24 10:30 Test 10/02/24 10:30 Range/Units Serum Glucose 126 H 74-106 mg/dL Problem List Sepsis secondary to urinary tract infection. NSTEMI. Hypertensive emergency. Type 2 diabetes. DVT right lower extremity. Hypertensive emergency. KATHLEEN. Bipolar. Anxiety. History of panic disorder. Assessment/Plan Continued all current supportive medical care. Morphine and [place] for pain management. Eliquis. Lipitor, Metoprolol. IV antibiotics as ordered. Nifedipine. Nitro SL. Additional plan as per the hospital course. Dietary Evaluation Review Recommendations by RD: Increase Calorie Intake, Protein Supplementation Comments: 1) Initiate Ensure Enlive bid d/t decreased appetite. Encourage optimal PO intake 2) Initiate Pro-Stat @ 30 mL qd 3) Folllow-up with cardiology and nephrology 4) Refer to outpatient RD for weight management 5) Continue to monitor I&O, labs, and skin integrity Expected Outcomes/Goals: 1) appetite and labs to improve 2) wound to improve 3) f/u in 3-5 days Plan discussed with: Patient YASMIN TANNER MD Oct 02, 2024 13:06
[2024-10-03] VITALS (7 sets, daily range): BP systolic 111–158; BP diastolic 56–76; PULSE 61–66; RESP 18–19; TEMP 97.8–98.2; O2SAT 93–96
--- NOTE | 2024-10-03 13:59 | DVHDS2 ---
Discharge Summary Date of Admission Sep 26, 2024 at 23:36 Date of Discharge: Oct 03, 2024 Admitting Diagnosis Right DVT Labs/Diagnostic Data: Laboratory Results Test 10/02/24 10:30 09/30/24 05:36 09/27/24 22:22 09/27/24 14:25 White Blood Count 10.3 10^3/uL (4.4-10.8) Red Blood Count 4.41 10^6/uL (4.0-5.20) Hemoglobin 13.3 g/dL (12.2-16.2) Hematocrit 39.4 % (36.0-46.0) Mean Corpuscular Volume 89.4 fL (80.0-100.0) Mean Corpuscular Hemoglobin 30.1 pg (28.0-32.0) Mean Corpuscular Hemoglobin Concent 33.7 g/dL (32.0-36.0) Red Cell Distribution Width 15.4 % (11.8-14.3) Platelet Count 190 10^3/uL (140-450) Mean Platelet Volume 9.3 fL (6.9-10.8) Neutrophils (%) (Auto) 84.5 % (37.0-80.0) Lymphocytes (%) (Auto) 7.1 % (10.0-50.0) Monocytes (%) (Auto) 3.3 % (0.0-12.0) Eosinophils (%) (Auto) 5.0 % (0.0-7.0) Basophils (%) (Auto) 0.1 % (0.0-2.0) Neutrophils # (Auto) 8.7 10 ^3/uL (1.6-8.6) Lymphocytes # (Auto) 0.7 10 ^3/uL (0.4-5.4) Monocytes # (Auto) 0.3 10 ^3/uL (0-1.3) Eosinophils # (Auto) 0.5 10 ^3/uL (0-0.8) Basophils # (Auto) 0 10 ^3/uL (0-0.2) Nucleated Red Blood Cells 0.0 % Sodium Level 135 mmol/L (136-145) Potassium Level 4.9 mmol/L (3.5-5.1) Chloride Level 104 mmol/L (98-107) Carbon Dioxide Level 26 mmol/L (20-31) Anion Gap 5 (5-15) Blood Urea Nitrogen 20 mg/dL (9-23) Creatinine 1.10 mg/dL (0.550-1.02) Glomerular Filtration Rate Calc 56 mL/min (>90) BUN/Creatinine Ratio 18.2 (10.0-20.0) Serum Glucose 126 mg/dL (74-106) Calcium Level 8.6 mg/dL (8.7-10.4) Total Bilirubin 1.4 mg/dL (0.2-1.0) Aspartate Amino Transferase (AST) 95 U/L (13-40) Alanine Aminotransferase (ALT) 237 U/L (7-40) Alkaline Phosphatase 169 U/L (46-116) Troponin I High Sensitivity 1626 ng/L (</=34) Total Protein 6.0 g/dL (5.7-8.2) Albumin 3.8 g/dL (3.2-4.8) Triglycerides Level 177 mg/dL (< 150) Cholesterol Level 162 mg/dL (< 200) LDL Cholesterol 105 mg/dL (< 100) HDL Cholesterol 29 mg/dL (40-59) Vitamin B12 Level 298 pg/mL (211-911) Folic Acid 7.59 ng/mL (>5.38) Thyroid Stimulating Hormone (TSH) 1.39 uIU/mL (0.55-4.78) Free Thyroxine (T4) Calculated 1.31 ng/dL (0.89-1.76) Urine Opiates Screen Neg (NEGATIVE) Urine Fentanyl Screen Neg (NEGATIVE) Urine Barbiturates Screen Neg (NEGATIVE) Urine Phencyclidine Screen Neg (NEGATIVE) Urine Amphetamines Screen Neg (NEGATIVE) Urine Benzodiazepines Screen Neg (NEGATIVE) Urine Cocaine Screen Neg (NEGATIVE) Urine Cannabinoids Screen Neg (NEGATIVE) Test 09/27/24 10:49 09/27/24 04:56 POC Glucose 112 mg/dl (70-106) Hepatitis B Surface Antigen Negative (Negative) Hepatitis C Antibody Negative (Negative) Other Laboratory Tests 10/02/24 10:30 Brief Hx & Hospital Course: History of Present Illness The patient is a 64-year-old female with past medical history of anxiety and hypertension who presented to [facility] ED with complaint of high blood pressure associated with generalized weakness and dizziness. Patient was admitted at this facility for acute allergic reaction but left the facility today. Patient was seen and evaluated in the ED, laboratory data shows WBC 24.8, platelets 260, sodium 142, potassium 4.2, BUN 24, creatinine 1.10, GFR 56, glucose 190, AST 68, ALT 70, D-dimer 3.13, urinalysis positive for urinary tract infection, blood pressure 188/96, heart rate 102, temperature 97.5 F, O2 saturation 93% on oxygen. Extremity venous study revealing DVT right lower extremity, no DVT left lower extremity. Head CT revealing nonspecific small hypotensive foci in the right and left thalamic regions. Please see medication orders section in the computer. On my assessment, patient denied chest pain, no headache, no dizziness, no diaphoresis, currently on oxygen, no nausea, no vomiting, no fever, no chills. Patient was admitted for further evaluation and medical management. Course of hospitalization: Patient was found to be negative for pulmonary embolism. Patient was found to have right upper lobe pneumonia, consistent with aspiration pneumonia probably secondary to metabolic encephalopathy from illicit drug use. Patient was started on antibiotic therapy with clindamycin Levaquin. Patient was weaned off of oxygen with respiratory status improving. Patient also had MRI of the brain which did reveal subacute/acute CVA, which was similar to the patient's CT scan of the head on her previous admission prior to the patient leaving [place]. Patient was also noted to have NSTEMI type two, with cardiology consultation obtained. Probably secondary to pneumonia as well as vasoconstriction from patient's history of amphetamine and fentanyl use. Patient was now on room air, ambulating without difficulty. She was agreeable to be discharged home and be continued on antibiotic therapy as well as anticoagulation with Eliquis 5 mg p.o. twice a day for her DVT. She will follow up with the discharge Clinic in one week and obtain a PCP. Physical examination General: Alert and Oriented x3. No acute distress. Well-nourished. Eyes: EOMI. Anicteric. HENT: Moist mucous membranes. Lungs: Clear to auscultation bilaterally. No accessory muscle use. Cardiovascular: Regular rate and rhythm. No murmur. No JVD. Abdomen: Soft, non-tender and non-distended. No palpable masses. Extremities: No edema. Non-tender. Skin: No rashes or lesions. Warm. Neurologic: No focal neurological deficits. CN II-XII grossly intact, but not individually tested. Psychiatric: Cooperative. Appropriate mood and affect. Total time spent with patient discussing and formulating plan of care: 35 minutes. This medical document was created using an electronic medical record system with [employer] dictation system. Although this document has been carefully reviewed, there may still be some phonetic and typographical errors. These areas are purely typographical due to imperfections of the software programs, and do not reflect any compromise in the patient's medical care. Consults/Reason for consult Cardiology: NSTEMI Condition at Discharge: Poor Final Diagnosis/Problems List Acute hypoxic respiratory failure Secondary diagnosis: -subacute CVA -toxic metabolic encephalopathy -probable aspiration pneumonia -acute hypoxic respiratory failure -NSTEMI, probably type 2 secondary to polysubstance abuse -obesity -recent DVT diagnosis -nicotine dependence -psoriasis -dyslipidemia -sepsis -hypertensive crisis Discharge Disposition: Home Discharge Instruct/Medications Diet: Regular Activity: No Restrictions, As Tolerated Follow Up/Referral: Discharge Clinic in one week PCP at next available appointment Medications: Levaquin 500 mg p.o. daily x7 days Eliquis 5 mg p.o. b.i.d. Ativan 0.5 mg p.o. qd as needed for anxiety 36 Discharge Statement: "Patient was advised to return to the ER or call 911 if any headaches, dizziness, shortness of breath, chest pain, abdominal pain, bleeding, fevers, or worsening of medical condition. Patient was counseled about treatment plan, medications, possible side effects, patientverbalized understanding. All questions were answered to the best of my ability. This discharge took greater then 30 minutes in planning, reviewing documentation, counseling the patient, and discussing with other team members." ASSESSMENT ASSESSMENT Assessment Acute hypoxic respiratory failure Date of Service: Oct 03, 2024 Billing Provider: MARQUEZ ECHEVERRIA NP Common Visit Codes: 94935-IPH/OBS DISCH DAY >30min MARQUEZ ECHEVERRIA NP Oct 03, 2024 13:59
[2024-10-03] MEDS ORDERED: LEVO500T91 PO (14:01)
[2024-10-03] MEDS ORDERED: LORA-655 PO (14:01)
[2024-10-03] MEDS ORDERED: APIX5TAB PO (14:01)
--- NOTE | 2024-10-03 23:42 | DVHPN2 ---
Progress Note - Dictate Date Seen: Oct 03, 2024 Medical Necessity Reason Pt with a Central, PICC or Fol: No Subjective Patient was seen and evaluated in follow up. Patient has no new complaints at this time. Patient denies any cardiac symptoms. Patient is cardiac stable for discharge. Telemetry reviewed. vital signs Vital Sign Date Time Temp Pulse Resp B/P (MAP) Pulse Ox O2 Delivery O2 Flow Rate FiO2 10/03/24 10:43 152/47 10/03/24 10:43 64 10/03/24 08:59 94 Room Air* 0 21 10/03/24 08:36 97.9 18 97.9 Total Intake and Output 10/02/24 10/02/24 10/03/24 15:00 23:00 07:00 Intake Total 150 ml 1040 ml 100 ml Balance 150 ml 1040 ml 100 ml medications Current Medications Medications Dose Ordered Sig/Minerva Route Start Time Stop Time Status Last Admin Dose Admin Famotidine 20 mg DAILY IV 09/27/24 10:00 10/03/24 10:41 20 MG Levofloxacin/ Dextrose 100 ml @ 100 mls/hr DAILY IV 09/27/24 10:00 10/03/24 10:41 100 MLS/HR Acetaminophen/ Hydrocodone Bitart 1 tab Q4HP PRN PO 09/26/24 22:30 10/02/24 15:13 1 TAB Ondansetron HCl 4 mg Q4HP PRN IV 09/26/24 22:30 09/29/24 03:37 4 MG Docusate Sodium 100 mg BIDPRN PRN PO 09/26/24 22:30 Acetaminophen 650 mg Q6HP PRN PO 09/26/24 22:30 Nitroglycerin 0.4 mg Q5MINP PRN SL 09/26/24 23:45 Morphine Sulfate 2 mg Q30M PRN IV 09/26/24 23:45 Sertraline HCl 50 mg DAILY PO 09/28/24 10:00 10/03/24 10:41 50 MG Temazepam 15 mg HS PRN PO 09/27/24 22:15 10/02/24 21:17 15 MG Bupropion HCl 75 mg BID@07,19 PO 09/29/24 19:00 10/03/24 06:28 75 MG Metoprolol Tartrate 50 mg BID PO 09/29/24 22:00 10/03/24 10:43 50 MG Atorvastatin Calcium 40 mg HS PO 09/29/24 22:00 10/02/24 21:01 40 MG Diphenhydramine HCl 25 mg Q4HP PRN IV 09/29/24 15:15 10/03/24 05:14 25 MG Hydrocortisone 1 applic BID TOP 09/29/24 22:00 10/03/24 10:43 1 APPLIC Clindamycin Phosphate 50 ml @ 50 mls/hr Q8HR IV 09/29/24 22:00 10/03/24 05:04 50 MLS/HR Labetalol HCl 10 mg Q2HPRN PRN IV 09/30/24 08:30 10/03/24 05:04 10 MG Potassium Bicarbonate 50 meq DAILY PO 10/01/24 10:00 10/02/24 09:26 50 MEQ Apixaban 10 mg BID PO 09/30/24 22:00 10/07/24 21:59 10/03/24 10:41 10 MG Apixaban 5 mg BID PO 10/07/24 22:00 Nifedipine 90 mg DAILY PO 10/02/24 10:00 10/03/24 10:43 90 MG Albuterol 2.5 mg Q4HPRN PRN NEB 10/02/24 10:15 Ipratropium [place] 0.5 mg Q4HPRN PRN NEB 10/02/24 10:15 Lorazepam 0.5 mg Q8HP PRN PO 10/02/24 12:30 objective GENERAL: Awake, alert, oriented. LUNGS: Clear. CARDIOVASCULAR: Heart sounds are good. ABDOMEN: Soft. SKIN: Patient has a excoriations throughout her arms and lower legs. laboratory and microbiology Laboratory Tests 10/02/24 10:30 Test 10/02/24 10:30 Range/Units Serum Glucose 126 H 74-106 mg/dL Problem List Sepsis secondary to urinary tract infection. NSTEMI. Hypertensive emergency. Type 2 diabetes. DVT right lower extremity. Hypertensive emergency. KATHLEEN. Bipolar. Anxiety. History of panic disorder. Assessment/Plan Continued all current supportive medical care. Morphine and [place] for pain management. Eliquis. Lipitor, Metoprolol. IV antibiotics as ordered. Nifedipine. Nitro SL. Additional plan as per the hospital course. Dietary Evaluation Review Recommendations by RD: Increase Calorie Intake, Protein Supplementation Comments: 1) Initiate Ensure Enlive bid d/t decreased appetite. Encourage optimal PO intake 2) Initiate Pro-Stat @ 30 mL qd 3) Folllow-up with cardiology and nephrology 4) Refer to outpatient RD for weight management 5) Continue to monitor I&O, labs, and skin integrity Expected Outcomes/Goals: 1) appetite and labs to improve 2) wound to improve 3) f/u in 3-5 days Plan discussed with: Patient YASMIN TANNER MD Oct 03, 2024 11:29
[2024-10-07] MEDS ORDERED: APIXABAN 5 MG TAB PO SCH (22:00)
== END 2024-10-03 16:34 | disposition home or self-care (01) | DRG 871 ==
LOC: ER 17:30 → OVERFLOW 23:36 → TELE-CENTR 09-27 03:12
PROVIDERS: ADMIT Nurse Practitioner Acute Care; ATTEND Nurse Practitioner Acute Care
DX: A41.9 Sepsis, unspecified organism (principal); G92.8 Other toxic encephalopathy; J96.01 Acute respiratory failure with hypoxia; I21.4 Non-ST elevation (NSTEMI) myocardial infarction; J69.0 Pneumonitis due to inhalation of food and vomit; I63.9 Cerebral infarction, unspecified; J18.9 Pneumonia, unspecified organism; N39.0 Urinary tract infection, site not specified; I16.1 Hypertensive emergency; I82.401 Acute embolism and thrombosis of unspecified deep veins of right lower extremity; N17.9 Acute kidney failure, unspecified; G62.1 Alcoholic polyneuropathy; G47.00 Insomnia, unspecified; E11.9 Type 2 diabetes mellitus without complications; E78.5 Hyperlipidemia, unspecified; E66.9 Obesity, unspecified; F41.9 Anxiety disorder, unspecified; F31.9 Bipolar disorder, unspecified; L40.9 Psoriasis, unspecified; I10 Essential (primary) hypertension; F17.210 Nicotine dependence, cigarettes, uncomplicated; F19.90 Other psychoactive substance use, unspecified, uncomplicated; Z79.01 Long term (current) use of anticoagulants; Z80.3 Family history of malignant neoplasm of breast; Z79.899 Other long term (current) drug therapy; Z82.49 Family history of ischemic heart disease and other diseases of the circulatory system; Z86.718 Personal history of other venous thrombosis and embolism; Z86.73 Personal history of transient ischemic attack (TIA), and cerebral infarction without residual deficits; Z88.0 Allergy status to penicillin; Z90.710 Acquired absence of both cervix and uterus; Z90.49 Acquired absence of other specified parts of digestive tract; Z88.5 Allergy status to narcotic agent; Z68.30 Body mass index [BMI] 30.0-30.9, adult
CPT/HCPCS: 36415; 70551; 71045; 80048; 80053; 80061; 80307; 82607; 82746; 82962; 84439; 84443; 84484; 85025; 86803; 87040; 87081; 87086; 87340; 93886; 96365; 96372; 96375; G0378; J1956; J2405; J3490

== ENCOUNTER 2024-10-15 16:24 | Inpatient (IN) | payer MEDICARE, MEDICAID ==
[~2024-10-15] VITALS: Ht 160 cm; Wt 70.7 kg
[~2024-10-15 16:24] MED LIST changes: +APIX5TAB PO; +LEVO500T91 PO; +LORA-655 PO
[2024-10-15 17:16] LABS: Basophils # (auto) 0 10 ^3/uL (0-0.2); Basophils % (auto) 0.2 % (0.0-2.0); Eosinophils # (auto) 0.6 10 ^3/uL (0-0.8); Eosinophils % (auto) 6.1 % (0.0-7.0); Hematocrit 42.2 % (36.0-46.0); Lymphocytes # (auto) 1.8 10 ^3/uL (0.4-5.4); Lymphocytes % (auto) 17.3 % (10.0-50.0); Mean Corpuscular Hgb Conc. 33.3 g/dL (32.0-36.0); Monocytes # (auto) 0.5 10 ^3/uL (0-1.3); Monocytes % (auto) 4.8 % (0.0-12.0); Neutrophils # (auto) 7.4 10 ^3/uL (1.6-8.6); Neutrophils % (auto) 71.6 % (37.0-80.0); Platelet Count (auto) 468 10^3/uL (140-450); Red Blood Cells 4.68 10^6/uL (4.0-5.20); Red Cell Distribution Width 15.5 % (11.8-14.3); White Blood Cell 10.4 10^3/uL (4.4-10.8)
--- NOTE | 2024-10-15 17:28 | DVH ---
EXAM: CT HEAD WITHOUT CONTRAST INDICATION: headache with high blood pressure. TECHNIQUE: CT of the head without intravenous contrast. Radiation Dose : 1. Head: CT Dose: CTDI volume is 50.87 mGy. Dose-length product is 900.9 mGy*cm The dose indicators for CT are the volume Computed Tomography (CT) Dose Index (CTDIvol) and the Dose Length Product (DLP), and are measured in units of mGy and mGy-cm, respectively. These indicators are not patient dose, but values generated from the CT scanner acquisition factors. The report includes radiation exposure data for exposures received during this examination. COMPARISON: CT HEAD WITHOUT CONTRAST on DOS: 09/25/24 FINDINGS: There is no evidence of acute intracranial hemorrhage, extra-axial collection, mass effect, midline s hift, herniation or hydrocephalus. The ventricles, sulci and cisterns are age appropriate. The zacarias-white differentiation is intact. Patchy periventricular and subcortical white matter hypoattenuation is nonspecific but may be related to small vessel ischemic disease. The visualized paranasal sinuses and mastoid air cells are clear. The surrounding soft tissues and osseous structures are unremarkable. IMPRESSION: No acute intracranial abnormality. Radiation optimization: All CT scans at this facility use at least one of these dose optimization alirio hniques: automated exposure control mA and/or kV adjustment per patient size (includes targeted exam s where dose is matched to clinical indication) or iterative reconstruction.
[2024-10-15 17:30] LABS: Alanine Aminotransferase 16 U/L (7-40); Albumin 4.2 g/dL (3.2-4.8); Alkaline Phosphatase 77 U/L (46-116); Anion Gap 10 (5-15); Aspartate Aminotransferase 16 U/L (13-40); BUN/Creatinine Ratio 20.5 (10.0-20.0); Calcium 10.2 mg/dL (8.7-10.4); Carbon Dioxide 25 mmol/L (20-31); Potassium 4.5 mmol/L (3.5-5.1); Sodium 143 mmol/L (136-145); Total Protein 6.3 g/dL (5.7-8.2)
[2024-10-15 17:31] LABS: Bilirubin, Total 0.4 mg/dL (0.2-1.0)
--- NOTE | 2024-10-15 17:40 | ED.PDOC ---
HPI Comments Ms. Styles, a 64-year-old female with a history of anxiety, DVT on Eliquis, seasonal allergy, COPD, poor medical compliance, hypertension and noted previous history of polysubstance abuse presented to [facility] ED with high blood pressure, generalized weakness, and dizziness. She was recently admitted between 09/26/2024 and 10/03/2024 for UTI, DVT in the right lower extremity and nonspecific hypotensive foci in the thalamic regions she was started on Eliquis and today she visited post hospital discharge follow up clinic where she was found to have presenting blood pressure of 209/117 and event after giving 0.1 clonidine remained 199/112 on repeat monitoring. Despite her abnormal vitals, she denied chest pain, significant headache, dizziness, diaphoresis, nausea, vomiting, fever, and chills. She admitted of having any antihypertensives ou tpatient cunha 4 months back and poor medical follow up. She was admitted for further evaluation and management. Her past surgical history includes appendectomy, cholecystectomy, and hysterectomy. She lives at home, smokes less than a pack of cigarettes per day, drinks alcohol occasionally, and denies illicit drug use. She was accompanied by her son. Patient was signed off by the outpatient resident Dong Perez PGY 1. Chief Complaint: High Blood Pressure Time Seen by MD: 16:37 Primary Care Provider: UNKNOWN Reviewed Notes: Nurses Notes, Edge Burnisher Uppers Notes, Medications, Allergies Allergies: Coded Allergies: Codeine (Unverified Allergy, Severe, 08/02/14) Erythromycin (Unverified Allergy, Severe, 08/02/14) Penicillins (Unverified Allergy, Severe, 08/02/14) Acetaminophen (Verified Allergy, Unknown, 10/15/24) Propoxyphene (Verified Allergy, Unknown, 10/15/24) Uncoded Allergies: GENTIMYCIN (Allergy, Unknown, 10/15/24) Home Meds Active Scripts Lorazepam (Ativan) 0.5 Mg Tab, 1 TAB PO DAILY for 7 Days, #7 TAB Prov:SALSHALAORUBENZAYAS FEED MILL MANAGER 10/03/24 Levofloxacin Hemihydrate (LEVAQUIN 500 MG) 500 Mg Tab, 1 TAB PO DAILY for 7 Days, #7 TAB Prov:SALBINOZAYAS FEED MILL MANAGER 10/03/24 Apixaban Base (ELIQUIS) 5 Mg Tab, 5 MG PO BID for 30 Days, #60 TAB 1 Refill Prov:MARQUEZ ECHEVERRIA FEED MILL MANAGER 10/03/24 Diphenhydramine Hcl (Benadryl Allergy) 25 Mg Cap, 1 CAP PO QPM, #30 CAP 1 Refill Prov:GWENDOLYN EASTMAN MD 09/16/24 Methylprednisolone (Medrol Dosepak) 4 Mg Samy, 4 MG PO UD, #21 TAB UAD Prov:GWENDOLYN EASTMAN MD 09/16/24 Information Source: Patient, Relative, Dr. Office Mode of Arrival: Ambulatory Brought in by: Accompanied by RN, primary outpatient team Severity: Moderate Timing: Minutes, Hours Duration: Since onset Prehospital treatment: Agility Instructor, Treatment Past Medical History PAST MEDICAL HISTORY: Anxiety, HTN Past Medical History (Other): As above Surgical History: Appendectomy, Cholecystectomy, Hysterectomy Surgical History (Other): As above SPECIAL EDUCATION PARAEDUCATOR History: No Pertinent SPECIAL EDUCATION PARAEDUCATOR History Family History Family History: Unknown Family History (Other): As above, noncontributory all the patient has family history of CAD and hypertension Social History Smoker: Cigarettes, Less Than 1 Pack/Day Alcohol: Occasionally Drugs: Denies Drug Use Lives In: Home Constitutional: denies: chills, diaphoresis, fatigue, fever, malaise, sweats, weakness, others EENTM: denies: blurred vision, double vision, ear bleeding, ear discharge, ear drainage, ear pain, ear ringing, eye pain, eye redness, hearing loss, mouth pain, mouth swelling, nasal discharge, nose bleeding, nose congestion, nose pain, photophobia, tearing, throat pain, throat swelling, voice changes, others Respiratory: denies: cough, hemoptysis, orthopnea, SOB at rest, shortness of breath, SOB with excertion, stridor, wheezing, others Cardiovascular: denies: chest pain, dizzy spells, diaphoresis, Dyspnea on exertion, edema, irregular heart beat, left arm pain, lightheadedness, palpitations, PND, syncope, others Gastrointestinal: denies: abdomen distended, abdominal pain, blood streaked bowels, constipated, diarrhea, dysphagia, difficulty swallowing, hematemesis, melena, nausea, poor appetite, poor fluid intake, rectal bleeding, rectal pain, vomiting, others Genitourinary: denies: abnormal vagina bleeding, burning, dyspareunia, dysuria, flank pain, frequency, hematuria, incontinence, pain, , vagina discharge, urgency, others Neurological: denies: dizziness, fainting, headache, left sided numbness, left sided weakness, numbness, paresthesia, pre-existing deficit, right sided numbness, right sided weakness, seizure, speech problems, tingling, tremors, w eakness, others Musculoskeletal: denies: back pain, gout, joint pain, joint swelling, muscle pain, muscle stiffness, neck pain, others Integumetry: denies: bruises, change in color, change in hair/nails, dryness, laceration, lesions, lumps, rash, wounds, others Hematologic/Lymphatic: denies: anemia, blood clots, easy bleeding, easy bruising, swollen glands, others Endocrine: denies: excessive hunger, excessive sweating, excessive thirst, excessive urination, flushing, intolerance to cold, intolerance to heat, unexplained weight gain, unexplained weight loss, others Psychiatric: denies: anxiety, bipolar disorder, depression, hopeless, panic disorder, schizophrenia, sleepless, suicidal, others Physical Exam General Appearance: No Apparent Distress HEENT: Normal ENT Inspection Neck: Full Range of Motion, Normal Inspection Respiratory: Lungs Clear, No Accessory Muscle Use, No Respiratory Distress, Normal Breath Sounds Cardiovascular: No Edema, No Murmur, No Gallop, Normal Peripheral Pulses, Regular Rate/Rhythm Breast Exam: Deferred Gastrointestinal: Non Tender, Normal Bowel Sounds, Soft Genitalia: Deferred Pelvic: Deferred Rectal: Deferred Extremities: No calf tenderness, Non-tender, No pedal edema Neurologic: Abnormal Gait, Alert, No Motor Deficits, Normal Affect, Normal Mood, No Sensory Deficits Cerebellar Function: Normal Reflexes: NOT DONE Skin: Dry, Normal Color, Warm Lymphatic: NOT DONE EKG EKG : Comments No acute ST-T changes. Was a procedure done? Was a procedure done?: No CP Differential Dx Differential Diagnosis: Anxiety / Panic Attack, Heart Failure, Hyperthyroidism Differential Diagnosis: HTN Essential, Medical NonCompliance, Other (Hypertensive urgency versus emergency.) Differential Diagnosis: Myocardial Infarction Comment Renovascular hypertension X-Ray, Labs, Meds, VS Vital Signs Date Time Temp Pulse Resp B/P (MAP) Pulse Ox O2 Delivery O2 Flow Rate FiO2 10/15/24 22:30 97.7 73 16 185/98 (127) 96 97.7 10/15/24 21:54 72 18 95 Room Air 10/15/24 21:54 98.4 72 18 188/92 (124) 95 98.4 10/15/24 21:45 188/92 10/15/24 18:39 98.2 89 18 175/92 (119) 96 98.2 10/15/24 16:45 97.6 94 18 175/102 (126) 93 97.6 10/15/24 16:39 88 Lab Test 10/15/24 16:09 Range/Units White Blood Count 10.4 4.4-10.8 10^3/uL Red Blood Count 4.68 4.0-5.20 10^6/uL Hemoglobin 14.0 12.2-16.2 g/dL Hematocrit 42.2 36.0-46.0 % Mean Corpuscular Volume 90.0 80.0-100.0 fL Mean Corpuscular Hemoglobin 30.0 28.0-32.0 pg Mean Corpuscular Hemoglobin Concent 33.3 32.0-36.0 g/dL Red Cell Distribution Width 15.5 H 11.8-14.3 % Platelet Count 468 H 140-450 10^3/uL Mean Platelet Volume 8.1 6.9-10.8 fL Neutrophils (%) (Auto) 71.6 37.0-80.0 % Lymphocytes (%) (Auto) 17.3 10.0-50.0 % Monocytes (%) (Auto) 4.8 0.0-12.0 % Eosinophils (%) (Auto) 6.1 0.0-7.0 % Basophils (%) (Auto) 0.2 0.0-2.0 % Neutrophils # (Auto) 7.4 1.6-8.6 10 ^3/uL Lymphocytes # (Auto) 1.8 0.4-5.4 10 ^3/uL Monocytes # (Auto) 0.5 0-1.3 10 ^3/uL Eosinophils # (Auto) 0.6 0-0.8 10 ^3/uL Basophils # (Auto) 0 0-0.2 10 ^3/uL Nucleated Red Blood Cells 0.0 % Sodium Level 143 136-145 mmol/L Potassium Level 4.5 3.5-5.1 mmol/L Chloride Level 108 H 98-107 mmol/L Carbon Dioxide Level 25 20-31 mmol/L Anion Gap 10 5-15 Blood Urea Nitrogen 25 H 9-23 mg/dL Creatinine 1.22 H 0.550-1.02 mg/dL Glomerular Filtration Rate Calc 49 >90 mL/min BUN/Creatinine Ratio 20.5 H 10.0-20.0 Serum Glucose 112 H 74-106 mg/dL Calcium Level 10.2 8.7-10.4 mg/dL Total Bilirubin 0.4 0.2-1.0 mg/dL Aspartate Amino Transferase (AST) 16 13-40 U/L Alanine Aminotransferase (ALT) 16 7-40 U/L Alkaline Phosphatase 77 46-116 U/L Total Protein 6.3 5.7-8.2 g/dL Albumin 4.2 3.2-4.8 g/dL Current Medications Medications (Trade) Dose Ordered Sig/Minerva Route Start Time Stop Time Status Last Admin Nifedipine (Procardia Xl (Time-Release)) 90 mg ONCE ONCE PO 10/15/24 20:45 10/15/24 20:53 DC 10/15/24 21:45 Apixaban (Eliquis) 5 mg BID PO 10/15/24 22:00 10/15/24 22:23 Time of 1ST Reevaluation: 20:53 Reevaluation 1ST: Improved (10 mg IV hydralazine mildly improved blood pressure in 170s for systolic.) Time of 2ND Reevaluation: 22:40 Reevaluation 2ND: Unchanged (Despite keeping the patient on nifedipine 90 mg ER blood patient remains elevated to 180s. Patient is restarted home apixaban. CT head negative, all other workup unconcerning so far.) Time of 3RD Reevaluation: 23:18 Reevaluation 3RD: Unchanged (Patient is started on nicardipine drip. Patient needs inpatient admission for management and further evaluation with long-term outpatient planning and care for uncontrolled hypertension with recurrent hypertensive urgency/emergency. Target blood pressure should be 140/90 at least over to be achieved by 24-48 hours. Previously discussed with Dr. Kee.) Consultation: PCP, Cardiology Patient Education/Counseling: Diagnosis, Treatment, Prognosis, Need For Follow Up Family Education/Counseling: Other (During 2nd and 3rd eval at bedside son was not present.) Departure 1 Departure Time of Disposition: 23:19 Impression: Primary Impression: HTN (hypertension) Qualified Codes: I10 - Essential (primary) hypertension Additional Impressions: Hypertensive emergency without congestive heart failure Non compliance with medical treatment Medical non-compliance Disposition: ADMITTED INPATIENT Admit to: Tele Condition: Guarded Critical Care Note Critical Care Time?: Yes (45 min-critical care time only) Critical care comment: Critical care time spent 46 minutes excluding procedures. Patient was admitted as ICU/SOLO status due to nicardipine drip needing for appropriate blood pressure management. Stability Stability form required: No Heart Score Heart Score: Heart Score Response (Comments) Value History N/A 0 EKG N/A 0 Age N/A 0 Risk Factors N/A 0 Troponin N/A 0 Total 0 ADRIANO RHOADES RESIDENT Oct 15, 2024 17:39
[2024-10-15 18:11] LABS: Blood Urea Nitrogen 25 mg/dL (9-23); Chloride 108 mmol/L (98-107); Glucose 112 mg/dL (74-106)
[2024-10-15] MEDS: NIFEdipine ER 30 MG TAB PO ONE (21:45)
[2024-10-15] MEDS: APIXABAN 5 MG TAB PO SCH (22:23)
--- NOTE | 2024-10-15 23:34 | DVHHPRES ---
History of Present Illness Resident Creating Document: CIARAN HUFF History of Present Illness Nelida Styles This is a 64-year-old female patient who presents to the ED referred from discharge Clinic with chief complaint of headaches associated with severe hypertension. Patient was admitted recently due to metabolic encephalopathy secondary to UTI and CVA and DVT, she was discharged with no antihypertensive medication. Patient also complains of pruritic erythematous rash in face, bilateral elbows and wrists, and right ankle. denies fever, chills, palpitation, syncope, chest pain, dyspnea, nausea, vomiting, diarrhea, sick contacts, recent travel and motor or sensory deficits Past medical history: Hypertension, prediabetes, psoriasis, CVA, right leg DVT, UTI complicated with NSTEMI type 2, anxiety, breast cyst, bipolar disorder Surgical history: Appendicectomy, cholecystectomy, tonsillectomy, BTL, hemorrhoidectomy, bilateral carpal tunnel surgery Family history: Mother and two sisters had breast cancer, sister had esophageal cancer and , and other sister had colon cancer Social history: Lives with son in [place]. 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 Allergies: Codeine, penicillin, erythromycin, gentamicin, propoxyphene Home medication: Apixaban 5 mg p.o. b.i.d., lorazepam p.r.n., received course of methylprednisolone and levofloxacin recently Patient seen and examined at bedside. Still complains of pruritic rash, indicated IV Benadryl and topical steroids. Recommend to follow up for her psoriasis as outpatient with internet network specialist. Continues with hypertensive urgency, indicated p.o. medication, if fails nicardipine drip is on standby. Past Medical History Per HPI Past Surgical History Per HPI Family History Per HPI Past Social History Per HPI Review of Systems Review of Systems Per HPI Allergies: Coded Allergies: Codeine (Unverified Allergy, Severe, 08/02/14) Erythromycin (Unverified Allergy, Severe, 08/02/14) Penicillins (Unverified Allergy, Severe, 08/02/14) Propoxyphene (Verified Allergy, Unknown, 10/15/24) Uncoded Allergies: GENTIMYCIN (Allergy, Unknown, 10/15/24) Medications Current Medications Medications Dose Ordered Sig/Minerva Route Start Time Stop Time Status Last Admin Dose Admin Apixaban 5 mg BID PO 10/15/24 22:00 10/15/24 22:23 5 MG Nicardipine HCl 250 ml @ 50 mls/hr Q5H IV 10/15/24 23:15 Nitroglycerin 0.4 mg Q5MINP PRN SL 10/15/24 23:45 UNV Morphine Sulfate 2 mg Q30M PRN IV 10/15/24 23:45 UNV Exam Vital Signs Vital Signs Date Time Temp Pulse Resp B/P (MAP) Pulse Ox O2 Delivery O2 Flow Rate FiO2 10/15/24 22:30 97.7 73 16 185/98 (127) 96 97.7 10/15/24 21:54 Room Air Exam Patient lying in bed, in no acute distress General: Lucid, afebrile, mucosae are moist Cardiovascular: Normal S1 and S2. Systolic crescendo decrescendo mid peaking murmur best heard in aortic foci intensity 3/6. No gallops or rubs Respiratory: Normal ventilation mechanics. Clear lung sounds on auscultation Abdomen: Soft, nontender, no organomegaly, normal bowel sounds MSK/skin: Mobilizes 4 limbs. Skin is dry and warm. Patient has macule in bilateral wrist in face and mandible area and bilateral extensor surfaces of elbows and on right ankle associated with keratosis. Have signs of excoriations. by palpable erythema Neurological: Oriented in 3 spheres. No motor no sensitive deficits. Pupils are isocoric and reactive Labs/Xrays Labs Test 10/15/24 16:09 Range/Units White Blood Count 10.4 4.4-10.8 10^3/uL Red Blood Count 4.68 4.0-5.20 10^6/uL Hemoglobin 14.0 12.2-16.2 g/dL Hematocrit 42.2 36.0-46.0 % Mean Corpuscular Volume 90.0 80.0-100.0 fL Mean Corpuscular Hemoglobin 30.0 28.0-32.0 pg Mean Corpuscular Hemoglobin Concent 33.3 32.0-36.0 g/dL Red Cell Distribution Width 15.5 H 11.8-14.3 % Platelet Count 468 H 140-450 10^3/uL Mean Platelet Volume 8.1 6.9-10.8 fL Neutrophils (%) (Auto) 71.6 37.0-80.0 % Lymphocytes (%) (Auto) 17.3 10.0-50.0 % Monocytes (%) (Auto) 4.8 0.0-12.0 % Eosinophils (%) (Auto) 6.1 0.0-7.0 % Basophils (%) (Auto) 0.2 0.0-2.0 % Neutrophils # (Auto) 7.4 1.6-8.6 10 ^3/uL Lymphocytes # (Auto) 1.8 0.4-5.4 10 ^3/uL Monocytes # (Auto) 0.5 0-1.3 10 ^3/uL Eosinophils # (Auto) 0.6 0-0.8 10 ^3/uL Basophils # (Auto) 0 0-0.2 10 ^3/uL Nucleated Red Blood Cells 0.0 % Sodium Level 143 136-145 mmol/L Potassium Level 4.5 3.5-5.1 mmol/L Chloride Level 108 H 98-107 mmol/L Carbon Dioxide Level 25 20-31 mmol/L Anion Gap 10 5-15 Blood Urea Nitrogen 25 H 9-23 mg/dL Creatinine 1.22 H 0.550-1.02 mg/dL Glomerular Filtration Rate Calc 49 >90 mL/min BUN/Creatinine Ratio 20.5 H 10.0-20.0 Serum Glucose 112 H 74-106 mg/dL Calcium Level 10.2 8.7-10.4 mg/dL Total Bilirubin 0.4 0.2-1.0 mg/dL Aspartate Amino Transferase (AST) 16 13-40 U/L Alanine Aminotransferase (ALT) 16 7-40 U/L Alkaline Phosphatase 77 46-116 U/L Total Protein 6.3 5.7-8.2 g/dL Albumin 4.2 3.2-4.8 g/dL Assessment/Plan Assessment/Plan Assessment: Hypertensive urgency Ruled out acute CVA KATHLEEN hemodynamically mediated Simple hyperglycemia Uncontrolled psoriatic lesions Recent diagnosis of DVT on right lower limb Recent CVA Mild aortic stenosis History of polysubstance abuse Non adherent Plan: Indicated p.o. antihypertensive medication (nifedipine, valsartan scheduled and hydralazine p.r.n.), if does not respond, have nicardipine drip on standby. Indicated Benadryl IV and steroid cream for psoriatic plaques. Head CT showed no intracranial pathology Last echocardiogram on 08/2024: mild LVH, moderately dilated LA, LVEF 70%, posterior MV calcification, heavily calcified aortic leaflets with mild aortic stenosis Goals of care discussed with patient for over 18 minutes: Full code status Discussed plan with Dr. Caldwell, patient and nurses: We will try to optimize hypertension with p.o. medication, if not effective nicardipine drip is on standby. Indicated Benadryl IV and steroid cream for uncontrolled psoriatic plaques.Explained importance of following up with outpatient care, including mortgage analyst (patient has no mortgage analyst). Patient also has history of not on adherence to medication, have counseled her. Plan discussed with: Patient, Other (Nurses) My Orders Orders - CIARAN HUFF Procedure Category Date Status Time Admit ADMIT 10/15/24 Transmitted 23:31 Code Status CODE 10/15/24 Transmitted 23:31 Vital Signs TATUM 10/15/24 In Process 23:31 Review Orders With [facility] 10/15/24 In Process Adm.Md 23:31 Notify Md Of Changes [facility] 10/15/24 In Process From Base 23:31 Advance Directive TATUM 10/15/24 In Process 23:31 Patient Condition ORDERS 10/15/24 Transmitted 23:31 Allergies TATUM 10/15/24 In Process 23:31 Nitroglycerin PHA 10/15/24 Logged Sublingual (Ntrostat 23:45 Morphine Sulfate PHA 10/15/24 Logged Injection 23:45 Oxygen By Nasal RT 10/15/24 Transmitted Cannula 23:31 Stat Ekg For Chest TATUM 10/15/24 In Process Pain 23:31 Notify Of Changes TATUM 10/15/24 In Process From Base 23:31 Chemical Compounder For TATUM 10/15/24 In Process 24 Hours 23:31 Emergency Dysrhythmia TATUM 10/15/24 In Process Protocol 23:31 Rhythm Strips Once TATUM 10/15/24 In Process Every Shift 23:31 Complete Blood Count LAB 10/16/24 Verified 04:00 Comprehensive LAB 10/16/24 Verified Metabolic Panel 04:00 Date of Service: Oct 15, 2024 Billing Provider: STEVEN CALDWELL MD Common Visit Codes: 81769-NILCJOG INP/OBS CARE (HIGH) Secondary Visit Codes: 38539-WQKOHDSX CARE PLAN 30 MINUTES CIARAN HUFF Oct 15, 2024 23:34 STEVEN CALDWELL MD Oct 16, 2024 19:01
[2024-10-15] MEDS ORDERED: MORPHINE SULFATE INJ 2 MG/ml SYRG IV PRN (23:45)
[2024-10-15] MEDS ORDERED: NITROGLYCERIN 0.4 MG SL TAB SL PRN (23:45)
[2024-10-16] VITALS (17 sets, daily range): BP systolic 159–216; BP diastolic 65–133; PULSE 76–102; RESP 13–22; TEMP 98.1; O2SAT 94–98
[2024-10-16 02:11] LABS: Phosphorus 4.1 mg/dL (2.4-5.1)
[2024-10-16 02:21] LABS: INR 1.02 (0.9-1.15); Partial Thromboplastin Time 27.7 SEC (24.5-34.5); Prothrombin Time 10.8 sec (9.3-11.8)
[2024-10-16] MEDS ORDERED: DEXTROSE (50%) 50ML SYRG IV PRN (02:45)
[2024-10-16] MEDS ORDERED: HYDROCORTISONE 2.5% TOPICAL CREAM 30GM TUBE TOP PRN (03:00)
[2024-10-16] MEDS ORDERED: hydrALAZINE HCL 20 MG/ML VL IV PRN (03:00)
[2024-10-16 04:12] LABS: Urine Bacteria FEW /hpf (None Seen); Urine Blood Negative /uL (Negative); Urine Budding Yeast OCCASIONAL /hpf (None Seen); Urine Clarity Turbid (Clear); Urine Color Yellow (Yellow); Urine Hyaline Cast MOD /lpf (0 - 2); Urine Mucus FEW (None Seen); Urine Protein, UAD 1+ (Negative); Urine Specific Gravity 1.028 (1.001-1.035); Urine Squamous Epithelial Cell MOD /hpf (<5); Urine Urobilinogen Normal (Negative); Urine WBC 59 /HPF (0-5); Urine pH 5.5 (5.0-9.0)
[2024-10-16 04:28] LABS: Benzodiazephine Screen, Urine Neg (NEGATIVE)
[2024-10-16] MEDS: PANTOPRAZOLE 40 MG/10 ML VIAL INJ IV ONE (04:28)
[2024-10-16] MEDS: diphenhdrAMINE HCL 50 MG/1 ML VL IM ONE (04:28)
[2024-10-16] MEDS: LORazepam 2MG/ML-1ML VIAL IV ONE (04:29)
[2024-10-16 04:59] LABS: Amphetamine Screen, Urine Neg (NEGATIVE); Barbiturate Scree,Urine Neg (NEGATIVE); Cannabinoid Screen, Urine Neg (NEGATIVE); Cocaine Screen, Urine Neg (NEGATIVE); Opiate Scree,Urine Neg (NEGATIVE); Phencyclidine Screen, Urine Neg (NEGATIVE)
[2024-10-16] MEDS: ACCU-CHEK COMFORT CURVE STRIP VI SCH (07:18)
[2024-10-16] MEDS: InsuLIN REG 1unit/0.01ml Soln (100units/ml) SC SCH (07:18)
[2024-10-16 07:31] LABS: Basophils # (auto) 0.1 10 ^3/uL (0-0.2); Basophils % (auto) 0.6 % (0.0-2.0); Eosinophils # (auto) 0.8 10 ^3/uL (0-0.8); Eosinophils % (auto) 6.6 % (0.0-7.0); Hematocrit 39.6 % (36.0-46.0); Hemoglobin 13.4 g/dL (12.2-16.2); Lymphocytes # (auto) 1.6 10 ^3/uL (0.4-5.4); Lymphocytes % (auto) 14.3 % (10.0-50.0); Mean Corpuscular Hemoglobin 30.5 pg (28.0-32.0); Mean Corpuscular Hgb Conc. 33.9 g/dL (32.0-36.0); Mean Corpuscular Volume 89.8 fL (80.0-100.0); Monocytes # (auto) 0.5 10 ^3/uL (0-1.3); Monocytes % (auto) 4.8 % (0.0-12.0); Neutrophils # (auto) 8.4 10 ^3/uL (1.6-8.6); Neutrophils % (auto) 73.7 % (37.0-80.0); Platelet Count (auto) 430 10^3/uL (140-450); Red Blood Cells 4.41 10^6/uL (4.0-5.20); Red Cell Distribution Width 15.4 % (11.8-14.3); White Blood Cell 11.4 10^3/uL (4.4-10.8)
[2024-10-16 07:34] LABS: Alanine Aminotransferase 13 U/L (7-40); Albumin 4.1 g/dL (3.2-4.8); Alkaline Phosphatase 72 U/L (46-116); Anion Gap 11 (5-15); Aspartate Aminotransferase 13 U/L (13-40); BUN/Creatinine Ratio 22.6 (10.0-20.0); Bilirubin, Total 0.4 mg/dL (0.2-1.0); Blood Urea Nitrogen 24 mg/dL (9-23); Carbon Dioxide 23 mmol/L (20-31); Chloride 108 mmol/L (98-107); Glucose 170 mg/dL (74-106); Potassium 3.2 mmol/L (3.5-5.1); Sodium 142 mmol/L (136-145); Total Protein 6.3 g/dL (5.7-8.2)
[2024-10-16] MEDS: VALSARTAN 80 MG TAB PO ONE (09:45)
[2024-10-16] MEDS: ATORVASTATIN 20 MG TAB PO ONE (09:45)
[2024-10-16] MEDS: ERGOCALCIFEROL 50,000 UNIT(1.25MG) CAP PO SCH (09:45)
[2024-10-16] MEDS: VALSARTAN 80 MG TAB PO SCH (10:00)
[2024-10-16] MEDS: NIFEdipine ER 30 MG TAB PO SCH (10:00)
[2024-10-16] MEDS: PANTOPRAZOLE 40 MG/10 ML VIAL INJ IV SCH (10:11)
[2024-10-16] MEDS: ENOXAPARIN SOD 100 MG/1 ML SYRINGE SC SCH (10:12)
[2024-10-16] MEDS: ASPirin 81 mg TAB PO SCH (10:12)
[2024-10-16] MEDS: POTASSIUM CHL 20 Meq TABLET PO ONE (10:17)
[2024-10-16] MEDS: diphenhdrAMINE HCL 50 MG/1 ML VL IV PRN (11:26)
--- NOTE | 2024-10-16 12:02 | DVHPNRES ---
Progress Note Date Seen: Oct 16, 2024 Resident Creating Document: JT MATUTE RESIDENT Medical Necessity Reason Pt with a Central, PICC or Fol: No Subjective Review of Systems Nelida Styles This is a 64-year-old female patient who presents to the ED referred from discharge Clinic with chief complaint of headaches associated with severe hypertension. Patient was admitted recently due to metabolic encephalopathy secondary to UTI and CVA and DVT, she was discharged with no antihypertensive medication. Patient also complains of pruritic erythematous rash in face, bilateral elbows and wrists, and right ankle. denies fever, chills, palpitation, syncope, chest pain, dyspnea, nausea, vomiting, diarrhea, sick contacts, recent travel and motor or sensory deficits Past medical history: Hypertension, prediabetes, psoriasis, CVA, right leg DVT, UTI complicated with NSTEMI type 2, anxiety, breast cyst, bipolar disorder Surgical history: Appendicectomy, cholecystectomy, tonsillectomy, BTL, hemorrhoidectomy, bilateral carpal tunnel surgery Family history: Mother and two sisters had breast cancer, sister had esophageal cancer and , and other sister had colon cancer Social history: Lives with son in [place]. 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 Allergies: Codeine, penicillin, erythromycin, gentamicin, propoxyphene Home medication: Apixaban 5 mg p.o. b.i.d., lorazepam p.r.n., received course of methylprednisolone and levofloxacin recently Patient seen and examined at bedside. Initially patient blood pressure is very high, started on nicardipine drip. Titrate down. Patient continued to have itching for psoriasis. Denying any headache, chest pain, shortness of breath, any other symptom. Currently on oxygen via nasal cannula. Objective vital signs Vital Sign Date Time Temp Pulse Resp B/P (MAP) Pulse Ox O2 Delivery O2 Flow Rate FiO2 10/16/24 10:45 86 17 148/63 (91) 96 10/16/24 10:16 97.6 97.6 10/16/24 07:45 Nasal Cannula* 1 24 Total Intake and Output 10/15/24 10/15/24 10/16/24 15:00 23:00 07:00 Intake Total 625 ml Balance 625 ml medications Current Medications Medications Dose Ordered Sig/Minerva Route Start Time Stop Time Status Last Admin Dose Admin Nicardipine HCl 250 ml @ 50 mls/hr Q5H IV 10/15/24 23:15 10/16/24 09:06 125 MLS/HR Nitroglycerin 0.4 mg Q5MINP PRN SL 10/15/24 23:45 Morphine Sulfate 2 mg Q30M PRN IV 10/15/24 23:45 Lorazepam 0.5 mg Q6HP PRN IV 10/16/24 02:45 Diphenhydramine HCl 25 mg Q4HP PRN IV 10/16/24 02:45 10/16/24 11:26 25 MG Valsartan 160 mg DAILY PO 10/16/24 10:00 Nifedipine 60 mg DAILY PO 10/16/24 10:00 Aspirin 81 mg DAILY PO 10/16/24 10:00 10/16/24 10:12 81 MG Atorvastatin Calcium 80 mg HS PO 10/16/24 22:00 Pantoprazole Sodium 40 mg DAILY IV 10/16/24 10:00 10/16/24 10:11 40 MG Enoxaparin Sodium 70 mg Q12HR SC 10/16/24 10:00 10/16/24 10:12 70 MG Diagnostic Test (Pha) 1 strip ACHS 10/16/24 07:00 10/16/24 07:18 1 STRIP Insulin Human Regular ACHS SC 10/16/24 07:00 10/16/24 07:18 2 UNITS Dextrose 50 ml UD PRN IV 10/16/24 02:45 Hydrocortisone 1 applic BIDP PRN TOP 10/16/24 03:00 Hydralazine HCl 10 mg Q6HP PRN IV 10/16/24 03:00 Ergocalciferol 50,000 unit Q7D PO 10/16/24 03:15 Examination Examination General Appearance: Alert, Oriented X3, Cooperative, No acute distress HEENT: EOMI Respiratory: Clear to auscultation, Normal air movement Cardiovascular: Regular rate, Normal S1, Normal S2 Abdominal: Normal bowel sounds Extremities: No cyanosis, No edema, Normal pulses, No tenderness/swelling Skin: No rashes, No breakdown Neuro: Normal gait, Normal speech, Strength at 5/5 X4 ext, Normal tone, Sensation intact, Cranial nerves 3-12 NL, Reflexes 2+ Psych/Mental Status: Mental status NL, Mood NL laboratory and microbiology Laboratory Tests 10/16/24 06:45 Test 10/16/24 06:45 Range/Units Serum Glucose 170 H 74-106 mg/dL Problem List/Assessment/Plan Problem List/Assessment/Plan Hypertensive heart disease with acute HFpEF Ruled out acute CVA KATHLEEN hemodynamically mediated due to VMN Simple hyperglycemia Uncontrolled psoriatic lesions Recent diagnosis of DVT on right lower limb History of CVA Mild aortic stenosis History of polysubstance abuse Non adherent Vitamin-D deficiency Plan/recommendation -Initiated on nicardipine drip, titrating down, blood pressure gradually improving. Currently blood pressure ranging systolic around 140s to 160. -Oral antihypertensive: Nifedipine ER 60 mg p.o. daily, valsartan 160 mg p.o. daily -Psoriasis: Not on any medication, given patient underwent effusion however she had reaction and not following with bench precision assembler or anode crew supervisor -Insulin sliding scale -Therapeutic Lovenox for DVT of right lower limb -History of CVA: Continue aspirin 81 mg p.o. daily, atorvastatin 80 mg p.o. daily. -Vitamin-D 93823 IU once weekly for six weeks -PUD prophylaxis with Protonix -DVT prophylaxis with Lovenox Goals of care discussed greater than 24 minutes, full code status. Plan discussed with Dr. Caldwell critical care time 45 mins Plan discussed with: Patient, Other (RN) My Orders My Orders Orders - JT MATUTE Procedure Category Date Status Time Communication Order ORDERS 10/16/24 Transmitted 09:26 Cardiac DIET 10/16/24 Transmitted Diet-2gna,Lofat,Lochol Breakfast Communication Order ORDERS 10/16/24 Transmitted 09:30 Date of Service: Oct 16, 2024 Billing Provider: STEVEN CALDWELL MD Common Visit Codes: 18234-[id number] CARE 30-74 MIN JT MATUTE Oct 16, 2024 12:02 STEVEN CALDWELL MD Oct 16, 2024 19:23
[2024-10-16] MEDS: LORazepam 2MG/ML-1ML VIAL IV PRN (14:21)
[2024-10-16] MEDS: FUROSEMIDE 20 MG/2 ML VIAL IV ONE (19:29)
[2024-10-16] MEDS: ATORVASTATIN 20 MG TAB PO SCH (22:13)
[2024-10-16] MEDS: APIXABAN 5 MG TAB PO SCH (22:14)
[2024-10-17 00:17] VITALS: BP 121/61; PULSE 78; PULSE 89; RESP 16; RESP 18; TEMP 98.6; O2SAT 98
[2024-10-17 05:00] VITALS: BP 152/79; PULSE 82; RESP 19; TEMP 98.3; O2SAT 95
[2024-10-17] MEDS: FUROSEMIDE 20 MG/2 ML VIAL IV SCH (05:11)
[2024-10-17 08:00] VITALS: PULSE 77; RESP 16; O2SAT 93
[2024-10-17 08:16] LABS: Basophils # (auto) 0 10 ^3/uL (0-0.2); Basophils % (auto) 0.7 % (0.0-2.0); Eosinophils # (auto) 0.6 10 ^3/uL (0-0.8); Eosinophils % (auto) 8.7 % (0.0-7.0); Hematocrit 39.9 % (36.0-46.0); Hemoglobin 13.7 g/dL (12.2-16.2); Lymphocytes # (auto) 1.3 10 ^3/uL (0.4-5.4); Lymphocytes % (auto) 20.8 % (10.0-50.0); Mean Corpuscular Hemoglobin 30.7 pg (28.0-32.0); Mean Corpuscular Hgb Conc. 34.4 g/dL (32.0-36.0); Mean Corpuscular Volume 89.1 fL (80.0-100.0); Monocytes # (auto) 0.4 10 ^3/uL (0-1.3); Monocytes % (auto) 5.5 % (0.0-12.0); Neutrophils # (auto) 4.1 10 ^3/uL (1.6-8.6); Neutrophils % (auto) 64.3 % (37.0-80.0); Nucleated Red Blood Cells % 0.1 %; Platelet Count (auto) 433 10^3/uL (140-450); Red Blood Cells 4.48 10^6/uL (4.0-5.20); Red Cell Distribution Width 15.7 % (11.8-14.3); White Blood Cell 6.5 10^3/uL (4.4-10.8)
[2024-10-17 08:25] LABS: Calcium 9.7 mg/dL (8.7-10.4); Chloride 107 mmol/L (98-107); Sodium 142 mmol/L (136-145)
[2024-10-17 08:26] LABS: Anion Gap 9 (5-15); Carbon Dioxide 26 mmol/L (20-31)
[2024-10-17] MEDS ORDERED: NIFE1TAB31 PO ×2 (08:29→15:37)
[2024-10-17] MEDS ORDERED: VALS1TAB57 PO (08:29)
[2024-10-17] MEDS ORDERED: ASPI-325 PO (08:29)
[2024-10-17] MEDS ORDERED: LEVO500T91 PO (08:29)
[2024-10-17] MEDS ORDERED: ATOR20TA50 PO (08:29)
[2024-10-17 08:31] LABS: BUN/Creatinine Ratio 19.2 (10.0-20.0); Blood Urea Nitrogen 19 mg/dL (9-23); Glucose 103 mg/dL (74-106)
[2024-10-17 09:00] VITALS: BP 139/69; PULSE 77; RESP 16; TEMP 98.2; O2SAT 93
[2024-10-17] MEDS: LORazepam 0.5 MG TAB PO SCH (09:21)
[2024-10-17] MEDS: levoFLOXacin 500 MG TAB PO SCH (09:22)
--- NOTE | 2024-10-17 11:38 | DVH ---
CHEST RADIOGRAPH Indication: chf Technique: Single frontal view of the chest was obtained Comparison: XY CHEST XRAY 1 VIEW on DOS: 10/02/24, XY CHEST XRAY 1 VIEW on DOS: 09/29/24, XY CHEST MALIK BLE on DOS: 09/25/24, XY CHEST XRAY 1 VIEW on DOS: 10/02/24 FINDINGS: Lines and Tubes: None Lungs: Right upper lobe opacity. Pleura: No effusion. No pneumothorax. Cardiomediastinal contours: Unremarkable Bones: No acute osseous abnormality. IMPRESSION: Right upper lobe pneumonia.
[2024-10-17 11:40] LABS: Hepatitis B Surface Antigen Negative (Negative); Hepatitis C Antibody Negative (Negative)
[2024-10-17 12:06] VITALS: BP 139/69; PULSE 77; RESP 16; TEMP 98.2; O2SAT 93
[2024-10-17] MEDS ORDERED: LEVO750T40 PO (12:17)
[2024-10-17 13:00] VITALS: BP 177/91; PULSE 83; RESP 18; TEMP 98; O2SAT 96
--- NOTE | 2024-10-17 15:35 | DVHDSRES ---
Discharge Summary Date of Admission Resident Creating Document: JT MATUTE RESIDENT Oct 15, 2024 at 23:31 Date of Discharge: Oct 17, 2024 Admitting Diagnosis Uncontrolled hypertension Labs/Diagnostic Data: Laboratory Results Test 10/17/24 07:13 10/16/24 11:49 10/16/24 06:45 10/16/24 03:45 White Blood Count 6.5 10^3/uL (4.4-10.8) Red Blood Count 4.48 10^6/uL (4.0-5.20) Hemoglobin 13.7 g/dL (12.2-16.2) Hematocrit 39.9 % (36.0-46.0) Mean Corpuscular Volume 89.1 fL (80.0-100.0) Mean Corpuscular Hemoglobin 30.7 pg (28.0-32.0) Mean Corpuscular Hemoglobin Concent 34.4 g/dL (32.0-36.0) Red Cell Distribution Width 15.7 % (11.8-14.3) Platelet Count 433 10^3/uL (140-450) Mean Platelet Volume 8.7 fL (6.9-10.8) Neutrophils (%) (Auto) 64.3 % (37.0-80.0) Lymphocytes (%) (Auto) 20.8 % (10.0-50.0) Monocytes (%) (Auto) 5.5 % (0.0-12.0) Eosinophils (%) (Auto) 8.7 % (0.0-7.0) Basophils (%) (Auto) 0.7 % (0.0-2.0) Neutrophils # (Auto) 4.1 10 ^3/uL (1.6-8.6) Lymphocytes # (Auto) 1.3 10 ^3/uL (0.4-5.4) Monocytes # (Auto) 0.4 10 ^3/uL (0-1.3) Eosinophils # (Auto) 0.6 10 ^3/uL (0-0.8) Basophils # (Auto) 0 10 ^3/uL (0-0.2) Nucleated Red Blood Cells 0.1 % Sodium Level 142 mmol/L (136-145) Potassium Level 4.0 mmol/L (3.5-5.1) Chloride Level 107 mmol/L (98-107) Carbon Dioxide Level 26 mmol/L (20-31) Anion Gap 9 (5-15) Blood Urea Nitrogen 19 mg/dL (9-23) Creatinine 0.99 mg/dL (0.550-1.02) Glomerular Filtration Rate Calc 63 mL/min (>90) BUN/Creatinine Ratio 19.2 (10.0-20.0) Serum Glucose 103 mg/dL (74-106) Calcium Level 9.7 mg/dL (8.7-10.4) Hepatitis B Surface Antigen Negative (Negative) Hepatitis C Antibody Negative (Negative) POC Glucose 135 mg/dl (70-106) Total Bilirubin 0.4 mg/dL (0.2-1.0) Aspartate Amino Transferase (AST) 13 U/L (13-40) Alanine Aminotransferase (ALT) 13 U/L (7-40) Alkaline Phosphatase 72 U/L (46-116) Total Protein 6.3 g/dL (5.7-8.2) Albumin 4.1 g/dL (3.2-4.8) Urine Color Yellow (Yellow) Urine Clarity Turbid (Clear) Urine pH 5.5 (5.0-9.0) Urine Specific [place] 1.028 (1.001-1.035) Urine Protein 1+ (Negative) Urine Ketones Negative (Negative) Urine Blood Negative /uL (Negative) Urine Nitrite Negative (Negative) Urine Bilirubin Negative (Negative) Urine Urobilinogen Normal mg/dL (Negative) Urine Leukocyte Esterase 3+ /uL (Negative) Urine RBC 1 /hpf (0 - 4) Urine Microscopic WBC 59 /HPF (0-5) Urine Squamous Epithelial Cells Mod /hpf (<5) Urine Bacteria Few /hpf (None Seen) Urine Hyaline Casts Mod /lpf (0 - 2) Urine Mucus Few (None Seen) Urine Yeast (Budding) Occasional /hpf (None Urine Glucose Normal mg/dL (Normal) Urine Opiates Screen Neg (NEGATIVE) Urine Fentanyl Screen Neg (NEGATIVE) Urine Barbiturates Screen Neg (NEGATIVE) Urine Phencyclidine Screen Neg (NEGATIVE) Urine Amphetamines Screen Neg (NEGATIVE) Urine Benzodiazepines Screen Neg (NEGATIVE) Urine Cocaine Screen Neg (NEGATIVE) Urine Cannabinoids Screen Neg (NEGATIVE) Test 10/16/24 01:43 Prothrombin Time 10.8 sec (9.3-11.8) Prothrombin Time INR 1.02 (0.9-1.15) Activated Partial Thromboplast Time 27.7 SEC (24.5-34.5) Lactic Acid Level 1.7 mmol/L (0.4-2.0) Phosphorus Level 4.1 mg/dL (2.4-5.1) Magnesium Level 2.0 mg/dL (1.6-2.6) Triglycerides Level 245 mg/dL (< 150) Cholesterol Level 205 mg/dL (< 200) LDL Cholesterol 144 mg/dL (< 100) HDL Cholesterol 41 mg/dL (40-59) Vitamin B12 Level 317 pg/mL (211-911) Vitamin D 25-Hydroxy 26.2 ng/mL (30.0-100) Thyroid Stimulating Hormone (TSH) 1.81 uIU/mL (0.55-4.78) Other Laboratory Tests 10/17/24 07:13 Brief Hx & Hospital Course: H&P: Nelida Styels This is a 64-year-old female patient who presents to the ED referred from discharge Clinic with chief complaint of headaches associated with severe hypertension. Patient was admitted recently due to metabolic encephalopathy secondary to UTI and CVA and DVT, she was discharged with no antihypertensive medication. Patient also complains of pruritic erythematous rash in face, bilateral elbows and wrists, and right ankle. denies fever, chills, palpitation, syncope, chest pain, dyspnea, nausea, vomiting, diarrhea, sick contacts, recent travel and motor or sensory deficits Past medical history: Hypertension, prediabetes, psoriasis, CVA, right leg DVT, UTI complicated with NSTEMI type 2, anxiety, breast cyst, bipolar disorder Surgical history: Appendicectomy, cholecystectomy, tonsillectomy, BTL, hemorrhoidectomy, bilateral carpal tunnel surgery Family history: Mother and two sisters had breast cancer, sister had esophageal cancer and , and other sister had colon cancer Social history: Lives with son in [place]. 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 Allergies: Codeine, penicillin, erythromycin, gentamicin, propoxyphene Home medication: Apixaban 5 mg p.o. b.i.d., lorazepam p.r.n., received course of methylprednisolone and levofloxacin recently Hospital course: Patient was found to uncontrolled hypertension, initially started on nicardipine drip, oral nifedipine ER 60 mg p.o. daily, valsartan 160 mg p.o. daily. Over the course of hospitalization, nicardipine drip was titrated down, continued on nifedipine and valsartan. Blood pressure was controlled around systolic blood pressure 140s, chest x-ray was done which showed right-sided upper lobe infiltration, however patient does not have fever, chills, no white count, no sputum production, meeting criteria for oral antibiotics. Patient will be discharged home with oral antibiotic levofloxacin for seven days, with antihypertensive medication nifedipine valsartan, patient will need following up with primary care physician within two weeks, DC clinic one week. Patient agreed with discharge plan and will be discharged home. Condition at Discharge: Stable Final Diagnosis/Problems List Hypertensive heart disease with acute HFpEF Possible Gram Negative PNA? - Levaquin Ruled out acute CVA KATHLEEN hemodynamically mediated due to VMN Uncontrolled psoriatic lesions Recent diagnosis of DVT on right lower limb History of CVA Mild aortic stenosis History of polysubstance abuse Non adherent Vitamin-D deficiency Discharge Disposition: Home Discharge Instruct/Medications Diet: Cardiac 2g Na,low cholest Activity: No Restrictions, As Tolerated Follow Up/Referral: -FOLLOW UP WITH PCP , RHEUMATOLODIST AND DERMATOLOGY IN 2 WEEKS Medications: SEE PRESCRIPTION Discharge Statement: "Patient was advised to return to the ER or call 911 if any headaches, dizziness, shortness of breath, chest pain, abdominal pain, bleeding, fevers, or worsening of medical condition. Patient was counseled about treatment plan, medications, possible side effects, patientverbalized understanding. All questions were answered to the best of my ability. This discharge took greater then 30 minutes in planning, reviewing documentation, counseling the patient, and discussing with other team members." ASSESSMENT ASSESSMENT Assessment Hypertensive heart disease with acute HFpEF Ruled out acute CVA KATHLEEN hemodynamically mediated due to VMN Simple hyperglycemia Uncontrolled psoriatic lesions Recent diagnosis of DVT on right lower limb History of CVA Mild aortic stenosis History of polysubstance abuse Non adherent Vitamin-D deficiency Date of Service: Oct 17, 2024 Billing Provider: STEVEN VARELA MD Common Visit Codes: 74020-TGK/OBS DISCH DAY >30min JT MATUTE Oct 17, 2024 15:35 STEVEN VARELA MD Oct 17, 2024 16:55
[2024-10-17] MEDS ORDERED: ERGO1CAP23 PO (15:37)
[2024-10-17] MEDS ORDERED: diphenhdrAMINE HCL 25 MG CAP PO SCH (22:00)
[2024-10-18] MEDS ORDERED: NIFEdipine ER 30 MG TAB PO SCH (10:00)
== END 2024-10-17 16:00 | disposition home or self-care (01) | DRG 177 ==
LOC: ER 16:24 → OVERFLOW 23:31 → WEST WING 10-16 23:57
PROVIDERS: ADMIT Internal Medicine; ATTEND Internal Medicine
DX: J15.69 Pneumonia due to other Gram-negative bacteria (principal); I50.31 Acute diastolic (congestive) heart failure; N17.0 Acute kidney failure with tubular necrosis; I16.1 Hypertensive emergency; I11.0 Hypertensive heart disease with heart failure; L40.9 Psoriasis, unspecified; E55.9 Vitamin D deficiency, unspecified; I35.0 Nonrheumatic aortic (valve) stenosis; F17.210 Nicotine dependence, cigarettes, uncomplicated; R74.01 Elevation of levels of liver transaminase levels; Z86.718 Personal history of other venous thrombosis and embolism; Z88.5 Allergy status to narcotic agent; Z88.1 Allergy status to other antibiotic agents; Z88.0 Allergy status to penicillin; Z79.01 Long term (current) use of anticoagulants; Z79.899 Other long term (current) drug therapy; Z90.710 Acquired absence of both cervix and uterus; Z90.49 Acquired absence of other specified parts of digestive tract; Z82.49 Family history of ischemic heart disease and other diseases of the circulatory system; Z91.199 Patient's noncompliance with other medical treatment and regimen due to unspecified reason
CPT/HCPCS: 36415; 70450; 71045; 80048; 80053; 80061; 80307; 81001; 82306; 82607; 82962; 83605; 83735; 84100; 84443; 85025; 85610; 85730; 86803; 87081; 87340; 99291; G0378; J1815; J2470

== ENCOUNTER 2024-12-10 11:46 | Inpatient (IN) | payer MEDICARE, MEDICAID ==
[~2024-12-10] VITALS: Ht 160 cm; Wt 65.0 kg
[~2024-12-10 11:46] MED LIST changes: +ASPI-325 PO; +ATOR20TA50 PO; +ERGO1CAP23 PO; -LEVO500T91 PO; +LEVO750T40 PO; -METH4PAK PO; +NIFE1TAB31 PO; +VALS1TAB57 PO
--- NOTE | 2024-12-10 11:58 | ECG ---
[facility] Test Date: 2024-12-10 Test Time: 11:56:55 Pat Name: AYAH GUERRIER Department: ED Room: [address] [place] [address] Gender: F Epic Cupid Analyst: AURELIO : 1960 Requested By: MICHAEL HAMILTON Order Number: [id number] Reading MD: Simon York Measurements Intervals [place] Rate: 87 P: 93 SC: 165 QRS: 52 QRSD: 80 T: 77 QT: 408 QTc: 491 Interpretive Statements Sinus rhythm Consider left ventricular hypertrophy Borderline prolonged QT interval Electronically Signed On 12-10-2024 21:16:34 PDT by Simon York Please click the below link to view image of tracing.
--- NOTE | 2024-12-10 12:05 | ED.PDOC ---
SOB-HPI HPI Comments 64-year-old female brought in by EMS presents with a chief complaint of SOB x onset this morning with associated wheezing. Patient is coming from [facility]. Patient was sating at 91% on 3L and was given a breathing treatment at the facility. Patient was still sating in the low 90's on EMS arrival and they administered an additional breathing treatment. Patient is now reporting relief and is sating at 94% on 2L via NC. PMHx: HTN, LA, CVA, COPD, Bipolar Disorder, HLD PSHx: Appendectomy, Cholecystectomy, Hysterectomy Allergies: Codeine, Erythromycin, Gentimycin, PCN, Propoxyphene. HPI: Poor Historian. REVIEW OF SYSTEMS: CONSTITUTIONAL: Denies acute: fever, diaphoresis, chills, HEAD: Denies acute: headache, photophobia Eyes: Denies acute: Double vision, vision loss, eye pain, eye discharge. EARS: Denies acute: tinnitus, hearing loss, ear discharge, ear pain, THROAT: Denies acute: sore throat, swelling, difficulty swallowing , pain with swallowing, change in voice. NECK: Denies acute: neck pain, neck swelling, stiff neck. HEART: Denies acute : chest pain, palpitations, LUNGS: Denies acute: wheezing, cough, hemoptysis ABDOMEN: Denies acute: abdominal pain, Nausea, Vomiting, diarrhea, melena , hematemesis, hematochezia SKIN: Denies acute: rash, redness, lesions, itchiness. EXTREMITIES: Denies acute: calf pain, numbness, tingling, weakness, denies pain in extremity. Denies acute: Low back pain. Neuro: Denies acute: focal neurological deficit, motor or sensory focal neurological deficit, tremors, seizure like activity, confusion, dizziness, change in mental status, loss of bowel or bladder function, cauda equina like symptoms. : Denies acute: dysuria, hematuria, flank pain, increase in urinary frequency. PSYCH: Denies acute: hallucination, suicidal ideation, homicidal ideation. FEMALE: Denies acute: abnormal vaginal bleeding, foul odor, unusual discharge. PHYSICAL EXAM: General: --[id number]------acute distress, awake and alert. Appears weak and lethargic Head: normocephalic, atraumatic. Neck: supple, trachea is midline, no swelling. Throat: Normal phonation. Eyes:, no erythema, no purulent discharge, no proptosis, no icterus. Heart: regular rate, regular rhythm, no significant murmur appreciated. Lungs: Mild to moderate respiratory distress, No wheezing, no rhonchi, no crackles. No stridors Clear to auscultation bilaterally. Abdomen: non tender to palpation, slightly distended, soft, no guarding, no rebound, + bowel sounds. Obese Neuro: Awake, Alert, oriented to name, self, situation, follows commands GCS=15. Speech is normal. Skin: no petechia, no purpura, no cyanosis, non-pale, not jaundice. Lower extremities: --no - Pitting edema no deformity, no focal swelling, no calf TTP. Makes eye contact. moves all four extremities. Face: no apparent facial droop. ED COURSE: Time Seen by MD: 11:53 Primary Care Provider: AVERY Damico notes: Medications, Allergies Past Medical History PAST MEDICAL HISTORY: Anxiety, COPD, CVA, High Lipids, HTN, LA Surgical History: Appendectomy, Cholecystectomy, Hysterectomy [employer] SALES History: No Pertinent [employer] SALES History Family History Family History: Unknown Family History (Other): As above, noncontributory all the patient has family history of CAD and hypertension Social History Smoker: Cigarettes, Less Than 1 Pack/Day Alcohol: Occasionally Drugs: Denies Drug Use Lives In: Home EKG EKG : Pulse Rate (adult): 87 [place]: Normal Cardiac Rhythm: NSR Block: None Hypertrophy: None ST: Normal Was a procedure done? Was a procedure done?: No Differential Dx Differential Diagnosis: Other (DDx include ACS, unstable angina, anxiety, PE, pneumothroax, neoplasm, cardiac ischemia, COPD, asthma, CHF, pleural effusion, tobacco abuse, pneumonia, hypoxia, hypercapnia, anemia., infection/sepsis., pulmonary edema. Asthma, Cardiac tamponade, infection.) X-Ray, Labs, Meds, VS Vital Signs Date Time Temp Pulse Resp B/P (MAP) Pulse Ox O2 Delivery O2 Flow Rate FiO2 12/10/24 18:46 73 11 127/50 (75) 97 12/10/24 18:00 73 12/10/24 16:45 77 18 92 Nasal Cannula* 3 32 12/10/24 16:40 97.6 77 18 147/54 (85) 92 97.6 12/10/24 12:48 12 92 Nasal Cannula* 3 32 12/10/24 12:05 87 12/10/24 12:03 98.2 84 20 112/60 (77) 93 98.2 12/10/24 12:02 20 93 Nasal Cannula* 2 28 12/10/24 11:56 87 Lab Test 12/10/24 15:15 12/10/24 14:45 12/10/24 13:27 12/10/24 13:07 Range/Units Troponin I High Sensitivity 171 *H 180 *H </=34 ng/L Body Fluid Source Pleural fluid Body Fluid pH 8.0 Body Fluid WBC (Manual) 47 0-200 CUMM Body Fluid RBC (Manual) 200782 H 0-2000 CUMM Body Fluid Mononuclear Cells 65 % Body Fluid Polymorphonuclear Cells 35 H 0-25 % Body Fluid Glucose 110 . mg/dL Body Fluid Total Protein 3.6 . g/dL Body Fluid Lactate Dehydrogenase 428 . IU/L Prothrombin Time 12.4 H 9.3-11.8 sec Prothrombin Time INR 1.19 H 0.9-1.15 Activated Partial Thromboplast Time 33.6 24.5-34.5 SEC Test 12/10/24 12:14 Range/Units White Blood Count 12.7 H 4.4-10.8 10^3/uL Red Blood Count 3.64 L 4.0-5.20 10^6/uL Hemoglobin 10.5 L 12.2-16.2 g/dL Hematocrit 32.4 L 36.0-46.0 % Mean Corpuscular Volume 89.1 80.0-100.0 fL Mean Corpuscular Hemoglobin 29.0 28.0-32.0 pg Mean Corpuscular Hemoglobin Concent 32.5 32.0-36.0 g/dL Red Cell Distribution Width 14.5 H 11.8-14.3 % Platelet Count 330 140-450 10^3/uL Mean Platelet Volume 9.3 6.9-10.8 fL Neutrophils (%) (Auto) 73.5 37.0-80.0 % Lymphocytes (%) (Auto) 9.0 L 10.0-50.0 % Monocytes (%) (Auto) 5.1 0.0-12.0 % Eosinophils (%) (Auto) 11.1 H 0.0-7.0 % Basophils (%) (Auto) 1.3 0.0-2.0 % Neutrophils # (Auto) 9.3 H 1.6-8.6 10 ^3/uL Lymphocytes # (Auto) 1.1 0.4-5.4 10 ^3/uL Monocytes # (Auto) 0.7 0-1.3 10 ^3/uL Eosinophils # (Auto) 1.4 H 0-0.8 10 ^3/uL Basophils # (Auto) 0.2 0-0.2 10 ^3/uL Nucleated Red Blood Cells 0.0 % Sodium Level 144 136-145 mmol/L Potassium Level 4.3 3.5-5.1 mmol/L Chloride Level 108 H 98-107 mmol/L Carbon Dioxide Level 25 20-31 mmol/L Anion Gap 11 5-15 Blood Urea Nitrogen 77 H 9-23 mg/dL Creatinine 1.92 H 0.550-1.02 mg/dL Glomerular Filtration Rate Calc 29 >90 mL/min BUN/Creatinine Ratio 40.1 H 10.0-20.0 Serum Glucose 107 H 74-106 mg/dL Calcium Level 10.2 8.7-10.4 mg/dL Total Bilirubin 0.2 0.2-1.0 mg/dL Aspartate Amino Transferase (AST) 46 H 13-40 U/L Alanine Aminotransferase (ALT) 48 H 7-40 U/L Alkaline Phosphatase 402 H 46-116 U/L Troponin I High Sensitivity 180 *H </=34 ng/L B-Type Natriuretic Peptide 34.26 0-100 pg/mL Total Protein 6.3 5.7-8.2 g/dL Albumin 3.7 3.2-4.8 g/dL Microbiology Date/Time Source Procedure Growth Status 12/10/24 14:45 Pleural Fluid Gram Stain - Final Resulted 12/10/24 14:45 Pleural Fluid Aerobic Culture - Preliminary Resulted Current Medications Medications (Trade) Dose Ordered Sig/Minerva Route Start Time Stop Time Status Last Admin Acetaminophen/ Hydrocodone Bitart ([place] 5/325MG Tab) 1 tab ONCE ONCE PO 12/10/24 16:00 12/10/24 16:01 DC 12/10/24 16:27 Aspirin 325 mg ONCE ONCE PO 12/10/24 17:00 12/10/24 17:01 DC 12/10/24 17:00 PATIENT: AYAH GUERRIER FACCT: [id number]: [id number] : 1960 LOC: ER ROOM / BED: / AGE / SEX: 64 / F ADM STATUS: REG ER SERVICE 1156 ORDERING PHYSICIAN: MICHAEL HAMILTON DO PROCEDURE(s): CXRP - CHEST PORTABLE REASON: sob ORDER NUMBER(s): [id number], ACCESSION NUMBER(s): [id number] EXAM: XY CHEST PORTABLE HISTORY: sob COMPARISON: XY CHEST XRAY 1 VIEW on DOS: 10/17/24, XY CHEST XRAY 1 VIEW on DOS: 10/02/24, XY CHEST XRAY 1 VIEW on DOS: 09/29/24, XY CHEST PORTABLE on DOS: 09/25/24 TECHNIQUE: Portable upright AP view of the chest was performed. FINDINGS: There is complete opacification of the right hemithorax with associated leftward shift of the heart and mediastinum. No pneumothorax. The aortic arch is calcific. The right heart border is obscured. There are postoperative changes of right distal clavicle resection. IMPRESSION: Right hemithorax complete opacification may be due to large pleural effusion and/or hemorrhage. As there is leftward shift of the heart and mediastinum, this is suggestive of developing tension phenomenon. Recommend follow-up right chest limited ultrasound to [facility] for therapeutic thoracentesis. ATED BY: LILIANA BRYAN MD DICTATED DATE/TIME: 12/10/24 1221 SIGNED BY: LILIANA BRYAN MD SIGNED DATE/TIME: 12/10/24 1221 PATIENT: AYAH GUERRIER ACCT: [id number] UNIT: [id number] : 1960 LOC: ER ROOM / BED: / AGE / SEX: 64 / F ADM STATUS: REG ER SERVICE 1305 ORDERING PHYSICIAN: MICHAEL HAMILTON DO PROCEDURE(s): CX2CT - CHEST WITHOUT CONTRAST REASON: abnormal cxr ORDER NUMBER(s): [id number], ACCESSION NUMBER(s): [id number] Procedure: CT CHEST WITHOUT CONTRAST Reason for study/Clinical History: abnormal cxr Comparison Study: None Exam Date: 12/10/2024 01:08 PM TECHNIQUE: Multidetector CT of the chest was performed from the lung apices to the upper abdomen without the use of intravenous contract. Axial, coronal and sagittal multiplanar reformats were performed. Radiation Dose Information: CT Dose: CTDI volume is 17.3 mGy. Dose-length product is 609.65 mGy*cm The dose indicators for CT are the volume Computed Tomography (CT) Dose Index (CTDIvol) and the Dose Length Product (DLP), and are measured in units of mGy and mGy-cm, respectively. These indicators are not patient dose, but values generated from the CT scanner acquisition factors. The report includes radiation exposure data for exposures received during this examination. FINDINGS: Lower neck: Normal thyroid. Lungs: Large right pleural effusion with complete collapse of the right lung. Heart/Vascular Structures: Normal heart size. No pericardial effusion. Lymph Nodes: No adenopathy Pleura: Large right effusion. No pneumothorax. Musculoskeletal: No acute osseous abnormality. Soft tissues: Normal. Upper abdomen: Limited portions of the upper abdomen are unremarkable. IMPRESSION: 1. Large right pleural effusion with complete collapse of the right lung. Consider evaluation for thoracentesis. Radiation optimization: All CT scans at this facility use at least one of these dose optimization techniques: automated exposure control mA and/or kV adjustment per patient size (includes targeted exams where dose is matched to clinical indication) or iterative reconstruction. ATED BY: HECTOR DAILEY MD DICTATED DATE/TIME: 12/10/241331 SIGNED BY: HECTOR DAILEY MD SIGNED DATE/TIME: 12/10/241331 PATIENT: AYAH GUERRIER ACCT: [id number] UNIT: [id number] : 1960 LOC: ER ROOM / BED: / AGE / SEX: 64 / F ADM STATUS: REG ER SERVICE 1401 ORDERING PHYSICIAN: MICHAEL HAMILTON DO PROCEDURE(s): THORA - THORACENTESIS REASON: sob ORDER NUMBER(s): [id number], ACCESSION NUMBER(s): [id number] PROCEDURE: ULTRASOUND GUIDED THORACENTESIS USING TEMPORARY CATHETER HISTORY: 64 Female with requiring thoracentesis. DOCUMENTATION: Informed consent was obtained and a procedural time out was performed. TECHNIQUE: Ultrasound was used to locate the right pleural fluid collection with an image archived in the PACS. The skin over the right posterior hemithorax was sterilely prepped, draped, and infiltrated with 1% lidocaine. Under real time ultrasound guidance, the right pleural space was accessed with a 19-gauge Yueh needle and connected to Vacutainers. The Yueh catheter was advanced, the needle was removed and the temporary catheter was advanced and connected to the Vacutainer. Approximately 1.5 liters of serous fluid was removed. The temporary catheter was removed and sterile dressings were applied. Performed by Dr. Huerta. FINDINGS: Ultrasound demonstrates a right pleural effusion. Imaging confirms the needle tip within the fluid. IMPRESSION: SUCCESSFUL ULTRASOUND GUIDED THORACENTESIS. Performed by Dr. Huerta. ATED BY: ENRRIQUE DEL VALLE MD DICTATED DATE/TIME: 12/10/24 150 SIGNED BY: ENRRIQUE DEL VALLE MD SIGNED DATE/TIME: 12/10/24 150 PATIENT: AYAH GUERRIER ACCT: [id number] UNIT: [id number] : 1960 LOC: ER ROOM / BED: / AGE / SEX: 64 / F ADM STATUS: REG ER SERVICE 1421 ORDERING PHYSICIAN: ALMA HUERTA MD PROCEDURE(s): CXRP - CHEST PORTABLE REASON: POST THORACENTESIS ORDER NUMBER(s): [id number], ACCESSION NUMBER(s): [id number] AP portable chest CLINICAL INDICATION: POST THORACENTESIS Comparison: 12/10/2024 done at 12:04 p.m. FINDINGS: Diminished right pleural effusion. There is residual pneumonitis throughout the right lung. No pneumothorax IMPRESSION: 1. Compared to pre thoracentesis exam there is less right pleural effusion. There is no pneumothorax on post thoracentesis x-ray ATED BY: RADHA HERZOG MD DICTATED DATE/TIME: 12/10/24 1501 SIGNED BY: RADHA HERZOG MD SIGNED DATE/TIME: 12/10/24 1501 Time of 1ST Reevaluation: 12:23 Reevaluation 1ST: Unchanged Time of 2ND Reevaluation: 14:43 (Proximally a L and a half of pleural fluid was removed by thoracentesis) Patient Education/Counseling: Diagnosis, Treatment Family Education/Counseling: No Family Present Comments Patient presented with the above HPI.---dyspnea---workup was initiated. patient was found with the above mentioned diagnosis. the following medications were ordered: please refer to order lists of meds and tests obtained by myself Dr. Hamilton. Patient ED course and VS have been stabilized. Patient has been reassessed in the ED and remained in a stable condition. Pertinent incidental findings were discussed with the patient and/or family. Patient/family voices understanding and is agreeable with plan. Patient has been observed in the ED adequate length of time to insure improvement/stability. Escalation of care considered: Consideration of escalation to observation or admission Patient was found with large pleural effusion. Patient underwent thoracentesis successfully. 1.5 L of pleural fluid was removed. Patient was placed on supplemental oxygen. Patient was ADMITTED to the medicine team for further evaluation and treatment of their presentation. All the reports of any imaging studies that were ordered by myself were reviewed by myself. Departure 1 Departure Time of Disposition: 13:07 Impression: Primary Impression: Pleural effusion Additional Impressions: Dyspnea Elevated troponin Anemia Disposition: ADMITTED INPATIENT Admit to: [facility] Condition: Guarded Discharged With: Self Critical Care Note Critical Care Time?: Yes (1 hr-critical care time only) Heart Score Heart Score: Heart Score Response (Comments) Value History Moderate Suspicious [address]-Deviation 2 Age >65 2 Risk Factors 1 or 2 risk factors 1 Troponin >3 x's Normal limit 2 Total 8 I personally scribed for MICHAEL HAMILTON DO ([email or web address]) on 12/10/24 at 12:05. Electronically submitted by Mitch Dey ([email or web address]). I personally scribed for MICHAEL HAMILTON DO ([email or web address]) on 12/10/24 at 12:29. Electronically submitted by Mitch Dey ([email or web address]). I personally scribed for MICHAEL HAMILTON DO ([email or web address]) on 12/10/24 at 13:54. Electronically submitted by Mitch Dey ([email or web address]). I personally scribed for MICHAEL HAMILTON DO ([email or web address]) on 12/10/24 at 16:02. Electronically submitted by Mitch Dey ([email or web address]). MICHAEL HAMILTON DO Dec 10, 2024 12:05
--- NOTE | 2024-12-10 12:24 | DVH ---
EXAM: XY CHEST PORTABLE HISTORY: sob COMPARISON: XY CHEST XRAY 1 VIEW on DOS: 10/17/24, XY CHEST XRAY 1 VIEW on DOS: 10/02/24, XY CHEST XRAY 1 VIEW on DOS: 09/29/24, XY CHEST PORTABLE on DOS: 09/25/24 TECHNIQUE: Portable upright AP view of the chest was performed. FINDINGS: There is complete opacification of the right hemithorax with associated leftward shift of the heart a nd mediastinum. No pneumothorax. The aortic arch is calcific. The right heart border is obscured. T here are postoperative changes of right distal clavicle resection. IMPRESSION: Right hemithorax complete opacification may be due to large pleural effusion and/or hemorrhage. As t here is leftward shift of the heart and mediastinum, this is suggestive of developing tension phenome non. Recommend follow-up right chest limited ultrasound to [facility] for therapeutic thoracentesis.
[2024-12-10 12:38] LABS: Basophils # (auto) 0.2 10 ^3/uL (0-0.2); Basophils % (auto) 1.3 % (0.0-2.0); Eosinophils # (auto) 1.4 10 ^3/uL (0-0.8); Eosinophils % (auto) 11.1 % (0.0-7.0); Hematocrit 32.4 % (36.0-46.0); Hemoglobin 10.5 g/dL (12.2-16.2); Lymphocytes # (auto) 1.1 10 ^3/uL (0.4-5.4); Mean Corpuscular Hgb Conc. 32.5 g/dL (32.0-36.0); Mean Corpuscular Volume 89.1 fL (80.0-100.0); Monocytes # (auto) 0.7 10 ^3/uL (0-1.3); Monocytes % (auto) 5.1 % (0.0-12.0); Neutrophils # (auto) 9.3 10 ^3/uL (1.6-8.6); Neutrophils % (auto) 73.5 % (37.0-80.0); Platelet Count (auto) 330 10^3/uL (140-450); Red Blood Cells 3.64 10^6/uL (4.0-5.20); Red Cell Distribution Width 14.5 % (11.8-14.3); White Blood Cell 12.7 10^3/uL (4.4-10.8)
[2024-12-10 12:45] LABS: Albumin 3.7 g/dL (3.2-4.8); Anion Gap 11 (5-15); BUN/Creatinine Ratio 40.1 (10.0-20.0); Calcium 10.2 mg/dL (8.7-10.4); Carbon Dioxide 25 mmol/L (20-31); Potassium 4.3 mmol/L (3.5-5.1); Sodium 144 mmol/L (136-145); Total Protein 6.3 g/dL (5.7-8.2)
[2024-12-10 12:47] LABS: Alkaline Phosphatase 402 U/L (46-116); Aspartate Aminotransferase 46 U/L (13-40); Bilirubin, Total 0.2 mg/dL (0.2-1.0); Blood Urea Nitrogen 77 mg/dL (9-23); Chloride 108 mmol/L (98-107); Glucose 107 mg/dL (74-106)
[2024-12-10] MEDS: ALBUTEROL SULF 2.5 MG/0.5ML(0.5%) NEB SOLN NEB ONE (12:48)
[2024-12-10] MEDS: IPRATROPIUM BROM 0.5 MG/2.5ML INH SOL NEB ONE (12:48)
[2024-12-10 12:54] LABS: Alanine Aminotransferase 48 U/L (7-40)
--- NOTE | 2024-12-10 13:34 | DVH ---
Procedure: CT CHEST WITHOUT CONTRAST Reason for study/Clinical History: abnormal cxr Comparison Study: None Exam Date: 12/10/2024 01:08 PM TECHNIQUE: Multidetector CT of the chest was performed from the lung apices to the upper abdomen with out the use of intravenous contract. Axial, coronal and sagittal multiplanar reformats were performed . Radiation Dose Information: CT Dose: CTDI volume is 17.3 mGy. Dose-length product is 609.65 mGy*cm The dose indicators for CT are the volume Computed Tomography (CT) Dose Index (CTDIvol) and the Dose Length Product (DLP), and are measured in units of mGy and mGy-cm, respectively. These indicators are not patient dose, but values generated from the CT scanner acquisition factors. The report includes radiation exposure data for exposures received during this examination. FINDINGS: Lower neck: Normal thyroid. Lungs: Large right pleural effusion with complete collapse of the right lung. Heart/Vascular Structures: Normal heart size. No pericardial effusion. Lymph Nodes: No adenopathy Pleura: Large right effusion. No pneumothorax. Musculoskeletal: No acute osseous abnormality. Soft tissues: Normal. Upper abdomen: Limited portions of the upper abdomen are unremarkable. IMPRESSION: 1. Large right pleural effusion with complete collapse of the right lung. Consider evaluation for tho racentesis. Radiation optimization: All CT scans at this facility use at least one of these dose optimization alirio hniques: automated exposure control mA and/or kV adjustment per patient size (includes targeted exam s where dose is matched to clinical indication) or iterative reconstruction.
[2024-12-10 14:01] LABS: INR 1.19 (0.9-1.15); Partial Thromboplastin Time 33.6 SEC (24.5-34.5); Prothrombin Time 12.4 sec (9.3-11.8)
--- NOTE | 2024-12-10 15:03 | DVH ---
Bilateral Chest Sonogram Date: 12/10/2024 02:23 PM Clinical history: EVAL FOR PLEURAL EFFUSION Findings: Large right pleural effusion. Limited characterization of the left chest. No definitive left pleural effusion seen. IMPRESSION: 1. As above
--- NOTE | 2024-12-10 15:03 | DVH ---
AP portable chest CLINICAL INDICATION: POST THORACENTESIS Comparison: 12/10/2024 done at 12:04 p.m. FINDINGS: Diminished right pleural effusion. There is residual pneumonitis throughout the right lung. No pneumothorax IMPRESSION: 1. Compared to pre thoracentesis exam there is less right pleural effusion. There is no pneumothorax on post thoracentesis x-ray
--- NOTE | 2024-12-10 15:08 | DVH ---
PROCEDURE: ULTRASOUND GUIDED THORACENTESIS USING TEMPORARY CATHETER HISTORY: 64 Female with requiring thoracentesis. DOCUMENTATION: Informed consent was obtained and a procedural time out was performed. TECHNIQUE: Ultrasound was used to locate the right pleural fluid collection with an image archived in the PACS. The skin over the right posterior hemithorax was sterilely prepped, draped, and infiltrate d with 1% lidocaine. Under real time ultrasound guidance, the right pleural space was accessed with a 19-gauge Yueh needle and connected to Vacutainers. The Yueh catheter was advanced, the needle was re moved and the temporary catheter was advanced and connected to the Vacutainer. Approximately 1.5 lite rs of serous fluid was removed. The temporary catheter was removed and sterile dressings were applied . Performed by Dr. Huerta. FINDINGS: Ultrasound demonstrates a right pleural effusion. Imaging confirms the needle tip within th e fluid. IMPRESSION: SUCCESSFUL ULTRASOUND GUIDED THORACENTESIS. Performed by Dr. Huerta.
[2024-12-10] MEDS: HYDROcodone-ACET 5/325MG TAB PO ONE (16:27)
[2024-12-10] MEDS: methylPREDNISolone SOD SUCC 125 MG/2 ML VL IV ONE (16:29)
[2024-12-10 16:43] LABS: Body Fluid White Blood Cells 47 CUMM (0-200)
[2024-12-10 16:45] VITALS: PULSE 77; RESP 18; O2SAT 92
[2024-12-10] MEDS: ASPirin 325 MG TAB PO ONE (17:00)
[2024-12-10] MEDS ORDERED: ACETAMINOPHEN 325 MG TAB PO PRN ×2 (19:15→19:30)
[2024-12-10] MEDS ORDERED: NITROGLYCERIN 0.4 MG SL TAB SL PRN (19:15)
[2024-12-10] MEDS ORDERED: ALBUTEROL SULF 2.5 MG/0.5ML(0.5%) NEB SOLN NEB PRN (19:15)
[2024-12-10 19:45] VITALS: O2SAT 100
[2024-12-10 19:50] VITALS: BP 122/52; PULSE 68; RESP 12; O2SAT 100
[2024-12-10 20:00] VITALS: PULSE 67; RESP 14; O2SAT 98
[2024-12-10] MEDS: SODIUM CHLORIDE 0.9% 500 ML IV ONE (20:00)
[2024-12-10] MEDS: MORPHINE SULFATE 4 MG/ML SYR/VIAL ONE (20:35)
[2024-12-10] MEDS: ONDANSETRON HCL 4 MG/2 ML VIAL IV PRN (20:36)
[2024-12-10] MEDS: MORPHINE SULFATE INJ 2 MG/ml SYRG IV PRN (20:37)
--- NOTE | 2024-12-10 21:34 | DVHHP2 ---
History of Present Illness Reason for Visit: Shortness of breath History of Present Illness 64-year-old female presents for evaluation of shortness for breath. Patient reports a two day history of worsening shortness for breath with wheezing. Patient was transferred from [facility] after she was noted to be hypoxic in the low 90s on 3 L of nasal cannula. Patient was noted to have a large pleural effusion and radiology was emergently consulted for a thoracentesis. Patient currently denies shortness for breath. She reports mild chest pain. No nausea or vomiting. No other acute complaints. Past Medical History Dyslipidemia, hypertension, mi, CVA, COPD Past Surgical History Cholecystectomy, hysterectomy, appendectomy Family History Noncontributory Smoke: <1 pack per day ALCOHOL: occassional Drugs: None Review of Systems Review of Systems Review of systems are currently negative otherwise addressed in HPI. Allergies: Coded Allergies: Codeine (Unverified Allergy, Severe, 08/02/14) Erythromycin (Unverified Allergy, Severe, 08/02/14) Penicillins (Unverified Allergy, Severe, 08/02/14) Propoxyphene (Verified Allergy, Unknown, 10/15/24) Uncoded Allergies: GENTIMYCIN (Allergy, Unknown, 10/15/24) Medications Current Medications Medications Dose Ordered Sig/Minerva Route Start Time Stop Time Status Last Admin Dose Admin Apixaban 5 mg BID PO 12/10/24 22:00 Atorvastatin Calcium 80 mg HS PO 12/10/24 22:00 Nifedipine 90 mg DAILY PO 12/11/24 10:00 Valsartan 160 mg DAILY PO 12/11/24 10:00 Aspirin 81 mg DAILY PO 12/11/24 10:00 Albuterol 2.5 mg Q6HPRN PRN NEB 12/10/24 19:15 Ondansetron HCl 4 mg Q4HP PRN IV 12/10/24 19:15 12/10/24 20:36 4 MG Nitroglycerin 0.4 mg Q5MINP PRN SL 12/10/24 19:15 Morphine Sulfate 2 mg Q30M PRN IV 12/10/24 19:15 12/10/24 20:37 2 MG Acetaminophen/ Hydrocodone Bitart 1 tab Q4HP PRN PO 12/10/24 19:30 Acetaminophen 650 mg Q6HP PRN PO 12/10/24 19:30 Exam Vital Signs Vital Signs Date Time Temp Pulse Resp B/P (MAP) Pulse Ox O2 Delivery O2 Flow Rate FiO2 12/10/24 20:37 68 16 121/47 12/10/24 19:50 100 3.0 32 12/10/24 19:45 Nasal Cannula 12/10/24 16:40 97.6 97.6 Exam Gen: 64-year-old female in mild distress Skin: Warm, dry, normal color and texture, no rash. HEENT: Normocephalic atraumatic, mucous membranes moist and pink. Neck: Cervical and supraclavicular nodes normal without enlargement, trachea is midline, thyroid gland is normal without masses. Pulmonary: Clear to auscultation and percussion bilaterally. Cardiac: Regular rate and rhythm. No murmur Abdomen: Soft, nontender, nondistended, bowel sounds present all 4 quadrants, no guarding, no rigidity, no organomegaly. Extremities: No cyanosis, clubbing, no edema Neuro: Cranial nerves II through XII grossly intact, normal affect and speech, no focal motor deficits. Labs/Xrays ORDERING PHYSICIAN: KIARRA HASKINS PROCEDURE(s): ECIDC - ECHO 2D MODE CARDIAC DOP REASON: HF? ORDER NUMBER(s): [id number], ACCESSION NUMBER(s): [id number] APPROVED REPORT EXAM: Two-dimensional and M-mode echocardiogram with Doppler and color Doppler. Blood Pressure: 151/83 mmHg INDICATION HF? RISK FACTORS Height: 63, Weight: 164 DIMENSIONS LVDd 4.5 (3.8-5.7cm) LA (2D) 3.6 (1.9-4.0cm) Aortic Root 3.0 (2.0- 3.7cm) LVDs 2.8 (2.5-4.0cm) LA (MM) (1.9-4.0cm) Aortic Cusp Exc 1.5 (1.5- 2.0cm) EF (%) 68.0 (55-70%) Rt. Atrium 3.6 (1.9-4.0cm) Asc. Aorta cm IVSd 1.6 (0.7-1.1cm) RV (D) (1.8-2.4cm) PWd 1.5 (0.7-1.1cm) Mitral Valve Mitral Mitral Stenosis E wave 1.55m/s MV Mean GR. mmHg A wave 1.78m/s MV Peak GR. mmHg E/A ratio 0.9 2D MVA cm2 DECEL Time 248ms PRESS 1/2 Time 65ms IVRT ms Dop MVA 3.38cm2 Aortic Valve Aortic Valve Aortic Stenosis V1 m/s AO Mean GR. 18mmHg V2 2.90m/s AO Peak GR. 34mmHg LVOT Diameter 1.9 (1.8-2.4cm) Doppler DORA cm2 Pulmonic Valve V2 1.39m/s Other Information Technically limited study due to body habitus, patient position, patient moving. Patient was non compliant during exam. Conclusion MILD LVH AND MILD LV DIASTOLIC DYSFUNCTION MODERATELY DILATED LA LV EF IS 70% POSTERIOR MV CALCIFIED HEAVILY CALCIFIED AORTIC LEAFLETS MILD AORTIC STENOSIS NO EFFUSION SIGNED BY: YASMIN TANNER MD SIGNED DATE/TIME: 09/28/24101 ORDERING PHYSICIAN: MICHAEL HAMILTON DO PROCEDURE(s): THORA - THORACENTESIS REASON: sob ORDER NUMBER(s): [id number], ACCESSION NUMBER(s): [id number] PROCEDURE: ULTRASOUND GUIDED THORACENTESIS USING TEMPORARY CATHETER HISTORY: 64 Female with requiring thoracentesis. DOCUMENTATION: Informed consent was obtained and a procedural time out was performed. TECHNIQUE: Ultrasound was used to locate the right pleural fluid collection with an image archived in the PACS. The skin over the right posterior hemithorax was sterilely prepped, draped, and infiltrated with 1% lidocaine. Under real time ultrasound guidance, the right pleural space was accessed with a 19-gauge Yueh needle and connected to Vacutainers. The Yueh catheter was advanced, the needle was removed and the temporary catheter was advanced and connected to the Vacutainer. Approximately 1.5 liters of serous fluid was removed. The temporary catheter was removed and sterile dressings were applied. Performed by Dr. Huerta. FINDINGS: Ultrasound demonstrates a right pleural effusion. Imaging confirms the needle tip within the fluid. IMPRESSION: SUCCESSFUL ULTRASOUND GUIDED THORACENTESIS. Performed by Dr. Huerta. RING PHYSICIAN: ALMA HUERTA MD PROCEDURE(s): CXRP - CHEST PORTABLE REASON: POST THORACENTESIS ORDER NUMBER(s): [id number], ACCESSION NUMBER(s): [id number] AP portable chest CLINICAL INDICATION: POST THORACENTESIS Comparison: 12/10/2024 done at 12:04 p.m. FINDINGS: Diminished right pleural effusion. There is residual pneumonitis throughout the right lung. No pneumothorax IMPRESSION: 1. Compared to pre thoracentesis exam there is less right pleural effusion. There is no pneumothorax on post thoracentesis x-ray Labs Test 12/10/24 15:15 12/10/24 14:45 12/10/24 13:27 12/10/24 12:14 Range/Units Troponin I High Sensitivity 171 *H </=34 ng/L Body Fluid Source Pleural fluid Body Fluid pH 8.0 Body Fluid WBC (Manual) 47 0-200 CUMM Body Fluid RBC (Manual) 145158 H 0-2000 CUMM Body Fluid Mononuclear Cells 65 % Body Fluid Polymorphonuclear Cells 35 H 0-25 % Prothrombin Time 12.4 H 9.3-11.8 sec Prothrombin Time INR 1.19 H 0.9-1.15 Activated Partial Thromboplast Time 33.6 24.5-34.5 SEC White Blood Count 12.7 H 4.4-10.8 10^3/uL Red Blood Count 3.64 L 4.0-5.20 10^6/uL Hemoglobin 10.5 L 12.2-16.2 g/dL Hematocrit 32.4 L 36.0-46.0 % Mean Corpuscular Volume 89.1 80.0-100.0 fL Mean Corpuscular Hemoglobin 29.0 28.0-32.0 pg Mean Corpuscular Hemoglobin Concent 32.5 32.0-36.0 g/dL Red Cell Distribution Width 14.5 H 11.8-14.3 % Platelet Count 330 140-450 10^3/uL Mean Platelet Volume 9.3 6.9-10.8 fL Neutrophils (%) (Auto) 73.5 37.0-80.0 % Lymphocytes (%) (Auto) 9.0 L 10.0-50.0 % Monocytes (%) (Auto) 5.1 0.0-12.0 % Eosinophils (%) (Auto) 11.1 H 0.0-7.0 % Basophils (%) (Auto) 1.3 0.0-2.0 % Neutrophils # (Auto) 9.3 H 1.6-8.6 10 ^3/uL Lymphocytes # (Auto) 1.1 0.4-5.4 10 ^3/uL Monocytes # (Auto) 0.7 0-1.3 10 ^3/uL Eosinophils # (Auto) 1.4 H 0-0.8 10 ^3/uL Basophils # (Auto) 0.2 0-0.2 10 ^3/uL Nucleated Red Blood Cells 0.0 % Sodium Level 144 136-145 mmol/L Potassium Level 4.3 3.5-5.1 mmol/L Chloride Level 108 H 98-107 mmol/L Carbon Dioxide Level 25 20-31 mmol/L Anion Gap 11 5-15 Blood Urea Nitrogen 77 H 9-23 mg/dL Creatinine 1.92 H 0.550-1.02 mg/dL Glomerular Filtration Rate Calc 29 >90 mL/min BUN/Creatinine Ratio 40.1 H 10.0-20.0 Serum Glucose 107 H 74-106 mg/dL Calcium Level 10.2 8.7-10.4 mg/dL Total Bilirubin 0.2 0.2-1.0 mg/dL Aspartate Amino Transferase (AST) 46 H 13-40 U/L Alanine Aminotransferase (ALT) 48 H 7-40 U/L Alkaline Phosphatase 402 H 46-116 U/L B-Type Natriuretic Peptide 34.26 0-100 pg/mL Total Protein 6.3 5.7-8.2 g/dL Albumin 3.7 3.2-4.8 g/dL Assessment/Plan Assessment/Plan Assessment Large right pleural effusion Status post thoracentesis Elevated troponin, possible demand ischemia Hypertension Acute kidney injury Transaminitis Plan Admit the patient to telemetry to the hospitalist Pulmonary consultation Monitor LFTs Resume home medications Continue treatment per orders. Plan discussed with: Patient My Orders Orders - SEGUNDO LANDAVERDE Procedure Category Date Status Time Apixaban (Eliquis) PHA 12/10/24 In Process 22:00 Atorvastatin (Lipitor) PHA 12/10/24 In Process 22:00 Nifedipine Er PHA 12/11/24 In Process (Procardia Xl 10:00 Valsartan (Diovan) PHA 12/11/24 In Process 10:00 Aspirin Tablet PHA 12/11/24 In Process 10:00 Troponin-I Hs LAB 12/11/24 Verified 04:00 Albuterol Medneb PHA 12/10/24 In Process (Ventolin Medneb) 19:15 Admit ADMIT 12/10/24 Transmitted 19:14 Renal DIET 12/11/24 Transmitted Standard(2gna,3gk,Lopho) Breakfast Ondansetron Hcl PHA 12/10/24 In Process (Zofran) 19:15 Complete Blood Count LAB 12/11/24 Verified 04:00 Comprehensive LAB 12/11/24 Verified Metabolic Panel 04:00 Cardiac DIET 12/11/24 Transmitted Diet-2gna,Lofat,Lochol Breakfast Condition: Fair TATUM 12/10/24 In Process 19:14 Bedrest With Bathroom TATUM 12/10/24 In Process Privileg 19:14 Nitroglycerin PHA 12/10/24 In Process Sublingual (Ntrostat 19:15 Morphine Sulfate PHA 12/10/24 In Process Injection 19:15 Stat Ekg For Chest [facility]ATUM 12/10/24 In Process Pain 19:14 Notify Md Of Changes [facility]ATUM 12/10/24 In Process From Base 19:14 Transport Coordinator For TATUM 12/10/24 In Process 24 Hours 19:14 Emergency Dysrhythmia [facility] 12/10/24 In Process Protocol 19:14 Rhythm Strips Once TATUM 12/10/24 In Process Every Shift 19:14 Oxygen By Nasal RT 12/10/24 Transmitted Cannula 19:14 Hydrocodone-Acet PHA 12/10/24 In Process 5/325mg Tab ([place] 19:30 Acetaminophen Tablet PHA 12/10/24 In Process (Tylenol Tablet) 19:30 *Consult CONS 12/10/24 Transmitted / 21:17 Date of Service: Dec 10, 2024 Billing Provider: SEGUNDO LANDAVERDE Common Visit Codes: [id number] INP/OBS CARE (HIGH) SEGUNDO LANDAVERDE Dec 10, 2024 21:34
[2024-12-10] MEDS: APIXABAN 5 MG TAB PO SCH (23:01)
[2024-12-10] MEDS: ATORVASTATIN 20 MG TAB PO SCH (23:01)
[2024-12-10] MEDS: HYDROcodone-ACET 5/325MG TAB PO PRN (23:50)
[2024-12-11] VITALS (11 sets, daily range): BP systolic 113–150; BP diastolic 46–66; PULSE 66–83; RESP 14–20; TEMP 97.5–98.2; O2SAT 90–94
--- NOTE | 2024-12-11 05:54 | DVH ---
EXAM: XR Chest, 1 View CLINICAL INDICATION: protocol TECHNIQUE: Frontal view of the chest. COMPARISON: XY CHEST PORTABLE on DOS: 12/10/24, XY CHEST PORTABLE on DOS: 12/10/24, XY CHEST XRAY 1 V IEW on DOS: 10/17/24, XY CHEST XRAY 1 VIEW on DOS: 10/02/24, XY CHEST XRAY 1 VIEW on DOS: 09/29/24 FINDINGS: LUNGS AND PLEURAL SPACES: Increasing interstitial and patchy airspace disease of the right lung wit h right pleural effusion. No consolidation. No pneumothorax. HEART: Unremarkable. No cardiomegaly. MEDIASTINUM: Unremarkable. Normal mediastinal contour. BONES/JOINTS: Unremarkable. No acute fracture. OTHER FINDINGS: . . IMPRESSION: Increasing interstitial and patchy airspace disease of the right lung with right pleural effusion.
[2024-12-11 06:32] LABS: Basophils # (auto) 0.1 10 ^3/uL (0-0.2); Basophils % (auto) 0.4 % (0.0-2.0); Eosinophils # (auto) 0 10 ^3/uL (0-0.8); Eosinophils % (auto) 0.2 % (0.0-7.0); Hematocrit 30.2 % (36.0-46.0); Hemoglobin 9.8 g/dL (12.2-16.2); Lymphocytes # (auto) 0.7 10 ^3/uL (0.4-5.4); Lymphocytes % (auto) 3.4 % (10.0-50.0); Mean Corpuscular Hemoglobin 28.8 pg (28.0-32.0); Mean Corpuscular Hgb Conc. 32.4 g/dL (32.0-36.0); Mean Corpuscular Volume 88.7 fL (80.0-100.0); Monocytes # (auto) 0.2 10 ^3/uL (0-1.3); Neutrophils # (auto) 18.3 10 ^3/uL (1.6-8.6); Platelet Count (auto) 326 10^3/uL (140-450); Red Blood Cells 3.41 10^6/uL (4.0-5.20); Red Cell Distribution Width 14.4 % (11.8-14.3); White Blood Cell 19.3 10^3/uL (4.4-10.8)
[2024-12-11 06:53] LABS: Anion Gap 10 (5-15); BUN/Creatinine Ratio 50.9 (10.0-20.0); Calcium 9.2 mg/dL (8.7-10.4); Carbon Dioxide 26 mmol/L (20-31); Chloride 104 mmol/L (98-107); Sodium 140 mmol/L (136-145)
[2024-12-11 06:54] LABS: Albumin 3.4 g/dL (3.2-4.8); Glucose 169 mg/dL (74-106)
[2024-12-11 06:55] LABS: Alanine Aminotransferase 184 U/L (7-40); Aspartate Aminotransferase 198 U/L (13-40); Bilirubin, Total 0.3 mg/dL (0.2-1.0); Total Protein 5.5 g/dL (5.7-8.2)
[2024-12-11 06:58] LABS: Blood Urea Nitrogen 87 mg/dL (9-23)
[2024-12-11 07:42] LABS: Alkaline Phosphatase 759 U/L (46-116)
[2024-12-11] MEDS: levoFLOXacin 500MG 100 ML IV SCH (08:00)
[2024-12-11] MEDS: ASPirin 81 mg TAB PO SCH (10:51)
[2024-12-11] MEDS: VALSARTAN 80 MG TAB PO SCH (10:52)
[2024-12-11] MEDS: NIFEdipine ER 30 MG TAB PO SCH (10:52)
[2024-12-11 13:07] LABS: Protein, Body Fluid 3.6 g/dL (.)
--- NOTE | 2024-12-11 13:49 | DVHPN2 ---
Subjective Patient denies any symptoms at this time. Reviewed: Care Plan Changes from previous H/P or p: No Changes General: Per HPI Objective Vitals Vital Signs Date Time Temp Pulse Resp B/P (MAP) Pulse Ox O2 Delivery O2 Flow Rate FiO2 12/11/24 10:52 150/52 12/11/24 09:00 98.0 77 15 90 98.0 12/11/24 08:29 Nasal Cannula 2.0 12/11/24 08:29 28 Intake/Output Intake and Output 12/11/24 07:00 Intake Total 50 ml Balance 50 ml Intake Oral 50 ml # Voids 2 General Appearance: Alert, Cooperative, Other (Oriented to name and place) HEENT: Atraumatic, PERRLA Lungs: Other (Decreased breath sounds in right lung) Cardiovascular: Normal S1, Normal S2 Musculoskeletal: Normal sensory function, Normal motor function Skin: Dry, Intact Psych/Mental Status: Mental status NL, Mood NL Medications Current Medications Medications Dose Ordered Sig/Minerva Route Start Time Stop Time Status Last Admin Dose Admin Apixaban 5 mg BID PO 12/10/24 22:00 12/11/24 10:52 5 MG Atorvastatin Calcium 80 mg HS PO 12/10/24 22:00 12/10/24 23:01 80 MG Nifedipine 90 mg DAILY PO 12/11/24 10:00 12/11/24 10:52 90 MG Valsartan 160 mg DAILY PO 12/11/24 10:00 12/11/24 10:52 160 MG Aspirin 81 mg DAILY PO 12/11/24 10:00 12/11/24 10:51 81 MG Albuterol 2.5 mg Q6HPRN PRN NEB 12/10/24 19:15 Ondansetron HCl 4 mg Q4HP PRN IV 12/10/24 19:15 12/11/24 03:24 4 MG Nitroglycerin 0.4 mg Q5MINP PRN SL 12/10/24 19:15 Morphine Sulfate 2 mg Q30M PRN IV 12/10/24 19:15 12/10/24 20:37 2 MG Acetaminophen/ Hydrocodone Bitart 1 tab Q4HP PRN PO 12/10/24 19:30 12/10/24 23:50 1 TAB Acetaminophen 650 mg Q6HP PRN PO 12/10/24 19:30 Levofloxacin/ Dextrose 100 ml @ 100 mls/hr Q48H IV 12/11/24 08:00 Linezolid 300 ml @ 150 mls/hr Q12HR IV 12/11/24 22:00 Laboratory Results Laboratory Tests 12/11/24 06:00 Chemistry Test 12/11/24 06:00 Albumin 3.4 g/dL (3.2-4.8) Calcium Level 9.2 mg/dL (8.7-10.4) Total Protein 5.5 g/dL (5.7-8.2) L LFT Test 12/11/24 06:00 Alanine Aminotransferase (ALT) 184 U/L (7-40) H Alkaline Phosphatase 759 U/L (46-116) H Aspartate Amino Transferase (AST) 198 U/L (13-40) H Total Bilirubin 0.3 mg/dL (0.2-1.0) Microbiology Microbiology Date/Time Source Procedure Growth Status 12/11/24 03:10 Nose MRSA Screen - Final Complete 12/10/24 14:45 Pleural Fluid Gram Stain - Final Resulted 12/10/24 14:45 Pleural Fluid Aerobic Culture - Preliminary Resulted Labs and/or images reviewed: Labs reviewed by me, Image(s) reviewed by me Assessment/Plan Assessment/Plan Impression: -acute hypoxic respiratory failure -large right pleural effusion -sepsis, unknown origin -history of DVT -history of polysubstance abuse -primary hypertension Plan: -patient is status post right thoracentesis. Pathology pending -continue anticoagulation with Eliquis -start antibiotic therapy with Levaquin and Zyvox -O2 supplementation to keep saturation greater than 90% -UDS -brown cultures Total time spent with patient discussing and formulating plan of care: 35 minutes. This medical document was created using an electronic medical record system with [employer] dictation system. Although this document has been carefully reviewed, there may still be some phonetic and typographical errors. These areas are purely typographical due to imperfections of the software programs, and do not reflect any compromise in the patient's medical care. Plan discussed with: Patient, Other (RN) My Orders Orders - MARQUEZ ECHEVERRIA ENGINEERING SECRETARY Procedure Category Date Status Time Drug Screen LAB 12/11/24 Logged 12:02 Levofloxacin 500mg PHA 12/11/24 In Process (Levaquin 500mg/ 100m 08:00 Linezolid 600mg/300ml PHA 12/11/24 In Process (Zyvox) 22:00 Levofloxacin 500mg PHA 12/11/24 In Process (Levaquin 500mg/ 100m 13:15 Date of Service: Dec 11, 2024 Billing Provider: MARQUEZ ECHEVERRIA NP Common Visit Codes: [id number] INP/OBS CARE(HIGH) MARQUEZ ECHEVERRIA NP Dec 11, 2024 13:49
[2024-12-11] MEDS: levoFLOXacin 500MG 100 ML IV ONE (14:54)
[2024-12-11] MEDS: LINEZOLID 600MG/300ML 300 ML IV SCH (22:03)
[2024-12-12] VITALS (11 sets, daily range): BP systolic 115–131; BP diastolic 47–64; PULSE 73–86; RESP 16–19; TEMP 97.6–99.3; O2SAT 91–95
[2024-12-12] MEDS ORDERED: MORPHINE SULFATE INJ 2 MG/ml SYRG IV PRN (01:45)
[2024-12-12] MEDS: MORPHINE SULFATE 4 MG/ML SYR/VIAL IV PRN (02:17)
[2024-12-12 07:09] LABS: Basophils # (auto) 0 10 ^3/uL (0-0.2); Basophils % (auto) 0.3 % (0.0-2.0); Eosinophils # (auto) 1.8 10 ^3/uL (0-0.8); Hematocrit 25.7 % (36.0-46.0); Hemoglobin 8.5 g/dL (12.2-16.2); Lymphocytes # (auto) 0.9 10 ^3/uL (0.4-5.4); Lymphocytes % (auto) 5.6 % (10.0-50.0); Mean Corpuscular Hemoglobin 29.4 pg (28.0-32.0); Mean Corpuscular Hgb Conc. 33.2 g/dL (32.0-36.0); Mean Corpuscular Volume 88.4 fL (80.0-100.0); Monocytes # (auto) 0.9 10 ^3/uL (0-1.3); Monocytes % (auto) 5.4 % (0.0-12.0); Neutrophils # (auto) 12.4 10 ^3/uL (1.6-8.6); Neutrophils % (auto) 77.7 % (37.0-80.0); Platelet Count (auto) 306 10^3/uL (140-450); Red Cell Distribution Width 14.3 % (11.8-14.3)
[2024-12-12 07:20] LABS: Anion Gap 8 (5-15); Carbon Dioxide 25 mmol/L (20-31); Chloride 107 mmol/L (98-107); Potassium 4.3 mmol/L (3.5-5.1); Sodium 140 mmol/L (136-145)
[2024-12-12 07:21] LABS: Calcium 9.3 mg/dL (8.7-10.4)
[2024-12-12 07:26] LABS: BUN/Creatinine Ratio 44.4 (10.0-20.0)
[2024-12-12 07:55] LABS: Glucose 113 mg/dL (74-106)
[2024-12-12 07:56] LABS: Blood Urea Nitrogen 83 mg/dL (9-23)
--- NOTE | 2024-12-12 10:32 | DVH ---
INDICATION: pna TECHNIQUE: Frontal view of the chest. COMPARISON: XY CHEST XRAY 1 VIEW on DOS: 12/11/24, XY CHEST PORTABLE on DOS: 12/10/24, XY CHEST PORTABL E on DOS: 12/10/24, XY CHEST XRAY 1 VIEW on DOS: 10/17/24, XY CHEST XRAY 1 VIEW on DOS: 10/02/24, XY CHES T XRAY 1 VIEW on DOS: 12/11/24 FINDINGS: LUNGS AND PLEURAL SPACES: Increasing interstitial and patchy airspace disease of the right lung wit h right pleural effusion. No consolidation. No pneumothorax. HEART: Unremarkable. No cardiomegaly. MEDIASTINUM: Unremarkable. Normal mediastinal contour. BONES/JOINTS: Unremarkable. No acute fracture. OTHER FINDINGS: . . IMPRESSION: Increasing interstitial and patchy airspace disease of the right lung with right pleural effusion.
[2024-12-12 11:38] LABS: Hepatitis B Surface Antigen Negative (Negative); Hepatitis C Antibody Negative (Negative)
--- NOTE | 2024-12-12 14:38 | DVHINCON2 ---
Date of service: Dec 12, 2024 Referring Physician scott hernandes Reason for Consultation pleural effusion History of Present Illness HPI pt is a 64 yo female with suspected lung cancer, recurrent right pleural effusion, recently admitted to [facility] with shortness of breath and pleural ef fusion.PMH: Afib, previously on eloquis. At [facility] pt had thoracentesis, pl fluid results: no malgnant cells. Brought back to the ER with worsening dyspnea, cough and re-accumulation of fluid. Pt had rpt right thoracentesis 1.5 l of fluid drained on 12/10/2024, results pending. Pt appears tearful, in distress, c/o nausea/vomiting. CT chest reviewed Home Meds Active Scripts Ergocalciferol (VITAMIN D 41417 UNIT) 50,000 [place], [address] UNIT PO Q7D for 6 Days, #6 CAP Prov:JT MATUTE 10/17/24 Nifedipine (Nifedipine Er) 30 Mg Tab, 90 MG PO DAILY for 20 Days, #60 TAB Prov:JT MATUTE 10/17/24 Levofloxacin Hemihydrate (LEVOFLOXACIN) 750 Mg Tab, 1 TAB PO DAILY for 7 Days, #7 TAB Prov:JT MATUTE 10/17/24 Valsartan (Valsartan) 80 Mg Tab, 160 MG PO DAILY for 20 Days, #40 TAB Prov:JT MATUTE 10/17/24 Atorvastatin Calcium (ATORVASTATIN CALCIUM) 20 Mg Tab, 80 MG PO HS for 20 Days, #80 TAB Prov:JT MATUTE 10/17/24 Aspirin (Aspirin Low Dose) 81 Mg Tab, 81 MG PO DAILY for 20 Days, #20 TAB Prov:JT MATUTE 10/17/24 Lorazepam (Ativan) 0.5 Mg Tab, 1 TAB PO DAILY for 7 Days, #7 TAB Prov:MARQUEZ HERNANDES CHEMICAL LAB TECHNICIAN 10/03/24 Apixaban Base (ELIQUIS) 5 Mg Tab, 5 MG PO BID for 30 Days, #60 TAB 1 Refill Prov:MARQUEZ HERNANDES CHEMICAL LAB TECHNICIAN 10/03/24 Diphenhydramine Hcl (Benadryl Allergy) 25 Mg Cap, 1 CAP PO QPM, #30 CAP 1 Refill Prov:GWENDOLYN EASTMAN MD 09/16/24 Past Medical History Cardiac: AFIB, HTN Pulmonary: Lung cancer Central Nervous System: No pertinent Hx GI: No pertinent Hx Hemotology/Oncology: No pertinent Hx Hepatobiliary: No pertinent Hx Psychiatric: No pertinent Hx Musculoskeletal: No pertinent Hx Rheumotologic: No pertinent Hx Infectious Disease: No peritnent Hx ENT: No pertinent Hx Renal/: No pertinent Hx Endocrine: No pertinent Hx Dermatology: No pertinent Hx Past Surgical History: No pertinent Hx Family History: No pertinent Hx Patient Family History: Anxiety disorder G8 MOTHER FH: breast cancer G8 MOTHER Review of Systems Constitutional: Weakness Ears, Nose, & Throat: No symptom reported Eyes: No symptom reported Pulmonary/Respiratory: Dyspnea Cardiovascular: No symptom reported Gastrointestinal: Nausea, Vomiting Genitourinary: No symptom reported Musculoskeletal: No symptom reported Skin: No symptom reported Psychiatric: No symptom reported Endocrine: No symptom reported Hemotologic/Lymphatic: No symptom reported H&P Exam Vital Signs Vital Signs Date Time Temp Pulse Resp B/P (MAP) Pulse Ox O2 Delivery O2 Flow Rate FiO2 12/12/24 13:00 98.8 78 16 124/48 (73) 95 98.8 12/12/24 09:40 Nasal Cannula 2.0 12/12/24 09:40 28 General Appeara: Well developed, Well nourished, Normal Appearance Head Exam: Normal inspection Neck Exam: Normal inspection, Non-tender, Normal alignment Eye Exam: bilateral eye Normal inspection, bilateral eye PERRL Ear Exam: bilateral ear Auricle normal, bilateral ear Canal normal Nasal Exam: Normal inspection Mouth: Normal Inspection Pulmonary/Respiratory: Normal inspection, Normal breath sounds Cardiovascular/Chest: Normal inspection Peripheral Pulses: 4+ carotid (R), 4+ carotid (L) Abdominal Exam: Normal bowel sounds Labs/Xrays Labs Test 12/12/24 05:42 12/11/24 06:00 12/10/24 14:45 12/10/24 13:27 Range/Units White Blood Count 16.0 H 4.4-10.8 10^3/uL Red Blood Count 2.90 L 4.0-5.20 10^6/uL Hemoglobin 8.5 L 12.2-16.2 g/dL Hematocrit 25.7 #L 36.0-46.0 % Mean Corpuscular Volume 88.4 80.0-100.0 fL Mean Corpuscular Hemoglobin 29.4 28.0-32.0 pg Mean Corpuscular Hemoglobin Concent 33.2 32.0-36.0 g/dL Red Cell Distribution Width 14.3 11.8-14.3 % Platelet Count 306 140-450 10^3/uL Mean Platelet Volume 9.4 6.9-10.8 fL Neutrophils (%) (Auto) 77.7 37.0-80.0 % Lymphocytes (%) (Auto) 5.6 L 10.0-50.0 % Monocytes (%) (Auto) 5.4 0.0-12.0 % Eosinophils (%) (Auto) 11.0 H 0.0-7.0 % Basophils (%) (Auto) 0.3 0.0-2.0 % Neutrophils # (Auto) 12.4 H 1.6-8.6 10 ^3/uL Lymphocytes # (Auto) 0.9 0.4-5.4 10 ^3/uL Monocytes # (Auto) 0.9 0-1.3 10 ^3/uL Eosinophils # (Auto) 1.8 H 0-0.8 10 ^3/uL Basophils # (Auto) 0 0-0.2 10 ^3/uL Nucleated Red Blood Cells 0.0 % Sodium Level 140 136-145 mmol/L Potassium Level 4.3 3.5-5.1 mmol/L Chloride Level 107 98-107 mmol/L Carbon Dioxide Level 25 20-31 mmol/L Anion Gap 8 5-15 Blood Urea Nitrogen 83 *H 9-23 mg/dL Creatinine 1.87 H 0.550-1.02 mg/dL Glomerular Filtration Rate Calc 30 >90 mL/min BUN/Creatinine Ratio 44.4 H 10.0-20.0 Serum Glucose 113 H 74-106 mg/dL Calcium Level 9.3 8.7-10.4 mg/dL Total Bilirubin 0.3 0.2-1.0 mg/dL Aspartate Amino Transferase (AST) 198 H 13-40 U/L Alanine Aminotransferase (ALT) 184 H 7-40 U/L Alkaline Phosphatase 759 H 46-116 U/L Troponin I High Sensitivity 68 *H </=34 ng/L Total Protein 5.5 L 5.7-8.2 g/dL Albumin 3.4 3.2-4.8 g/dL Hepatitis B Surface Antigen Negative Negative Hepatitis C Antibody Negative Negative Body Fluid Source Pleural fluid Body Fluid pH 8.0 Body Fluid WBC (Manual) 47 0-200 CUMM Body Fluid RBC (Manual) 990838 H 0-2000 CUMM Body Fluid Mononuclear Cells 65 % Body Fluid Polymorphonuclear Cells 35 H 0-25 % Body Fluid Glucose 110 . mg/dL Body Fluid Total Protein 3.6 . g/dL Body Fluid Lactate Dehydrogenase 428 . IU/L Prothrombin Time 12.4 H 9.3-11.8 sec Prothrombin Time INR 1.19 H 0.9-1.15 Activated Partial Thromboplast Time 33.6 24.5-34.5 SEC Test 12/10/24 12:14 Range/Units B-Type Natriuretic Peptide 34.26 0-100 pg/mL Microbiology Date/Time Source Procedure Growth Status 12/11/24 03:10 Nose MRSA Screen - Final Complete 12/10/24 14:45 Pleural Fluid Gram Stain - Final Resulted 12/10/24 14:45 Pleural Fluid Aerobic Culture - Preliminary Resulted Assessment/Plan Plan lung cancer hypoxemia right pleural effusion atelectases pt seen and examined labs and imaging reviewed plan await cytology if pos've would benefit from pleurX placement cont supportive care pain control/anti-emetics/nebs Plan discussed with: Patient NELDA BOWIE MD Dec 12, 2024 14:38
--- NOTE | 2024-12-12 14:51 | DVHPN2 ---
Subjective Patient now with nausea and vomiting Reviewed: Care Plan Changes from previous H/P or p: Changes General: Per HPI Objective Vitals Vital Signs Date Time Temp Pulse Resp B/P (MAP) Pulse Ox O2 Delivery O2 Flow Rate FiO2 12/12/24 13:00 98.8 78 16 124/48 (73) 95 98.8 12/12/24 09:40 Nasal Cannula 2.0 12/12/24 09:40 28 Intake/Output Intake and Output 12/12/24 07:00 Intake Total 850 ml Balance 850 ml Intake Oral 550 ml IV Total 300 ml # Voids 5 General Appearance: Alert, Oriented X3, Cooperative, Other (Oriented to name and place) HEENT: Atraumatic, PERRLA Lungs: Other (Decreased breath sounds in right lung) Cardiovascular: Normal S1, Normal S2 Musculoskeletal: Normal sensory function, Normal motor function Skin: Dry, Intact Psych/Mental Status: Mental status NL, Mood NL Medications Current Medications Medications Dose Ordered Sig/Minerva Route Start Time Stop Time Status Last Admin Dose Admin Atorvastatin Calcium 80 mg HS PO 12/10/24 22:00 12/11/24 22:03 80 MG Nifedipine 90 mg DAILY PO 12/11/24 10:00 12/12/24 10:25 90 MG Valsartan 160 mg DAILY PO 12/11/24 10:00 12/12/24 10:25 160 MG Albuterol 2.5 mg Q6HPRN PRN NEB 12/10/24 19:15 Ondansetron HCl 4 mg Q4HP PRN IV 12/10/24 19:15 12/12/24 13:38 4 MG Nitroglycerin 0.4 mg Q5MINP PRN SL 12/10/24 19:15 Morphine Sulfate 2 mg Q30M PRN IV 12/10/24 19:15 12/10/24 20:37 2 MG Acetaminophen/ Hydrocodone Bitart 1 tab Q4HP PRN PO 12/10/24 19:30 12/12/24 00:21 1 TAB Acetaminophen 650 mg Q6HP PRN PO 12/10/24 19:30 Levofloxacin/ Dextrose 100 ml @ 100 mls/hr Q48H IV 12/11/24 08:00 Linezolid 300 ml @ 150 mls/hr Q12HR IV 12/11/24 22:00 12/12/24 10:26 150 MLS/HR Morphine Sulfate 2 mg Q4HPRN PRN IV 12/12/24 02:00 12/12/24 10:27 2 MG Laboratory Results Laboratory Tests 12/12/24 05:42 Chemistry Test 12/12/24 05:42 Calcium Level 9.3 mg/dL (8.7-10.4) Microbiology Microbiology Date/Time Source Procedure Growth Status 12/11/24 03:10 Nose MRSA Screen - Final Complete 12/10/24 14:45 Pleural Fluid Gram Stain - Final Resulted 12/10/24 14:45 Pleural Fluid Aerobic Culture - Preliminary Resulted Labs and/or images reviewed: Labs reviewed by me, Image(s) reviewed by me Assessment/Plan Assessment/Plan Impression: -acute hypoxic respiratory failure -large right pleural effusion -sepsis, unknown origin -history of DVT -history of polysubstance abuse -primary hypertension -? Metastatic lung CA Plan: Events: Patient with worsening clinical status, nausea/wrong, ALOC. Long discussion made with the patient's daughter was bedside. Apparently the patient was at [facility] approximately three weeks ago, at that time was not given a clear diagnosis, with? Cancer. Patient had multiple thoracentesis at that facility. Patient with persistent nausea and vomiting today. Renal function worsening. Worsening anemia. Pathologist called with preliminary results from thoracentesis. Possible with probable adenocarcinoma of the lung -stool for occult blood -stop Eliquis, use Lovenox at this time -start IV fluids with D5 half NS at 100 mL/hour -liver ultrasound -obtain medical records from [facility] -continue anticoagulation with Eliquis -start antibiotic therapy with Levaquin and Zyvox -O2 supplementation to keep saturation greater than 90% Total time spent with patient discussing and formulating plan of care: 35 minutes. Total time spent with patient and family regarding advance care plannin minutes. This medical document was created using an electronic medical record system with [employer] dictation system. Although this document has been carefully reviewed, there may still be some phonetic and typographical errors. These areas are purely typographical due to imperfections of the software programs, and do not reflect any compromise in the patient's medical care. Plan discussed with: Patient, Other (RN) My Orders Orders - MARQUEZ ECHEVERRIA SURGICAL SCRUB TECHNICIAN Procedure Category Date Status Time Kub Abdomen Single XY 12/12/24 Transmitted View 14:42 Stool Occult Blood LAB 12/12/24 Transmitted 14:42 Enoxaparin Sodium PHA 12/13/24 Transmitted (Lovenox) 10:00 D5w/Sod Chl 0.45% 1/2 PHA 12/12/24 Transmitted NS 14:45 LIVER US 12/12/24 Transmitted 14:42 Obtain Mr From Other ORDERS 12/12/24 Transmitted Facility 14:42 Bed Rest With Hob At [facility] 12/12/24 Transmitted 30-45 Deg 14:42 Date of Service: Dec 12, 2024 Billing Provider: MARQUEZ ECHEVERRIA NP Common Visit Codes: [id number] INP/OBS CARE(HIGH) Secondary Visit Codes: [id number] CARE PLAN 30 MINUTES MARQUEZ ECHEVERRIA NP Dec 12, 2024 14:51
[2024-12-12] MEDS: D5W/SOD CHL 0.45% 1,000 ML IV SCH (15:15)
--- NOTE | 2024-12-12 15:53 | DVH ---
Technique: Real-time ultrasound imaging of the abdomen was performed with grayscale and color Doppler . Indication: Transaminitis Comparison: None Findings: Liver measures 14.9 cm. It is increased in echogenicity and coarse echotexture without focal mass. P ortal vein is normal in caliber and demonstrates normal hepatopetal flow. Right pleural effusion. Gallbladder removed. The common bile duct measures in mm. Prominence of the intrahepatic ducts. The right kidney measures 8.2 cm. The left kidney measures 8.8 cm. No hydronephrosis or sonographic e vidence of nephrolithiasis. 1.3 cm right renal cyst. Echogenic appearance of the bilateral kidneys. The visualized portion of the pancreas is unremarkable. Spleen measures cm. The visualized portion of the IVC is unremarkable. Impression: 1. Echogenic liver which can be seen with hepatic steatosis, cirrhosis. 2. Right pleural effusion. 3. Cholecystectomy. Dilated common bile duct and prominence of the intrahepatic ducts. This could be secondary to underlying cholecystectomy however underlying obstructive biliary etiology can not be ru led out. Correlate clinically and with MRCP. 4. Echogenic and small kidneys, which can be seen with medical renal disease.
--- NOTE | 2024-12-12 15:54 | DVH ---
Indication: Nausea and Vomiting Technique: Single-view abdomen Comparison: None FINDINGS/IMPRESSION: Large volume stool within the colon. No evidence for free intraperitoneal air. Small to moderate righ t pleural effusion. Cholecystectomy.
[2024-12-13] VITALS (12 sets, daily range): BP systolic 112–164; BP diastolic 51–82; PULSE 75–91; RESP 17–20; TEMP 97.3–98.5; O2SAT 94–97
[2024-12-13] MEDS ORDERED: BISACODYL 10 MG RECT SUPP PR PRN (07:45)
[2024-12-13] MEDS ORDERED: BISACODYL 10 MG RECT SUPP PR ONE (07:45)
[2024-12-13] MEDS: ENOXAPARIN SOD 30 MG/0.3 ML SYRINGE SC SCH (09:30)
[2024-12-13] MEDS ORDERED: Glucerna Carbsteady SHAKE Stawberry 8oz PO SCH (12:00)
[2024-12-13] MEDS ORDERED: Glucerna Carbsteady SHAKE Vanilla 8oz PO SCH (12:00)
[2024-12-13] MEDS ORDERED: CLINIMIX PER PHARMACY 0 ML IV SCH (12:45)
[2024-12-13] MEDS: LACTULOSE 20Gm/30ML SOLN PO ONE (13:09)
[2024-12-13 13:40] LABS: Basophils # (auto) 0.1 10 ^3/uL (0-0.2); Basophils % (auto) 0.6 % (0.0-2.0); Eosinophils # (auto) 1.9 10 ^3/uL (0-0.8); Eosinophils % (auto) 11.8 % (0.0-7.0); Hematocrit 26.3 % (36.0-46.0); Hemoglobin 8.7 g/dL (12.2-16.2); Lymphocytes # (auto) 0.9 10 ^3/uL (0.4-5.4); Lymphocytes % (auto) 5.4 % (10.0-50.0); Mean Corpuscular Hemoglobin 29.2 pg (28.0-32.0); Mean Corpuscular Hgb Conc. 32.9 g/dL (32.0-36.0); Mean Corpuscular Volume 88.8 fL (80.0-100.0); Monocytes # (auto) 0.8 10 ^3/uL (0-1.3); Monocytes % (auto) 4.8 % (0.0-12.0); Neutrophils # (auto) 12.8 10 ^3/uL (1.6-8.6); Neutrophils % (auto) 77.4 % (37.0-80.0); Platelet Count (auto) 314 10^3/uL (140-450); Red Blood Cells 2.96 10^6/uL (4.0-5.20); Red Cell Distribution Width 14.4 % (11.8-14.3); White Blood Cell 16.5 10^3/uL (4.4-10.8)
[2024-12-13 13:42] LABS: Potassium 4.4 mmol/L (3.5-5.1); Sodium 140 mmol/L (136-145)
[2024-12-13 13:43] LABS: Anion Gap 8 (5-15); Carbon Dioxide 24 mmol/L (20-31)
[2024-12-13 13:44] LABS: Calcium 9.9 mg/dL (8.7-10.4)
[2024-12-13 13:45] LABS: Chloride 108 mmol/L (98-107)
[2024-12-13 13:49] LABS: BUN/Creatinine Ratio 34.8 (10.0-20.0); Blood Urea Nitrogen 56 mg/dL (9-23); Glucose 136 mg/dL (74-106)
--- NOTE | 2024-12-13 13:53 | DVHPN2 ---
Progress Note - Dictate Date Seen: Dec 13, 2024 Medical Necessity Reason Pt with a Central, PICC or Fol: No vital signs Vital Sign Date Time Temp Pulse Resp B/P (MAP) Pulse Ox O2 Delivery O2 Flow Rate FiO2 12/13/24 09:36 155/53 12/13/24 09:00 98.5 76 20 95 98.5 12/13/24 07:45 Nasal Cannula* 2 28 Total Intake and Output 12/12/24 12/12/24 12/13/24 15:00 23:00 07:00 Intake Total 0 ml 1300 ml Balance 0 ml 1300 ml medications Current Medications Medications Dose Ordered Sig/Minerva Route Start Time Stop Time Status Last Admin Dose Admin Atorvastatin Calcium 80 mg HS PO 12/10/24 22:00 12/12/24 21:13 80 MG Nifedipine 90 mg DAILY PO 12/11/24 10:00 12/13/24 09:36 90 MG Albuterol 2.5 mg Q6HPRN PRN NEB 12/10/24 19:15 Ondansetron HCl 4 mg Q4HP PRN IV 12/10/24 19:15 12/13/24 13:09 4 MG Nitroglycerin 0.4 mg Q5MINP PRN SL 12/10/24 19:15 Morphine Sulfate 2 mg Q30M PRN IV 12/10/24 19:15 12/10/24 20:37 2 MG Acetaminophen/ Hydrocodone Bitart 1 tab Q4HP PRN PO 12/10/24 19:30 12/13/24 13:19 1 TAB Acetaminophen 650 mg Q6HP PRN PO 12/10/24 19:30 Levofloxacin/ Dextrose 100 ml @ 100 mls/hr Q48H IV 12/11/24 08:00 12/13/24 09:28 100 MLS/HR Linezolid 300 ml @ 150 mls/hr Q12HR IV 12/11/24 22:00 12/13/24 11:01 150 MLS/HR Morphine Sulfate 2 mg Q4HPRN PRN IV 12/12/24 02:00 12/12/24 23:42 2 MG Enoxaparin Sodium 30 mg DAILY SC 12/13/24 10:00 12/13/24 09:30 30 MG Dextrose/Sodium Chloride 1,000 ml @ 100 mls/hr Q10H IV 12/12/24 14:45 12/13/24 13:09 100 MLS/HR Amino Acids 0 ml @ 0 mls/hr PER PHARMACY IV 12/13/24 12:45 UNV Buspirone HCl 5 mg Q12HR PO 12/13/24 22:00 UNV Apixaban 5 mg BID PO 12/13/24 22:00 UNV laboratory and microbiology Laboratory Tests 12/13/24 13:20 Test 12/13/24 13:20 Range/Units Serum Glucose 136 H 74-106 mg/dL Assessment/Plan Impression lung cancer hypoxemia right pleural effusion atelectases pt seen and examined events low oxygen requirements on 2 liters nasal cannula no acute events patient has disseminated cancer prognosis poor, family aware labs and imaging reviewed plan await cytology if pos've would benefit from pleurX placement cont supportive care pain control/anti-emetics/nebs consider hospice Dietary Evaluation Review Comments: 1) Change Glucerna tid to Nepro tid 2) Encourage optimal PO intake. If poor appetite persists long-term, consider EN/TPN to meet at least 50% of estimated needs 3) Follow-up with oncology, cardiology, pulmonology, and nephrology 4) Continue to monitor I&O, labs, and skin integrity Expected Outcomes/Goals: 1) appetite and labs to improve 2) f/u in 3-5 days Plan discussed with: Patient NELDA BOWIE MD Dec 13, 2024 13:53
[2024-12-13] MEDS ORDERED: DEXTROSE (50%) 50ML SYRG IV SCH (14:00)
[2024-12-13 14:24] LABS: Magnesium 2.4 mg/dL (1.6-2.6)
[2024-12-13 14:26] LABS: Albumin 3.3 g/dL (3.2-4.8); Phosphorus 2.8 mg/dL (2.4-5.1)
--- NOTE | 2024-12-13 14:37 | DVHPN2 ---
Subjective Patient now with nausea and vomiting Reviewed: Care Plan Changes from previous H/P or p: No Changes General: Per HPI Objective Vitals Vital Signs Date Time Temp Pulse Resp B/P (MAP) Pulse Ox O2 Delivery O2 Flow Rate FiO2 12/13/24 09:36 155/53 12/13/24 09:00 98.5 76 20 95 98.5 12/13/24 07:45 Nasal Cannula* 2 28 Intake/Output Intake and Output 12/13/24 07:00 Intake Total 1300 ml Balance 1300 ml Intake Oral 0 ml IV Total 1300 ml # Voids 3 General Appearance: Alert, Oriented X3, Cooperative, Other (Oriented to name and place) HEENT: Atraumatic, PERRLA Lungs: Other (Decreased breath sounds in right lung) Cardiovascular: Normal S1, Normal S2 Musculoskeletal: Normal sensory function, Normal motor function Neuro: Cranial nerves 3-12 NL Skin: Dry, Intact Psych/Mental Status: Mental status NL, Mood NL Medications Current Medications Medications Dose Ordered Sig/Minerva Route Start Time Stop Time Status Last Admin Dose Admin Atorvastatin Calcium 80 mg HS PO 12/10/24 22:00 12/12/24 21:13 80 MG Nifedipine 90 mg DAILY PO 12/11/24 10:00 12/13/24 09:36 90 MG Albuterol 2.5 mg Q6HPRN PRN NEB 12/10/24 19:15 Ondansetron HCl 4 mg Q4HP PRN IV 12/10/24 19:15 12/13/24 13:09 4 MG Nitroglycerin 0.4 mg Q5MINP PRN SL 12/10/24 19:15 Morphine Sulfate 2 mg Q30M PRN IV 12/10/24 19:15 12/10/24 20:37 2 MG Acetaminophen/ Hydrocodone Bitart 1 tab Q4HP PRN PO 12/10/24 19:30 12/13/24 13:19 1 TAB Acetaminophen 650 mg Q6HP PRN PO 12/10/24 19:30 Levofloxacin/ Dextrose 100 ml @ 100 mls/hr Q48H IV 12/11/24 08:00 12/13/24 09:28 100 MLS/HR Linezolid 300 ml @ 150 mls/hr Q12HR IV 12/11/24 22:00 12/13/24 11:01 150 MLS/HR Morphine Sulfate 2 mg Q4HPRN PRN IV 12/12/24 02:00 12/12/24 23:42 2 MG Enoxaparin Sodium 30 mg DAILY SC 12/13/24 10:00 12/13/24 09:30 30 MG Dextrose/Sodium Chloride 1,000 ml @ 100 mls/hr Q10H IV 12/12/24 14:45 12/13/24 13:09 100 MLS/HR Amino Acids 0 ml @ 0 mls/hr PER PHARMACY IV 12/13/24 12:45 Buspirone HCl 5 mg Q12HR PO 12/13/24 22:00 Apixaban 5 mg BID PO 12/13/24 22:00 Diagnostic Test (Pha) 1 strip Q6HR 12/13/24 18:00 Insulin Human Regular FOLLOW SLIDING SCALE Q6HR SC 12/13/24 18:00 Dextrose 50 ml UD IV 12/13/24 14:00 Amino Acids/ Electrolytes/ Dextrose 1,000 ml @ 41 mls/hr DAILY@2200 IV 12/13/24 22:00 Laboratory Results Laboratory Tests 12/13/24 13:20 Chemistry Test 12/13/24 13:20 Albumin 3.3 g/dL (3.2-4.8) Calcium Level 9.9 mg/dL (8.7-10.4) Magnesium Level 2.4 mg/dL (1.6-2.6) Phosphorus Level 2.8 mg/dL (2.4-5.1) Lipid panel Test 12/13/24 13:20 Triglycerides Level 113 mg/dL (< 150) Microbiology Microbiology Date/Time Source Procedure Growth Status 12/11/24 03:10 Nose MRSA Screen - Final Complete 12/10/24 14:45 Pleural Fluid Gram Stain - Final Resulted 12/10/24 14:45 Pleural Fluid Aerobic Culture - Preliminary Resulted Labs and/or images reviewed: Labs reviewed by me, Image(s) reviewed by me Assessment/Plan Assessment/Plan Impression: -acute hypoxic respiratory failure -large right pleural effusion -sepsis, unknown origin -history of DVT -history of polysubstance abuse -primary hypertension -? Metastatic lung CA Plan: Events: Continues to be encephalopathic with questionable acute delirium. H and H holding. Liver ultrasound and KUB reviewed with the patient's family. -stool for occult blood -continue IV fluids -restart Eliquis -liver ultrasound -restart Clinimix -CT scan of the head -bowel regimen -start antibiotic therapy with Levaquin and Zyvox -O2 supplementation to keep saturation greater than 90% Total time spent with patient discussing and formulating plan of care: 35 minutes. This medical document was created using an electronic medical record system with [employer] dictation system. Although this document has been carefully reviewed, there may still be some phonetic and typographical errors. These areas are purely typographical due to imperfections of the software programs, and do not reflect any compromise in the patient's medical care. Plan discussed with: Patient, Other My Orders Orders - MARQUEZ ECHEVERRIA LIME MIXER Procedure Category Date Status Time Kub Abdomen Single XY 12/12/24 Resulted View 14:42 Stool Occult Blood LAB 12/12/24 Logged 14:42 D5w/Sod Chl 0.45% PHA 12/12/24 In Process (D5w 1/2ns) 14:45 LIVER US 12/12/24 Resulted 14:42 Obtain Mr From Other ORDERS 12/12/24 Transmitted Facility 14:42 Bed Rest With Hob At [facility] 12/12/24 In Process 30-45 Deg 14:42 Enoxaparin Sodium PHA 12/13/24 In Process (Lovenox) 10:00 Transfer Orders XFER 12/12/24 Transmitted 15:34 Complete Blood Count LAB 12/14/24 Verified 05:00 Complete Blood Count LAB 12/15/24 Verified 05:00 Complete Blood Count LAB 12/16/24 Verified 05:00 Complete Blood Count LAB 12/17/24 Verified 05:00 Comprehensive LAB 12/14/24 Verified Metabolic Panel 05:00 Comprehensive LAB 12/15/24 Verified Metabolic Panel 05:00 Comprehensive LAB 12/16/24 Verified Metabolic Panel 05:00 Comprehensive LAB 12/17/24 Verified Metabolic Panel 05:00 Urinalysis LAB 12/13/24 Logged 13:30 Urine Bacterial DARIAN 12/13/24 Logged Culture 13:30 Buspirone Hcl Tablet PHA 12/13/24 In Process (Buspar Tablet) 22:[address] 12/13/24 Taken 13:41 Apixaban (Eliquis) PHA 12/13/24 In Process 22:00 D5w/Sod Chl 0.45% 1/2 PHA 12/13/24 Verified NS 14:30 Date of Service: Dec 13, 2024 Billing Provider: MARQUEZ ECHEVERRIA NP Common Visit Codes: [id number] INP/OBS CARE(HIGH) MARQUEZ ECHEVERRIA NP Dec 13, 2024 14:37
[2024-12-13] MEDS: D5W/SOD CHL 0.45% 1,000 ML IV SCH (14:40)
[2024-12-13 15:01] LABS: Albumin 3.1 g/dL (3.2-4.8); Bilirubin, Direct 0.4 mg/dL (<0.3); Bilirubin, Total 0.6 mg/dL (0.2-1.0); Total Protein 4.9 g/dL (5.7-8.2)
--- NOTE | 2024-12-13 15:03 | DVH ---
CT HEAD WITHOUT CONTRAST INDICATION: ALOC EXAM DATE: 12/13/2024 02:13 PM COMPARISON: CT HEAD WITHOUT CONTRAST on DOS: 10/15/24, CT HEAD WITHOUT CONTRAST on DOS: 09/25/24 RADIATION DOSE: CTDIvol: 49.29 mGy, DLP: 790.31 mGy*cm PROCEDURE: CT scans of the head were obtained from the vertex to the skull base. Sagittal and coronal reconstructions were provided. All CT scans at this medical facility are performed using dose modulation techniques as appropriate t o a performed exam including the following: Automated exposure control was utilized; adjustment of th e MA and/or KV according to patient size; and use of iterative reconstruction technique. FINDINGS: Old infarcts in the bilateral basal ganglia. There is sulcal and ventricular prominence. T he brain otherwise shows normal morphology and zacarias-white matter differentiation, without intracrania l hemorrhage, extra-axial fluid collection, mass effect or acute large vessel infarct. The ventricles are normal in size. The basal cisterns are patent. The skull and visible facial bones are intact. Th e paranasal sinuses, mastoid air cells and middle ear cavities are well-aerated. The soft tissues of the scalp are unremarkable. IMPRESSION: Old infarcts in the bilateral basal ganglia. No acute intracranial abnormality.
[2024-12-13] MEDS: InsuLIN REG 1unit/0.01ml Soln (100units/ml) SC SCH (17:41)
[2024-12-13] MEDS: ACCU-CHEK COMFORT CURVE STRIP VI SCH (17:43)
[2024-12-13] MEDS: busPIRone HCL 10 MG TAB PO SCH (22:00)
[2024-12-13] MEDS: APIXABAN 5 MG TAB PO SCH (22:00)
[2024-12-13] MEDS: AMINO ACID INFUSION IN D10W 1,000 ML IV SCH (22:30)
[2024-12-14] VITALS (8 sets, daily range): BP systolic 150–184; BP diastolic 60–85; PULSE 75–104; RESP 16–20; TEMP 97.6–98.4; O2SAT 91–97
[2024-12-14 07:36] LABS: Basophils # (auto) 0.1 10 ^3/uL (0-0.2); Basophils % (auto) 0.6 % (0.0-2.0); Eosinophils # (auto) 2.1 10 ^3/uL (0-0.8); Eosinophils % (auto) 12.8 % (0.0-7.0); Hematocrit 26.7 % (36.0-46.0); Hemoglobin 8.9 g/dL (12.2-16.2); Lymphocytes % (auto) 6.1 % (10.0-50.0); Mean Corpuscular Hemoglobin 29.3 pg (28.0-32.0); Mean Corpuscular Hgb Conc. 33.2 g/dL (32.0-36.0); Mean Corpuscular Volume 88.3 fL (80.0-100.0); Monocytes # (auto) 0.9 10 ^3/uL (0-1.3); Monocytes % (auto) 5.4 % (0.0-12.0); Neutrophils # (auto) 12.5 10 ^3/uL (1.6-8.6); Neutrophils % (auto) 75.1 % (37.0-80.0); Platelet Count (auto) 326 10^3/uL (140-450); Red Blood Cells 3.03 10^6/uL (4.0-5.20); Red Cell Distribution Width 14.3 % (11.8-14.3); White Blood Cell 16.7 10^3/uL (4.4-10.8)
[2024-12-14 08:15] LABS: Anion Gap 9 (5-15); BUN/Creatinine Ratio 31.4 (10.0-20.0); Calcium 9.9 mg/dL (8.7-10.4); Carbon Dioxide 24 mmol/L (20-31); Magnesium 2.2 mg/dL (1.6-2.6); Potassium 3.9 mmol/L (3.5-5.1); Sodium 142 mmol/L (136-145)
[2024-12-14 08:16] LABS: Alanine Aminotransferase 369 U/L (7-40); Albumin 3.2 g/dL (3.2-4.8); Aspartate Aminotransferase 249 U/L (<34); Bilirubin, Total 0.4 mg/dL (0.2-1.0); Blood Urea Nitrogen 38 mg/dL (9-23); Chloride 109 mmol/L (98-107); Glucose 140 mg/dL (74-106); Phosphorus 2.6 mg/dL (2.4-5.1); Total Protein 5.4 g/dL (5.7-8.2)
[2024-12-14 08:23] LABS: Alkaline Phosphatase 971 U/L (46-116)
--- NOTE | 2024-12-14 10:12 | DVHPN2 ---
Subjective Continues to have nausea no vomiting. Reviewed: Care Plan Changes from previous H/P or p: No Changes General: Per HPI Objective Vitals Vital Signs Date Time Temp Pulse Resp B/P (MAP) Pulse Ox O2 Delivery O2 Flow Rate FiO2 12/14/24 08:49 98.1 76 16 152/66 (94) 97 98.1 12/13/24 22:43 Room Air* 0 21 Intake/Output Intake and Output 12/14/24 07:00 Intake Total 1900 ml Balance 1900 ml Intake Oral 600 ml IV Total 1300 ml # Voids 6 General Appearance: Alert, Oriented X3, Cooperative, Other (Oriented to name and place) HEENT: Atraumatic, PERRLA Lungs: Other (Decreased breath sounds in right lung) Cardiovascular: Normal S1, Normal S2 Musculoskeletal: Normal sensory function, Normal motor function Neuro: Cranial nerves 3-12 NL Skin: Dry, Intact Psych/Mental Status: Mental status NL, Mood NL Medications Current Medications Medications Dose Ordered Sig/Minerva Route Start Time Stop Time Status Last Admin Dose Admin Atorvastatin Calcium 80 mg HS PO 12/10/24 22:00 12/13/24 22:00 80 MG Nifedipine 90 mg DAILY PO 12/11/24 10:00 12/13/24 09:36 90 MG Albuterol 2.5 mg Q6HPRN PRN NEB 12/10/24 19:15 Cancel Ondansetron HCl 4 mg Q4HP PRN IV 12/10/24 19:15 12/13/24 17:44 4 MG Nitroglycerin 0.4 mg Q5MINP PRN SL 12/10/24 19:15 Morphine Sulfate 2 mg Q30M PRN IV 12/10/24 19:15 12/10/24 20:37 2 MG Acetaminophen/ Hydrocodone Bitart 1 tab Q4HP PRN PO 12/10/24 19:30 12/13/24 13:19 1 TAB Acetaminophen 650 mg Q6HP PRN PO 12/10/24 19:30 Levofloxacin/ Dextrose 100 ml @ 100 mls/hr Q48H IV 12/11/24 08:00 12/13/24 09:28 100 MLS/HR Linezolid 300 ml @ 150 mls/hr Q12HR IV 12/11/24 22:00 12/13/24 22:00 150 MLS/HR Morphine Sulfate 2 mg Q4HPRN PRN IV 12/12/24 02:00 12/13/24 18:35 2 MG Amino Acids 0 ml @ 0 mls/hr PER PHARMACY IV 12/13/24 12:45 Buspirone HCl 5 mg Q12HR PO 12/13/24 22:00 12/13/24 22:00 5 MG Apixaban 5 mg BID PO 12/13/24 22:00 12/13/24 22:00 5 MG Diagnostic Test (Pha) 1 strip Q6HR 12/13/24 18:00 12/14/24 06:17 1 STRIP Insulin Human Regular FOLLOW SLIDING SCALE Q6HR SC 12/13/24 18:00 12/14/24 06:17 2 UNITS Dextrose 50 ml UD IV 12/13/24 14:00 Amino Acids/ Electrolytes/ Dextrose 1,000 ml @ 41 mls/hr DAILY@2200 IV 12/13/24 22:00 12/13/24 22:30 41 MLS/HR Dextrose/Sodium Chloride 1,000 ml @ 50 mls/hr Q20H IV 12/13/24 14:30 12/13/24 14:40 50 MLS/HR Laboratory Results Laboratory Tests 12/14/24 07:13 Chemistry Test 12/13/24 13:20 12/14/24 07:13 Albumin 3.1 g/dL (3.2-4.8) L 3.2 g/dL (3.2-4.8) Calcium Level 9.9 mg/dL (8.7-10.4) 9.9 mg/dL (8.7-10.4) Magnesium Level 2.4 mg/dL (1.6-2.6) 2.2 mg/dL (1.6-2.6) Phosphorus Level 2.8 mg/dL (2.4-5.1) 2.6 mg/dL (2.4-5.1) Total Protein 4.9 g/dL (5.7-8.2) L 5.4 g/dL (5.7-8.2) L Lipid panel Test 12/13/24 13:20 Triglycerides Level 113 mg/dL (< 150) LFT Test 12/13/24 13:20 12/14/24 07:13 Alanine Aminotransferase (ALT) 403 U/L (7-40) H 369 U/L (7-40) H Alkaline Phosphatase 914 U/L (46-116) H 971 U/L (46-116) H Aspartate Amino Transferase (AST) 347 U/L (<34) H 249 U/L (<34) H Direct Bilirubin 0.4 mg/dL (<0.3) H Total Bilirubin 0.6 mg/dL (0.2-1.0) 0.4 mg/dL (0.2-1.0) Microbiology Microbiology Date/Time Source Procedure Growth Status 12/11/24 03:10 Nose MRSA Screen - Final Complete 12/10/24 14:45 Pleural Fluid Gram Stain - Final Resulted 12/10/24 14:45 Pleural Fluid Aerobic Culture - Preliminary Resulted Labs and/or images reviewed: Labs reviewed by me, Image(s) reviewed by me Assessment/Plan Assessment/Plan Impression: -acute hypoxic respiratory failure -large right pleural effusion -sepsis, unknown origin -history of DVT -history of polysubstance abuse -primary hypertension -? Metastatic lung CA Plan: Events: Patient more alert following commands. Renal function improved. CT scan of chest, abdomen, pelvis with IV contrast to assess probable metastatic disease. -stool for occult blood -bowel regimen: Please give Dulcolax suppository -change IV fluids to D5 half NS with sodium bicarbonate at 75 mL/hour -continue Clinimix -continue Eliquis -bowel regimen -start antibiotic therapy with Levaquin and Zyvox -O2 supplementation to keep saturation greater than 90% Total time spent with patient discussing and formulating plan of care: 35 minutes. This medical document was created using an electronic medical record system with [employer] dictation system. Although this document has been carefully reviewed, there may still be some phonetic and typographical errors. These areas are purely typographical due to imperfections of the software programs, and do not reflect any compromise in the patient's medical care. Plan discussed with: Patient, Other (RN) My Orders Orders - MARQUEZ [facility] [employer] Procedure Category Date Status Time Urinalysis LAB 12/13/24 Logged 13:30 Urine Bacterial DARIAN 12/13/24 Logged Culture 13:30 Buspirone Hcl Tablet PHA 12/13/24 In Process (Buspar Tablet) 22:[address] 12/13/24 Resulted 13:41 Apixaban (Eliquis) PHA 12/13/24 In Process 22:00 D5w/Sod Chl 0.45% PHA 12/13/24 In Process (D5w 1/2ns) 14:30 Ct Chest/Ab/Pl W Con- CT 12/14/24 Logged Iv Only 08:24 Ct Chest/Ab/Pl W Con- CT 12/14/24 Verified Iv Only 10:08 D5 W Sodium PHA 12/14/24 Verified Bicarbonate Drip 10:15 Date of Service: Dec 14, 2024 Billing Provider: MARQUEZ [facility] [employer] Common Visit Codes: [id number] INP/OBS CARE(HIGH) MARQUEZ ECHEVERRIA NP Dec 14, 2024 10:12
[2024-12-14] MEDS ORDERED: IOHEXOL 300 MG/ML 100ML BOTTLE IJ ONE ×2 (10:15→10:16)
[2024-12-14] MEDS: BISACODYL 10 MG RECT SUPP PR ONE (11:44)
--- NOTE | 2024-12-14 14:35 | DVH ---
Exam: CT CT CHEST/AB/PL W CON- IV ONLY History: Assess for metastatic disease Comparison Study: Liver ultrasound 12/12/2024; CT chest 12/10/2024 Technique: Multidetector spiral CT of the chest, abdomen, and pelvis was performed from the lower nec k to pubic symphysis. Imaging was performed with IV contrast. Axial, coronal and sagittal multiplan ar reformats were obtained from the axial data set by the technologist. Radiation Dose : 1. Abdomen/Pelvis: CTDIvol 13.74 mGy, DLP 929.01 mGy*cm. Contrast: 100 mL omni 300 Findings: External device overlying the right upper chest/ lower neck with adjacent streak artifact. There is also scattered motion artifact. Chest: Thyroid: Grossly unremarkable. Lungs: There is partial collapse of the right upper, middle, and lower lobes (previously complete col lapse of the right lung). Numerous lung nodules in the left lung. The largest nodule is in the left lower lobe and measures 1.1 x 1.0 cm (series 2, image 61). There is a nodule in the left upper lobe that measures up to 7 mm (series 2, image 24). There are right lung nodules which are poorly evaluate d secondary to the pleural effusion and atelectasis. Pleura: Moderate to large right pleural effusion is improved compared to 12/10/2024. Heart/Vascular: Heart is normal in size. No pericardial effusion. There is coronary artery calcifica tion. Moderate atherosclerosis of the thoracic aorta without evidence of aneurysm or dissection. Mediastinum: Shotty lymph nodes which are nonenlarged by size criteria. There is soft tissue nodulari ty within epicardial fat adjacent to the right lung base. Chest wall: There is mild prominence of a left axillary lymph node which measures 1.0 x 1.0 cm and ap pears rounded with loss of the fatty hilum. Abdomen/pelvis: Liver: The liver is normal in size. No focal lesions. Gallbladder and Biliary Tree: Gallbladder is surgically absent. Prominence of the CBD and intrahepati c bile ducts is likely secondary to cholecystectomy. Spleen: Multiple small hypodense splenic lesions (series 2, image 98), the largest measuring up to 1. 1 cm. Pancreas: The pancreas is grossly normal in appearance. Adrenal Glands: Somewhat nodular appearance of the left adrenal gland measuring 1.5 x 1.1 cm. Kidneys: No evidence of hydronephrosis or renal calculi. There are several renal cysts. There is al so a round density at the right inferior renal pole which measures 2.3 x 2.1 x 1.8 cm and attenuates at 59 Hounsfield units. Bladder: Grossly unremarkable for degree of distention. Bowel: The stomach is poorly evaluated due to suboptimal distention. Small bowel and colon are normal in caliber and distribution. There is a focus of fatty attenuation near the rectal/ sigmoid junction which measures 1.5 x 1.1 x 0.8 cm and is indeterminate if this is intramural or intraluminal. There is a short segment of adjacent wall thickening in the sigmoid colon (series 602, image 74) with shoul dered margins at the anterior edge. The appendix is not visualized; however, no secondary findings of acute appendicitis identified. Ascites: Absent Lymphadenopathy: No mesenteric, retroperitoneal or periportal lymphadenopathy. Abdominal Wall and Mesentery: Unremarkable. Vasculature: Moderate atherosclerosis of the abdominal aorta. No evidence of aneurysm. Pelvic Organs: Unremarkable Musculoskeletal: No evidence of acute osseous abnormalities. No evidence of lytic or sclerotic bony l esions. Multilevel degenerative changes in the spine. Degenerative changes in the bilateral shoulders . IMPRESSION: 1. Moderate to large right pleural effusion is decreased compared to 12/10/2024. Partial collapse of the right lung is also improved from prior. 2. Numerous bilateral lung nodules raising concern for pulmonary metastases. 3. Multiple splenic hypodense lesions. This is nonspecific and could be metastatic. 4. Possible solid lesion at the right inferior renal pole that measures up to 2.3 cm. This could be f urther assessed with a multiphasic CT or MRI. 5. Short segment of mild wall thickening in the sigmoid colon. This is nonspecific and neoplasm is no t excluded. There is associated focal fat at the rectal/ sigmoid junction of uncertain significance. Consider direct visualization. 6. Soft tissue nodularity within epicardial fat near the right lung base may be metastatic. Indetermi adriana left axillary lymph node measuring 1.0 cm. 7. Questionable nodularity of the left adrenal gland. 8. Biliary ductal dilatation is likely due to prior cholecystectomy. Radiation optimization: All CT scans at this facility use at least one of these dose optimization alirio hniques: automated exposure control mA and/or kV adjustment per patient size (includes targeted exam s where dose is matched to clinical indication) or iterative reconstruction.
[2024-12-14] MEDS: SODIUM BICARB 50mEq/50ml Vial 50 ML in D5W 5% 1,000 ML IV SCH (14:56)
--- NOTE | 2024-12-14 16:50 | DVHPN2 ---
Progress Note - Dictate Date Seen: Dec 14, 2024 Medical Necessity Reason Pt with a Central, PICC or Fol: No vital signs Vital Sign Date Time Temp Pulse Resp B/P (MAP) Pulse Ox O2 Delivery O2 Flow Rate FiO2 12/14/24 15:03 80 20 180/92 12/14/24 13:00 97.6 95 97.6 12/14/24 08:10 Nasal Cannula* 2 28 Total Intake and Output 12/13/24 12/13/24 12/14/24 15:00 23:00 07:00 Intake Total 1450 ml 450 ml 0 ml Balance 1450 ml 450 ml 0 ml medications Current Medications Medications Dose Ordered Sig/Minerva Route Start Time Stop Time Status Last Admin Dose Admin Atorvastatin Calcium 80 mg HS PO 12/10/24 22:00 12/13/24 22:00 80 MG Nifedipine 90 mg DAILY PO 12/11/24 10:00 12/14/24 11:43 90 MG Albuterol 2.5 mg Q6HPRN PRN NEB 12/10/24 19:15 Cancel Ondansetron HCl 4 mg Q4HP PRN IV 12/10/24 19:15 12/14/24 15:00 4 MG Nitroglycerin 0.4 mg Q5MINP PRN SL 12/10/24 19:15 Morphine Sulfate 2 mg Q30M PRN IV 12/10/24 19:15 12/10/24 20:37 2 MG Acetaminophen/ Hydrocodone Bitart 1 tab Q4HP PRN PO 12/10/24 19:30 12/14/24 12:28 1 TAB Acetaminophen 650 mg Q6HP PRN PO 12/10/24 19:30 Levofloxacin/ Dextrose 100 ml @ 100 mls/hr Q48H IV 12/11/24 08:00 12/13/24 09:28 100 MLS/HR Linezolid 300 ml @ 150 mls/hr Q12HR IV 12/11/24 22:00 12/14/24 11:44 150 MLS/HR Morphine Sulfate 2 mg Q4HPRN PRN IV 12/12/24 02:00 12/14/24 15:03 2 MG Amino Acids 0 ml @ 0 mls/hr PER PHARMACY IV 12/13/24 12:45 Buspirone HCl 5 mg Q12HR PO 12/13/24 22:00 12/14/24 11:42 5 MG Apixaban 5 mg BID PO 12/13/24 22:00 12/14/24 11:42 5 MG Diagnostic Test (Pha) 1 strip Q6HR 12/13/24 18:00 12/14/24 12:15 1 STRIP Insulin Human Regular FOLLOW SLIDING SCALE Q6HR SC 12/13/24 18:00 12/14/24 12:15 2 UNITS Dextrose 50 ml UD IV 12/13/24 14:00 Amino Acids/ Electrolytes/ Dextrose 1,000 ml @ 41 mls/hr DAILY@2200 IV 12/13/24 22:00 12/13/24 22:30 41 MLS/HR Sodium Bicarbonate 50 ml/ Dextrose 1,050 ml @ 75 mls/hr Q14H IV 12/14/24 10:15 12/14/24 14:56 75 MLS/HR laboratory and microbiology Laboratory Tests 12/14/24 07:13 Test 12/14/24 07:13 Range/Units Serum Glucose 140 H 74-106 mg/dL Assessment/Plan Impression lung cancer hypoxemia right pleural effusion atelectases pt seen and examined events low oxygen requirements on 2 liters nasal cannula no distress patient has disseminated cancer prognosis poor, family aware labs and imaging reviewed plan supplemental oxygen cont supportive care pain control/anti-emetics/nebs consider hospice Dietary Evaluation Review Comments: 1) Change Glucerna tid to Nepro tid 2) Encourage optimal PO intake. If poor appetite persists long-term, consider EN/TPN to meet at least 50% of estimated needs 3) Follow-up with oncology, cardiology, pulmonology, and nephrology 4) Continue to monitor I&O, labs, and skin integrity Expected Outcomes/Goals: 1) appetite and labs to improve 2) f/u in 3-5 days Plan discussed with: Patient NELDA BOWIE MD Dec 14, 2024 16:50
[2024-12-14] MEDS: amLODIPine BESYLATE 5 MG TAB PO ONE (18:22)
[2024-12-15] VITALS (9 sets, daily range): BP systolic 148–177; BP diastolic 58–79; PULSE 82–104; RESP 14–20; TEMP 96.7–99.1; O2SAT 90–95
[2024-12-15 08:40] LABS: Basophils # (auto) 0.2 10 ^3/uL (0-0.2); Basophils % (auto) 1.2 % (0.0-2.0); Eosinophils # (auto) 1.6 10 ^3/uL (0-0.8); Eosinophils % (auto) 7.8 % (0.0-7.0); Hemoglobin 9.7 g/dL (12.2-16.2); Lymphocytes # (auto) 1.1 10 ^3/uL (0.4-5.4); Lymphocytes % (auto) 5.2 % (10.0-50.0); Mean Corpuscular Hemoglobin 28.4 pg (28.0-32.0); Mean Corpuscular Hgb Conc. 32.5 g/dL (32.0-36.0); Mean Corpuscular Volume 87.6 fL (80.0-100.0); Monocytes # (auto) 0.7 10 ^3/uL (0-1.3); Monocytes % (auto) 3.2 % (0.0-12.0); Neutrophils # (auto) 16.9 10 ^3/uL (1.6-8.6); Neutrophils % (auto) 82.6 % (37.0-80.0); Platelet Count (auto) 402 10^3/uL (140-450); Red Blood Cells 3.42 10^6/uL (4.0-5.20); Red Cell Distribution Width 14.4 % (11.8-14.3); White Blood Cell 20.5 10^3/uL (4.4-10.8)
[2024-12-15 08:51] LABS: Albumin 3.5 g/dL (3.2-4.8); Anion Gap 10 (5-15); BUN/Creatinine Ratio 29.6 (10.0-20.0); Bilirubin, Total 0.5 mg/dL (0.2-1.0); Calcium 9.9 mg/dL (8.7-10.4); Carbon Dioxide 26 mmol/L (20-31); Chloride 106 mmol/L (98-107); Magnesium 1.8 mg/dL (1.6-2.6); Potassium 3.8 mmol/L (3.5-5.1); Sodium 142 mmol/L (136-145)
[2024-12-15 08:54] LABS: Alanine Aminotransferase 270 U/L (7-40); Aspartate Aminotransferase 101 U/L (<34); Blood Urea Nitrogen 24 mg/dL (9-23); Glucose 139 mg/dL (74-106); Phosphorus 2.1 mg/dL (2.4-5.1)
[2024-12-15 09:02] LABS: Alkaline Phosphatase 1013 U/L (46-116)
[2024-12-15] MEDS: amLODIPine BESYLATE 5 MG TAB PO SCH (09:10)
--- NOTE | 2024-12-15 11:18 | DVHPN2 ---
Subjective Continues to have nausea no vomiting. Reviewed: Care Plan Changes from previous H/P or p: No Changes General: Per HPI Objective Vitals Vital Signs Date Time Temp Pulse Resp B/P (MAP) Pulse Ox O2 Delivery O2 Flow Rate FiO2 12/15/24 09:11 177/91 12/15/24 09:00 99.1 104 20 95 99.1 12/15/24 07:52 Nasal Cannula* 2 28 Intake/Output Intake and Output 12/15/24 07:00 Intake Total 300 ml Balance 300 ml Intake Oral 0 ml IV Total 300 ml # Voids 7 # Bowel Movements 2 General Appearance: Alert, Oriented X3, Cooperative, Other (Oriented to name and place) HEENT: Atraumatic, PERRLA Lungs: Other (Decreased breath sounds in right lung) Cardiovascular: Normal S1, Normal S2 Musculoskeletal: Normal sensory function, Normal motor function Neuro: Cranial nerves 3-12 NL Skin: Dry, Intact Psych/Mental Status: Mental status NL, Mood NL Medications Current Medications Medications Dose Ordered Sig/Minerva Route Start Time Stop Time Status Last Admin Dose Admin Atorvastatin Calcium 80 mg HS PO 12/10/24 22:00 12/14/24 22:36 80 MG Nifedipine 90 mg DAILY PO 12/11/24 10:00 12/15/24 09:11 90 MG Albuterol 2.5 mg Q6HPRN PRN NEB 12/10/24 19:15 Cancel Ondansetron HCl 4 mg Q4HP PRN IV 12/10/24 19:15 Hold 12/14/24 15:00 4 MG Nitroglycerin 0.4 mg Q5MINP PRN SL 12/10/24 19:15 Morphine Sulfate 2 mg Q30M PRN IV 12/10/24 19:15 12/10/24 20:37 2 MG Acetaminophen/ Hydrocodone Bitart 1 tab Q4HP PRN PO 12/10/24 19:30 12/15/24 09:10 1 TAB Acetaminophen 650 mg Q6HP PRN PO 12/10/24 19:30 Levofloxacin/ Dextrose 100 ml @ 100 mls/hr Q48H IV 12/11/24 08:00 12/15/24 08:57 100 MLS/HR Linezolid 300 ml @ 150 mls/hr Q12HR IV 12/11/24 22:00 12/14/24 22:00 150 MLS/HR Amino Acids 0 ml @ 0 mls/hr PER PHARMACY IV 12/13/24 12:45 Buspirone HCl 5 mg Q12HR PO 12/13/24 22:00 12/15/24 09:10 5 MG Apixaban 5 mg BID PO 12/13/24 22:00 12/15/24 09:09 5 MG Diagnostic Test (Pha) 1 strip Q6HR 12/13/24 18:00 12/15/24 06:43 1 STRIP Insulin Human Regular FOLLOW SLIDING SCALE Q6HR SC 12/13/24 18:00 12/15/24 06:41 2 UNITS Dextrose 50 ml UD IV 12/13/24 14:00 Amino Acids/ Electrolytes/ Dextrose 1,000 ml @ 41 mls/hr DAILY@2200 IV 12/13/24 22:00 12/14/24 22:36 41 MLS/HR Amlodipine Besylate 10 mg DAILY PO 12/15/24 10:00 12/15/24 09:10 10 MG Lorazepam 0.5 mg Q12HP PRN IV 12/15/24 10:45 Sodium Bicarbonate 50 ml/ Dextrose 1,050 ml @ 50 mls/hr Q21H IV 12/15/24 11:00 Morphine Sulfate 2 mg Q3HPRN PRN IV 12/15/24 11:00 Metoclopramide HCl 10 mg Q8HPRN PRN IV 12/15/24 11:00 Laboratory Results Laboratory Tests 12/15/24 08:16 Chemistry Test 12/15/24 08:16 Albumin 3.5 g/dL (3.2-4.8) Calcium Level 9.9 mg/dL (8.7-10.4) Magnesium Level 1.8 mg/dL (1.6-2.6) Phosphorus Level 2.1 mg/dL (2.4-5.1) L Total Protein 6.0 g/dL (5.7-8.2) LFT Test 12/15/24 08:16 Alanine Aminotransferase (ALT) 270 U/L (7-40) H Alkaline Phosphatase 1013 U/L (46-116) H Aspartate Amino Transferase (AST) 101 U/L (<34) H Total Bilirubin 0.5 mg/dL (0.2-1.0) Microbiology Microbiology Date/Time Source Procedure Growth Status 12/11/24 03:10 Nose MRSA Screen - Final Complete 12/10/24 14:45 Pleural Fluid Gram Stain - Final Complete 12/10/24 14:45 Pleural Fluid Aerobic Culture - Final Complete Labs and/or images reviewed: Labs reviewed by me, Image(s) reviewed by me Assessment/Plan Assessment/Plan Impression: -acute hypoxic respiratory failure -large right pleural effusion -sepsis, unknown origin -history of DVT -history of polysubstance abuse -primary hypertension -? Metastatic lung CA Plan: Events: Patient more alert following commands. Nausea improving. Renal function improving. CT scan of chest, abdomen, pelvis with IV contrast reviewed with the patient and family who were bedside. Questions answered. -stool for occult blood -bowel regimen: Please give Dulcolax suppository -change IV fluids to D5 half NS with sodium bicarbonate at 75 mL/hour -continue Clinimix -continue Eliquis -bowel regimen -start antibiotic therapy with Levaquin and Zyvox -O2 supplementation to keep saturation greater than 90% Total time spent with patient discussing and formulating plan of care: 35 minutes. Total time spent with patient and family regarding advance care plannin minutes. This medical document was created using an electronic medical record system with [employer] dictation system. Although this document has been carefully reviewed, there may still be some phonetic and typographical errors. These areas are purely typographical due to imperfections of the software programs, and do not reflect any compromise in the patient's medical care. Plan discussed with: Patient, Other (RN) My Orders Orders - MARQUEZ ECHEVERRIA NP Procedure Category Date Status Time Lorazepam 2mg/Ml Inj PHA 12/15/24 In Process (Ativan Inj) 10:45 D5w 5% (Dextrose 5%) PHA 12/15/24 In Process W/Sodium Bicarb 50m 11:00 Morphine Sulfate PHA 12/15/24 In Process Injection 11:00 Metoclopramide PHA 12/15/24 In Process Injection (Reglan 11:00 Date of Service: Dec 15, 2024 Billing Provider: MARQUEZ ECHEVERRIA NP Common Visit Codes: [id number] INP/OBS CARE(HIGH) Secondary Visit Codes: [id number] CARE PLAN 30 MINUTES MARQUEZ ECHEVERRIA NP Dec 15, 2024 11:17
[2024-12-15] MEDS: MORPHINE SULFATE 4 MG/ML SYR/VIAL IV PRN (11:24)
[2024-12-15] MEDS: SODIUM BICARB 50mEq/50ml Vial 50 ML in D5W 5% 1,000 ML IV SCH (11:25)
[2024-12-15] MEDS ORDERED: hydrALAZINE HCL 20 MG/ML VL IV PRN (11:45)
[2024-12-15] MEDS: METOCLOPRAMIDE HCL 5MG/ml INJ 2ml VIAL IV PRN (13:01)
[2024-12-15] MEDS: POTASSIUM PHOSPHATE 26.4 MEQ in SODIUM CHL 0.9% 100 ML IV ONE (14:30)
[2024-12-15] MEDS: LORazepam 2MG/ML-1ML VIAL IV PRN (17:38)
--- NOTE | 2024-12-15 18:46 | DVHPN2 ---
Progress Note - Dictate Date Seen: Dec 15, 2024 Medical Necessity Reason Pt with a Central, PICC or Fol: No vital signs Vital Sign Date Time Temp Pulse Resp B/P (MAP) Pulse Ox O2 Delivery O2 Flow Rate FiO2 12/15/24 16:59 97.9 90 20 160/69 (99) 92 97.9 12/15/24 07:52 Nasal Cannula* 2 28 Total Intake and Output 12/14/24 12/14/24 12/15/24 15:00 23:00 07:00 Intake Total 300 ml 0 ml 0 ml Balance 300 ml 0 ml 0 ml medications Current Medications Medications Dose Ordered Sig/Minerva Route Start Time Stop Time Status Last Admin Dose Admin Atorvastatin Calcium 80 mg HS PO 12/10/24 22:00 12/14/24 22:36 80 MG Nifedipine 90 mg DAILY PO 12/11/24 10:00 12/15/24 09:11 90 MG Albuterol 2.5 mg Q6HPRN PRN NEB 12/10/24 19:15 Cancel Ondansetron HCl 4 mg Q4HP PRN IV 12/10/24 19:15 Hold 12/14/24 15:00 4 MG Nitroglycerin 0.4 mg Q5MINP PRN SL 12/10/24 19:15 Morphine Sulfate 2 mg Q30M PRN IV 12/10/24 19:15 12/10/24 20:37 2 MG Acetaminophen/ Hydrocodone Bitart 1 tab Q4HP PRN PO 12/10/24 19:30 12/15/24 09:10 1 TAB Acetaminophen 650 mg Q6HP PRN PO 12/10/24 19:30 Linezolid 300 ml @ 150 mls/hr Q12HR IV 12/11/24 22:00 12/15/24 10:47 150 MLS/HR Amino Acids 0 ml @ 0 mls/hr PER PHARMACY IV 12/13/24 12:45 Buspirone HCl 5 mg Q12HR PO 12/13/24 22:00 12/15/24 09:10 5 MG Apixaban 5 mg BID PO 12/13/24 22:00 12/15/24 09:09 5 MG Diagnostic Test (Pha) 1 strip Q6HR 12/13/24 18:00 12/15/24 12:00 1 STRIP Insulin Human Regular FOLLOW SLIDING SCALE Q6HR SC 12/13/24 18:00 12/15/24 12:57 2 UNITS Dextrose 50 ml UD IV 12/13/24 14:00 Amino Acids/ Electrolytes/ Dextrose 1,000 ml @ 41 mls/hr DAILY@2200 IV 12/13/24 22:00 12/14/24 22:36 41 MLS/HR Lorazepam 0.5 mg Q12HP PRN IV 12/15/24 10:45 12/15/24 17:38 0.5 MG Sodium Bicarbonate 50 ml/ Dextrose 1,050 ml @ 50 mls/hr Q21H IV 12/15/24 11:00 12/15/24 11:25 50 MLS/HR Morphine Sulfate 2 mg Q3HPRN PRN IV 12/15/24 11:00 12/15/24 16:08 2 MG Metoclopramide HCl 10 mg Q8HPRN PRN IV 12/15/24 11:00 12/15/24 13:01 10 MG Hydralazine HCl 10 mg Q6HP PRN IV 12/15/24 11:45 Levofloxacin/ Dextrose 100 ml @ 100 mls/hr DAILY IV 12/16/24 10:00 laboratory and microbiology Laboratory Tests 12/15/24 08:16 Test 12/15/24 08:16 Range/Units Serum Glucose 139 H 74-106 mg/dL Assessment/Plan Impression lung cancer hypoxemia right pleural effusion atelectases pt seen and examined events low oxygen requirements on 2 liters nasal cannula no acute events labs and imaging reviewed plan supplemental oxygen cont supportive care pain control/anti-emetics/nebs patient has disseminated cancer prognosis poor, family aware consider hospice Dietary Evaluation Review Comments: 1) Change Glucerna tid to Nepro tid 2) Encourage optimal PO intake. If poor appetite persists long-term, consider EN/TPN to meet at least 50% of estimated needs 3) Follow-up with oncology, cardiology, pulmonology, and nephrology 4) Continue to monitor I&O, labs, and skin integrity Expected Outcomes/Goals: 1) appetite and labs to improve 2) f/u in 3-5 days Plan discussed with: Patient NELDA BOWIE MD Dec 15, 2024 18:46
--- NOTE | 2024-12-15 19:31 | DVH ---
EXAM: MRI BRAIN HEAD WO CONTRAST INDICATION: metastatic disease TECHNIQUE: Multiplanar, multisequence imaging of the brain without contrast. COMPARISON: MRI BRAIN HEAD WO CONTRAST on DOS: 09/28/24 FINDINGS: Significantly limited evaluation secondary to prominent patient motion and without contrast [PARENCHYMA]: Significantly limited evaluation. No mass effect or herniation. No abnormal susceptibil ity weighted artifact. No abnormal enhancement. periventricular and centrum semiovale T2/FLAIR hyperi ntensities, which are nonspecific but most likely represent chronic microvascular ischemic change. No definitive abnormal diffusion restriction with the areas of diffusely distributed T2 shine through [VENTRICLES]: No hydrocephalus. [EXTRA-AXIAL SPACES]: No extra-axial fluid collections. [FLOW VOIDS]: The flow voids are intact. [EXTRA-CRANIAL STRUCTURES]: The bony structures are intact. Mild scattered paranasal sinus mucosal th ickening. IMPRESSION: 1. Significantly limited evaluation without intravenous contrast and patient motion and therefore can not accurately assess for metastatic disease. 2. Moderate to severe presumed chronic microangiopathic change.
[2024-12-16] VITALS (8 sets, daily range): BP systolic 117–168; BP diastolic 55–71; PULSE 75–95; RESP 16–19; TEMP 96.5–98.2; O2SAT 92–97
[2024-12-16] MEDS: levoFLOXacin 500MG 100 ML IV SCH (08:58)
[2024-12-16 09:09] LABS: Basophils # (auto) 0.2 10 ^3/uL (0-0.2); Basophils % (auto) 0.9 % (0.0-2.0); Eosinophils # (auto) 2.7 10 ^3/uL (0-0.8); Eosinophils % (auto) 14.8 % (0.0-7.0); Hematocrit 26.7 % (36.0-46.0); Lymphocytes # (auto) 1.5 10 ^3/uL (0.4-5.4); Lymphocytes % (auto) 8.1 % (10.0-50.0); Mean Corpuscular Hemoglobin 29.3 pg (28.0-32.0); Mean Corpuscular Hgb Conc. 33.5 g/dL (32.0-36.0); Mean Corpuscular Volume 87.6 fL (80.0-100.0); Monocytes # (auto) 0.9 10 ^3/uL (0-1.3); Neutrophils # (auto) 12.9 10 ^3/uL (1.6-8.6); Neutrophils % (auto) 71.2 % (37.0-80.0); Platelet Count (auto) 376 10^3/uL (140-450); Red Blood Cells 3.05 10^6/uL (4.0-5.20); Red Cell Distribution Width 14.2 % (11.8-14.3); White Blood Cell 18.1 10^3/uL (4.4-10.8)
[2024-12-16 09:20] LABS: Anion Gap 6 (5-15); Calcium 9.3 mg/dL (8.7-10.4); Carbon Dioxide 27 mmol/L (20-31); Chloride 107 mmol/L (98-107); Glucose 98 mg/dL (74-106); Potassium 4.3 mmol/L (3.5-5.1); Sodium 140 mmol/L (136-145)
[2024-12-16 09:21] LABS: Phosphorus 3.9 mg/dL (2.4-5.1)
[2024-12-16 09:23] LABS: Alanine Aminotransferase 319 U/L (7-40); Albumin 3.1 g/dL (3.2-4.8); Aspartate Aminotransferase 254 U/L (<34); Blood Urea Nitrogen 26 mg/dL (9-23); Total Protein 5.2 g/dL (5.7-8.2)
[2024-12-16 10:16] LABS: Alkaline Phosphatase 1349 U/L (46-116)
[2024-12-16 10:42] LABS: Magnesium 1.9 mg/dL (1.6-2.6)
--- NOTE | 2024-12-16 12:26 | DVHPN2 ---
Subjective Nausea and vomiting improved Reviewed: Care Plan, H&P, Labs, Medications Changes from previous H/P or p: No Changes General: Per HPI Objective Vitals Vital Signs Date Time Temp Pulse Resp B/P (MAP) Pulse Ox O2 Delivery O2 Flow Rate FiO2 12/16/24 09:43 88 18 114/48 12/16/24 09:00 97.4 92 97.4 12/16/24 08:00 Nasal Cannula* 2 28 Intake/Output Intake and Output 12/16/24 07:00 Intake Total 1760 ml Balance 1760 ml Intake Oral 360 ml IV Total 1400 ml # Voids 5 General Appearance: Alert, Oriented X3, Cooperative, Other (Oriented to name and place) HEENT: Atraumatic, PERRLA Lungs: Other (Decreased breath sounds in right lung) Cardiovascular: Normal S1, Normal S2 Musculoskeletal: Normal sensory function, Normal motor function Neuro: Cranial nerves 3-12 NL Skin: Dry, Intact Psych/Mental Status: Mental status NL, Mood NL Medications Current Medications Medications Dose Ordered Sig/Minerva Route Start Time Stop Time Status Last Admin Dose Admin Atorvastatin Calcium 80 mg HS PO 12/10/24 22:00 12/15/24 21:44 80 MG Nifedipine 90 mg DAILY PO 12/11/24 10:00 12/16/24 09:11 90 MG Albuterol 2.5 mg Q6HPRN PRN NEB 12/10/24 19:15 Cancel Ondansetron HCl 4 mg Q4HP PRN IV 12/10/24 19:15 Hold 12/14/24 15:00 4 MG Nitroglycerin 0.4 mg Q5MINP PRN SL 12/10/24 19:15 Morphine Sulfate 2 mg Q30M PRN IV 12/10/24 19:15 12/10/24 20:37 2 MG Acetaminophen/ Hydrocodone Bitart 1 tab Q4HP PRN PO 12/10/24 19:30 12/15/24 09:10 1 TAB Acetaminophen 650 mg Q6HP PRN PO 12/10/24 19:30 Linezolid 300 ml @ 150 mls/hr Q12HR IV 12/11/24 22:00 12/16/24 10:13 150 MLS/HR Amino Acids 0 ml @ 0 mls/hr PER PHARMACY IV 12/13/24 12:45 Buspirone HCl 5 mg Q12HR PO 12/13/24 22:00 12/16/24 09:10 5 MG Apixaban 5 mg BID PO 12/13/24 22:00 12/15/24 09:09 5 MG Diagnostic Test (Pha) 1 strip Q6HR 12/13/24 18:00 12/16/24 12:04 1 STRIP Insulin Human Regular FOLLOW SLIDING SCALE Q6HR SC 12/13/24 18:00 12/16/24 00:26 2 UNITS Dextrose 50 ml UD IV 12/13/24 14:00 Amino Acids/ Electrolytes/ Dextrose 1,000 ml @ 41 mls/hr DAILY@2200 IV 12/13/24 22:00 12/15/24 21:45 41 MLS/HR Lorazepam 0.5 mg Q12HP PRN IV 12/15/24 10:45 12/16/24 11:35 0.5 MG Sodium Bicarbonate 50 ml/ Dextrose 1,050 ml @ 50 mls/hr Q21H IV 12/15/24 11:00 12/15/24 11:25 50 MLS/HR Morphine Sulfate 2 mg Q3HPRN PRN IV 12/15/24 11:00 12/16/24 09:13 2 MG Metoclopramide HCl 10 mg Q8HPRN PRN IV 12/15/24 11:00 12/16/24 06:26 10 MG Hydralazine HCl 10 mg Q6HP PRN IV 12/15/24 11:45 Levofloxacin/ Dextrose 100 ml @ 100 mls/hr DAILY IV 12/16/24 10:00 12/16/24 08:58 100 MLS/HR Laboratory Results Laboratory Tests 12/16/24 08:33 Chemistry Test 12/16/24 08:33 Albumin 3.1 g/dL (3.2-4.8) L Calcium Level 9.3 mg/dL (8.7-10.4) Magnesium Level 1.9 mg/dL (1.6-2.6) Phosphorus Level 3.9 mg/dL (2.4-5.1) Total Protein 5.2 g/dL (5.7-8.2) L LFT Test 12/16/24 08:33 Alanine Aminotransferase (ALT) 319 U/L (7-40) H Alkaline Phosphatase 1349 U/L (46-116) H Aspartate Amino Transferase (AST) 254 U/L (<34) H Total Bilirubin 1.0 mg/dL (0.2-1.0) Microbiology Microbiology Date/Time Source Procedure Growth Status 12/11/24 03:10 Nose MRSA Screen - Final Complete 12/10/24 14:45 Pleural Fluid Gram Stain - Final Complete 12/10/24 14:45 Pleural Fluid Aerobic Culture - Final Complete Labs and/or images reviewed: Labs reviewed by me, Image(s) reviewed by me Assessment/Plan Assessment/Plan Impression: -acute hypoxic respiratory failure -large right pleural effusion -sepsis, unknown origin -history of DVT -history of polysubstance abuse -primary hypertension -pulmonary adenocarcinoma Plan: Events: Patient more alert. Nausea resolving. Still has poor oral intake. MRI of the brain noncontributory given motion artifact -continue bowel regimen -PICC line placement, start TPN -Eliquis to be held for PleurX catheter placement -continue antibiotic therapy with Levaquin and Zyvox -O2 supplementation to keep saturation greater than 90% -repeat labs in a.m. -long discussion made with patient's family yesterday afternoon regarding findings on pathology report. Patient positive for adenocarcinoma with pulmonary metastasis Total time spent with patient discussing and formulating plan of care: 35 minutes. Total time spent with patient and family regarding advance care plannin minutes. This medical document was created using an electronic medical record system with [employer] dictation system. Although this document has been carefully reviewed, there may still be some phonetic and typographical errors. These areas are purely typographical due to imperfections of the software programs, and do not reflect any compromise in the patient's medical care. Plan discussed with: Patient, Other (RN) My Orders Orders - MARQUEZ ECHEVERRIA NP Procedure Category Date Status Time Transfer Orders XFER 12/15/24 Transmitted 13:00 Brain Head Wo Contrast MRI 12/15/24 Resulted 16:54 Levofloxacin 500mg PHA 12/16/24 In Process (Levaquin 500mg/ 100m 10:00 Date of Service: Dec 16, 2024 Billing Provider: MARQUEZ ECHEVERRIA NP Common Visit Codes: [id number] INP/OBS CARE(HIGH) MARQUEZ ECHEVERRIA NP Dec 16, 2024 12:26
--- NOTE | 2024-12-16 12:35 | ECG ---
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
--- NOTE | 2024-12-16 14:09 | DVHPN2 ---
Progress Note - Dictate Date Seen: Dec 16, 2024 Medical Necessity Reason Pt with a Central, PICC or Fol: No vital signs Vital Sign Date Time Temp Pulse Resp B/P (MAP) Pulse Ox O2 Delivery O2 Flow Rate FiO2 12/16/24 13:00 96.5 91 16 164/65 (98) 92 96.5 12/16/24 08:00 Nasal Cannula* 2 28 Total Intake and Output 12/15/24 12/15/24 12/16/24 15:00 23:00 07:00 Intake Total 400 ml 860 ml 500 ml Balance 400 ml 860 ml 500 ml medications Current Medications Medications Dose Ordered Sig/Minerva Route Start Time Stop Time Status Last Admin Dose Admin Atorvastatin Calcium 80 mg HS PO 12/10/24 22:00 12/15/24 21:44 80 MG Nifedipine 90 mg DAILY PO 12/11/24 10:00 12/16/24 09:11 90 MG Albuterol 2.5 mg Q6HPRN PRN NEB 12/10/24 19:15 Cancel Ondansetron HCl 4 mg Q4HP PRN IV 12/10/24 19:15 Hold 12/14/24 15:00 4 MG Nitroglycerin 0.4 mg Q5MINP PRN SL 12/10/24 19:15 Morphine Sulfate 2 mg Q30M PRN IV 12/10/24 19:15 12/10/24 20:37 2 MG Acetaminophen/ Hydrocodone Bitart 1 tab Q4HP PRN PO 12/10/24 19:30 12/15/24 09:10 1 TAB Acetaminophen 650 mg Q6HP PRN PO 12/10/24 19:30 Linezolid 300 ml @ 150 mls/hr Q12HR IV 12/11/24 22:00 12/16/24 10:13 150 MLS/HR Amino Acids 0 ml @ 0 mls/hr PER PHARMACY IV 12/13/24 12:45 Buspirone HCl 5 mg Q12HR PO 12/13/24 22:00 12/16/24 09:10 5 MG Apixaban 5 mg BID PO 12/13/24 22:00 12/15/24 09:09 5 MG Diagnostic Test (Pha) 1 strip Q6HR 12/13/24 18:00 12/16/24 12:04 1 STRIP Insulin Human Regular FOLLOW SLIDING SCALE Q6HR SC 12/13/24 18:00 12/16/24 00:26 2 UNITS Dextrose 50 ml UD IV 12/13/24 14:00 Amino Acids/ Electrolytes/ Dextrose 1,000 ml @ 41 mls/hr DAILY@2200 IV 12/13/24 22:00 12/15/24 21:45 41 MLS/HR Lorazepam 0.5 mg Q12HP PRN IV 12/15/24 10:45 12/16/24 11:35 0.5 MG Sodium Bicarbonate 50 ml/ Dextrose 1,050 ml @ 50 mls/hr Q21H IV 12/15/24 11:00 12/15/24 11:25 50 MLS/HR Morphine Sulfate 2 mg Q3HPRN PRN IV 12/15/24 11:00 12/16/24 09:13 2 MG Metoclopramide HCl 10 mg Q8HPRN PRN IV 12/15/24 11:00 12/16/24 06:26 10 MG Hydralazine HCl 10 mg Q6HP PRN IV 12/15/24 11:45 Levofloxacin/ Dextrose 100 ml @ 100 mls/hr DAILY IV 12/16/24 10:00 12/16/24 08:58 100 MLS/HR Megestrol Acetate 400 mg DAILY PO 12/16/24 12:45 laboratory and microbiology Laboratory Tests 12/16/24 08:33 Test 12/16/24 08:33 Range/Units Serum Glucose 98 74-106 mg/dL Assessment/Plan Impression lung cancer hypoxemia right pleural effusion atelectases pt seen and examined events low oxygen requirements on 2 liters nasal cannula no acute events adenocarcinoma confirmed family still undecided on goals of care labs and imaging reviewed plan supplemental oxygen cont supportive care pain control/anti-emetics/nebs patient has disseminated cancer adenocarcinoma confirmed prognosis poor, family aware goals of care undecided continue to hold Eliquis for pleurX placement Dietary Evaluation Review Comments: 1) Change Glucerna tid to Nepro tid 2) Encourage optimal PO intake. If poor appetite persists long-term, consider EN/TPN to meet at least 50% of estimated needs 3) Follow-up with oncology, cardiology, pulmonology, and nephrology 4) Continue to monitor I&O, labs, and skin integrity Expected Outcomes/Goals: 1) appetite and labs to improve 2) f/u in 3-5 days Plan discussed with: Patient NELDA BOWIE MD Dec 16, 2024 14:09
[2024-12-16] MEDS: MEGESTROL ACET 400MG/10ML ORAL SUSP PO SCH (15:02)
[2024-12-16 17:21] LABS: INR 1.3 (0.9-1.15); Partial Thromboplastin Time 28.5 SEC (24.5-34.5); Prothrombin Time 13.4 sec (9.3-11.8)
[2024-12-17] VITALS (7 sets, daily range): BP systolic 124–153; BP diastolic 57–79; PULSE 91–102; RESP 14–19; TEMP 97.7–98.5; O2SAT 95–98
[2024-12-17 05:37] LABS: Hematocrit 30.3 % (36.0-46.0); Hemoglobin 9.8 g/dL (12.2-16.2); Mean Corpuscular Hemoglobin 28.5 pg (28.0-32.0); Mean Corpuscular Hgb Conc. 32.5 g/dL (32.0-36.0); Mean Corpuscular Volume 87.8 fL (80.0-100.0); Platelet Count (auto) 410 10^3/uL (140-450); Red Blood Cells 3.45 10^6/uL (4.0-5.20); Red Cell Distribution Width 14.8 % (11.8-14.3); White Blood Cell 20.4 10^3/uL (4.4-10.8)
[2024-12-17 05:44] LABS: Band Neutrophils % (manual) 0; Basophils % (manual) 0 (0.0-2.0); Blast Cells 0; Metamyelocytes % 0; Myelocytes % 0; Promyelocytes % 0; Reactive Lymphocytes 0
[2024-12-17 05:59] LABS: Anion Gap 10 (5-15); BUN/Creatinine Ratio 21.9 (10.0-20.0); Blood Urea Nitrogen 21 mg/dL (9-23); Carbon Dioxide 25 mmol/L (20-31); Chloride 104 mmol/L (98-107); Magnesium 1.8 mg/dL (1.6-2.6); Phosphorus 2.4 mg/dL (2.4-5.1); Potassium 3.6 mmol/L (3.5-5.1); Sodium 139 mmol/L (136-145)
[2024-12-17 06:01] LABS: Alanine Aminotransferase 351 U/L (7-40); Albumin 3.1 g/dL (3.2-4.8); Aspartate Aminotransferase 265 U/L (<34); Bilirubin, Total 1.7 mg/dL (0.2-1.0); Calcium 8.7 mg/dL (8.7-10.4); Glucose 133 mg/dL (74-106)
[2024-12-17 06:05] LABS: Eosinophils % (manual) 20 (0-7); Lymphocytes % (manual) 14 (10.0-50.0); Monocytes % (manual) 2 (0-12)
[2024-12-17 06:06] LABS: Giant Platelets Few; Large Platelets FEW; Platelet Estimate Adequate
[2024-12-17 06:11] LABS: Alkaline Phosphatase 1511 U/L (46-116)
[2024-12-17] MEDS ORDERED: TPN PER PHARMACY 0 ML IV SCH ×2 (11:30)
--- NOTE | 2024-12-17 12:32 | DVH ---
EXAM: XY CHEST XRAY 1 VIEW CLINICAL HISTORY: pleural effusion TECHNIQUE: Single AP view of the chest WID: COMPARISON: XY CHEST PORTABLE on DOS: 12/12/24 FINDINGS: Lines and tubes: None Chest: The heart size and pulmonary vasculature is within normal limits. Plaque projects over the thoracic a tiera. Large partially loculated right pleural effusion and opacification of the right lung. No pneumothorax . Tiny nodular opacities in the bilateral lungs. The osseous structures are grossly intact. IMPRESSION: 1. Large partially loculated right pleural effusion with opacification of the right lung likely atele ctasis and/or pneumonia. 2. Tiny nodular opacities in the bilateral lungs seen to better advantage on recent CT chest
[2024-12-17] MEDS: MEROPENEM 1GM IVPB 50 ML IV SCH (12:59)
[2024-12-17] MEDS: LIDOCAINE 1% (LOCAL ANESTH.) PF 5ml SDV ID ONE (14:36)
--- NOTE | 2024-12-17 15:33 | DVHPN2 ---
Subjective Patient has poor appetite. Intermittent nausea. Reviewed: Care Plan, H&P, Labs, Medications Changes from previous H/P or p: No Changes General: Per HPI Objective Vitals Vital Signs Date Time Temp Pulse Resp B/P (MAP) Pulse Ox O2 Delivery O2 Flow Rate FiO2 12/17/24 09:30 98.4 93 14 153/78 (103) 95 98.4 12/17/24 08:00 Nasal Cannula* 2 28 Intake/Output Intake and Output 12/17/24 07:00 Intake Total 1275 ml Balance 1275 ml Intake Oral 875 ml IV Total 400 ml General Appearance: Alert, Oriented X3, Cooperative, Other (Oriented to name and place) HEENT: Atraumatic, PERRLA Lungs: Other (Decreased breath sounds in right lung) Cardiovascular: Normal S1, Normal S2 Musculoskeletal: Normal sensory function, Normal motor function Neuro: Cranial nerves 3-12 NL Skin: Dry, Intact Psych/Mental Status: Mental status NL, Mood NL Medications Current Medications Medications Dose Ordered Sig/Minerva Route Start Time Stop Time Status Last Admin Dose Admin Atorvastatin Calcium 80 mg HS PO 12/10/24 22:00 12/16/24 23:06 80 MG Nifedipine 90 mg DAILY PO 12/11/24 10:00 12/17/24 08:57 90 MG Albuterol 2.5 mg Q6HPRN PRN NEB 12/10/24 19:15 Cancel Ondansetron HCl 4 mg Q4HP PRN IV 12/10/24 19:15 12/17/24 11:54 4 MG Nitroglycerin 0.4 mg Q5MINP PRN SL 12/10/24 19:15 Morphine Sulfate 2 mg Q30M PRN IV 12/10/24 19:15 12/10/24 20:37 2 MG Acetaminophen/ Hydrocodone Bitart 1 tab Q4HP PRN PO 12/10/24 19:30 12/15/24 09:10 1 TAB Acetaminophen 650 mg Q6HP PRN PO 12/10/24 19:30 Linezolid 300 ml @ 150 mls/hr Q12HR IV 12/11/24 22:00 12/17/24 10:15 150 MLS/HR Buspirone HCl 5 mg Q12HR PO 12/13/24 22:00 12/17/24 08:57 5 MG Diagnostic Test (Pha) 1 strip Q6HR 12/13/24 18:00 12/17/24 11:54 1 STRIP Insulin Human Regular FOLLOW SLIDING SCALE Q6HR SC 12/13/24 18:00 12/17/24 11:55 4 UNITS Dextrose 50 ml UD IV 12/13/24 14:00 Morphine Sulfate 2 mg Q3HPRN PRN IV 12/15/24 11:00 12/17/24 05:00 2 MG Metoclopramide HCl 10 mg Q8HPRN PRN IV 12/15/24 11:00 12/17/24 04:59 10 MG Hydralazine HCl 10 mg Q6HP PRN IV 12/15/24 11:45 Megestrol Acetate 400 mg DAILY PO 12/16/24 12:45 12/17/24 08:57 400 MG Meropenem 50 ml @ 17 mls/hr Q8HR IV 12/17/24 14:00 12/17/24 12:59 17 MLS/HR Amino Acids 0 ml @ 0 mls/hr PER PHARMACY IV 12/17/24 11:30 Amino Acids 0 ml @ 0 mls/hr PER PHARMACY IV 12/17/24 11:30 UNV Sodium Chloride 10 ml QSHIFT@10,22 IV 12/17/24 22:00 Temazepam 15 mg HSPRN PRN PO 12/17/24 15:00 Laboratory Results Laboratory Tests 12/17/24 05:19 Chemistry Test 12/17/24 05:19 Albumin 3.1 g/dL (3.2-4.8) L Calcium Level 8.7 mg/dL (8.7-10.4) Magnesium Level 1.8 mg/dL (1.6-2.6) Phosphorus Level 2.4 mg/dL (2.4-5.1) Total Protein 5.0 g/dL (5.7-8.2) L Coagulation Test 12/16/24 16:46 Prothrombin Time 13.4 sec (9.3-11.8) H Prothrombin Time INR 1.30 (0.9-1.15) H Activated Partial Thromboplast Time 28.5 SEC (24.5-34.5) LFT Test 12/17/24 05:19 Alanine Aminotransferase (ALT) 351 U/L (7-40) H Alkaline Phosphatase 1511 U/L (46-116) H Aspartate Amino Transferase (AST) 265 U/L (<34) H Total Bilirubin 1.7 mg/dL (0.2-1.0) H Microbiology Microbiology Date/Time Source Procedure Growth Status 12/11/24 03:10 Nose MRSA Screen - Final Complete 12/10/24 14:45 Pleural Fluid Gram Stain - Final Complete 12/10/24 14:45 Pleural Fluid Aerobic Culture - Final Complete Labs and/or images reviewed: Labs reviewed by me, Image(s) reviewed by me Assessment/Plan Assessment/Plan Impression: -acute hypoxic respiratory failure -large right pleural effusion -sepsis, unknown origin -history of DVT -history of polysubstance abuse -primary hypertension -pulmonary adenocarcinoma Plan: Events: Chest x-ray with worsening right pleural effusion. Discussed with director of sports medicine. Plans for PleurX catheter -continue bowel regimen -PICC line placement, start TPN -Eliquis to be held for PleurX catheter placement -antibiotic therapy: Zyvox, Merrem -O2 supplementation to keep saturation greater than 90% -repeat labs in a.m. -long discussion made with patient's family yesterday afternoon regarding findings on pathology report. Patient positive for adenocarcinoma with pulmonary metastasis Total time spent with patient discussing and formulating plan of care: 35 minutes. Total time spent with patient and family regarding advance care plannin minutes. This medical document was created using an electronic medical record system with [employer] dictation system. Although this document has been carefully reviewed, there may still be some phonetic and typographical errors. These areas are purely typographical due to imperfections of the software programs, and do not reflect any compromise in the patient's medical care. Plan discussed with: Patient, Other (RN) My Orders Orders - MARQUEZ ECHEVERRIA RN PACU Procedure Category Date Status Time Pt Request For Service PT 12/17/24 Logged 10:47 PICC BD 12/17/24 Transmitted 11:18 Chest Xray 1 View XY 12/17/24 Resulted 11:20 Meropenem 1gm Ivpb PHA 12/17/24 In Process (Merrem 1gm/ Ns) 14:00 Tpn Per Pharmacy PHA 12/17/24 In Process 11:30 Comprehensive LAB 12/18/24 Verified Metabolic Panel 04:00 Magnesium LAB 12/18/24 Verified 04:00 Phosphorus LAB 12/18/24 Verified 04:00 Amino Acid Infusion PHA 12/17/24 In Process In D10w (Clinimix 4. 22:00 Tpn Per Pharmacy [facility] 12/17/24 In Process 22:00 Change Dressing Prn [facility] 12/17/24 In Process 14:07 Sodium Chloride Lock [facility] 12/17/24 In Process (Saline Lock Ns) 22:00 Do Not [address] Picc For [facility] 12/17/24 In Process Blood Cult 14:[address] [facility] 12/17/24 In Process Picc 14:07 Ok To [address] Picc [facility] 12/17/24 In Process 14:[address] [facility] 12/17/24 In Process Q7 Days 14:07 Temazepam (Restoril) [facility] 12/17/24 In Process 15:00 Electrocardigram EKG 12/17/24 Logged 15:07 Date of Service: Dec 17, 2024 Billing Provider: MARQUEZ ECHEVERRIA NP Common Visit Codes: [id number] INP/OBS CARE(HIGH) MARQUEZ ECHEVERRIA NP Dec 17, 2024 15:33
[2024-12-17] MEDS: SODIUM PHOSPHATES 20 MEQ in SODIUM CHL 0.9% 100 ML IV ONE (16:20)
--- NOTE | 2024-12-17 18:06 | DVHPN2 ---
Progress Note - Dictate Date Seen: Dec 17, 2024 Medical Necessity Reason Pt with a Central, PICC or Fol: No vital signs Vital Sign Date Time Temp Pulse Resp B/P (MAP) Pulse Ox O2 Delivery O2 Flow Rate FiO2 12/17/24 17:30 97.7 98 18 138/79 (98) 97 97.7 12/17/24 08:00 Nasal Cannula* 2 28 Total Intake and Output 12/16/24 12/16/24 12/17/24 15:00 23:00 07:00 Intake Total 400 ml 100 ml 775 ml Balance 400 ml 100 ml 775 ml medications Current Medications Medications Dose Ordered Sig/Minerva Route Start Time Stop Time Status Last Admin Dose Admin Atorvastatin Calcium 80 mg HS PO 12/10/24 22:00 12/16/24 23:06 80 MG Nifedipine 90 mg DAILY PO 12/11/24 10:00 12/17/24 08:57 90 MG Albuterol 2.5 mg Q6HPRN PRN NEB 12/10/24 19:15 Cancel Ondansetron HCl 4 mg Q4HP PRN IV 12/10/24 19:15 12/17/24 11:54 4 MG Nitroglycerin 0.4 mg Q5MINP PRN SL 12/10/24 19:15 Morphine Sulfate 2 mg Q30M PRN IV 12/10/24 19:15 12/10/24 20:37 2 MG Acetaminophen/ Hydrocodone Bitart 1 tab Q4HP PRN PO 12/10/24 19:30 12/15/24 09:10 1 TAB Acetaminophen 650 mg Q6HP PRN PO 12/10/24 19:30 Linezolid 300 ml @ 150 mls/hr Q12HR IV 12/11/24 22:00 12/17/24 10:15 150 MLS/HR Buspirone HCl 5 mg Q12HR PO 12/13/24 22:00 12/17/24 08:57 5 MG Diagnostic Test (Pha) 1 strip Q6HR 12/13/24 18:00 12/17/24 17:27 1 STRIP Insulin Human Regular FOLLOW SLIDING SCALE Q6HR SC 12/13/24 18:00 12/17/24 11:55 4 UNITS Dextrose 50 ml UD IV 12/13/24 14:00 Morphine Sulfate 2 mg Q3HPRN PRN IV 12/15/24 11:00 12/17/24 17:09 2 MG Metoclopramide HCl 10 mg Q8HPRN PRN IV 12/15/24 11:00 12/17/24 16:48 10 MG Hydralazine HCl 10 mg Q6HP PRN IV 12/15/24 11:45 Megestrol Acetate 400 mg DAILY PO 12/16/24 12:45 12/17/24 08:57 400 MG Meropenem 50 ml @ 17 mls/hr Q8HR IV 12/17/24 14:00 12/17/24 12:59 17 MLS/HR Amino Acids 0 ml @ 0 mls/hr PER PHARMACY IV 12/17/24 11:30 Amino Acids 0 ml @ 0 mls/hr PER PHARMACY IV 12/17/24 11:30 UNV Sodium Chloride 10 ml QSHIFT@10,22 IV 12/17/24 22:00 Temazepam 15 mg HSPRN PRN PO 12/17/24 15:00 laboratory and microbiology Laboratory Tests 12/17/24 05:19 Test 12/17/24 05:19 Range/Units Serum Glucose 133 H 74-106 mg/dL Assessment/Plan Impression lung cancer hypoxemia right pleural effusion atelectases pt seen and examined events low oxygen requirements on 2 liters nasal cannula no distress at rest pleurX in am family updated Dietary Evaluation Review Comments: 1) Change Glucerna tid to Nepro tid 2) Encourage optimal PO intake. If poor appetite persists long-term, consider EN/TPN to meet at least 50% of estimated needs 3) Follow-up with oncology, cardiology, pulmonology, and nephrology 4) Continue to monitor I&O, labs, and skin integrity Expected Outcomes/Goals: 1) appetite and labs to improve 2) f/u in 3-5 days Plan discussed with: Patient NELDA BOWIE MD Dec 17, 2024 18:06
[2024-12-17] MEDS: TEMAZEPAM 15 MG CAP PO PRN (19:54)
[2024-12-17] MEDS: SODIUM CHLOR 0.9% PF (SALINE LOCK) 10ML VIAL/SYR IV SCH (21:50)
[2024-12-17] MEDS: AMINO ACID INFUSION IN D10W 1,000 ML IV ONE (21:50)
[2024-12-17] MEDS: LORazepam 0.5 MG TAB PO ONE (23:41)
[2024-12-18] VITALS (7 sets, daily range): BP systolic 111–149; BP diastolic 60–73; PULSE 90–101; RESP 18–21; TEMP 97.8–99; O2SAT 93–98
[2024-12-18 06:58] LABS: Anion Gap 9 (5-15); Bilirubin, Total 0.7 mg/dL (0.2-1.0); Blood Urea Nitrogen 19 mg/dL (9-23); Carbon Dioxide 25 mmol/L (20-31); Chloride 105 mmol/L (98-107); Magnesium 1.6 mg/dL (1.6-2.6); Phosphorus 2.5 mg/dL (2.4-5.1); Sodium 139 mmol/L (136-145)
[2024-12-18 07:01] LABS: Alanine Aminotransferase 227 U/L (7-40); Albumin 2.8 g/dL (3.2-4.8); Aspartate Aminotransferase 138 U/L (<34); Calcium 8.1 mg/dL (8.7-10.4); Glucose 112 mg/dL (74-106); Potassium 3.4 mmol/L (3.5-5.1); Total Protein 4.8 g/dL (5.7-8.2)
[2024-12-18 07:07] LABS: Alkaline Phosphatase 1231 U/L (46-116)
--- NOTE | 2024-12-18 07:43 | ECG ---
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
[2024-12-18] MEDS: LORazepam 2MG/ML-1ML VIAL IV PRN ×2 (11:48→17:10)
--- NOTE | 2024-12-18 14:18 | DVHPN2 ---
Progress Note - Dictate Date Seen: Dec 18, 2024 Medical Necessity Reason Pt with a Central, PICC or Fol: No vital signs Vital Sign Date Time Temp Pulse Resp B/P (MAP) Pulse Ox O2 Delivery O2 Flow Rate FiO2 12/18/24 08:53 95 12 144/63 12/18/24 05:00 98.0 93 98.0 12/17/24 20:00 Nasal Cannula* 2 28 Total Intake and Output 12/17/24 12/17/24 12/18/24 15:00 23:00 07:00 Intake Total 400 ml 50 ml 450 ml Output Total 0 ml Balance 400 ml 50 ml 450 ml medications Current Medications Medications Dose Ordered Sig/Minerva Route Start Time Stop Time Status Last Admin Dose Admin Atorvastatin Calcium 80 mg HS PO 12/10/24 22:00 12/17/24 21:50 80 MG Nifedipine 90 mg DAILY PO 12/11/24 10:00 12/18/24 08:49 90 MG Albuterol 2.5 mg Q6HPRN PRN NEB 12/10/24 19:15 Cancel Ondansetron HCl 4 mg Q4HP PRN IV 12/10/24 19:15 12/18/24 10:09 4 MG Nitroglycerin 0.4 mg Q5MINP PRN SL 12/10/24 19:15 Morphine Sulfate 2 mg Q30M PRN IV 12/10/24 19:15 12/10/24 20:37 2 MG Acetaminophen/ Hydrocodone Bitart 1 tab Q4HP PRN PO 12/10/24 19:30 12/15/24 09:10 1 TAB Acetaminophen 650 mg Q6HP PRN PO 12/10/24 19:30 Linezolid 300 ml @ 150 mls/hr Q12HR IV 12/11/24 22:00 12/18/24 08:47 150 MLS/HR Buspirone HCl 5 mg Q12HR PO 12/13/24 22:00 12/18/24 08:47 5 MG Diagnostic Test (Pha) 1 strip Q6HR 12/13/24 18:00 12/18/24 11:47 1 STRIP Insulin Human Regular FOLLOW SLIDING SCALE Q6HR SC 12/13/24 18:00 12/18/24 05:44 2 UNITS Dextrose 50 ml UD IV 12/13/24 14:00 Morphine Sulfate 2 mg Q3HPRN PRN IV 12/15/24 11:00 12/18/24 08:53 2 MG Metoclopramide HCl 10 mg Q8HPRN PRN IV 12/15/24 11:00 12/17/24 16:48 10 MG Hydralazine HCl 10 mg Q6HP PRN IV 12/15/24 11:45 Megestrol Acetate 400 mg DAILY PO 12/16/24 12:45 12/18/24 08:50 400 MG Meropenem 50 ml @ 17 mls/hr Q8HR IV 12/17/24 14:00 12/18/24 05:40 17 MLS/HR Amino Acids 0 ml @ 0 mls/hr PER PHARMACY IV 12/17/24 11:30 Amino Acids 0 ml @ 0 mls/hr PER PHARMACY IV 12/17/24 11:30 UNV Sodium Chloride 10 ml QSHIFT@10,22 IV 12/17/24 22:00 12/18/24 08:45 10 ML Temazepam 15 mg HSPRN PRN PO 12/17/24 15:00 12/17/24 19:54 15 MG Lorazepam 1 mg Q12HP PRN IV 12/18/24 10:15 12/18/24 11:48 1 MG Fat Emulsion Intravenous 50 ml/ Potassium Chloride 10 meq/ Potassium Phosphate 22 meq/ Magnesium Sulfate 8 meq/ Multivitamins 10 ml/Chromium/ Copper/Manganese/ Zinc 1 ml/Amino Acids/Dextrose 923 ml @ 38 mls/hr [id number] IV 12/18/24 22:00 12/19/24 21:59 Potassium Chloride 100 ml @ 50 mls/hr Q2H IV 12/18/24 13:00 12/18/24 16:59 laboratory and microbiology Laboratory Tests 12/18/24 05:53 12/17/24 05:19 Test 12/18/24 05:53 Range/Units Serum Glucose 112 H 74-106 mg/dL Assessment/Plan Impression lung cancer hypoxemia right pleural effusion atelectases pt seen and examined events low oxygen requirements on 2 liters nasal cannula no distress pleurX was placed at the bedside 1.7 liters of blood tinged fluid was drained see separate note for procedure in detail family updated Dietary Evaluation Review Comments: 1) Change Glucerna tid to Nepro tid 2) Encourage optimal PO intake. If poor appetite persists long-term, consider EN/TPN to meet at least 50% of estimated needs 3) Follow-up with oncology, cardiology, pulmonology, and nephrology 4) Continue to monitor I&O, labs, and skin integrity Expected Outcomes/Goals: 1) appetite and labs to improve 2) f/u in 3-5 days Plan discussed with: Patient NELDA BOWIE MD Dec 18, 2024 14:17
--- NOTE | 2024-12-18 14:22 | DVHNC2 ---
Procedure - Procedure- Right sided pleurx placement ultrasound guided Indication- Recurrent pleural effusion Procedure in detail Consent was obtained and timeout performed per protocol. The patient was placed in the sitting position and ultrasound SonoSite was used to localize pleural fluid. ChloraPrep was used to clean the operative field,sterile drapes to cover the area and Lidocaine for local analgesia. Using right axillary approach, the left pleural space was cannulated and the guide wire was passed via the introducer. Subcutaneous tunneling was achieved with a laborer construction or leak gang and size 15.5 [place] pleurx catheter was advanced in the left pleural space via peel-away technique. Pleurx catheter was then attached to the suction bottle and approximately 1.7 liters of blood tinged fluid was drained. At the end of the procedure the catheter was capped and secured with 2 sutures. Patient tolerated the procedure well, no complications. Chest-x ray ordered. NELDA BOWIE MD Dec 18, 2024 14:22
[2024-12-18] MEDS: POTASSIUM CHL 20MEQ/100ML 100 ML IV SCH (14:24)
--- NOTE | 2024-12-18 15:54 | DVHPN2 ---
Subjective Seen and examined at bedside, I also spoke with the daughter Selin. Discussed goals of care and diagnosis with the patient and daughter. Patient wishes to be discharged with hospice tomorrow and is DNR/DNI Reviewed: Care Plan, H&P, Labs, Medications Changes from previous H/P or p: No Changes General: Per HPI Objective Vitals Vital Signs Date Time Temp Pulse Resp B/P (MAP) Pulse Ox O2 Delivery O2 Flow Rate FiO2 12/18/24 14:31 96 21 149/66 12/18/24 08:00 Nasal Cannula* 2 28 12/18/24 05:00 98.0 93 98.0 Intake/Output Intake and Output 12/18/24 07:00 Intake Total 900 ml Output Total 0 ml Balance 900 ml Intake Oral 100 ml IV Total 800 ml Output Stool Total 0 ml # Voids 6 General Appearance: Alert, Oriented X3, Cooperative, Other (Oriented to name and place) HEENT: Atraumatic, PERRLA Lungs: Other (Decreased breath sounds in right lung) Cardiovascular: Normal S1, Normal S2 Musculoskeletal: Normal sensory function, Normal motor function Neuro: Cranial nerves 3-12 NL Skin: Dry, Intact Psych/Mental Status: Mental status NL, Mood NL Medications Current Medications Medications Dose Ordered Sig/Minerva Route Start Time Stop Time Status Last Admin Dose Admin Atorvastatin Calcium 80 mg HS PO 12/10/24 22:00 12/17/24 21:50 80 MG Nifedipine 90 mg DAILY PO 12/11/24 10:00 12/18/24 08:49 90 MG Albuterol 2.5 mg Q6HPRN PRN NEB 12/10/24 19:15 Cancel Ondansetron HCl 4 mg Q4HP PRN IV 12/10/24 19:15 12/18/24 10:09 4 MG Nitroglycerin 0.4 mg Q5MINP PRN SL 12/10/24 19:15 Morphine Sulfate 2 mg Q30M PRN IV 12/10/24 19:15 12/10/24 20:37 2 MG Acetaminophen/ Hydrocodone Bitart 1 tab Q4HP PRN PO 12/10/24 19:30 12/15/24 09:10 1 TAB Acetaminophen 650 mg Q6HP PRN PO 12/10/24 19:30 Linezolid 300 ml @ 150 mls/hr Q12HR IV 12/11/24 22:00 12/18/24 08:47 150 MLS/HR Buspirone HCl 5 mg Q12HR PO 12/13/24 22:00 12/18/24 08:47 5 MG Diagnostic Test (Pha) 1 strip Q6HR 12/13/24 18:00 12/18/24 11:47 1 STRIP Insulin Human Regular FOLLOW SLIDING SCALE Q6HR SC 12/13/24 18:00 12/18/24 05:44 2 UNITS Dextrose 50 ml UD IV 12/13/24 14:00 Morphine Sulfate 2 mg Q3HPRN PRN IV 12/15/24 11:00 12/18/24 14:31 2 MG Metoclopramide HCl 10 mg Q8HPRN PRN IV 12/15/24 11:00 12/17/24 16:48 10 MG Hydralazine HCl 10 mg Q6HP PRN IV 12/15/24 11:45 Megestrol Acetate 400 mg DAILY PO 12/16/24 12:45 12/18/24 08:50 400 MG Meropenem 50 ml @ 17 mls/hr Q8HR IV 12/17/24 14:00 12/18/24 05:40 17 MLS/HR Amino Acids 0 ml @ 0 mls/hr PER PHARMACY IV 12/17/24 11:30 Amino Acids 0 ml @ 0 mls/hr PER PHARMACY IV 12/17/24 11:30 UNV Sodium Chloride 10 ml QSHIFT@10,22 IV 12/17/24 22:00 12/18/24 08:45 10 ML Temazepam 15 mg HSPRN PRN PO 12/17/24 15:00 12/17/24 19:54 15 MG Lorazepam 1 mg Q12HP PRN IV 12/18/24 10:15 12/18/24 11:48 1 MG Fat Emulsion Intravenous 50 ml/ Potassium Chloride 10 meq/ Potassium Phosphate 22 meq/ Magnesium Sulfate 8 meq/ Multivitamins 10 ml/Chromium/ Copper/Manganese/ Zinc 1 ml/Amino Acids/Dextrose 923 ml @ 38 mls/hr [id number] IV 12/18/24 22:00 12/19/24 21:59 Potassium Chloride 100 ml @ 50 mls/hr Q2H IV 12/18/24 13:00 12/18/24 16:59 12/18/24 14:24 50 MLS/HR Laboratory Results Laboratory Tests 12/17/24 05:19 12/18/24 05:53 Chemistry Test 12/18/24 05:53 Albumin 2.8 g/dL (3.2-4.8) L Calcium Level 8.1 mg/dL (8.7-10.4) L Magnesium Level 1.6 mg/dL (1.6-2.6) Phosphorus Level 2.5 mg/dL (2.4-5.1) Total Protein 4.8 g/dL (5.7-8.2) L LFT Test 12/18/24 05:53 Alanine Aminotransferase (ALT) 227 U/L (7-40) H Alkaline Phosphatase 1231 U/L (46-116) H Aspartate Amino Transferase (AST) 138 U/L (<34) H Total Bilirubin 0.7 mg/dL (0.2-1.0) Microbiology Microbiology Date/Time Source Procedure Growth Status 12/11/24 03:10 Nose MRSA Screen - Final Complete 12/10/24 14:45 Pleural Fluid Gram Stain - Final Complete 12/10/24 14:45 Pleural Fluid Aerobic Culture - Final Complete Assessment/Plan Assessment/Plan -acute hypoxic respiratory failure -large right pleural effusion -sepsis, unknown origin -history of DVT -history of polysubstance abuse -primary hypertension -pulmonary adenocarcinoma Plan: DC with hospice tomorrow. Goals of care discussion >18 mins DNR/DNI Plan discussed with: Patient, Daughter My Orders Orders - STEVEN VARELA MD Procedure Category Date Status Time * Intensive Care Nurse CONS 12/18/24 Transmitted Consult Carcinoembryonic LAB 12/18/24 Logged Antigen 15:39 Carbohydrate Antigen LAB 12/18/24 Logged 19-9 15:39 Ca 125 (Serial) LAB 12/18/24 Logged 15:39 Ca 27.29 LAB 12/18/24 Logged 15:39 Afp Serum Tumor Marker LAB 12/18/24 Logged 15:40 DNR TATUM 12/18/24 In Process Code Status CODE 12/18/24 Transmitted 15:49 Date of Service: Dec 18, 2024 Billing Provider: STEVEN VARELA MD Common Visit Codes: [id number] INP/OBS CARE(HIGH) Secondary Visit Codes: 92980-[id number] CARE PLAN 30 MINUTES STEVEN VARELA MD Dec 18, 2024 15:54
--- NOTE | 2024-12-18 16:47 | DVH ---
CHEST RADIOGRAPH Indication: Post Pleurx Insertion Technique: Single frontal view of the chest was obtained COMPARISON: XY CHEST XRAY 1 VIEW on DOS: 12/17/24, XY CHEST PORTABLE on DOS: 12/12/24, XY CHEST XRAY 1 VIEW on DOS: 12/11/24, XY CHEST PORTABLE on DOS: 12/10/24, XY CHEST PORTABLE on DOS: 12/10/24 FINDINGS: Lines and Tubes: Right PICC in satisfactory position. Right pleurX in-situ. Lungs: Multifocal right lung airspace disease. Pleura: No effusion. Small right apical pneumothorax. Cardiomediastinal contours: Unremarkable Bones: Unremarkable IMPRESSION: Expected small right ex vacuo pneumothorax post right pleurX catheter placement.
[2024-12-18] MEDS: TPN PER PHARMACY IV NR (21:14)
[2024-12-19] VITALS (7 sets, daily range): BP systolic 105–134; BP diastolic 56–63; PULSE 83–95; RESP 16–19; TEMP 96.3–98.2; O2SAT 96–99
[2024-12-19 06:35] LABS: Anion Gap 8 (5-15); BUN/Creatinine Ratio 20.5 (10.0-20.0); Bilirubin, Total 0.5 mg/dL (0.2-1.0); Carbon Dioxide 23 mmol/L (20-31); Chloride 107 mmol/L (98-107); Magnesium 1.8 mg/dL (1.6-2.6); Phosphorus 2.5 mg/dL (2.4-5.1); Potassium 4.4 mmol/L (3.5-5.1); Sodium 138 mmol/L (136-145)
[2024-12-19 06:44] LABS: Alanine Aminotransferase 169 U/L (7-40); Aspartate Aminotransferase 97 U/L (<34); Blood Urea Nitrogen 27 mg/dL (9-23); Calcium 8.2 mg/dL (8.7-10.4); Glucose 118 mg/dL (74-106); Total Protein 4.5 g/dL (5.7-8.2)
[2024-12-19 07:00] LABS: Albumin 2.7 g/dL (3.2-4.8); Alkaline Phosphatase 1145 U/L (46-116)
[2024-12-19 11:21] LABS: Urine Bacteria FEW /hpf (None Seen); Urine Blood TRACE /uL (Negative); Urine Budding Yeast MANY /hpf (None Seen); Urine Clarity Turbid (Clear); Urine Color Yellow (Yellow); Urine Protein, UAD Negative (Negative); Urine Specific Gravity 1.011 (1.001-1.035); Urine Squamous Epithelial Cell FEW /hpf (<5); Urine Urobilinogen 2 mg/dL (Negative); Urine WBC 16 /HPF (0-5); Urine pH 5.5 (5.0-9.0)
--- NOTE | 2024-12-19 13:40 | DVHDS2 ---
Discharge Summary Date of Admission Dec 10, 2024 at 19:14 Date of Discharge: Dec 20, 2024 Admitting Diagnosis acute hypoxic respiratory failure Labs/Diagnostic Data: Laboratory Results Test 12/19/24 05:35 12/19/24 00:19 12/18/24 18:55 12/18/24 16:20 Sodium Level 138 mmol/L (136-145) Potassium Level 4.4 mmol/L (3.5-5.1) Chloride Level 107 mmol/L (98-107) Carbon Dioxide Level 23 mmol/L (20-31) Anion Gap 8 (5-15) Blood Urea Nitrogen 27 mg/dL (9-23) Creatinine 1.32 mg/dL (0.550-1.02) Glomerular Filtration Rate Calc 45 mL/min (>90) BUN/Creatinine Ratio 20.5 (10.0-20.0) Serum Glucose 118 mg/dL (74-106) Calcium Level 8.2 mg/dL (8.7-10.4) Phosphorus Level 2.5 mg/dL (2.4-5.1) Magnesium Level 1.8 mg/dL (1.6-2.6) Total Bilirubin 0.5 mg/dL (0.2-1.0) Aspartate Amino Transferase (AST) 97 U/L (<34) Alanine Aminotransferase (ALT) 169 U/L (7-40) Alkaline Phosphatase 1145 U/L (46-116) Total Protein 4.5 g/dL (5.7-8.2) Albumin 2.7 g/dL (3.2-4.8) POC Glucose 161 mg/dl (70-106) Urine Color Yellow (Yellow) Urine Clarity Turbid (Clear) Urine pH 5.5 (5.0-9.0) Urine Specific [place] 1.011 (1.001-1.035) Urine Protein Negative (Negative) Urine Ketones Negative (Negative) Urine Blood Trace /uL (Negative) Urine Nitrite Negative (Negative) Urine Bilirubin Negative (Negative) Urine Urobilinogen 2 mg/dL (Negative) Urine Leukocyte Esterase 1+ /uL (Negative) Urine RBC 4 /hpf (0 - 4) Urine Microscopic WBC 16 /HPF (0-5) Urine Squamous Epithelial Cells Few /hpf (<5) Urine Bacteria Few /hpf (None Seen) Urine Yeast (Budding) Many /hpf (None Seen) Urine Glucose Normal mg/dL (Normal) Carcinoembryonic Antigen 4.45 ng/mL (<=5.0) Test 12/17/24 05:19 12/16/24 16:46 12/16/24 08:33 12/13/24 13:20 White Blood Count 20.4 10^3/uL (4.4-10.8) Red Blood Count 3.45 10^6/uL (4.0-5.20) Hemoglobin 9.8 g/dL (12.2-16.2) Hematocrit 30.3 % (36.0-46.0) Mean Corpuscular Volume 87.8 fL (80.0-100.0) Mean Corpuscular Hemoglobin 28.5 pg (28.0-32.0) Mean Corpuscular Hemoglobin Concent 32.5 g/dL (32.0-36.0) Red Cell Distribution Width 14.8 % (11.8-14.3) Platelet Count 410 10^3/uL (140-450) Mean Platelet Volume 8.6 fL (6.9-10.8) Neutrophils (%) (Auto) % (37.0-80.0) Lymphocytes (%) (Auto) % (10.0-50.0) Monocytes (%) (Auto) % (0.0-12.0) Basophils (%) (Auto) % (0.0-2.0) Neutrophils # (Auto) 10 ^3/uL (1.6-8.6) Lymphocytes # (Auto) 10 ^3/uL (0.4-5.4) Monocytes # (Auto) 10 ^3/uL (0-1.3) Differential Total Cells Counted 100.0 (100) Neutrophils % (Manual) 64 (37.0-80.0) Band Neutrophils % (Manual) 0 Lymphocytes % (Manual) 14 (10.0-50.0) Monocytes % (Manual) 2 (0-12) Eosinophils % (Manual) 20 (0-7) Basophils % (Manual) 0 (0.0-2.0) Metamyelocytes % (manual) 0 Myelocytes % (Manual) 0 Promyelocytes % (Manual) 0 Blast Cells % (Manual) 0 Reactive Lymphocytes 0 Platelet Estimate Adequate Large Platelets Few Giant Platelets Few Ammonia < 10 umol/L (11-32) Prothrombin Time 13.4 sec (9.3-11.8) Prothrombin Time INR 1.30 (0.9-1.15) Activated Partial Thromboplast Time 28.5 SEC (24.5-34.5) Eosinophils (%) (Auto) 14.8 % (0.0-7.0) Eosinophils # (Auto) 2.7 10 ^3/uL (0-0.8) Basophils # (Auto) 0.2 10 ^3/uL (0-0.2) Nucleated Red Blood Cells 0.0 % Direct Bilirubin 0.4 mg/dL (<0.3) Triglycerides Level 113 mg/dL (< 150) Test 12/11/24 06:00 12/10/24 14:45 12/10/24 12:14 Troponin I High Sensitivity 68 ng/L (</=34) Hepatitis B Surface Antigen Negative (Negative) Hepatitis C Antibody Negative (Negative) Body Fluid Source Pleural fluid Body Fluid pH 8.0 Body Fluid WBC (Manual) 47 CUMM (0-200) Body Fluid RBC (Manual) [id number] CUMM (0-2000) Body Fluid Mononuclear Cells 65 % Body Fluid Polymorphonuclear Cells 35 % (0-25) Body Fluid Glucose 110 mg/dL (.) Body Fluid Total Protein 3.6 g/dL (.) Body Fluid Lactate Dehydrogenase 428 IU/L (.) B-Type Natriuretic Peptide 34.26 pg/mL (0-100) Other Laboratory Tests 12/19/24 05:35 12/17/24 05:19 Brief Hx & Hospital Course: 64-year-old female presents for evaluation of shortness for breath. Patient reports a two day history of worsening shortness for breath with wheezing. Patient was transferred from [place] post acute care after she was noted to be hypoxic in the low 90s on 3 L of nasal cannula. Patient underwent CT Scan of the chest and thoracentesis was done. Patient was found to have Lung cancer with extensive mets. After much discussion, patient wishes to be discharged with hospice. Condition at Discharge: Poor Final Diagnosis/Problems List -acute hypoxic respiratory failure -large right pleural effusion -sepsis, unknown origin -history of DVT -history of polysubstance abuse -primary hypertension -pulmonary adenocarcinoma Discharge Disposition: Hospice - Home Discharge Instruct/Medications Diet: Regular, See Comment Diet comment: per hospice md Activity: Light activity Follow Up/Referral: per hospice MD Medications: per hospice MD Discharge Statement: "Patient was advised to return to the ER or call 911 if any headaches, dizziness, shortness of breath, chest pain, abdominal pain, bleeding, fevers, or worsening of medical condition. Patient was counseled about treatment plan, medications, possible side effects, patientverbalized understanding. All questions were answered to the best of my ability. This discharge took greater then 30 minutes in planning, reviewing documentation, counseling the patient, and discussing with other team members." ASSESSMENT ASSESSMENT Assessment -acute hypoxic respiratory failure -large right pleural effusion -sepsis, unknown origin -history of DVT -history of polysubstance abuse -primary hypertension -pulmonary adenocarcinoma Date of Service: Dec 19, 2024 Billing Provider: STEVEN VARELA MD Common Visit Codes: [id number]/[id number] DISCH DAY >30min STEVEN VARELA MD Dec 19, 2024 13:40
--- NOTE | 2024-12-19 16:28 | DVHPN2 ---
Progress Note - Dictate Date Seen: Dec 19, 2024 Medical Necessity Reason Pt with a Central, PICC or Fol: No vital signs Vital Sign Date Time Temp Pulse Resp B/P (MAP) Pulse Ox O2 Delivery O2 Flow Rate FiO2 12/19/24 13:00 96.3 86 16 134/61 (85) 96 96.3 12/19/24 07:40 Nasal Cannula* 2 28 Total Intake and Output 12/18/24 12/18/24 12/19/24 15:00 23:00 07:00 Intake Total 350 ml 1150 ml 400 ml Output Total 120 ml Balance 350 ml 1150 ml 280 ml medications Current Medications Medications Dose Ordered Sig/Minerva Route Start Time Stop Time Status Last Admin Dose Admin Atorvastatin Calcium 80 mg HS PO 12/10/24 22:00 12/18/24 21:11 80 MG Nifedipine 90 mg DAILY PO 12/11/24 10:00 12/19/24 08:51 90 MG Albuterol 2.5 mg Q6HPRN PRN NEB 12/10/24 19:15 Cancel Ondansetron HCl 4 mg Q4HP PRN IV 12/10/24 19:15 12/19/24 02:17 4 MG Nitroglycerin 0.4 mg Q5MINP PRN SL 12/10/24 19:15 Morphine Sulfate 2 mg Q30M PRN IV 12/10/24 19:15 12/10/24 20:37 2 MG Acetaminophen/ Hydrocodone Bitart 1 tab Q4HP PRN PO 12/10/24 19:30 12/15/24 09:10 1 TAB Acetaminophen 650 mg Q6HP PRN PO 12/10/24 19:30 Linezolid 300 ml @ 150 mls/hr Q12HR IV 12/11/24 22:00 12/19/24 08:50 150 MLS/HR Buspirone HCl 5 mg Q12HR PO 12/13/24 22:00 12/19/24 08:50 5 MG Diagnostic Test (Pha) 1 strip Q6HR 12/13/24 18:00 12/19/24 11:14 1 STRIP Insulin Human Regular FOLLOW SLIDING SCALE Q6HR SC 12/13/24 18:00 12/19/24 11:15 2 UNITS Dextrose 50 ml UD IV 12/13/24 14:00 Morphine Sulfate 2 mg Q3HPRN PRN IV 12/15/24 11:00 12/19/24 11:16 2 MG Metoclopramide HCl 10 mg Q8HPRN PRN IV 12/15/24 11:00 12/17/24 16:48 10 MG Hydralazine HCl 10 mg Q6HP PRN IV 12/15/24 11:45 Megestrol Acetate 400 mg DAILY PO 12/16/24 12:45 12/19/24 08:52 400 MG Meropenem 50 ml @ 17 mls/hr Q8HR IV 12/17/24 14:00 12/19/24 13:30 17 MLS/HR Amino Acids 0 ml @ 0 mls/hr PER PHARMACY IV 12/17/24 11:30 Amino Acids 0 ml @ 0 mls/hr PER PHARMACY IV 12/17/24 11:30 UNV Sodium Chloride 10 ml QSHIFT@10,22 IV 12/17/24 22:00 12/19/24 08:41 10 ML Temazepam 15 mg HSPRN PRN PO 12/17/24 15:00 12/17/24 19:54 15 MG Fat Emulsion Intravenous 50 ml/ Potassium Chloride 10 meq/ Potassium Phosphate 22 meq/ Magnesium Sulfate 8 meq/ Multivitamins 10 ml/Chromium/ Copper/Manganese/ Zinc 1 ml/Amino Acids/Dextrose 923 ml @ 38 mls/hr [id number] IV 12/18/24 22:00 12/19/24 21:59 12/18/24 21:14 38 MLS/HR Lorazepam 1 mg Q8HP PRN IV 12/18/24 16:45 12/19/24 13:08 1 MG Amino Acids/ Electrolytes/ Dextrose 1,000 ml @ 41 mls/hr DAILY@2200 IV 12/19/24 22:00 12/20/24 21:59 laboratory and microbiology Laboratory Tests 12/19/24 05:35 12/17/24 05:19 Test 12/19/24 05:35 Range/Units Serum Glucose 118 H 74-106 mg/dL Assessment/Plan Impression lung cancer hypoxemia right pleural effusion atelectases pt seen and examined events no distress CXR minimal right pneumothorax possibly trapped lung continue pain control and supportive care hospice Dietary Evaluation Review Comments: 1) Change Glucerna tid to Nepro tid 2) Encourage optimal PO intake. If poor appetite persists long-term, consider EN/TPN to meet at least 50% of estimated needs 3) Follow-up with oncology, cardiology, pulmonology, and nephrology 4) Continue to monitor I&O, labs, and skin integrity Expected Outcomes/Goals: 1) appetite and labs to improve 2) f/u in 3-5 days Plan discussed with: Other (rn) NELDA BOWIE MD Dec 19, 2024 16:28
[2024-12-19] MEDS: AMINO ACID INFUSION IN D10W 1,000 ML IV SCH (21:14)
[2024-12-20 01:00] VITALS: BP 124/56; PULSE 85; RESP 19; TEMP 97.7; O2SAT 99
[2024-12-20 05:00] VITALS: BP 133/54; PULSE 81; RESP 18; TEMP 98.9; O2SAT 98
[2024-12-20 06:46] LABS: Anion Gap 8 (5-15); BUN/Creatinine Ratio 25.7 (10.0-20.0); Bilirubin, Total 0.5 mg/dL (0.2-1.0); Calcium 8.9 mg/dL (8.7-10.4); Carbon Dioxide 23 mmol/L (20-31); Phosphorus 2.7 mg/dL (2.4-5.1); Potassium 4.5 mmol/L (3.5-5.1); Sodium 140 mmol/L (136-145)
[2024-12-20 06:56] LABS: Alanine Aminotransferase 113 U/L (7-40); Albumin 2.8 g/dL (3.2-4.8); Alkaline Phosphatase 1141 U/L (46-116); Aspartate Aminotransferase 64 U/L (<34); Blood Urea Nitrogen 28 mg/dL (9-23); Chloride 109 mmol/L (98-107); Glucose 115 mg/dL (74-106)
[2024-12-20 07:20] LABS: Magnesium 1.9 mg/dL (1.6-2.6)
[2024-12-20 08:00] VITALS: RESP 18
[2024-12-20 08:07] LABS: Cancer Antigen (CA) 125 54.8 U/mL (0.0-38.1); Carbohydrate Antigen 19-9 <2 U/mL (0-35)
[2024-12-20 13:10] VITALS: BP 118/62; PULSE 72; RESP 17; TEMP 98.2; O2SAT 100
--- NOTE | 2024-12-20 13:38 | DVHPN2 ---
Progress Note - Dictate Date Seen: Dec 20, 2024 Medical Necessity Reason Pt with a Central, PICC or Fol: No vital signs Vital Sign Date Time Temp Pulse Resp B/P (MAP) Pulse Ox O2 Delivery O2 Flow Rate FiO2 12/20/24 13:10 98.2 72 17 118/62 (80) 100 98.2 12/20/24 08:00 Nasal Cannula* 2 28 Total Intake and Output 12/19/24 12/19/24 12/20/24 15:00 23:00 07:00 Intake Total 350 ml 0 ml 450 ml Output Total 400 ml 600 ml Balance 350 ml -400 ml -150 ml medications Current Medications Medications Dose Ordered Sig/Minerva Route Start Time Stop Time Status Last Admin Dose Admin Atorvastatin Calcium 80 mg HS PO 12/10/24 22:00 12/19/24 21:12 80 MG Nifedipine 90 mg DAILY PO 12/11/24 10:00 12/20/24 09:48 90 MG Albuterol 2.5 mg Q6HPRN PRN NEB 12/10/24 19:15 Cancel Ondansetron HCl 4 mg Q4HP PRN IV 12/10/24 19:15 12/20/24 03:27 4 MG Nitroglycerin 0.4 mg Q5MINP PRN SL 12/10/24 19:15 Morphine Sulfate 2 mg Q30M PRN IV 12/10/24 19:15 12/10/24 20:37 2 MG Acetaminophen/ Hydrocodone Bitart 1 tab Q4HP PRN PO 12/10/24 19:30 12/15/24 09:10 1 TAB Acetaminophen 650 mg Q6HP PRN PO 12/10/24 19:30 Linezolid 300 ml @ 150 mls/hr Q12HR IV 12/11/24 22:00 12/20/24 09:48 150 MLS/HR Buspirone HCl 5 mg Q12HR PO 12/13/24 22:00 12/20/24 09:47 5 MG Diagnostic Test (Pha) 1 strip Q6HR 12/13/24 18:00 12/20/24 12:00 1 STRIP Insulin Human Regular FOLLOW SLIDING SCALE Q6HR SC 12/13/24 18:00 12/19/24 11:15 2 UNITS Dextrose 50 ml UD IV 12/13/24 14:00 Morphine Sulfate 2 mg Q3HPRN PRN IV 12/15/24 11:00 12/20/24 11:06 2 MG Metoclopramide HCl 10 mg Q8HPRN PRN IV 12/15/24 11:00 12/17/24 16:48 10 MG Hydralazine HCl 10 mg Q6HP PRN IV 12/15/24 11:45 Megestrol Acetate 400 mg DAILY PO 12/16/24 12:45 12/20/24 09:47 400 MG Meropenem 50 ml @ 17 mls/hr Q8HR IV 12/17/24 14:00 12/20/24 05:45 17 MLS/HR Amino Acids 0 ml @ 0 mls/hr PER PHARMACY IV 12/17/24 11:30 Amino Acids 0 ml @ 0 mls/hr PER PHARMACY IV 12/17/24 11:30 UNV Sodium Chloride 10 ml QSHIFT@10,22 IV 12/17/24 22:00 12/20/24 09:48 10 ML Temazepam 15 mg HSPRN PRN PO 12/17/24 15:00 12/19/24 21:12 15 MG Lorazepam 1 mg Q8HP PRN IV 12/18/24 16:45 12/20/24 06:04 1 MG Amino Acids/ Electrolytes/ Dextrose 1,000 ml @ 41 mls/hr DAILY@2200 IV 12/19/24 22:00 12/20/24 21:59 12/19/24 21:14 41 MLS/HR laboratory and microbiology Laboratory Tests 12/20/24 06:19 12/17/24 05:19 Test 12/20/24 06:19 Range/Units Serum Glucose 115 H 74-106 mg/dL Assessment/Plan Impression lung cancer hypoxemia right pleural effusion atelectases pt seen and examined events low oxygen requirements on 2 liters nasal cannula no avute events right sided pleurX in place CXR minimal right pneumothorax possibly trapped lung management continue pain control and supportive long term health- drain up to 1 liter twice a week from pleurX hospice Dietary Evaluation Review Comments: 1) Change Glucerna tid to Nepro tid 2) Encourage optimal PO intake. If poor appetite persists long-term, consider EN/TPN to meet at least 50% of estimated needs 3) Follow-up with oncology, cardiology, pulmonology, and nephrology 4) Continue to monitor I&O, labs, and skin integrity Expected Outcomes/Goals: 1) appetite and labs to improve 2) f/u in 3-5 days Plan discussed with: Patient NELDA BOWIE MD Dec 20, 2024 13:38
[2024-12-24 14:07] LABS: CA 27.29 64.4 U/mL (0.0-38.6)
== END 2024-12-20 14:25 | disposition hospice, home (50) | DRG 871 ==
LOC: EDUNIT# 11:46 → EDBD 11:46 → ER 11:46 → OVERFLOW 19:14 → TELE-EAST 23:15 → EAST 12-19 05:54
PROVIDERS: ADMIT Internal Medicine; ATTEND Internal Medicine
PROC: 0W993ZZ Drainage of Right Pleural Cavity, Percutaneous Approach (ICD-10-PCS; principal; 2024-12-10)
PROC: 02HV33Z Insertion of Infusion Device into Superior Vena Cava, Percutaneous Approach (ICD-10-PCS; 2024-12-17)
DX: A41.9 Sepsis, unspecified organism (principal); J96.01 Acute respiratory failure with hypoxia; J90 Pleural effusion, not elsewhere classified; C80.0 Disseminated malignant neoplasm, unspecified; N17.9 Acute kidney failure, unspecified; C34.91 Malignant neoplasm of unspecified part of right bronchus or lung; C76.8 Malignant neoplasm of other specified ill-defined sites; Z66 Do not resuscitate; I10 Essential (primary) hypertension; D64.9 Anemia, unspecified; F31.9 Bipolar disorder, unspecified; F41.9 Anxiety disorder, unspecified; J44.9 Chronic obstructive pulmonary disease, unspecified; I48.91 Unspecified atrial fibrillation; F17.210 Nicotine dependence, cigarettes, uncomplicated; E78.5 Hyperlipidemia, unspecified; R79.89 Other specified abnormal findings of blood chemistry; R74.01 Elevation of levels of liver transaminase levels; Z90.710 Acquired absence of both cervix and uterus; Z86.73 Personal history of transient ischemic attack (TIA), and cerebral infarction without residual deficits; Z86.718 Personal history of other venous thrombosis and embolism; Z85.118 Personal history of other malignant neoplasm of bronchus and lung; Z90.49 Acquired absence of other specified parts of digestive tract; I25.2 Old myocardial infarction; Z82.49 Family history of ischemic heart disease and other diseases of the circulatory system; Z80.3 Family history of malignant neoplasm of breast; Z79.899 Other long term (current) drug therapy; Z79.01 Long term (current) use of anticoagulants; Z88.5 Allergy status to narcotic agent; Z88.0 Allergy status to penicillin
CPT/HCPCS: 32555; 36415; 36569; 70450; 70551; 71045; 71250; 71260; 74018; 74177; 76604; 76705; 76937; 76942; 80048; 80053; 80076; 81001; 82040; 82105; 82140; 82378; 82962; 83735; 83880; 83986; 84100; 84478; 84484; 85007; 85025; 85027; 85610; 85730; 86300; 86301; 86304; 86803; 86850; 86900; 86901; 87070; 87081; 87086; 87088; 87205; 87340; 89051; 93005; 94640; 96374; G0378; J1815; J1956; J2185; J2405; J3480